=== PATIENT | male | born 1980 ===

== ENCOUNTER → 2020-05-09 13:01 | Outpatient (BNVA) | payer OTHER, SELFPAY | PROVIDERS: PCP Nurse Practitioner Family; Visit Provider Surgery Vascular Surgery | DX: I83.11 Varicose veins of right lower extremity with inflammation (principal); E11.9 Type 2 diabetes mellitus without complications; F17.210 Nicotine dependence, cigarettes, uncomplicated | CPT/HCPCS: 99213 ==

== ENCOUNTER → 2020-05-11 | Outpatient (BNVA) | payer OTHER, SELFPAY | PROVIDERS: PCP Nurse Practitioner Family; Referring Provider Nurse Practitioner Family; Visit Provider Internal Medicine Endocrinology, Diabetes & Metabolism | DX: K86.1 Other chronic pancreatitis (principal); E08.22 Diabetes mellitus due to underlying condition with diabetic chronic kidney disease; I12.9 Hypertensive chronic kidney disease with stage 1 through stage 4 chronic kidney disease, or unspecified chronic kidney disease; N18.30 Chronic kidney disease, stage 3 unspecified; E66.9 Obesity, unspecified; E29.1 Testicular hypofunction; E78.1 Pure hyperglyceridemia; Z79.4 Long term (current) use of insulin; Z79.899 Other long term (current) drug therapy | CPT/HCPCS: 82947; 95251; 96372; 99214 ==

== ENCOUNTER → 2020-05-26 12:28 | Outpatient (BNVA) | payer OTHER, SELFPAY | PROVIDERS: PCP Nurse Practitioner Family; Visit Provider Surgery Vascular Surgery | DX: I83.11 Varicose veins of right lower extremity with inflammation (principal) | CPT/HCPCS: 36482 ==

== ENCOUNTER 2020-05-29 12:54 | Outpatient (REF) | payer OTHER, SELFPAY ==
--- NOTE | 2020-05-29 | US_ITS ---
EXAMINATION: US VENOUS ULTRASOUND WITH DOPPLER LOWER EXTREMITY, RIGHT CLINICAL INFORMATION: Status post VenaSeal. COMPARISON: None. TECHNIQUE: Ultrasound of the deep veins is performed from the hip to the calf with compression sonography and color and pulse Doppler assessment. Spectral analysis with color-flow imaging is performed. FINDINGS: There is normal venous compression and respiratory variation and augmented flow. The visualized common femoral vein, superficial femoral vein, profunda femoral vein, popliteal vein, and the trifurcation region shows no evidence of deep venous thrombosis. There is no significant popliteal fossa cyst. There is a clot in greatest saphenous vein approximate 5 cm from the common femoral venous junction with no flow seen. Incidentally noted is a lymph node proximal thigh measuring 4.1 x 1.5 x 3.0 cm. US/US venous duplex LE RT IMPRESSION: No evidence of DVT. There is a clot in the greater saphenous vein 5 cm from the common femoral venous junction status post VenaSeal.
== END 2020-05-29 12:55 | disposition home or self-care (01) ==
LOC: HO.HMGCX 12:54
PROVIDERS: PCP Nurse Practitioner Family; Visit Provider Surgery Vascular Surgery
DX: M79.604 Pain in right leg (principal)
CPT/HCPCS: 93971

== ENCOUNTER → 2020-06-08 15:24 | Outpatient (BNVA) | payer OTHER, SELFPAY | PROVIDERS: PCP Nurse Practitioner Family; Visit Provider Surgery Vascular Surgery | DX: I83.11 Varicose veins of right lower extremity with inflammation (principal); Z98.890 Other specified postprocedural states | CPT/HCPCS: 99212 ==

== ENCOUNTER → 2020-07-06 11:16 | Outpatient (BNVA) | payer OTHER, SELFPAY | PROVIDERS: PCP Nurse Practitioner Family; Visit Provider Surgery Vascular Surgery | DX: I83.11 Varicose veins of right lower extremity with inflammation (principal) | CPT/HCPCS: 99212 ==

== ENCOUNTER → 2020-08-15 13:31 | Outpatient (BNVA) | payer OTHER, SELFPAY | PROVIDERS: PCP Nurse Practitioner Family; Referring Provider Nurse Practitioner Family; Visit Provider Internal Medicine Endocrinology, Diabetes & Metabolism | DX: E13.9 Other specified diabetes mellitus without complications (principal); Z79.4 Long term (current) use of insulin; I10 Essential (primary) hypertension; E66.9 Obesity, unspecified; E29.1 Testicular hypofunction; E78.1 Pure hyperglyceridemia; N18.30 Chronic kidney disease, stage 3 unspecified; S36.209S Unspecified injury of unspecified part of pancreas, sequela | CPT/HCPCS: 82947; 99212 ==

== ENCOUNTER → 2020-08-18 11:02 | Outpatient (BNVA) | payer OTHER, SELFPAY | PROVIDERS: PCP Nurse Practitioner Family; Referring Provider Nurse Practitioner Family; Visit Provider Internal Medicine Gastroenterology ==

== ENCOUNTER → 2020-08-22 14:16 | Outpatient (BNVA) | payer OTHER, SELFPAY | PROVIDERS: PCP Nurse Practitioner Family; Visit Provider Surgery Vascular Surgery | DX: I83.11 Varicose veins of right lower extremity with inflammation (principal) | CPT/HCPCS: 99212 ==

== ENCOUNTER 2020-08-29 | Outpatient (REF) | payer OTHER, SELFPAY ==
--- NOTE | 2020-08-29 10:23 | US_ITS ---
EXAMINATION: RIGHT LOWER EXTREMITY VENOUS ULTRASOUND (Reflux Exam) CLINICAL INDICATION: Post greater saphenous vena seal procedure April 2020 COMPARISON: Previous exams most recent May 2020 TECHNIQUE: Color flow triplex imaging and compression Doppler was performed to evaluate both the deep and the superficial systems bilaterally. To evaluate the superficial system, the examination was performed in the upright position. Color-flow Doppler ultrasound and compression ultrasound were utilized. In addition, maneuvers were utilized to demonstrate reflux. FINDINGS: 1. DEEP VENOUS ULTRASOUND OF THE RIGHT LOWER EXTREMITY: Respiratory variation, normal compression and augmented flow are noted in the right common femoral vein as well as the right mid femoral and popliteal vein and there is no evidence of deep venous thrombosis at these locations. There is no evidence of reflux in the deep system in either the common, femoral vein or the popliteal vein. There is no evidence of a Peters's cyst. 2. SUPERFICIAL ULTRASOUND WITH DOPPLER OF RIGHT LOWER EXTREMITY: The right great saphenous vein at the saphenofemoral junction measures 8 mm, at the mid thigh 2 mm, dgiml-[id number]-[id number] 3 mm, uthtp-[id number] 3 mm, at mid calf 3 mm and at the ankle measures 3 mm. There is echogenic material seen in the right greater saphenous vein 4.4 cm from the saphenofemoral junction compatible with the mesial procedure. There is no reflux demonstrated in the right great saphenous vein. The right small saphenous vein measures 2 mm and shows no reflux. There is a lateral accessory right greater saphenous vein that measures 5 mm and does not demonstrate reflux. There is a thrombosed varicosity in the mid thigh that measures 4 mm. There is shotty right inguinal lymphadenopathy. US/US venous duplex LE RT IMPRESSION: 1. No evidence of reflux or thrombus in the common, mid femoral veins or popliteal veins. 2. No saphenous vein reflux seen. Echogenic material in the right greater saphenous vein in the thigh 4.4 cm from the saphenofemoral junction post Vena Seal procedure.
== END 2020-08-29 00:01 | disposition home or self-care (01) ==
LOC: HO.US
PROVIDERS: Visit Provider Surgery Vascular Surgery
DX: I83.11 Varicose veins of right lower extremity with inflammation (principal); I83.893 Varicose veins of bilateral lower extremities with other complications
CPT/HCPCS: 93971

== ENCOUNTER → 2020-09-19 15:09 | Outpatient (BNVA) | payer OTHER, SELFPAY | PROVIDERS: PCP Nurse Practitioner Family; Visit Provider Surgery Vascular Surgery ==

== ENCOUNTER → 2020-11-16 13:15 | Outpatient (BNVA) | payer OTHER, SELFPAY | PROVIDERS: PCP Nurse Practitioner Family; Visit Provider Internal Medicine Endocrinology, Diabetes & Metabolism | DX: E11.22 Type 2 diabetes mellitus with diabetic chronic kidney disease (principal); I12.9 Hypertensive chronic kidney disease with stage 1 through stage 4 chronic kidney disease, or unspecified chronic kidney disease; N18.30 Chronic kidney disease, stage 3 unspecified; Z79.4 Long term (current) use of insulin; E66.9 Obesity, unspecified; E29.1 Testicular hypofunction; E78.1 Pure hyperglyceridemia; S36.209S Unspecified injury of unspecified part of pancreas, sequela | CPT/HCPCS: 82947; 99212 ==

== ENCOUNTER 2020-12-26 10:25 | Outpatient (REF) | payer OTHER, SELFPAY | END 2020-12-26 10:26 | disposition home or self-care (01) | LOC: HO.MRI 10:25 | PROVIDERS: Visit Provider Internal Medicine Gastroenterology | DX: Z13.89 Encounter for screening for other disorder (principal) ==

== ENCOUNTER 2021-01-02 09:25 | Outpatient (REF) | payer MEDICARE, MEDICAID, SELFPAY ==
[2021-01-02 10:17] LABS: MANUAL DIFF FLAG NO
[2021-01-02 10:24] LABS: Basophils Percent Auto 0.6 % (0-2); Eosinophils Absolute Auto 0.2 X10*3/uL (0.0-0.4); Eosinophils Percent Auto 3.6 % (0-4); Hematocrit 42.7 % (42-52); Imm Gran Abs Auto 0.03 X10*3/uL (0.00-0.03); Imm Gran Pct Auto 0.6 % (0.0-0.4); Lymphocytes Absolute Auto 1.5 X10*3/uL (1.2-4.9); Lymphocytes Percent Auto 28.7 % (20-40); Mean Corpuscular HGB Conc 35.1 g/dl (31.0-36.0); Mean Corpuscular Hemoglobin 27.4 pg (27.0-33.0); Mean Corpuscular Volume 77.9 fL (80-98); Monocytes Absolute Auto 0.4 X10*3/uL (0.1-1.2); Monocytes Percent Auto 8.1 % (2-11); Neutrophils Percent Auto 58.4 % (45-73); Platelet Count 168 X10*3/uL (160-400); Red Blood Count 5.48 X10*6/uL (4.60-5.80); Red Cell Distribution Width 12.9 % (11.0-16.0); White Blood Count 5.1 X10*3/uL (4.8-10.8)
[2021-01-02 11:27] LABS: Folate 17.7 ng/mL (> or = 4.0); Vitamin B12 572 pg/mL (200-900)
[2021-01-02 11:28] LABS: Erythrocyte Sedimentation Rate 10 MM/HR (0-15)
[2021-01-02 12:00] LABS: Free T4 (Free Thyroxine) 1.08 ng/dL (0.71-1.85); Thyroid Stimulating Hormone 2.03 uIU/mL (0.32-4.0)
[2021-01-02 12:01] LABS: Glucose Fasting 646 mg/dL (60-99)
[2021-01-02 12:09] LABS: Cholesterol 377 mg/dL
[2021-01-02 12:10] LABS: Vitamin D 25-OH Total 21.7 ng/mL (>30)
[2021-01-02 12:19] LABS: HDL Cholesterol 27 mg/dL; Triglycerides 2380 mg/dL
[2021-01-02 12:28] LABS: Creatinine Urine 22.32 mg/dL; Microalbumin Urine < 5.0 mg/L
[2021-01-02 12:29] LABS: Alanine Aminotransferase 61 U/L (0-40); Albumin Level 4.3 g/dL (3.5-5.0); Alkaline Phosphatase 200 U/L (39-117); Anion Gap 16 (12-20); Aspartate Amino Transferase 30 U/L (5-37); Bilirubin Direct 0.3 mg/dL (0.0-0.5); Blood Urea Nitrogen 17 mg/dL (9-16); C Reactive Protein 0.58 mg/dL (< or = 0.50); Calcium 9.7 mg/dL (8.4-10.2); Carbon Dioxide 23 mmol/L (22-29); Chloride 96 mmol/L (96-108); Estimated Glomerular Filt Rate 52; Gamma Glutamyl Transpeptidase 1162 U/L (11-51); Potassium 4.1 mmol/L (3.3-5.1); Sodium 131 mmol/L (135-145); Total Protein 6.5 g/dL (6.5-8.0)
[2021-01-02 12:43] LABS: Ferritin 161 ng/mL (20-250); Vitamin D 25-OH Total 35.2 ng/mL (>30)
[2021-01-03 09:27] LABS: HBS Num1 0.26 mIU/mL (0-7.99); Hepatitis A Antibody IgM 0.19 Index (0-0.79); ~Hepatitis A Antibody IgM Nonreactive (Nonreactive); ~Hepatitis B Surface Antibody NONREACTIVE (Nonreactive)
[2021-01-03 10:04] LABS: HBc Num1 0.04 S/CO (0.00-0.79); HBsAGNum1 0.22 S/CO (0.00-0.99); Hepatitis B Core Antibody Nonreactive (Nonreactive); Hepatitis B Surface Antigen Negative (Negative); ~HepC Num1 0.03 S/CO (0.00-0.79); ~Hepatitis C Antibody Nonreactive (Nonreactive)
[2021-01-03 20:32] LABS: LDL Cholesterol Direct 88 mg/dL (<100)
[2021-01-03 22:37] LABS: Immunoglobulin G Subclass 1 300 mg/dL (382-929); Immunoglobulin G Subclass 2 133 mg/dL (241-700); Immunoglobulin G Subclass 3 17 mg/dL (22-178); Immunoglobulin G Subclass 4 9.7 mg/dL (4-86); Immunoglobulin G Total 548 mg/dL (600-1640)
[2021-01-04 12:47] LABS: Anti Nuclear Antibody Screen NEGATIVE (NEGATIVE)
[2021-01-04 14:22] LABS: Mitochondrial Antibodies NEGATIVE (NEGATIVE)
[2021-01-04 16:52] LABS: Alpha 1 Anti-trypsin 152 mg/dL (83-199); Ceruloplasmin 24 mg/dL (18-36); IgA 148 mg/dL (47-310); IgG 540 mg/dL (600-1640); IgM 42 mg/dL (50-300)
[2021-01-05 00:06] LABS: Zinc 67 mcg/dL (60-130)
[2021-01-05 17:32] LABS: Histamine Plasma <1.5 ng/mL (< OR = 1.8)
[2021-01-05 19:37] LABS: Transglutaminase IgA 1 U/mL
[2021-01-06 12:56] LABS: Vitamin B6 22.5 ng/mL (2.1-21.7)
[2021-01-07 04:12] LABS: Vitamin A 38 mcg/dL (38-98)
[2021-01-08 22:22] LABS: Smooth Muscle Antibody <20 U (<20)
[2021-01-09 09:37] LABS: Alpha-Tocopherol 57.4 mg/L (5.7-19.9); Beta-Gamma Tocopherol 11.4 mg/L (<=4.3)
== END 2021-01-02 09:26 | disposition home or self-care (01) ==
LOC: HO.MRI 09:25
PROVIDERS: Internal Medicine Endocrinology, Diabetes & Metabolism; PCP Nurse Practitioner Family; Visit Provider Internal Medicine Gastroenterology
DX: K86.1 Other chronic pancreatitis (principal); K87 Disorders of gallbladder, biliary tract and pancreas in diseases classified elsewhere; K90.89 Other intestinal malabsorption; R10.13 Epigastric pain; R94.5 Abnormal results of liver function studies; E11.65 Type 2 diabetes mellitus with hyperglycemia; E78.1 Pure hyperglyceridemia; S36.209S Unspecified injury of unspecified part of pancreas, sequela; X58.XXXS Exposure to other specified factors, sequela
CPT/HCPCS: 36415; 80053; 80061; 80076; 82043; 82085; 82103; 82180; 82248; 82306; 82390; 82607; 82728; 82746; 82784; 82977; 83088; 83516; 83721; 84207; 84439; 84443; 84446; 84590; 84591; 84597; 84630; 85025; 85652; 86038; 86039; 86140; 86255; 86256; 86704; 86706; 86709; 86803; 87340

== ENCOUNTER 2021-01-03 16:20 | Outpatient (REF) | payer MEDICARE, MEDICAID, SELFPAY ==
--- NOTE | ~2021-01-03 | MR_ITS ---
EXAMINATION: MRI ABDOMEN WITH AND WITHOUT CONTRAST CLINICAL INFORMATION: K86.1 - Other chronic pancreatitis COMPARISON: Prior studies including the 09/22/2018 CT scan TECHNIQUE: Multiple routine MRI sequences through the abdomen were obtained on a high-field 1.5Tesla MRI. Pre-and postcontrast images with 10 mL of Gadavist intravenous contrast were obtained. This included a dynamic contrast-enhanced technique. FINDINGS: Visualized lung bases are unremarkable. Diffuse fatty infiltration the liver is seen with loss of signal on the out of phase imaging. Gallbladder surgically absent. Specific attention was given to the pancreas. There is diffuse loss of the normal T1 signal to the pancreas. Pancreas is relatively atrophic but I do not appreciate any peripancreatic inflammatory changes or fluid currently. The examination did not include an MRCP however there does appear to be dilatation to the somewhat tortuous pancreatic duct in the region of the pancreatic tail. More normal caliber pancreatic duct in the pancreatic head and neck.. Prominent spleen. No focal abnormalities seen within the visualized adrenals and kidneys. MR/MR abdomen wo/w con IMPRESSION: Diffuse loss of the normal T1 signal to the somewhat atrophic pancreas suggesting sequela of prior pancreatitis. Although not performed as an MRCP, the does appear to be pancreatic ductal dilatation in the pancreatic tail again likely representing sequela of prior pancreatitis.
== END 2021-01-03 16:21 | disposition home or self-care (01) ==
LOC: HO.MRI 16:20
PROVIDERS: Visit Provider Internal Medicine Gastroenterology
DX: K86.1 Other chronic pancreatitis (principal); K87 Disorders of gallbladder, biliary tract and pancreas in diseases classified elsewhere; K90.89 Other intestinal malabsorption; R10.13 Epigastric pain; R94.5 Abnormal results of liver function studies
CPT/HCPCS: 74183; A9585

== ENCOUNTER → 2021-02-15 11:19 | Outpatient (BNVA) | payer MEDICARE, MEDICAID, SELFPAY | PROVIDERS: PCP Nurse Practitioner Family; Visit Provider Internal Medicine Endocrinology, Diabetes & Metabolism | DX: E11.65 Type 2 diabetes mellitus with hyperglycemia (principal); E11.22 Type 2 diabetes mellitus with diabetic chronic kidney disease; I12.9 Hypertensive chronic kidney disease with stage 1 through stage 4 chronic kidney disease, or unspecified chronic kidney disease; S36.209S Unspecified injury of unspecified part of pancreas, sequela; X58.XXXD Exposure to other specified factors, subsequent encounter; K86.1 Other chronic pancreatitis; N18.30 Chronic kidney disease, stage 3 unspecified; F17.210 Nicotine dependence, cigarettes, uncomplicated; Z88.1 Allergy status to other antibiotic agents; Z88.0 Allergy status to penicillin; Z88.2 Allergy status to sulfonamides; Z88.8 Allergy status to other drugs, medicaments and biological substances; Z79.4 Long term (current) use of insulin; Z79.899 Other long term (current) drug therapy | CPT/HCPCS: 82947; 96372; 99212; J1815 ==

== ENCOUNTER 2021-03-23 09:55 | Outpatient (REF) | payer MEDICARE, MEDICAID, SELFPAY ==
[2021-03-23 11:43] LABS: MANUAL DIFF FLAG NO
[2021-03-23 11:53] LABS: Basophils Percent Auto 0.6 % (0-2); Eosinophils Absolute Auto 0.2 X10*3/uL (0.0-0.4); Eosinophils Percent Auto 4.3 % (0-4); Hematocrit 41.8 % (42-52); Hemoglobin 14.2 g/dl (14.0-18.0); Imm Gran Abs Auto 0.04 X10*3/uL (0.00-0.03); Imm Gran Pct Auto 0.8 % (0.0-0.4); Lymphocytes Absolute Auto 1.3 X10*3/uL (1.2-4.9); Mean Corpuscular Hemoglobin 27.7 pg (27.0-33.0); Mean Corpuscular Volume 81.5 fL (80-98); Mean Platelet Volume 10.1 fL (9.4-12.4); Monocytes Absolute Auto 0.4 X10*3/uL (0.1-1.2); Monocytes Percent Auto 8.3 % (2-11); Neutrophils Absolute Auto 3.1 X10*3/uL (2.0-8.3); Platelet Count 183 X10*3/uL (160-400); Red Blood Count 5.13 X10*6/uL (4.60-5.80); Red Cell Distribution Width 13.1 % (11.0-16.0); White Blood Count 5.2 X10*3/uL (4.8-10.8)
[2021-03-23 12:56] LABS: Alanine Aminotransferase 126 U/L (0-40); Albumin Level 3.9 g/dL (3.5-5.0); Alkaline Phosphatase 145 U/L (39-117); Anion Gap 12 (12-20); Aspartate Amino Transferase 68 U/L (5-37); Bilirubin Total 0.6 mg/dL (0.0-1.0); Blood Urea Nitrogen 14 mg/dL (9-16); Carbon Dioxide 23 mmol/L (22-29); Chloride 103 mmol/L (96-108); Estimated Glomerular Filt Rate > 60; Glucose Random 524 mg/dL (60-115); Potassium 4.4 mmol/L (3.3-5.1); Sodium 134 mmol/L (135-145); Total Protein 5.9 g/dL (6.5-8.0)
[2021-03-26 14:06] LABS: TS Negative Control Passed; TS Panel A 0; TS Panel B 1; TS Positive Control Passed; TSpotTB Negative (SeeBelow)
== END 2021-03-23 09:56 | disposition home or self-care (01) ==
LOC: HO.HMGCLDS 09:55
PROVIDERS: PCP Nurse Practitioner Family; Visit Provider Physician Assistant Medical
DX: L40.0 Psoriasis vulgaris (principal); R60.0 Localized edema; L81.8 Other specified disorders of pigmentation; D23.62 Other benign neoplasm of skin of left upper limb, including shoulder; Z79.899 Other long term (current) drug therapy
CPT/HCPCS: 36415; 80053; 85025; 86481

== ENCOUNTER → 2021-07-06 08:25 | Outpatient (BNVA) | payer MEDICARE, MEDICAID, SELFPAY | PROVIDERS: PCP Nurse Practitioner Family; Visit Provider Nurse Practitioner Gerontology | DX: E13.9 Other specified diabetes mellitus without complications (principal); E13.22 Other specified diabetes mellitus with diabetic chronic kidney disease; I12.9 Hypertensive chronic kidney disease with stage 1 through stage 4 chronic kidney disease, or unspecified chronic kidney disease; N18.30 Chronic kidney disease, stage 3 unspecified; E66.9 Obesity, unspecified; E29.1 Testicular hypofunction; E78.1 Pure hyperglyceridemia; S36.209S Unspecified injury of unspecified part of pancreas, sequela; Z79.4 Long term (current) use of insulin | CPT/HCPCS: 82947; 83036; 96372; 99212; J1815 ==

== ENCOUNTER → 2021-08-22 08:24 | Outpatient (BNVA) | payer MEDICARE, MEDICAID, SELFPAY | PROVIDERS: PCP Nurse Practitioner Family; Visit Provider Nurse Practitioner Gerontology | DX: S36.209S Unspecified injury of unspecified part of pancreas, sequela (principal); E13.22 Other specified diabetes mellitus with diabetic chronic kidney disease; I12.9 Hypertensive chronic kidney disease with stage 1 through stage 4 chronic kidney disease, or unspecified chronic kidney disease; N18.30 Chronic kidney disease, stage 3 unspecified; Z79.4 Long term (current) use of insulin; E78.1 Pure hyperglyceridemia; E66.9 Obesity, unspecified; Z68.33 Body mass index [BMI] 33.0-33.9, adult | CPT/HCPCS: 82947; 99212 ==

== ENCOUNTER → 2021-09-20 11:04 | Outpatient (BNVA) | payer MEDICARE, MEDICAID, SELFPAY | PROVIDERS: PCP Nurse Practitioner Family; Visit Provider Registered Nurse Diabetes Educator | DX: Z13.89 Encounter for screening for other disorder (principal) ==

== ENCOUNTER 2021-10-09 10:16 | Outpatient (REF) | payer MEDICARE, MEDICAID, SELFPAY ==
[2021-10-09 12:27] LABS: Creatinine Urine 42.25 mg/dL; Microalbumin Urine < 5.0 mg/L
[2021-10-09 12:35] LABS: Alanine Aminotransferase 48 U/L (0-40); Albumin Level 3.9 g/dL (3.5-5.0); Alkaline Phosphatase 155 U/L (39-117); Anion Gap 13 (12-20); Aspartate Amino Transferase 24 U/L (5-37); Bilirubin Total 0.5 mg/dL (0.0-1.0); Blood Urea Nitrogen 11 mg/dL (9-16); Calcium 9.3 mg/dL (8.4-10.2); Carbon Dioxide 28 mmol/L (22-29); Chloride 100 mmol/L (96-108); Cholesterol 160 mg/dL; Estimated Glomerular Filt Rate 54; HDL Cholesterol 35 mg/dL; Potassium 4.2 mmol/L (3.3-5.1); Sodium 137 mmol/L (135-145); Total Protein 6.1 g/dL (6.5-8.0); Triglycerides 488 mg/dL
[2021-10-09 13:14] LABS: Glucose Random 487 mg/dL (60-115)
[2021-10-10 07:41] LABS: LDL Cholesterol Direct 67 mg/dL (<100)
== END 2021-10-09 10:17 | disposition home or self-care (01) ==
LOC: HO.HMGCLDS 10:16
PROVIDERS: Visit Provider Nurse Practitioner Gerontology
DX: E13.9 Other specified diabetes mellitus without complications (principal); S36.209S Unspecified injury of unspecified part of pancreas, sequela
CPT/HCPCS: 36415; 80053; 80061; 82043; 83721

== ENCOUNTER → 2021-10-10 09:00 | Outpatient (BNVA) | payer MEDICARE, MEDICAID, SELFPAY | PROVIDERS: PCP Nurse Practitioner Family; Visit Provider Internal Medicine Endocrinology, Diabetes & Metabolism | DX: E13.9 Other specified diabetes mellitus without complications (principal); S36.209S Unspecified injury of unspecified part of pancreas, sequela; Z79.4 Long term (current) use of insulin | CPT/HCPCS: 82947; 83036; 99212 ==

== ENCOUNTER → 2021-10-18 10:59 | Outpatient (BNVA) | payer MEDICARE, MEDICAID, SELFPAY | PROVIDERS: PCP Nurse Practitioner Family; Visit Provider Registered Nurse Diabetes Educator | DX: E13.9 Other specified diabetes mellitus without complications (principal); S36.209S Unspecified injury of unspecified part of pancreas, sequela | CPT/HCPCS: 99211 ==

== ENCOUNTER 2021-12-10 12:03 | Outpatient (REF) | payer MEDICARE, MEDICAID, SELFPAY ==
[2021-12-14 14:25] LABS: IGF-1 (Somatomedin C) 103 ng/mL (52-328); IGF-1 Z Score (Male) -0.7 SD (-2.0 - +2.0)
== END 2021-12-10 12:04 | disposition home or self-care (01) ==
LOC: HO.HMGCLDS 12:03
PROVIDERS: PCP Nurse Practitioner Family; Visit Provider Internal Medicine Endocrinology, Diabetes & Metabolism
DX: S36.209S Unspecified injury of unspecified part of pancreas, sequela (principal); E13.9 Other specified diabetes mellitus without complications
CPT/HCPCS: 36415; 84305

== ENCOUNTER 2021-12-11 12:58 | Outpatient (REF) | payer MEDICARE, MEDICAID, SELFPAY ==
[2021-12-11 15:15] LABS: Creatinine, mg/dL 94.25
[2021-12-11 20:08] LABS: Total Volume 24 Hour Urine 2075 mL
[2021-12-18 16:57] LABS: Cortisol Free, 24 Hr Urine 16.2 mcg/24 h (4.0-50.0); Total Volume, 24 Hr Urine 2075 mL
== END 2021-12-11 12:59 | disposition home or self-care (01) ==
LOC: HO.HMGCLNP 12:58
PROVIDERS: PCP Nurse Practitioner Family; Visit Provider Internal Medicine Endocrinology, Diabetes & Metabolism
DX: E13.9 Other specified diabetes mellitus without complications (principal); S36.209S Unspecified injury of unspecified part of pancreas, sequela
CPT/HCPCS: 82530; 82570

== ENCOUNTER → 2021-12-12 09:57 | Outpatient (BNVA) | payer MEDICARE, MEDICAID, SELFPAY | PROVIDERS: PCP Nurse Practitioner Family; Visit Provider Internal Medicine Endocrinology, Diabetes & Metabolism | DX: E13.9 Other specified diabetes mellitus without complications (principal); S36.209S Unspecified injury of unspecified part of pancreas, sequela; Z79.4 Long term (current) use of insulin | CPT/HCPCS: 82947; 99212 ==

== ENCOUNTER → 2021-12-20 12:30 | Outpatient (BNVA) | payer MEDICARE, MEDICAID, SELFPAY | PROVIDERS: PCP Nurse Practitioner Family; Visit Provider Registered Nurse Diabetes Educator | DX: E11.65 Type 2 diabetes mellitus with hyperglycemia (principal); Z79.4 Long term (current) use of insulin | CPT/HCPCS: 99211 ==

== ENCOUNTER → 2022-01-22 09:32 | Outpatient (BNVA) | payer MEDICARE, MEDICAID, SELFPAY | PROVIDERS: PCP Nurse Practitioner Family; Visit Provider Registered Nurse Diabetes Educator | DX: E13.9 Other specified diabetes mellitus without complications (principal); S36.209S Unspecified injury of unspecified part of pancreas, sequela; Z79.4 Long term (current) use of insulin | CPT/HCPCS: 99211 ==

== ENCOUNTER → 2022-02-20 09:55 | Outpatient (BNVA) | payer MEDICARE, MEDICAID, SELFPAY | PROVIDERS: PCP Nurse Practitioner Family; Visit Provider Registered Nurse Diabetes Educator | DX: E11.65 Type 2 diabetes mellitus with hyperglycemia (principal) | CPT/HCPCS: 99211 ==

== ENCOUNTER → 2022-03-13 10:00 | Outpatient (BNVA) | payer MEDICARE, MEDICAID, SELFPAY | PROVIDERS: PCP Nurse Practitioner Family; Visit Provider Internal Medicine Endocrinology, Diabetes & Metabolism | DX: E13.9 Other specified diabetes mellitus without complications (principal); S36.209S Unspecified injury of unspecified part of pancreas, sequela; Z79.4 Long term (current) use of insulin | CPT/HCPCS: 82947; 99212 ==

== ENCOUNTER → 2022-03-20 09:57 | Outpatient (BNVA) | payer MEDICARE, MEDICAID, SELFPAY | PROVIDERS: PCP Nurse Practitioner Family; Visit Provider Registered Nurse Diabetes Educator | DX: E11.65 Type 2 diabetes mellitus with hyperglycemia (principal); E11.22 Type 2 diabetes mellitus with diabetic chronic kidney disease; N18.30 Chronic kidney disease, stage 3 unspecified; Z79.4 Long term (current) use of insulin | CPT/HCPCS: 99211 ==

== ENCOUNTER 2022-05-09 13:32 | Outpatient (REF) | payer MEDICARE, MEDICAID, SELFPAY ==
--- NOTE | ~2022-05-09 | CT_ITS ---
EXAMINATION: CT ABDOMEN AND PELVIS WITH CONTRAST CLINICAL INFORMATION: Paraumbilical abdominal tenderness. COMPARISON: MRI abdomen 01/03/2021. TECHNIQUE: Multidetector volumetric images were obtained from the superior aspect of the liver through the pubic symphysis following administration 85 mL of Omnipaque 350 intravenous contrast. Sagittal and coronal reformatted images were obtained on the technologist's workstation. Oral contrast: No This CT examination was performed using dose optimization techniques as appropriate, variously including the following: *Automated exposure control *Adjustment of mA and/or kV according to patient size (this includes techniques or standardized protocols for targeted exams where dose is matched to indication/reason for exam; i.e. extremities or head) *Use of iterative reconstruction technique DLP: 844 mGy-cm FINDINGS: LUNG BASES: The visualized lung bases are unremarkable. LIVER, GALLBLADDER, AND BILIARY TREE: The liver is normal in size, shape, and diffusely hypoattenuated. No focal hepatic lesion or biliary ductal dilatation is present. The gallbladder has been surgically removed. PANCREAS: The pancreas is atrophic with prominent pancreatic duct in the region of the tail. It measures approximately 9 mm. The duct is normal, barely visible in the head and the body the pancreas. The peripancreatic fat borders are preserved. No mass visualized. SPLEEN: Unremarkable ADRENAL GLANDS: Unremarkable KIDNEYS AND URETERS: The kidneys are normal in size, shape, and attenuation. No hydronephrosis, hydroureter, or calculi seen. No perinephric stranding. BLADDER: Unremarkable GASTROINTESTINAL TRACT: There is scattered stool and gas seen in the colon without significant distention. The small bowel loops are normal caliber. Appendix is normal caliber. ABDOMINAL WALL: There is a small umbilical hernia containing fat. LYMPH NODES: Normal VASCULAR: Unremarkable PELVIC VISCERA: There is no free air or free fluid. No abnormal pelvic lymph nodes. No hernia seen. OSSEOUS STRUCTURES: No lytic or sclerotic process seen. CT/CT abdomen pelvis w IV con IMPRESSION: 1. No acute intra-abdominal process seen. 2. Diffuse hepatic steatosis without focal lesion. The gallbladder has been surgically removed. 3. Atrophic pancreas with prominent pancreatic duct in the tail. 4. Small umbilical hernia containing fat. 5. Moderate constipation. Normal appendix. Fleischner guidelines were followed.
[2022-05-09] MEDS: Barium Sulfate Oral (Mocha) 450 ML ORAL.SUSP 900 ML PO (16:00)
[2022-05-09] MEDS: iohexoL 350 MG/ML 100 ML INFUS..BTL IV (16:01)
== END 2022-05-09 13:33 | disposition home or self-care (01) ==
LOC: HO.CT 13:32
PROVIDERS: PCP Nurse Practitioner Family; Visit Provider Nurse Practitioner Family
DX: K42.9 Umbilical hernia without obstruction or gangrene (principal); R10.815 Periumbilic abdominal tenderness
CPT/HCPCS: 74177; Q9967

== ENCOUNTER → 2022-05-20 12:59 | Outpatient (BNVA) | payer MEDICARE, MEDICAID, SELFPAY | PROVIDERS: PCP Nurse Practitioner Family; Visit Provider Surgery | DX: K42.9 Umbilical hernia without obstruction or gangrene (principal); Z90.49 Acquired absence of other specified parts of digestive tract | CPT/HCPCS: 99202 ==

== ENCOUNTER 2022-06-05 08:23 | Outpatient (REF) | payer MEDICARE, MEDICAID, SELFPAY ==
[2022-06-07 06:26] LABS: Follicle Stimulating Hormone 5.4 mIU/mL (1.6-8.0); Lutenizing Hormone 1.6 mIU/mL (1.5-9.3)
[2022-06-10 19:56] LABS: Testosterone, Free 34.8 pg/mL (35.0-155.0); Testosterone, Total 124 ng/dL (250-1100)
== END 2022-06-05 08:24 | disposition home or self-care (01) ==
LOC: HO.HMGCLDS 08:23
PROVIDERS: PCP Nurse Practitioner Family; Visit Provider Nurse Practitioner Family
DX: E29.1 Testicular hypofunction (principal)
CPT/HCPCS: 36415; 83001; 83002; 84402; 84403

== ENCOUNTER → 2022-06-10 10:24 | Outpatient (BNVA) | payer MEDICARE, MEDICAID, SELFPAY | PROVIDERS: PCP Nurse Practitioner Family; Referring Provider Nurse Practitioner Family; Visit Provider Internal Medicine Gastroenterology | DX: R10.815 Periumbilic abdominal tenderness (principal); K86.1 Other chronic pancreatitis | CPT/HCPCS: 99212 ==

== ENCOUNTER 2022-06-11 13:10 | Outpatient (REF) | payer MEDICARE, MEDICAID, SELFPAY ==
[2022-06-11 13:55] LABS: MANUAL DIFF FLAG NO
[2022-06-11 13:59] LABS: Basophils Absolute Auto 0.1 X10*3/uL (0.0-0.2); Basophils Percent Auto 0.8 % (0-2); Eosinophils Absolute Auto 0.2 X10*3/uL (0.0-0.4); Eosinophils Percent Auto 3.3 % (0-4); Hematocrit 41.4 % (42.0-52.0); Hemoglobin 14.6 g/dl (14.0-18.0); Imm Gran Abs Auto 0.03 X10*3/uL (0.00-0.03); Imm Gran Pct Auto 0.5 % (0.0-0.4); Lymphocytes Percent Auto 31.1 % (20-40); Mean Corpuscular HGB Conc 35.3 g/dl (31.0-36.0); Mean Corpuscular Hemoglobin 27.8 pg (27.0-33.0); Mean Corpuscular Volume 78.9 fL (80.0-98.0); Mean Platelet Volume 9.4 fL (9.4-12.4); Monocytes Absolute Auto 0.5 X10*3/uL (0.1-1.2); Monocytes Percent Auto 8.5 % (2-11); Neutrophils Absolute Auto 3.5 x10*3/uL (2.0-8.3); Neutrophils Percent Auto 55.8 % (45-73); Platelet Count 195 X10*3/uL (160-400); Red Blood Count 5.25 X10*6/uL (4.60-5.80); Red Cell Distribution Width 12.7 % (11.0-16.0); White Blood Count 6.3 X10*3/uL (4.8-10.8)
[2022-06-11 14:58] LABS: Erythrocyte Sedimentation Rate 7 MM/HR (0-15)
[2022-06-11 14:59] LABS: Alanine Aminotransferase 81 U/L (0-40); Albumin Level 4.2 g/dL (3.5-5.0); Alkaline Phosphatase 153 U/L (39-117); Anion Gap 14 (12-20); Aspartate Amino Transferase 54 U/L (5-37); Bilirubin Total 0.6 mg/dL (0.0-1.0); Blood Urea Nitrogen 11 mg/dL (9-16); C Reactive Protein 0.79 mg/dL (< or = 0.50); Calcium 9.4 mg/dL (8.4-10.2); Carbon Dioxide 28 mmol/L (22-29); Chloride 101 mmol/L (96-108); Estimated Glomerular Filt Rate > 60; Ferritin 150 ng/mL (20-250); Glucose Random 330 mg/dL (60-115); Iron 73 mcg/dL (45-160); Percent Iron Saturation 20 % (15-50); Potassium 3.9 mmol/L (3.3-5.1); Sodium 139 mmol/L (135-145); Total Iron Binding Capacity 373 mcg/dL (228-428); Total Protein 6.3 g/dL (6.5-8.0); Unsaturated Iron Binding 300 ug/dL; Vitamin D 25-OH Total 26.5 ng/mL (>30)
[2022-06-11 15:14] LABS: Folate 15.4 ng/mL (> or = 4.0); Vitamin B12 460 pg/mL (200-900)
[2022-06-11 15:46] LABS: Appearance Urine Clear; Color Urine Yellow; Glucose Urine UA >=1000 mg/dL (Negative); Leukocyte Esterase Urine Negative (Negative); Nitrite Urine Negative (Negative); UMIC TRIGGER UACC YES; Urine Blood Negative (Negative); Urine Ketones Negative (Negative); Urine Protein Negative (Neg-Trace)
[2022-06-11 16:20] LABS: Bacteria Urine None Seen (None Seen); Hyaline Casts Urine 0-2 /LPF (0-2); RBC Urine 0-2 /HPF (0-2); Squamous Epithelial Cell Urine 0-2 /HPF (0-2); WBC Urine 0-5 /HPF (0-5)
[2022-06-14 07:02] LABS: Zinc 70 mcg/dL (60-130)
[2022-06-14 18:11] LABS: Vitamin A 34 mcg/dL (38-98)
[2022-06-14 19:47] LABS: Beta-Gamma Tocopherol 3.6 mg/L (<=4.3)
[2022-06-15 08:02] LABS: Vitamin B1 14 nmol/L (8-30)
[2022-06-15 15:46] LABS: Vitamin C 0.3 mg/dL (0.2-2.1)
[2022-06-15 22:36] LABS: Vitamin B5 (Pantothenic Acid) 51 ng/mL (<275)
[2022-06-16 14:57] LABS: Vitamin B6 9.5 ng/mL (2.1-21.7)
[2022-06-18 12:07] LABS: Nicotinamide <20 ng/mL; Vit B3 - Nicotinic Acid <20 ng/mL
[2022-06-18 13:31] LABS: Vitamin K1 476 pg/mL (130-1500)
== END 2022-06-11 13:11 | disposition home or self-care (01) ==
LOC: HO.LAB 13:10
PROVIDERS: PCP Nurse Practitioner Family; Visit Provider Internal Medicine Gastroenterology
DX: R10.815 Periumbilic abdominal tenderness (principal); K75.81 Nonalcoholic steatohepatitis (NASH); K86.1 Other chronic pancreatitis
CPT/HCPCS: 36415; 80053; 81001; 82180; 82306; 82607; 82728; 82746; 83540; 84207; 84425; 84446; 84590; 84591; 84597; 84630; 85025; 85652; 86140

== ENCOUNTER 2022-06-12 13:18 | Outpatient (REF) | payer MEDICARE, MEDICAID, SELFPAY ==
--- NOTE | ~2022-06-12 | CT_ITS ---
EXAMINATION: CT ABDOMEN AND PELVIS WITH CONTRAST CLINICAL INFORMATION: Appendicitis. COMPARISON: 05/09/2022. TECHNIQUE: Multidetector volumetric images were obtained from the superior aspect of the liver through the pubic symphysis following administration 85 mL of Omnipaque 350 intravenous contrast. Sagittal and coronal reformatted images were obtained on the technologist's workstation. Oral contrast: Yes. This CT examination was performed using dose optimization techniques as appropriate, variously including the following: *Automated exposure control *Adjustment of mA and/or kV according to patient size (this includes techniques or standardized protocols for targeted exams where dose is matched to indication/reason for exam; i.e. extremities or head) *Use of iterative reconstruction technique DLP: 638 mGy-cm. FINDINGS: LUNG BASES: The visualized lung bases are unremarkable. Heart normal size. No pleural or pericardial effusion. LIVER, GALLBLADDER, AND BILIARY TREE: There is diffuse fatty infiltration of the liver. No focal hepatic masses identified. No intrahepatic bile duct dilatation is seen. There is hepatomegaly with vertical span of approximately 24 cm. Status post cholecystectomy. PANCREAS: There is again noted to be a cylindrical low-density region in the distal body and tail of the pancreas with the appearance of focally dilated pancreatic duct to approximately 8 mm in diameter. No peripancreatic inflammatory changes seen. A calcification is seen within the head of the pancreas. SPLEEN: Splenomegaly is present with vertical span of approximately 15 cm. No focal mass is identified. ADRENAL GLANDS: Unremarkable. KIDNEYS AND URETERS: The kidneys are normal in size, shape, and attenuation. No hydronephrosis, hydroureter, or calculi seen. No perinephric stranding. BLADDER: Unremarkable. GASTROINTESTINAL TRACT: No dilated loops of large or small bowel are evident. No free air or free fluid is seen. No pericolonic inflammatory changes noted. There is prominence of the wall of the rectum and sigmoid colon without significant diverticular disease identified. Some of this may be related to collapsed state of the bowel. The appendix is visualized and appears unremarkable. No periappendiceal inflammatory change identified. No abscess is seen. There is some increased density within the lumen likely related to contrast or calcification. ABDOMINAL WALL: There is a small fat-containing umbilical hernia. There is a small left inguinal fat-containing hernia. LYMPH NODES: There are prominent but not pathologically enlarged periaortic lymph nodes just below the origin of the superior mesenteric artery. VASCULAR: Unremarkable. PELVIC VISCERA: Unremarkable. OSSEOUS STRUCTURES: Unremarkable. CT/CT abdomen pelvis w IV con IMPRESSION: No evidence of ileus or obstruction. No evidence of acute appendicitis. No evidence of obstructive uropathy. Hepatosplenomegaly with diffuse fatty infiltration of the liver. Stable appearance of the pancreas with focally dilated pancreatic duct within the distal aspect of the body and within the tail of the pancreas. Fleischner guidelines were followed.
[2022-06-12] MEDS: Barium Sulfate Oral (Vanilla) 450 ML ORAL.SUSP 900 ML PO (16:00)
[2022-06-12] MEDS: iohexoL 350 MG/ML 100 ML INFUS..BTL IV (16:01)
== END 2022-06-12 13:19 | disposition home or self-care (01) ==
LOC: HO.CT 13:18
PROVIDERS: PCP Nurse Practitioner Family; Visit Provider Internal Medicine Gastroenterology
DX: K37 Unspecified appendicitis (principal)
CPT/HCPCS: 74177; Q9967

== ENCOUNTER → 2022-06-13 11:55 | Outpatient (BNVA) | payer MEDICARE, MEDICAID, SELFPAY | PROVIDERS: PCP Nurse Practitioner Family; Visit Provider Internal Medicine Endocrinology, Diabetes & Metabolism | DX: E29.1 Testicular hypofunction (principal) | CPT/HCPCS: 99212 ==

== ENCOUNTER 2022-06-17 07:22 | Day surgery (SDC) | payer MEDICARE, MEDICAID, SELFPAY ==
[2022-06-10 11:41] VITALS: BMI 33.1
--- NOTE | 2022-06-14 08:35 | HO.ANESPROP2 ---
HPI - Anesthesia Eval Consult details Narrative: 41yo M for Hernia Repair Umbilical PMFSH Active Problems Active Problems: All Active Problems (Updated 06/10/22 @ 11:29 by Lissa Krishnan RN) Varicose veins of right lower extremity with inflammation (Acute) Tick bite (Acute) Chronic inflammation of pancreas (Acute) Malabsorption due to disorder of pancreas (Acute) Epigastric abdominal pain (Acute) Abnormal LFTs (Acute) Periumbilic abdominal tenderness (Acute) Umbilical hernia (Acute) Uncontrolled diabetes mellitus (Acute) Hypertriglyceridemia (Chronic) Hypogonadism male (Acute) Obesity (BMI 30-39.9) (Acute) Hypertension (Acute) CKD (chronic kidney disease) stage 3, GFR 30-59 ml/min (Acute) nursing home (current) use of insulin (Acute) 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 Mother CVD (cardiovascular disease) Son No problems noted. Surgical History Surgical History H/O prior ablation treatment H/O rectal sphincterotomy History of carpal tunnel surgery History of esophagogastroduodenoscopy (EGD) History of surgery History of tooth extraction Hx of cholecystectomy Hx of colonoscopy Social History Social History Housing: House Patient Tobacco Use Status: Current everyday Tobacco user Tobacco use type: Cigarette Cigarette Packs Per Day: 0.5 Cigarettes Per Day: 10 Years Smoked: 13 e-Cigarette/Vaping Use: Never Used Substance Use Type: Former Substance User and Opiates Advance Directives Date on File: 11/03/17 Current occupational status: unemployed Cognitive needs: No Hearing needs: No Vision needs: No Meds Allergies Allergy/AdvReac Type Severity Reaction Status Date / Time amoxicillin [AMOXICILLIN] Allergy Severe anaphylaxis Verified 06/13/22 12:17 / angioedma Penicillins [PENICILLINS] Allergy Severe HIVES, Verified 06/13/22 12:17 SWELLING/SOB Sulfa (Sulfonamide Allergy Severe HIVES Verified 06/13/22 12:17 Antibiotics) [SULFA (SULFONAMIDE ANTIBIOTICS)] tramadol Allergy Intermediate GI Verified 06/13/22 12:17 upset/abd pain Home Medications Medication Instructions Recorded Confirmed Last Taken Type aripiprazole 15 mg tablet 15 mg PO BEDTIME 05/09/20 06/10/22 Unknown History lamotrigine 200 mg tablet 200 mg PO BEDTIME 05/09/20 06/10/22 Unknown History lancets 28 gauge #100 ea 05/09/20 05/20/22 Unknown History zolpidem 12.5 mg tablet,extended 12.5 mg PO BEDTIME PRN Insomnia 05/09/20 06/10/22 Unknown History release,multiphase amitriptyline 50 mg tablet 50 mg PO BEDTIME 07/06/21 06/10/22 Unknown History flash glucose scanning reader 03/13/22 05/20/22 Unknown History (FreeStyle Anyi 2 [place]) flash glucose sensor (FreeStyle 03/13/22 05/20/22 Unknown History Anyi 2 Sensor kit) guselkumab 100 mg/mL subcutaneous 100 mg subcut Q8W 05/20/22 06/10/22 Unknown History auto-injector (Tremfya) methadone 10 mg tablet 51 mg PO QAM 06/05/22 06/10/22 06/17/22 History gabapentin 100 mg capsule 300 mg PO BEDTIME 06/10/22 06/10/22 Unknown History Exam Exam Date and Time: June 14, 2022 0835 Height,Weight and Vital Signs: Height 5 ft 10 in Weight 104.837 kg Pertinent Lab Results Pertinent Lab Results: Laboratory Tests 06/11/22 06/11/22 13:54 13:54 WBC 6.3 Hgb 14.6 Hct 41.4 L Plt Count 195 Sodium 139 Potassium 3.9 Chloride 101 Carbon Dioxide 28 BUN 11 Creatinine 1.24 Assessment and Plan Assessment Anesthesia Assessment: Chart Reviewed
[2022-06-17] VITALS (14 sets, daily range): BP systolic 108–138; BP diastolic 71–92; PULSE 86–103; RESP 13–18; TEMP 36.4–36.8; O2SAT 93–98
[2022-06-17 08:36] LABS: Glucose, Whole Blood 112 mg/dL (60-115)
--- NOTE | 2022-06-17 08:38 | MHC.SHP ---
Pre-Procedural Eval Section A Date of Service: 06/17/22 The patient is an INPATIENT: No Changes since office visit: Yes Patient answered all questions; No Cold of Flu in the past 2 weeks, No New Medical Problems and No Changes in Medication The History & Physical has been completed within 30 days and I have reviewed it.: Yes Section B Chief Complaint: Umbilical hernia without obstruction or gangrene Allergies: Allergies Allergy/AdvReac Type Severity Reaction Status Date / Time amoxicillin [AMOXICILLIN] Allergy Severe anaphylaxis Verified 06/13/22 12:17 / angioedma Penicillins [PENICILLINS] Allergy Severe HIVES, Verified 06/13/22 12:17 SWELLING/SOB Sulfa (Sulfonamide Allergy Severe HIVES Verified 06/13/22 12:17 Antibiotics) [SULFA (SULFONAMIDE ANTIBIOTICS)] tramadol Allergy Intermediate GI Verified 06/13/22 12:17 upset/abd pain Plan Diagnosis/Plan: Unchanged I have reviewed the history and physical and performed a pertinent physical examination on my patient. No changes have occurred unless specified.
--- NOTE | 2022-06-17 08:41 | P.CONAN_ITS ---
[facility] Active Problems Active Problems: All Active Problems (Updated 06/10/22 @ 11:29 by Lissa Krishnan RN) Varicose veins of right lower extremity with inflammation (Acute) Tick bite (Acute) Chronic inflammation of pancreas (Acute) Malabsorption due to disorder of pancreas (Acute) Epigastric abdominal pain (Acute) Abnormal LFTs (Acute) Periumbilic abdominal tenderness (Acute) Umbilical hernia (Acute) Uncontrolled diabetes mellitus (Acute) Hypertriglyceridemia (Chronic) Hypogonadism male (Acute) Obesity (BMI 30-39.9) (Acute) Hypertension (Acute) CKD (chronic kidney disease) stage 3, GFR 30-59 ml/min (Acute) prison (current) use of insulin (Acute) 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 Mother CVD (cardiovascular disease) Son No problems noted. Family history of problems with anesthesia: No Surgical History Surgical History H/O prior ablation treatment H/O rectal sphincterotomy History of carpal tunnel surgery History of esophagogastroduodenoscopy (EGD) History of surgery History of tooth extraction Hx of cholecystectomy Hx of colonoscopy History of Problems with Anesthesia: No Social History Social History Housing: House Patient Tobacco Use Status: Current everyday Tobacco user Tobacco use type: Cigarette Cigarette Packs Per Day: 0.5 Cigarettes Per Day: 10 Years Smoked: 13 e-Cigarette/Vaping Use: Never Used Substance Use Type: Former Substance User and Opiates Substance Use Type Other:: currently taking methadone-receives take home doses from [facility] Are you DNR?: No Advance Directives: Yes Advance Directives Information Provided: Yes Advance Directives on File: Yes Advance Directives Date on File: 11/03/17 Recently lost weight without trying: No Eating poorly because of decreased appetite: No Nutrition Risks: No Nutritional Risk Current occupational status: unemployed Cognitive needs: No Hearing needs: No Vision needs: No Meds Allergies Allergy/AdvReac Type Severity Reaction Status Date / Time amoxicillin [AMOXICILLIN] Allergy Severe anaphylaxis Verified 06/13/22 12:17 / angioedma Penicillins [PENICILLINS] Allergy Severe HIVES, Verified 06/13/22 12:17 SWELLING/SOB Sulfa (Sulfonamide Allergy Severe HIVES Verified 06/13/22 12:17 Antibiotics) [SULFA (SULFONAMIDE ANTIBIOTICS)] tramadol Allergy Intermediate GI Verified 06/13/22 12:17 upset/abd pain Active Medications: Current Medications Fentanyl (Fentanyl Citrate/Pf 100 Mcg/2 Ml Vial) 50 mcg IVPUSH Q5M PRN; Protocol PRN Reason: Pain, Severe (Pain Scale 7-10) Lactated Ringer's (Lr) 1,000 mls @ 100 mls/hr IVCONT .Q10H HELDER Vancomycin HCl 1,500 mg/ (Sodium Chloride) 500 mls @ 333.333 mls/hr IV PREOP ONE Stop: 06/17/22 09:42 Ondansetron HCl (Ondansetron Hcl 4 Mg/2 Ml Vial) 4 mg IVPUSH ONCE PRN PRN Reason: Nausea and Vomiting Pharmacy Consult (Consult Rx Vancomycin Dosing) 1 each MISCELLANE DAILY PRN PRN Reason: Consult order Home Medications Medication Instructions Recorded Confirmed Last Taken Type aripiprazole 15 mg tablet 15 mg PO BEDTIME 05/09/20 06/10/22 Unknown History lamotrigine 200 mg tablet 200 mg PO BEDTIME 05/09/20 06/10/22 Unknown History lancets 28 gauge #100 ea 05/09/20 05/20/22 Unknown History zolpidem 12.5 mg tablet,extended 12.5 mg PO BEDTIME PRN Insomnia 05/09/20 06/10/22 Unknown History release,multiphase amitriptyline 50 mg tablet 50 mg PO BEDTIME 07/06/21 06/10/22 Unknown History flash glucose scanning reader 03/13/22 05/20/22 Unknown History (FreeStyle Anyi 2 [place]) flash glucose sensor (FreeStyle 03/13/22 05/20/22 Unknown History Anyi 2 Sensor kit) guselkumab 100 mg/mL subcutaneous 100 mg subcut Q8W 05/20/22 06/10/22 Unknown History auto-injector (Tremfya) methadone 10 mg tablet 51 mg PO QAM 06/05/22 06/10/22 06/17/22 History gabapentin 100 mg capsule 300 mg PO BEDTIME 06/10/22 06/10/22 Unknown History Exam Exam Date and Time: June 17, 2022 0841 Height,Weight and Vital Signs: Height 5 ft 10 in Weight 104.837 kg Last Vital Signs Temp 98.1 F 06/17/22 08:12 Pulse 103 H 06/17/22 08:12 Resp 18 06/17/22 08:12 BP 138/92 H 06/17/22 08:12 Pulse Ox 96 06/17/22 08:12 O2 Del Method 06/17/22 08:12 Pertinent Lab Results Pertinent Lab Results: Laboratory Tests 06/17/22 08:33 POC Glucose 112 Airway Mallampati Class: II TM Dist: >3cm Neck ROM: Full Assessment and Plan Assessment Anesthesia Assessment: Anesthesia Plan Discussed and Chart Reviewed Final Anesthetic Review Family History of Problems with Anesthesia: No History of Problems with Anesthesia: No NPO: Yes ASA Class: III Final Preanesthetic Review: No Changes in Pt Med Stat, Meds/Allgs Chart Reviewed, Consent Obtained/Reviewed and Anes Risks/Benef Reviewed Patient Risk: Intermediate Procedure Risk: Low Anesthetic Plan Anesthetic Plan: GA Disposition: Standard PACU
[2022-06-17] MEDS: vancomycin HCL 1,500 MG in 0.9 % Sodium Chloride 500 ML 333.33 MG IV (09:05)
--- NOTE | 2022-06-17 10:05 | W.PM.OPN ---
Operative Note Operative Note Date of Service: 06/17/22 Narrative: Preoperative diagnosis: umbilical hernia Postoperative diagnosis: same Procedure: repair of umbilical hernia with mesh Surgeon: Erich Ling MD Cut Off Sawyer Log: Anaid Ny PA-C, SUSAN Felipe Anesthesia: general LMA Indications for procedure: 41-year-old male patient presenting with a lump the umbilicus which increases in size with lifting and straining and reduces with light pressure. Patient is found on CT to have a small umbilical hernia. On examination he has some tenderness with palpation of the umbilicus. Hernia increases with Valsalva maneuvers. Operative findings: 2 cm umbilical hernia repaired with a 6.4 cm Ventralex mesh Specimen: none Estimated blood loss: 2 mL Complications: none Procedure details: patient was brought to the OR placed in a supine position. After administering general anesthesia the patient's abdomen was prepped with ChloraPrep and draped in a sterile fashion. A surgical time-out was called the consent confirmed. Patient received preoperative antibiotics and Venodyne boots were in place. Local anesthesia consisting of 0.5% Sensorcaine was then infiltrated in a transverse fashion below the umbilicus. Incision was then made with a scalpel carried out through subcutaneous tissue down to the hernia sac. Umbilical skin was then dissected off the hernia sac using electrocautery. The hernia sac was opened and omentum found within the hernia sac. This was reduced into the dominant cavity. Hernia sac was then closed using a running 0 Polysorb suture. The preperitoneal space was then created using electrocautery. Hemostasis was assured using free ties of 3-0 Polysorb and electrocautery. At this point a 6.4 cm round Ventralex mesh was obtained. This was placed into the preperitoneal space and secured to the fascia using 1. Tycron sutures in a [id number] fashion. The mesh was then closed over by the fascia. Wounds were irrigated with saline solution suctioned dry. Approximately 4 mL of Zenrelef was then infiltrated over the fascia. Umbilical skin was secured to the fascia using a 3-0 Polysorb suture. Dermis was then closed using interrupted 3-0 Polysorb sutures. Skin was closed using a running subcuticular 4-0 Polysorb suture. Sterile dressings consisting of Steri-Strips, 2 x 2 gauze and Tegaderm were then applied. The patient tolerated the procedure well. Sponge, instrument, and needle counts reported as correct. Patient was transferred to PACU in stable condition.
[2022-06-17] MEDS: fentaNYL citrate/PF 100 MCG/2 ML VIAL 50 MCG IVPUSH ×3 (10:58→11:22)
[2022-06-17] MEDS: oxyCODONE HCl Immed Release 5 MG TABLET 10 MG PO (11:01)
[2022-06-17] MEDS: ondansetron HCL 4 MG/2 ML VIAL IVPUSH (11:12)
== END 2022-06-17 12:59 | disposition home or self-care (01) ==
PROVIDERS: PCP Nurse Practitioner Family; Visit Provider Surgery
PROC: (CPT 49585; principal; 2022-06-17 09:10)
DX: K42.9 Umbilical hernia without obstruction or gangrene (principal); E11.22 Type 2 diabetes mellitus with diabetic chronic kidney disease; I12.9 Hypertensive chronic kidney disease with stage 1 through stage 4 chronic kidney disease, or unspecified chronic kidney disease; N18.30 Chronic kidney disease, stage 3 unspecified; E78.1 Pure hyperglyceridemia; E29.1 Testicular hypofunction; Z79.4 Long term (current) use of insulin; K85.90 Acute pancreatitis without necrosis or infection, unspecified; Z79.899 Other long term (current) drug therapy; Z88.0 Allergy status to penicillin; Z88.2 Allergy status to sulfonamides; Z88.8 Allergy status to other drugs, medicaments and biological substances; F17.210 Nicotine dependence, cigarettes, uncomplicated; Z90.49 Acquired absence of other specified parts of digestive tract; Z98.890 Other specified postprocedural states
CPT/HCPCS: 49585; 82947; C1781; C9088; J1100; J2250; J2405; J3010; J3370

== ENCOUNTER 2022-06-26 10:57 | Outpatient (REF) | payer MEDICARE, MEDICAID, SELFPAY ==
--- NOTE | ~2022-06-26 | MR_ITS ---
EXAMINATION: MR BRAIN WITHOUT AND WITH CONTRAST CLINICAL INFORMATION: Testicular hypofunction COMPARISON: None TECHNIQUE: Multiplanar multisequence MR imaging of the brain was obtained without and following the administration of 5 mL Gadavist intravenous contrast. FINDINGS: The pituitary gland is normal in overall size, contour, and signal intensity on precontrast imaging. It enhances homogeneously on postcontrast sequences, without any evidence of focal delayed enhancement to suggest a microadenoma. The infundibulum remains midline and the optic chiasm is in a normal location. The cavernous sinus enhances normally. There is no acute infarct on diffusion-weighted imaging. No extra-axial collection or mass effect/herniation. There are several scattered foci of nonspecific supratentorial white matter T2/FLAIR signal abnormality. No hydrocephalus. The ventricles are normal in morphology and size. No abnormal parenchymal or extra-axial enhancement. The major flow voids at the skull base are preserved. The midline structures are normal. The cerebellar tonsils are normally positioned. The craniocervical junction is normal. Marrow signal is within normal limits. The visualized soft tissues are without significant abnormality. No signal abnormality within the paranasal sinuses or within the mastoid air cells. MR/MR head/brain wo/w con IMPRESSION: No abnormality of the sellar or parasellar region.
== END 2022-06-26 10:58 | disposition home or self-care (01) ==
LOC: HO.MRI 10:57
PROVIDERS: Visit Provider Internal Medicine Endocrinology, Diabetes & Metabolism
DX: E29.1 Testicular hypofunction (principal)
CPT/HCPCS: 70553; A9585

== ENCOUNTER → 2022-06-27 09:09 | Outpatient (BNVA) | payer MEDICARE, MEDICAID, SELFPAY | PROVIDERS: PCP Nurse Practitioner Family; Referring Provider Nurse Practitioner Family; Visit Provider Physician Assistant Surgical | DX: Z09 Encounter for follow-up examination after completed treatment for conditions other than malignant neoplasm (principal); Z87.19 Personal history of other diseases of the digestive system | CPT/HCPCS: 99212 ==

== ENCOUNTER → 2022-07-11 10:01 | Outpatient (BNVA) | payer MEDICARE, MEDICAID, SELFPAY | PROVIDERS: PCP Nurse Practitioner Family; Visit Provider Physician Assistant Surgical | DX: Z09 Encounter for follow-up examination after completed treatment for conditions other than malignant neoplasm (principal); Z87.19 Personal history of other diseases of the digestive system | CPT/HCPCS: 99212 ==

== ENCOUNTER 2022-07-17 12:48 | Outpatient (REF) | payer MEDICARE, MEDICAID, SELFPAY ==
[2022-07-17 13:57] LABS: MANUAL DIFF FLAG NO
[2022-07-17 14:01] LABS: Basophils Percent Auto 0.7 % (0-2); Eosinophils Absolute Auto 0.3 X10*3/uL (0.0-0.4); Eosinophils Percent Auto 4.2 % (0-4); Hematocrit 42.9 % (42.0-52.0); Hemoglobin 14.6 g/dl (14.0-18.0); Imm Gran Abs Auto 0.02 X10*3/uL (0.00-0.03); Imm Gran Pct Auto 0.3 % (0.0-0.4); Lymphocytes Absolute Auto 1.6 X10*3/uL (1.2-4.9); Lymphocytes Percent Auto 26.5 % (20-40); Mean Corpuscular Hemoglobin 27.1 pg (27.0-33.0); Mean Corpuscular Volume 79.6 fL (80.0-98.0); Mean Platelet Volume 10.3 fL (9.4-12.4); Monocytes Absolute Auto 0.5 X10*3/uL (0.1-1.2); Monocytes Percent Auto 8.5 % (2-11); Neutrophils Absolute Auto 3.7 x10*3/uL (2.0-8.3); Neutrophils Percent Auto 59.8 % (45-73); Platelet Count 198 X10*3/uL (160-400); Red Blood Count 5.39 X10*6/uL (4.60-5.80); Red Cell Distribution Width 12.6 % (11.0-16.0); White Blood Count 6.2 X10*3/uL (4.8-10.8)
[2022-07-17 14:50] LABS: Ferritin 126 ng/mL (20-250)
[2022-07-17 16:07] LABS: Alanine Aminotransferase 56 U/L (0-40); Albumin Level 4.4 g/dL (3.5-5.0); Alkaline Phosphatase 152 U/L (39-117); Anion Gap 16 (12-20); Aspartate Amino Transferase 28 U/L (5-37); Bilirubin Total 0.8 mg/dL (0.0-1.0); Blood Urea Nitrogen 13 mg/dL (9-16); Calcium 9.7 mg/dL (8.4-10.2); Carbon Dioxide 26 mmol/L (22-29); Chloride 99 mmol/L (96-108); Estimated Glomerular Filt Rate > 60; Glucose Random 516 mg/dL (60-115); Potassium 4.5 mmol/L (3.3-5.1); Sodium 136 mmol/L (135-145); Total Protein 6.5 g/dL (6.5-8.0)
[2022-07-20 02:28] LABS: TS Negative Control Passed; TS Panel A 0; TS Panel B 1; TS Positive Control Passed; TSpotTB Negative (Negative)
== END 2022-07-17 12:49 | disposition home or self-care (01) ==
LOC: HO.HMGCLDS 12:48
PROVIDERS: Internal Medicine Endocrinology, Diabetes & Metabolism; PCP Nurse Practitioner Family; Visit Provider Dermatology
DX: Z11.1 Encounter for screening for respiratory tuberculosis (principal); E29.1 Testicular hypofunction; L40.0 Psoriasis vulgaris; Z79.899 Other long term (current) drug therapy
CPT/HCPCS: 36415; 80053; 82728; 84146; 85025; 86481

== ENCOUNTER → 2022-07-19 11:21 | Outpatient (BNVA) | payer MEDICARE, MEDICAID, SELFPAY | PROVIDERS: PCP Nurse Practitioner Family; Visit Provider Nurse Practitioner Family | DX: G47.19 Other hypersomnia (principal); R06.83 Snoring; E66.9 Obesity, unspecified; E11.65 Type 2 diabetes mellitus with hyperglycemia; S36.209S Unspecified injury of unspecified part of pancreas, sequela; Z68.33 Body mass index [BMI] 33.0-33.9, adult | CPT/HCPCS: 99202 ==

== ENCOUNTER → 2022-09-27 13:02 | Outpatient (BNVA) | payer OTHER, SELFPAY | PROVIDERS: PCP Nurse Practitioner Family; Visit Provider Internal Medicine Endocrinology, Diabetes & Metabolism | DX: E29.1 Testicular hypofunction (principal); E13.9 Other specified diabetes mellitus without complications; S36.209S Unspecified injury of unspecified part of pancreas, sequela; E11.40 Type 2 diabetes mellitus with diabetic neuropathy, unspecified | CPT/HCPCS: 82947; 83036; 99212 ==

== ENCOUNTER → 2022-09-30 14:54 | Outpatient (BNVA) | payer OTHER, SELFPAY | PROVIDERS: PCP Nurse Practitioner Family; Visit Provider Internal Medicine Gastroenterology | DX: K86.0 Alcohol-induced chronic pancreatitis (principal); K75.81 Nonalcoholic steatohepatitis (NASH); K21.9 Gastro-esophageal reflux disease without esophagitis | CPT/HCPCS: 99212 ==

== ENCOUNTER → 2022-10-24 13:20 | Outpatient (BNVA) | payer OTHER, SELFPAY | PROVIDERS: PCP Nurse Practitioner Family; Visit Provider Nurse Practitioner Family | DX: E13.9 Other specified diabetes mellitus without complications (principal); S36.209S Unspecified injury of unspecified part of pancreas, sequela; E11.40 Type 2 diabetes mellitus with diabetic neuropathy, unspecified; E11.65 Type 2 diabetes mellitus with hyperglycemia; E66.9 Obesity, unspecified; Z68.31 Body mass index [BMI] 31.0-31.9, adult | CPT/HCPCS: 99202 ==

== ENCOUNTER → 2022-10-29 21:12 | Outpatient (REF) | payer OTHER, SELFPAY | LOC: HO.SL 21:12 | PROVIDERS: PCP Nurse Practitioner Family; Visit Provider Nurse Practitioner Family | DX: G47.33 Obstructive sleep apnea (adult) (pediatric) (principal) | CPT/HCPCS: 95810 ==

== ENCOUNTER → 2022-11-22 10:16 | Outpatient (BNVA) | payer OTHER, SELFPAY | PROVIDERS: PCP Nurse Practitioner Family; Visit Provider Nurse Practitioner Family | DX: E11.40 Type 2 diabetes mellitus with diabetic neuropathy, unspecified (principal); E11.65 Type 2 diabetes mellitus with hyperglycemia; E13.9 Other specified diabetes mellitus without complications; S36.209D Unspecified injury of unspecified part of pancreas, subsequent encounter; E66.9 Obesity, unspecified; Z68.32 Body mass index [BMI] 32.0-32.9, adult | CPT/HCPCS: 17999; 99212; J7336 ==

== ENCOUNTER → 2022-12-03 11:21 | Outpatient (BNVA) | payer OTHER, SELFPAY | PROVIDERS: PCP Nurse Practitioner Family; Visit Provider Nurse Practitioner Family | DX: G47.19 Other hypersomnia (principal); G47.30 Sleep apnea, unspecified | CPT/HCPCS: 99212 ==

== ENCOUNTER → 2022-12-20 13:41 | Outpatient (BNVA) | payer OTHER, SELFPAY | PROVIDERS: PCP Nurse Practitioner Family; Visit Provider Internal Medicine Endocrinology, Diabetes & Metabolism | DX: E29.1 Testicular hypofunction (principal); E13.9 Other specified diabetes mellitus without complications; S36.209S Unspecified injury of unspecified part of pancreas, sequela | CPT/HCPCS: 99212 ==

== ENCOUNTER 2022-12-27 14:21 | Outpatient (REF) | payer OTHER, SELFPAY ==
[2022-12-27 17:41] LABS: Cholesterol 160 mg/dL; HDL Cholesterol 42 mg/dL; LDL Cholesterol Calculated 59 mg/dl; Triglycerides 298 mg/dL
[2022-12-27 17:46] LABS: Creatinine Urine 198.46 mg/dL; Microalbum/Creatinine Ratio Ur 4.5 ug/mg cr
== END 2022-12-27 14:22 | disposition home or self-care (01) ==
LOC: HO.HMGCLDS 14:21
PROVIDERS: PCP Nurse Practitioner Family; Visit Provider Internal Medicine Endocrinology, Diabetes & Metabolism
DX: E13.9 Other specified diabetes mellitus without complications (principal); S36.209S Unspecified injury of unspecified part of pancreas, sequela
CPT/HCPCS: 36415; 80061; 82043

== ENCOUNTER 2023-02-21 10:14 | Outpatient (AMB) | payer OTHER, SELFPAY ==
--- NOTE | 2023-02-21 10:21 | MHC.OFFVIS ---
Intake Vital Signs 02/21/23 10:24 02/21/23 10:55 02/21/23 11:31 Height 5 ft 10 in Weight 225 lb 4 oz BMI 32.3 BP 135/70 123/76 133/74 Blood Pressure Location Lt brachial Lt brachial Lt brachial Position Sitting Sitting Sitting Pulse 81 71 70 Pulse Source Pulse Oximeter Pulse Oximeter Pulse Oximeter Pulse Oximetry (%) 97 98 98 Oxygen Delivery Method Room Air Room Air Room Air Comment 15 mins after qutenza application 30 mins after qutenza application Intake Visit Reasons: Qutenza Application Intake Note: Patient here today for second qutenza application to bilateral feet. Lot # [id number] Exp: , [facility]# [id number]. Pain today 3/10. 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 Accompanied by: Other Relationship Allergies amoxicillin [AMOXICILLIN] Allergy (Severe, Verified 02/21/23 10:26) anaphylaxis / angioedma Penicillins [PENICILLINS] Allergy (Severe, Verified 02/21/23 10:26) HIVES, SWELLING/SOB Sulfa (Sulfonamide Antibiotics) [SULFA (SULFONAMIDE ANTIBIOTICS)] Allergy (Severe, Verified 02/21/23 10:26) HIVES tramadol Allergy (Intermediate, Verified 02/21/23 10:26) GI upset/abd pain Seasonal Allergies Allergy (Mild, Verified 02/21/23 10:26) Sneezing HPI HPI Comments History of Present Illness Details Patient presents for 2nd round application of capsaicin 8% topical patch for diabetic neuropathy in bilateral feet. Patient reports 3/10 pain and feels decrease in neuropathy symptoms after first patch application. Denies any recent cough, cold, infection, fever or other significant changes in medical history since last office visit. 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 Denies any recent injury, trauma, and falls. His current A1C is 9.1 on 09/27/22 which used to be over 14.0 2 years ago. He follows [facility]ocrinology services. His last alcohol consumption was in 2018. Patient continues to smoke. 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 Foot pain is described as constant pulsing, throbbing, pounding, stabbing, lancinating, hot burning, tingling, stingling, dull, sore, hurting, aching and heavy. Pain is worse at night and with walking. It interferes with his daily activities and functions and sleeping as well. Denies back pain. Denies previous physical therapy, chiropractic manipulation, massage, aqua therapy, acupuncture or TENS unit. Patient has been taking gabapentin 300 mg TID, amitriptyline 50 mg qhs, Tylenol and CBD cream with minimal pain relief. In the past, he also tried morphine 30 mg bid, dialaudid 4 mg qid, and oxycodone 20 mg tid and notes these pain medication helped the most. I have informed patient that our office does not offer opioid prescribing. Patient also reports chronic abdominal mid epigastric and left upper quadrant pain. He is taking Creon and tries to adhere to a healthier diet. Unsuccessful attempts were done at [facility] to place stents in his pancreatic ducts per patient. Patient denies any fever, chills, weight loss, weakness, bladder and bowel incontinence or saddle anesthesia. 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 Mother CVD (cardiovascular disease) Son No problems noted. Social History Household Members: Family Housing: House Alcohol intake: never Patient Tobacco Use Status: Current everyday Tobacco user Tobacco use type: Cigarette Cigarette Packs Per Day: 0.5 Cigarettes Per Day: 10 Years Smoked: 13 e-Cigarette/Vaping Use: Never Used Substance Use Type: Former Substance User and Opiates Advance Directives Date on File: 11/03/17 Current occupational status: unemployed Cognitive needs: No Hearing needs: No Vision needs: No Review of Systems Const All systems reviewed & are unremarkable except as noted in HPI and below Physical Exam Vital Signs: Last Vital Signs Pulse 71 02/21/23 10:55 BP 123/76 02/21/23 10:55 Pulse Ox 98 02/21/23 10:55 Oxygen Delivery Method Room Air 02/21/23 10:55 BMI result Body Mass Index 32.3 General: Appears afebrile. Alert and oriented. Mood and affect appropriate. Follows and participates in conversation appropriately. Respiratory effort is unlabored. Able to transition from sit to stand unassisted. Ambulates with bilaterally normal heel strike and toe off. Cardio Peripheral pulses: posterior tibial pulses present bilateral and dorsalis pedis present bilateral Extrem Other: There is decreased sensation over the midfoot, soles of the feet and the toes bilaterally. Dorsal protective sensation intact. No breaks in the skin. No soft tissue swelling, no redness or warmth. Poor foot care. General: Yes capillary refill normal, Yes no clubbing, cyanosis or edema and Yes no calf tenderness Office Procedures Topical Capsaicin Date 1:: 11/22/22 Date 2:: 02/21/23 Main area of pain on the body: Midfoot, dorsal and plantar regions of bilateral feet Laterality: Bilateral Location of left foot pain: Plantar and Dorsal Location of right foot pain: Plantar and Dorsal Quality of pain: Aching, Stabbing, Burning, Numb-like, Tiring and Sharp Details:: Two patches, 560 cm2 were utilized per each foot. EMLA Cream (lidocaine 2.5% and prilocaine 2.5%) was applied to both feet by patient prior to application of the patch. The patient tolerated the procedure well. His vitals signs remained stable throughout the procedure. Patient was able to complete the stipulated 30 minutes of the therapeutic application without any discomfort. 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 Patient tolerated the procedure without significant discomfort with application of EMLA cream prior to the procedure. He was discharged home in stable condition with discharge instructions. All questions and concerns were answered and the patient agreed with the plan. Greater than 40 minutes were spent in therapeutic application and in coordination of the care. 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
[2023-02-21 10:24] VITALS: BP 135/70; PULSE 81; O2SAT 97; BMI 32.3
[2023-02-21 10:55] VITALS: BP 123/76; PULSE 71; O2SAT 98
[2023-02-21 11:31] VITALS: BP 133/74; PULSE 70; O2SAT 98
== END 2023-02-21 11:22 | disposition home or self-care (01) ==
PROVIDERS: PCP Nurse Practitioner Family; Visit Provider Nurse Practitioner Family
DX: E11.40 Type 2 diabetes mellitus with diabetic neuropathy, unspecified (principal); S36.209S Unspecified injury of unspecified part of pancreas, sequela; E66.9 Obesity, unspecified
CPT/HCPCS: 17999; 99215

== ENCOUNTER → 2023-02-21 10:14 | Outpatient (BNVA) | payer OTHER, SELFPAY | PROVIDERS: Visit Provider Nurse Practitioner Family | DX: E11.40 Type 2 diabetes mellitus with diabetic neuropathy, unspecified (principal); E11.65 Type 2 diabetes mellitus with hyperglycemia; E13.9 Other specified diabetes mellitus without complications; S36.209S Unspecified injury of unspecified part of pancreas, sequela; E66.9 Obesity, unspecified; Z68.32 Body mass index [BMI] 32.0-32.9, adult | CPT/HCPCS: 17999; 99212; J7336 ==

== ENCOUNTER 2023-03-10 14:11 | Outpatient (AMB) | payer OTHER, SELFPAY ==
--- NOTE | 2023-03-10 14:19 | A.OFFVIS_ITS ---
Intake Vital Signs 03/10/23 14:21 Height 5 ft 10 in Weight 222 lb 10.67 oz BMI 31.9 BP 117/72 Blood Pressure Location Lt brachial Position Sitting Pulse 95 Intake Visit Reasons: 5 month follow up Intake Note: Brian presents in the office as a 5 month follow up. CC: He states that he is not having any changes - same concerns as before. 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 Allergies amoxicillin [AMOXICILLIN] Allergy (Severe, Verified 03/10/23 14:22) anaphylaxis / angioedma Penicillins [PENICILLINS] Allergy (Severe, Verified 03/10/23 14:22) HIVES, SWELLING/SOB Sulfa (Sulfonamide Antibiotics) [SULFA (SULFONAMIDE ANTIBIOTICS)] Allergy (Severe, Verified 03/10/23 14:22) HIVES tramadol Allergy (Intermediate, Verified 03/10/23 14:22) GI upset/abd pain Seasonal Allergies Allergy (Mild, Verified 03/10/23 14:22) Sneezing HPI 5 month follow up HPI Details 42 yr old m w hx of type 1 Dm, high lipids, psoriasis, cholecystectomy, chronic pancreatitis, abn LFT being seen for f/u? ? ? RECAP from index visit 01/2020 had c/o bloating and distention ? he has abdo pain occ, epigastrium once q-1-2 weeks, ? can be 5/10 severity, ? lasts for few days when gets it ? gets nausea occ emesis, ? other times he feesl ok ? +greasy stool, looks like oil and also bad breath smelly gas like rotten eggs ? smokes 1/2 pack per day ? stopped drinking alcohol 08/30/2017 ? not smoking THC ? takes pantoprazole which helps his reflux ? ? ? His PCP had tried duloxetine for his abdominal pain, as lyrica not approved gabapentin not helping stomach but helps neuropathy in feet not tolerated as made him really depressed he was taking creon and it was helping with diarrhea and oiliness, but he ran out and I refilled it LABS:07/18--nml CBC, mild raised ALT, alk phos, a1c 9% ? Imaging: ? MRI: 2012-- pancreatitis, ? US 10/2017--steatosis, dilated PD, stable ? CT 2018-- fatty liver, cbd dilated 1.1 cm, pancreas low attenuation, and enlargement, coarse calcification. MRI 12/2020--panc duct dilation, atrophic pancreas, fatty liver CT A/P; 05/2022- hepatosplenomegaly and fatty liver, dilated PD, chronic pancreatitis MRI- 06/18--nml brain INTERIM: blood sugars have improved with testosterone, more consistent appetite is variable, not so good during the day, snacks during the night no nausea or vomiting variable abdominal pain, upper depends on what he eats smoking < 1 pack per day stools can be regular, occ cramps in stomach uses creon every day EXAM: GENERAL: The patient is well developed and nontoxic. VITAL SIGNS:see workflow HEENT: Nonicteric sclerae, PERRLA, EOMI. Oropharynx clear. Moist mucous membranes. Conjunctivae appear well perfused. No thyroid mass. CHEST: Chest wall is nontender. HEART: Regular rate and rhythm without murmurs. LUNGS: Clear to auscultation bilaterally. ABDOMEN: Soft, positive bowel sounds, tender RLQ AND OVER mCBURNEY POINT, POS OBTURATOR SIGN, no organomegaly.no flank tenderness SKIN: No rash, no excessive bruising, petechiae, or purpura. NEUROLOGIC: Cranial nerves II-XII intact without motor/sensory deficit. Assessments ? ? 1/ Alcohol-induced chronic pancreatitis: still smoking, nutritional defcn 2/ abn LFT, related to RODRIGUEZ, 3/ GERD?controlled wt PPI PLAN 1/ smoking cessation advised again, he is interested in islet cell transplant, he will check out [facility] --if referral needed then we can send with notes 2/ multivitamins recommended, and healthy diet explained, cont with vit A 3/ cont creon? 4/ can check nutrition levels next visit 5/ MRI this year or next for panc screening? 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 Mother CVD (cardiovascular disease) Son No problems noted. Social History Household Members: Family Housing: House Alcohol intake: never Patient Tobacco Use Status: Current everyday Tobacco user Tobacco use type: Cigarette Cigarette Packs Per Day: 0.5 Cigarettes Per Day: 10 Years Smoked: 13 e-Cigarette/Vaping Use: Never Used Substance Use Type: Former Substance User and Opiates Advance Directives Date on File: 11/03/17 Current occupational status: unemployed Cognitive needs: No Hearing needs: No Vision needs: No Physical Exam Vital Signs: Last Vital Signs Pulse 95 03/10/23 14:21 BP 117/72 03/10/23 14:21 BMI result Body Mass Index 31.9 Assessment & Plan Assessment & Plan (1) Chronic inflammation of pancreas: Code(s): K86.1 - Other chronic pancreatitis Coding Level of Care Code Est Pt Level 3 (18827) Diagnoses Chronic inflammation of pancreas K86.1
[2023-03-10 14:21] VITALS: BP 117/72; PULSE 95; BMI 31.9
== END 2023-03-10 16:33 | disposition home or self-care (01) ==
PROVIDERS: Visit Provider Internal Medicine Gastroenterology
DX: K86.1 Other chronic pancreatitis (principal)
CPT/HCPCS: 99213

== ENCOUNTER → 2023-03-10 14:11 | Outpatient (BNVA) | payer OTHER, SELFPAY | PROVIDERS: Visit Provider Internal Medicine Gastroenterology | DX: K86.0 Alcohol-induced chronic pancreatitis (principal); R94.5 Abnormal results of liver function studies; K75.81 Nonalcoholic steatohepatitis (NASH); K21.9 Gastro-esophageal reflux disease without esophagitis; E46 Unspecified protein-calorie malnutrition; Z68.31 Body mass index [BMI] 31.0-31.9, adult; I12.9 Hypertensive chronic kidney disease with stage 1 through stage 4 chronic kidney disease, or unspecified chronic kidney disease; E08.22 Diabetes mellitus due to underlying condition with diabetic chronic kidney disease; N18.30 Chronic kidney disease, stage 3 unspecified; E08.65 Diabetes mellitus due to underlying condition with hyperglycemia; Z72.0 Tobacco use; Z79.4 Long term (current) use of insulin | CPT/HCPCS: 99212 ==

== ENCOUNTER 2023-03-13 09:13 | Outpatient (REF) | payer OTHER, SELFPAY ==
[2023-03-13 11:55] LABS: Hematocrit 47.9 % (42.0-52.0); Hemoglobin 15.8 g/dl (14.0-18.0)
[2023-03-18 15:28] LABS: Testosterone, Free 119.1 pg/mL (35.0-155.0); Testosterone, Total 458 ng/dL (250-1100)
== END 2023-03-13 09:14 | disposition home or self-care (01) ==
LOC: HO.HMGCLDS 09:13
PROVIDERS: PCP Nurse Practitioner Family; Visit Provider Internal Medicine Endocrinology, Diabetes & Metabolism
DX: E29.1 Testicular hypofunction (principal)
CPT/HCPCS: 36415; 84402; 84403; 85014; 85018

== ENCOUNTER 2023-03-20 09:38 | Outpatient (AMB) | payer OTHER, SELFPAY ==
--- NOTE | 2023-03-20 09:38 | A.OFFVIS_ITS ---
Intake Vital Signs 03/20/23 09:39 Height 5 ft 10 in Weight 229 lb 8.019 oz BMI 32.9 BP 124/78 Blood Pressure Location Lt brachial Position Sitting Pulse 87 Pulse Source Pulse Oximeter Intake Visit Reasons: f/u hypogonadism Intake Note: Patient present today for Hypogonadism office visit. 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 Accompanied by: Self / Same As Patient Allergies amoxicillin [AMOXICILLIN] Allergy (Severe, Verified 03/20/23 09:41) anaphylaxis / angioedma Penicillins [PENICILLINS] Allergy (Severe, Verified 03/20/23 09:41) HIVES, SWELLING/SOB Sulfa (Sulfonamide Antibiotics) [SULFA (SULFONAMIDE ANTIBIOTICS)] Allergy (Severe, Verified 03/20/23 09:41) HIVES tramadol Allergy (Intermediate, Verified 03/20/23 09:41) GI upset/abd pain Seasonal Allergies Allergy (Mild, Verified 03/20/23 09:41) Sneezing Medication List - Last Reconciled 03/20/23 by Chinmay Santos MD acetaminophen (Tylenol Extra Strength) 1,000 mg (2 x 500 mg) PO Q6H PRN albuterol sulfate 90 mcg/actuation 1 puff inhalation Q4H PRN 30 days amitriptyline 50 mg PO BEDTIME aripiprazole 15 mg PO BEDTIME BD Insulin Syringe U-500 (insulin U-500 syringe-needle) As directed 3 x/day NS blood pressure kit med and lrg daily use blood sugar diagnostic (FreeStyle Lite Strips) 4 times a day blood sugar diagnostic (FreeStyle Lite Strips) As directed four times a day blood-glucose meter (FreeStyle Lite Meter kit) As directed diclofenac sodium 1% (Arthritis Pain (diclofenac)) 4 grams topical QID fenofibrate 54 mg PO DAILY flash glucose scanning reader (FreeStyle Anyi 2 [place]) As directed flash glucose sensor Every 14 days flash glucose sensor (FreeStyle Anyi 2 Sensor kit) As directed gabapentin 300 mg PO BID glucagon (Gvoke HypoPen 2-Pack) 1 mg (0.2 mL) subcut ONCE guselkumab (Tremfya) 100 mg subcut Q8W ibuprofen 600 mg PO TID PRN insulin regular hum U-500 conc (Humulin R U-500 (Concentrated) Insulin) 150 units breakfast, lunch, 160 units dinner subcut 3 times a day; Use only with appropriate syringe lamotrigine 200 mg PO BEDTIME lancets As directed lancets (FreeStyle Lancets) 4 times a day lidocaine 5% 2 patches topical DAILY 30 days lidocaine-prilocaine 2.5-2.5 % 1 appl topical ONCE 1 day pzltoy-hgaecpsr-wvvanhe 24,000-76,000 -120,000 unit (Creon) 3 caps PO TID methadone 51 mg PO QAM multivitamin 1 tab PO DAILY pantoprazole 40 mg PO DAILY syringe with needle (BD Luer-Fabien Syringe) As directed inject once a week syringe with needle, safety (BD Eclipse Luer-Fabien) As directed inject once a week testosterone cypionate 100 mg (0.5 mL) IM QWEEK vitamin A 1 cap PO DAILY zolpidem ER 12.5 mg PO BEDTIME PRN HPI HPI Comments History of Present Illness Details Patient is a 42-year-old male? 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 Diabetes being managed at the [facility] in [place]. Today's appointment focus on hypogonadism First diagnosed with Hypogonadism [id number] with labs revealing low testosterone .Saw endo . Was placed on IM testosterone Was started on Testosterone supplementation with IM testo until 2017 and found relief. Came off because care disrupted Not Currently using testosterone. Last dose was 2017. Currently not achieving spontaneous am erections, and unable to achieve erection when desired. Reports low libido. . Denies any decrease in size or shape of testicles. Denies penile discharge or scrotal tenderness. Denies any history of mumps orchitis Had trauma in past with LOC twice in past . Denies history of VALERY b ut does snore at night . Has 1 children who were conceived spontaneously. Not looking to have children Sense of smell intact. Denies headache or visual changes, gynecomastia or galactorrhea. Denies orthostatic symptoms, weight loss. Denies change in size of hands or feet. Denies hair loss, weight gain, cold intolerance. History of DVT or PE: No No anabolic On methadone Workup point with secondary hypogonadism with normal prolactin, normal ferritin and normal MRI of the pituitary Labs: PSA CBC Sleep study showed moderate to severe sleep apnea Currently on intramuscular testosterone 100 mg Q weekly. 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 Mother CVD (cardiovascular disease) Son No problems noted. Social History Household Members: Family Housing: House Alcohol intake: never Patient Tobacco Use Status: Current everyday Tobacco user Tobacco use type: Cigarette Cigarette Packs Per Day: 0.5 Cigarettes Per Day: 10 Years Smoked: 13 e-Cigarette/Vaping Use: Never Used Substance Use Type: Former Substance User and Opiates Advance Directives Date on File: 11/03/17 Current occupational status: unemployed Cognitive needs: No Hearing needs: No Vision needs: No Physical Exam Vital Signs: Last Vital Signs Pulse 87 03/20/23 09:39 BP 124/78 03/20/23 09:39 BMI result Body Mass Index 32.9 Assessment & Plan Assessment & Plan (1) Hypogonadism male: Code(s): E29.1 - Testicular hypofunction Plan: This is a 42-year-old white male with a history of secondary hypogonadism. On CPAP for sleep apnea. Currently being treated with intramuscular testosterone 100 mg q.week. Testosterone recently check was within normal limits Plan is to continue the current treatment. Will check a trough testosterone today. Will prescribe Viagra 50 mg p.r.n.. Went over side effects of Viagra including but not limited to headache, priapism, loss of vision Medications: New sildenafil (Viagra) administer 30 minutes to 4 hours before activity 50 mg PO DAILY PRN 10 tabs 5RF sexual activity Coding Level of Care Code Est Pt Level 3 (73219) Diagnoses Hypogonadism male E29.1
[2023-03-20 09:39] VITALS: BP 124/78; PULSE 87; BMI 32.9
== END 2023-03-20 10:04 | disposition home or self-care (01) ==
PROVIDERS: PCP Nurse Practitioner Family; Visit Provider Internal Medicine Endocrinology, Diabetes & Metabolism
DX: E29.1 Testicular hypofunction (principal)
CPT/HCPCS: 99213

== ENCOUNTER → 2023-03-20 09:38 | Outpatient (BNVA) | payer OTHER, SELFPAY | PROVIDERS: Visit Provider Internal Medicine Endocrinology, Diabetes & Metabolism | DX: E29.1 Testicular hypofunction (principal) | CPT/HCPCS: 99212 ==

== ENCOUNTER 2023-05-22 15:22 | Outpatient (AMB) | payer OTHER, SELFPAY ==
[2023-05-22 15:29] VITALS: BP 145/89; PULSE 104; O2SAT 98; BMI 31.3
--- NOTE | 2023-05-22 15:29 | A.OFFVIS_ITS ---
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: No Accompanied by: Self / Same As Patient Allergies amoxicillin [AMOXICILLIN] Allergy (Severe, Verified 05/22/23 15:30) anaphylaxis / angioedma Penicillins [PENICILLINS] Allergy (Severe, Verified 05/22/23 15:30) HIVES, SWELLING/SOB Sulfa (Sulfonamide Antibiotics) [SULFA (SULFONAMIDE ANTIBIOTICS)] Allergy (Severe, Verified 05/22/23 15:30) HIVES tramadol Allergy (Intermediate, Verified 05/22/23 15:30) GI upset/abd pain Seasonal Allergies Allergy (Mild, Verified 05/22/23 15:30) Sneezing HPI HPI Comments History of Present Illness Details Patient presents for 3rd round application of capsaicin 8% topical patch for diabetic neuropathy in bilateral feet. Patient reports 4/10 pain and feels decrease in neuropathy symptoms after previous 2 rounds of patch application. Patient reports his notes better range of motion of both feet and partial decrease in his symptoms. Denies any recent cough, cold, infection, fever or other significant changes in medical history since last office visit. 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 Denies any recent injury, trauma, and falls. His current A1C is 9.1 on 09/27/22 which used to be over 14.0 2 years ago. He follows [facility] Endocrinology services. His last alcohol consumption was in 2018. Patient continues to smoke. 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 Foot pain is described as constant pulsing, throbbing, pounding, stabbing, lancinating, hot burning, tingling, stingling, dull, sore, hurting, aching and heavy. Pain is worse at night and with walking. It interferes with his daily activities and functions and sleeping as well. Denies back pain. Denies previous physical therapy, chiropractic manipulation, massage, aqua therapy, acupuncture or TENS unit. Patient has been taking gabapentin 300 mg TID, amitriptyline 50 mg qhs, Tylenol and CBD cream with minimal pain relief. In the past, he also tried morphine 30 mg bid, dialaudid 4 mg qid, and oxycodone 20 mg tid and notes these pain medication helped the most. I have informed patient that our office does not offer opioid prescribing. Patient also reports chronic abdominal mid epigastric and left upper quadrant pain. He is taking Creon and tries to adhere to a healthier diet. Unsuccessful attempts were done at [facility] to place stents in his pancreatic ducts per patient. Patient denies any fever, chills, weight loss, weakness, bladder and bowel incontinence or saddle anesthesia. 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 Mother CVD (cardiovascular disease) Son No problems noted. Social History Household Members: Family Housing: House Alcohol intake: never Patient Tobacco Use Status: Current everyday Tobacco user Tobacco use type: Cigarette Cigarette Packs Per Day: 0.5 Cigarettes Per Day: 10 Years Smoked: 13 e-Cigarette/Vaping Use: Never Used Substance Use Type: Former Substance User and Opiates Advance Directives Date on File: 11/03/17 Current occupational status: unemployed Cognitive needs: No Hearing needs: No Vision needs: No Review of Systems Const All systems reviewed & are unremarkable except as noted in HPI and below Physical Exam Vital Signs: Last Vital Signs Pulse 95 05/22/23 16:17 BP 138/97 H 05/22/23 16:17 Pulse Ox 97 05/22/23 16:17 Oxygen Delivery Method Room Air 05/22/23 16:17 BMI result Body Mass Index 31.3 General: Appears afebrile. Alert and oriented. Mood and affect appropriate. Follows and participates in conversation appropriately. Respiratory effort is unlabored. No cough. Able to transition from sit to stand unassisted. Ambulates with bilaterally normal heel strike and toe off. Cardio Peripheral pulses: posterior tibial pulses present bilateral and dorsalis pedis present bilateral Extrem Other: There is a decreased sensation over the midfoot, soles of the feet and the toes bilaterally. Dorsal protective sensation intact. No breaks in the skin. No soft tissue swelling, no redness or warmth. No edema, clubbing, cyanosis or calf tenderness bilaterally. Office Procedures Topical Capsaicin Date 1:: 11/22/22 Date 2:: 02/21/23 Date 3:: 05/22/23 Main area of pain on the body: Dorsal and plantar regions of bilateral feet Laterality: Bilateral Location of left foot pain: Plantar and Dorsal Location of right foot pain: Plantar and Dorsal Quality of pain: Aching, Stabbing, Burning, Throbbing, Numb-like and Shooting Details:: Two patches, 560 cm2 were utilized per each foot. EMLA Cream (lidocaine 2.5% and prilocaine 2.5%) was applied to both feet by patient prior to application of the patch. The patient tolerated the procedure well. His vitals signs remained stable throughout the procedure. Patient was able to complete the stipulated 30 minutes of the therapeutic application without any discomfort. 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 Patient tolerated the procedure without significant discomfort with application of EMLA cream prior to the procedure. He was discharged home in stable condition with discharge instructions. All questions and concerns were answered and the patient agreed with the plan. Greater than 37 minutes were spent in therapeutic application, documentation and in coordination of the care. 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
[2023-05-22 16:04] VITALS: BP 126/67; PULSE 89; O2SAT 98
[2023-05-22 16:17] VITALS: BP 138/97; PULSE 95; O2SAT 97
== END 2023-05-22 16:18 | disposition home or self-care (01) ==
PROVIDERS: PCP Nurse Practitioner Family; Visit Provider Nurse Practitioner Family
DX: E11.40 Type 2 diabetes mellitus with diabetic neuropathy, unspecified (principal); E11.65 Type 2 diabetes mellitus with hyperglycemia; S36.209S Unspecified injury of unspecified part of pancreas, sequela; E66.9 Obesity, unspecified
CPT/HCPCS: 17999; 99214

== ENCOUNTER → 2023-05-22 15:22 | Outpatient (BNVA) | payer OTHER, SELFPAY | PROVIDERS: PCP Nurse Practitioner Family; Visit Provider Nurse Practitioner Family | DX: E11.40 Type 2 diabetes mellitus with diabetic neuropathy, unspecified (principal); E11.65 Type 2 diabetes mellitus with hyperglycemia; E13.9 Other specified diabetes mellitus without complications; S36.209S Unspecified injury of unspecified part of pancreas, sequela; E66.9 Obesity, unspecified | CPT/HCPCS: 17999; 99212; J7336 ==

== ENCOUNTER 2023-07-07 13:23 | Outpatient (AMB) | payer OTHER, SELFPAY ==
--- NOTE | 2023-07-07 13:26 | A.OFFVIS_ITS ---
Intake Vital Signs 07/07/23 13:28 Height 5 ft 9 in Weight 220 lb 7.396 oz BMI 32.6 BP 129/82 Blood Pressure Location Lt brachial Position Sitting Pulse 104 H Intake Visit Reasons: 4 month follow up Intake Note: Brian presents in the office as a 4 month follow up. CC: He states that he is still having his stomach pains but he has slowed down his smoking a lot and he states that there has been a couple times where it happens and it is more painful. It happens all over his abdomen. Sometimes he has diarrhea associaited with the pains. Allergies amoxicillin [AMOXICILLIN] Allergy (Severe, Verified 07/07/23 13:28) anaphylaxis / angioedma Penicillins [PENICILLINS] Allergy (Severe, Verified 07/07/23 13:28) HIVES, SWELLING/SOB Sulfa (Sulfonamide Antibiotics) [SULFA (SULFONAMIDE ANTIBIOTICS)] Allergy (Severe, Verified 07/07/23 13:28) HIVES tramadol Allergy (Intermediate, Verified 07/07/23 13:28) GI upset/abd pain Seasonal Allergies Allergy (Mild, Verified 07/07/23 13:28) Sneezing HPI 4 month follow up HPI Details 42 yr old m w hx of type 1 Dm, high lipi ds, psoriasis, cholecystectomy, chronic pancreatitis, abn LFT being seen for f/u? ? ? RECAP from index visit 01/2020 had c/o bloating and distention ? he has abdo pain occ, epigastrium once q-1-2 weeks, ? can be 5/10 severity, ? lasts for few days when gets it ? gets nausea occ emesis, ? other times he feesl ok ? +greasy stool, looks like oil and also bad breath smelly gas like rotten eggs ? smokes 1/2 pack per day ? stopped drinking alcohol 08/30/2017 ? not smoking THC ? takes pantoprazole which helps his reflux ? ? ? His PCP had tried duloxetine for his abdominal pain, as lyrica not approved gabapentin not helping stomach but helps neuropathy in feet not tolerated as made him really depressed he was taking creon and it was helping with diarrhea and oiliness, but he ran out and I refilled it LABS:07/18--nml CBC, mild raised ALT, alk phos, a1c 9% ? Imaging: ? MRI: 2012-- pancreatitis, ? US 10/2017--steatosis, dilated PD, stable ? CT 2018-- fatty liver, cbd dilated 1.1 cm, pancreas low attenuation, and enlargement, coarse calcification. MRI 12/2020--panc duct dilation, atrophic pancreas, fatty liver CT A/P; 05/2022- hepatosplenomegaly and fatty liver, dilated PD, chronic pancreatitis MRI- 06/18--nml brain INTERIM: trying to stop smoking, cut down to few cigs daily he has been having more gerd and watches diet and position he has been taking pantoprazole in the morning he has his normal abdominal pain, depends on fatty food intake he is taking creon with food uses creon every day but sometimes hard to handle due to sulfuric burps EXAM: GENERAL: The patient is well developed and nontoxic. VITAL SIGNS:see workflow HEENT: Nonicteric sclerae, PERRLA, EOMI. Oropharynx clear. Moist mucous membranes. Conjunctivae appear well perfused. No thyroid mass. CHEST: Chest wall is nontender. HEART: Regular rate and rhythm without murmurs. LUNGS: Clear to auscultation bilaterally. ABDOMEN: Soft, positive bowel sounds,, no organomegaly.no flank tenderness SKIN: No rash, no excessive bruising, petechiae, or purpura. NEUROLOGIC: Cranial nerves II-XII intact without motor/sensory deficit. Assessments ? ? 1/ Alcohol-induced chronic pancreatitis: still smoking, nutritional defcn 2/ abn LFT, related to RODRIGUEZ, 3/ GERD?partially controlled wt PPI PLAN 1/ smoking cessation advised again, 2/ multivitamins recommended, and health y diet explained, cont with vit A--will check levels next visit 3/ cont creon? --can open capsules and m ix with apple sauce 4/ add pepcid at night, avoid eating for 2-3 hrs before sleep 5/ MRI next year for panc screening 6/ discussed option for referral for pue stow if worsening abdo pains? 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 Mother CVD (cardiovascular disease) Son No problems noted. Social History Household Members: Family Housing: House Alcohol intake: never Patient Tobacco Use Status: Current everyday Tobacco user Tobacco use type: Cigarette Cigarette Packs Per Day: 0.5 Cigarettes Per Day: 10 Years Smoked: 13 e-Cigarette/Vaping Use: Never Used Substance Use Type: Former Substance User and Opiates Advance Directives Date on File: 11/03/17 Current occupational status: unemployed Cognitive needs: No Hearing needs: No Vision needs: No Physical Exam Vital Signs: Last Vital Signs Pulse 104 H 07/07/23 13:28 BP 129/82 07/07/23 13:28 BMI result Body Mass Index 32.6 Assessment & Plan Assessment & Plan (1) Chronic inflammation of pancreas: Code(s): K86.1 - Other chronic pancreatitis Plan: see above Medications: New famotidine 40 mg PO BEDTIME 90 tabs 3RF Coding Level of Care Code Est Pt Level 4 (42965) Diagnoses Chronic inflammation of pancreas K86.1
[2023-07-07 13:28] VITALS: BP 129/82; PULSE 104; BMI 32.6
== END 2023-07-07 14:01 | disposition home or self-care (01) ==
PROVIDERS: PCP Nurse Practitioner Family; Visit Provider Internal Medicine Gastroenterology
DX: K86.1 Other chronic pancreatitis (principal)
CPT/HCPCS: 99214

== ENCOUNTER → 2023-07-07 13:23 | Outpatient (BNVA) | payer OTHER, SELFPAY | PROVIDERS: PCP Nurse Practitioner Family; Visit Provider Internal Medicine Gastroenterology | DX: K86.1 Other chronic pancreatitis (principal) | CPT/HCPCS: 99212 ==

== ENCOUNTER 2023-08-18 11:55 | Outpatient (REF) | payer OTHER, SELFPAY ==
[2023-08-18 13:14] LABS: MANUAL DIFF FLAG NO
[2023-08-18 13:18] LABS: Basophils Percent Auto 0.5 % (0-2); Eosinophils Absolute Auto 0.2 X10*3/uL (0.0-0.4); Hematocrit 49.3 % (42.0-52.0); Hemoglobin 16.8 g/dl (14.0-18.0); Imm Gran Abs Auto 0.03 X10*3/uL (0.00-0.03); Imm Gran Pct Auto 0.4 % (0.0-0.4); Lymphocytes Absolute Auto 1.8 X10*3/uL (1.2-4.9); Lymphocytes Percent Auto 23.3 % (20-40); Mean Corpuscular HGB Conc 34.1 g/dl (31.0-36.0); Mean Corpuscular Hemoglobin 26.2 pg (27.0-33.0); Mean Corpuscular Volume 76.9 fL (80.0-98.0); Mean Platelet Volume 10.4 fL (9.4-12.4); Monocytes Absolute Auto 0.6 X10*3/uL (0.1-1.2); Monocytes Percent Auto 8.3 % (2-11); Neutrophils Percent Auto 65.5 % (45-73); Platelet Count 200 X10*3/uL (160-400); Red Blood Count 6.41 X10*6/uL (4.60-5.80); Red Cell Distribution Width 13.7 % (11.0-16.0); White Blood Count 7.7 X10*3/uL (4.8-10.8)
[2023-08-18 13:28] LABS: Estimated Average Glucose 237 mg/dL; Hemoglobin A1c % 9.9 % (<6.0)
[2023-08-18 14:10] LABS: Appearance Urine Clear; Color Urine Yellow; Glucose Urine UA 500 mg/dL (Negative); Leukocyte Esterase Urine Negative (Negative); Nitrite Urine Negative (Negative); Specific Gravity - Urine 1.025 (1.005-1.025); Urine Blood Negative (Negative); Urine Ketones Negative (Negative); Urine Protein Negative (Neg-Trace)
[2023-08-18 14:35] LABS: Alanine Aminotransferase 47 U/L (0-40); Albumin Level 4.1 g/dL (3.5-5.0); Alkaline Phosphatase 86 U/L (39-117); Anion Gap 14 (12-20); Aspartate Amino Transferase 37 U/L (5-37); Bilirubin Total 0.5 mg/dL (0.0-1.0); Blood Urea Nitrogen 12 mg/dL (9-16); Calcium 9.1 mg/dL (8.4-10.2); Carbon Dioxide 29 mmol/L (22-29); Chloride 101 mmol/L (96-108); Cholesterol 152 mg/dL (<200); Estimated Glomerular Filt Rate > 60; Glucose Fasting 234 mg/dL (60-99); HDL Cholesterol 43 mg/dL (>40); LDL Cholesterol Calculated 83 mg/dL (<100); Potassium 3.9 mmol/L (3.3-5.1); Sodium 140 mmol/L (135-145); Total Protein 6.5 g/dL (6.5-8.0); Triglycerides 134 mg/dL (<150)
[2023-08-18 14:52] LABS: TSH reflex Free T4 1.66 uIU/mL (0.32-4.0)
[2023-08-22 14:53] LABS: Testosterone, Free 137.4 pg/mL (35.0-155.0); Testosterone, Total 587 ng/dL (250-1100)
== END 2023-08-18 11:56 | disposition home or self-care (01) ==
LOC: HO.HMGCLDS 11:55
PROVIDERS: Nurse Practitioner Family; PCP Nurse Practitioner Family; Referring Provider Internal Medicine Endocrinology, Diabetes & Metabolism; Visit Provider Nurse Practitioner Family
DX: E11.40 Type 2 diabetes mellitus with diabetic neuropathy, unspecified (principal); I10 Essential (primary) hypertension; E29.1 Testicular hypofunction
CPT/HCPCS: 36415; 80053; 80061; 81003; 83036; 84402; 84403; 84443; 85025

== ENCOUNTER 2023-08-21 10:07 | Outpatient (AMB) | payer OTHER, SELFPAY ==
[2023-08-21 10:14] VITALS: BP 120/80; PULSE 91; O2SAT 97; BMI 32.7
--- NOTE | 2023-08-21 10:14 | MHC.PC.OV ---
Vital Signs 08/21/23 10:14 Height 5 ft 9 in Weight 221 lb 8 oz BMI 32.7 BP 120/80 Blood Pressure Location Lt brachial Position Sitting Pulse 91 Pulse Source Pulse Oximeter Pulse Oximetry (%) 97 Oxygen Delivery Method Room Air Intake Visit Reasons: ED F/U low potassium Intake Note: Pt was seen at [facility] Mid Dec for Low Potassium Allergies amoxicillin [AMOXICILLIN] Allergy (Severe, Verified 08/21/23 10:17) anaphylaxis / angioedma Penicillins [PENICILLINS] Allergy (Severe, Verified 08/21/23 10:17) HIVES, SWELLING/SOB Sulfa (Sulfonamide Antibiotics) [SULFA (SULFONAMIDE ANTIBIOTICS)] Allergy (Severe, Verified 08/21/23 10:17) HIVES tramadol Allergy (Intermediate, Verified 08/21/23 10:17) GI upset/abd pain Seasonal Allergies Allergy (Mild, Verified 08/21/23 10:17) Sneezing Tobacco use date assessed: 08/21/23 Dental Screening Dental Screen Date: 08/21/23 Did you have a dental visit in the last 12 months?: Yes Did you have a dental problem in the last 6 months where you did not have access to dental care?: No Was dental information given to patient?: Patient has dentist HPI ED F/U low potassium HPI Details Pt was seen in the ER on 07/10 c/o muscle spasms. He had not been taking his potassium supplement regularly. Pt ate 2 bananas and felt better. Potassium in the ER was 4.0. He reports doing well and no longer has muscle spasms. Will repeat labs. Pt is an uncontrolled diabetic, sees endo. Denies fever, chills, and dizziness. 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 Mother CVD (cardiovascular disease) Son No problems noted. Social History Household Members: Family Housing: House Alcohol intake: never Patient Tobacco Use Status: Current everyday Tobacco user Tobacco use type: Cigarette Cigarette Packs Per Day: 0.5 Cigarettes Per Day: 5 Years Smoked: 13 e-Cigarette/Vaping Use: Never Used Substance Use Type: Former Substance User and Opiates Advance Directives Date on File: 11/03/17 Current occupational status: unemployed Cognitive needs: No Hearing needs: No Vision needs: No Questionnaire PHQ-9 Over the last 2 weeks, how often have you been bothered by any of the following problems? 1. Little interest or pleasure in doing things: several days 2. Feeling down, depressed, or hopeless: several days 3. Trouble falling or staying asleep, or sleeping too much: more than half the days 4. Feeling tired or having little energy: more than half the days 5. Poor appetite or overeating: nearly every day 6. Feeling bad about yourself - or that you are a failure or have let yourself or your family down: several days 7. Trouble concentrating on things, such as reading the newspaper or watching television: several days 8. Moving or speaking so slowly that other people could have noticed. Or the opposite - being so fidgety or restless that you have been moving around a lot more than usual: not at all 9. Thoughts that you would be better off or of hurting yourself in some way: not at all Total score: 11 Source: Developed by Drs. Chinmay Melo, Robina Duke, Serge Her and colleagues, with an educational maurisio from [employer] Thrive Questionnaire Date Thrive assessed: 08/21/23 I am a: Patient What is your living situation today?: I have a steady place to live Within the past 12 months, did the food you bought not last and you didn't have the money to get more?: Often true Within the past 12 months, did you worry whether your food would run out before you got money to buy more?: Often true Do you have trouble paying for medicines?: No Do you have trouble getting transportation to medical appointments?: No Do you have trouble paying your heating and electricity bill?: Yes Do you have trouble taking care of your child, family member or friend?: Yes Do you have trouble with day-to-day activities such as bathing, preparing meals, shopping, managing finances, etc.?: Yes Are you currently unemployed and looking for a job?: No Are you interested in more education?: Yes THRIVE Score: 3 AUDIT C Alcohol Use Questionnaire (AUDIT-C) 1. How often do you have a drink containing alcohol?: Never 3. How often do you have six or more drinks on one occasion?: Never Total Score: 0 VERO-7 AMB Questionnaire VERO-7 Date VERO - 7 assessed: 08/21/23 Feeling nervous, anxious, or on edge: 1 = Several days Not being able to stop or control worryin = Several days Worrying too much about different things: 1 = Several days Trouble relaxin = More than half the days Being so restless that it is hard to sit still: 1 = Several days Becoming easily annoyed or irritable: 1 = Several days Feeling afraid as if something awful might happen: 0 = Not at all Total VERO-7 score (0-4 normal; 5-9 mild; 10-14 moderate; 15-21 severe): 7 Source: Developed by Drs. Chinmay Melo, Robina Duke, Serge Her and colleagues, with an educational maurisio from [employer] Review of Systems Const Reports as per HPI Physical exam (Primary Care) Vital Signs: Last Vital Signs Pulse 91 08/21/23 10:14 BP 120/80 08/21/23 10:14 Pulse Ox 97 08/21/23 10:14 Oxygen Delivery Method Room Air 08/21/23 10:14 BMI result Body Mass Index 32.7 Tobacco/Smoking Status: Tobacco use Status Tobacco use date assessed 08/21/23 08/21/23 10:21 Patient Tobacco Use Status Current everyday Tobacco 08/21/23 10:16 Tobacco use type Cigarette 08/21/23 10:16 e-Cigarette/Vaping Use Never Used 08/21/23 10:16 PHQ-9: PHQ-9 Score PHQ-9: Total score 11 08/21/23 10:39 Thrive Assessment: Date of Thrive Assessment Date Thrive assessed 08/21/23 08/21/23 10:26 Const General: cooperative Nutritional Appearance: obese Orientation/consciousness: patient oriented x3 Resp Effort & Inspection: normal respiratory effort Auscultation: clear to auscultation bilaterally Cardio Rate: regular rate Rhythm: regular rhythm Heart sounds: S1 normal heart sound present and S2 normal heart sound present Neuro General: patient oriented x3 Extrem Right lower extremity: no edema Left lower extremity: no edema Psych Appearance: grossly normal Mental Status: mental status grossly normal Speech and movement: Normal speech and movement present Affect: normal affect Attitude: cooperative Thought process: Normal thought process present Thought content: Normal thought content present Insight: Good insight present (Psych) Judgement: Good judgement present (Psych) Assessment and Plan Assessment & Plan (1) Muscle spasms of both lower extremities: Code(s): M62.838 - Other muscle spasm Plan: Labs ordered Plan The patient agreed to the use of a medical office administrator for this encounter. Scribed for RAINE Mejía-BLAINE by Mehreen Anderson medical office administrator, on 08/21/2023 at 10:35 EST. Orders: Orders Vitamin B12 and Folate Today M62.838 - Other muscle spasm Comprehensive Met. Panel Today M62.838 - Other muscle spasm Magnesium Today M62.838 - Other muscle spasm Medications: Refilled albuterol sulfate 90 mcg/actuation 1 puff inhalation Q4H PRN 8.5 grams 2RF bronchospasm 30 days Coding Level of Care Code Est Pt Level 3 (30401) Diagnoses Muscle spasms of both lower extremities M62.838
== END 2023-08-21 10:50 | disposition home or self-care (01) ==
PROVIDERS: PCP Nurse Practitioner Family; Visit Provider Nurse Practitioner Family
DX: M62.838 Other muscle spasm (principal)
CPT/HCPCS: 99213

== ENCOUNTER 2023-09-16 11:10 | Outpatient (AMB) | payer OTHER, SELFPAY ==
--- NOTE | 2023-09-16 11:31 | MHC.OFFVIS ---
Intake Intake Visit Reasons: Check umbilical area, ? recurrent hernia Intake Note: This patient presents for questions of recurrent umbilical hernia. Patient c/o; report bulge, reports pain, reports feel something when pushes it back it. 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: No Accompanied by: Other Relationship Allergies amoxicillin [AMOXICILLIN] Allergy (Severe, Verified 09/16/23 11:35) anaphylaxis / angioedma Penicillins [PENICILLINS] Allergy (Severe, Verified 09/16/23 11:35) HIVES, SWELLING/SOB Sulfa (Sulfonamide Antibiotics) [SULFA (SULFONAMIDE ANTIBIOTICS)] Allergy (Severe, Verified 09/16/23 11:35) HIVES tramadol Allergy (Intermediate, Verified 09/16/23 11:35) GI upset/abd pain Seasonal Allergies Allergy (Mild, Verified 09/16/23 11:35) Sneezing Medication List - Last Reconciled 09/16/23 by Erich Ling MD acetaminophen (Tylenol Extra Strength) 1,000 mg (2 x 500 mg) PO Q6H PRN albuterol sulfate 90 mcg/actuation 1 puff inhalation Q4H PRN 30 days amitriptyline 50 mg PO BEDTIME aripiprazole 15 mg PO BEDTIME BD Insulin Syringe U-500 (insulin U-500 syringe-needle) As directed 3 x/day NS blood pressure kit med and lrg daily use blood sugar diagnostic (FreeStyle Lite Strips) 4 times a day blood sugar diagnostic (FreeStyle Lite Strips) As directed four times a day blood-glucose meter (FreeStyle Lite Meter kit) As directed diclofenac sodium 1% (Arthritis Pain (diclofenac)) 4 grams topical QID fenofibrate 54 mg PO DAILY flash glucose scanning reader (FreeStyle Anyi 2 [place]) As directed flash glucose sensor Every 14 days flash glucose sensor (FreeStyle Anyi 2 Sensor kit) USE TO TEST BLOOD GLUCOSE AND REPLACE EVERY 14 DAYS DIRECTED gabapentin 300 mg PO BID glucagon (Gvoke HypoPen 2-Pack) 1 mg (0.2 mL) subcut ONCE guselkumab (Tremfya) 100 mg subcut Q8W ibuprofen 600 mg PO TID PRN insulin regular hum U-500 conc (Humulin R U-500 (Concentrated) Insulin) 150 units breakfast, lunch, 160 units dinner subcut 3 times a day; Use only with appropriate syringe lamotrigine 200 mg PO BEDTIME lancets As directed lancets (FreeStyle Lancets) 4 times a day lidocaine 5% 2 patches topical DAILY 30 days lidocaine-prilocaine 2.5-2.5 % 1 appl topical ONCE 1 day ohsdqc-hyaclbcr-pdhjman 24,000-76,000 -120,000 unit (Creon) 3 caps PO TID methadone 50 mg PO QAM multivitamin 1 tab PO DAILY needle (disp) 21 G (BD Regular Bevel Crawford) As directed injects once a week pantoprazole 40 mg PO DAILY sildenafil (Viagra) 50 mg PO DAILY PRN syringe with needle (BD Luer-Fabien Syringe) INJECT ONCE A WEEK DIRECTED syringe with needle, safety As directed inject once a week testosterone cypionate 100 mg (0.5 mL) IM QWEEK zolpidem ER 12.5 mg PO BEDTIME PRN HPI HPI Comments History of Present Illness Details 42-year-old male patient returning for evaluation planes of abdominal pain near his umbilical incision. He previously underwent a repair of an umbilical hernia with mesh on 06/17/2022 using a 6.4 cm Ventralex mesh. He reports feeling well until recently when he developed a recurrent episode of pancreatitis. This was associated with severe nausea and vomiting. While vomiting he noted increased pain at the umbilical incision. He now feels a possibility of a lump in the umbilical incision is concerned about a recurrent hernia. He does note some pain when the hernias palpated. 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 Mother CVD (cardiovascular disease) Son No problems noted. Social History Household Members: Family Housing: House Alcohol intake: never Patient Tobacco Use Status: Current everyday Tobacco user Tobacco use type: Cigarette Cigarette Packs Per Day: 0.5 Cigarettes Per Day: 5 Years Smoked: 13 e-Cigarette/Vaping Use: Never Used Substance Use Type: Former Substance User and Opiates Advance Directives Date on File: 11/03/17 Current occupational status: unemployed Cognitive needs: No Hearing needs: No Vision needs: No Physical Exam Const General: no acute distress Nutritional Appearance: well nourished Orientation/consciousness: patient oriented x3 Eyes Sclerae: sclerae normal Resp Effort & Inspection: normal respiratory effort, no audible wheezes, no cough and no respiratory distress GI Other: Well-healed periumbilical incision. Patient was examined in the standing position with Valsalva maneuvers. No definite hernias palpable although there is tenderness with palpation. Abdomen image: 1. Incision located above umbilicus in a transverse fashion. no definite hernias palpable. Neuro General: patient oriented x3 Assessment & Plan Assessment & Plan (1) Chronic inflammation of pancreas: Code(s): K86.1 - Other chronic pancreatitis Qualifiers: Pancreatitis type: alcohol induced Qualified Code(s): K86.0 - Alcohol-induced chronic pancreatitis (2) Umbilical hernia: Code(s): K42.9 - Umbilical hernia without obstruction or gangrene Qualifiers: Obstruction and gangrene presence: without obstruction or gangrene Qualified Code(s): K42.9 - Umbilical hernia without obstruction or gangrene Plan 42-year-old male patient presenting with complaints of abdominal pain a periumbilical location with reports of a palpable lump. Unfortunately I am unable to confirm this on my examination and no definite hernia recurrence is identified. I therefore recommended further evaluation with a CT abdomen and pelvis. He will return following the study to review the results and discuss treatment options. He expressed understanding and agrees with the plan. Orders: Orders CT abdomen pelvis wo IV con Today K42.9 - Umbilical hernia without obstruction or gangrene, K86.1 - Other chronic pancreatitis Coding Level of Care Code Est Pt Level 3 (66704) Diagnoses Alcohol-induced chronic pancreatitis K86.0 Pancreatitis type: alcohol induced Umbilical hernia without obstruction and without gangrene K42.9 Obstruction and gangrene presence: without obstruction or gangrene
== END 2023-09-16 11:41 | disposition home or self-care (01) ==
PROVIDERS: PCP Nurse Practitioner Family; Visit Provider Surgery
DX: K86.0 Alcohol-induced chronic pancreatitis (principal); K42.9 Umbilical hernia without obstruction or gangrene
CPT/HCPCS: 99213

== ENCOUNTER → 2023-09-16 11:10 | Outpatient (BNVA) | payer OTHER, SELFPAY | PROVIDERS: PCP Nurse Practitioner Family; Visit Provider Surgery | DX: K86.0 Alcohol-induced chronic pancreatitis (principal); K42.9 Umbilical hernia without obstruction or gangrene | CPT/HCPCS: 99212 ==

== ENCOUNTER 2023-09-22 10:12 | Outpatient (AMB) | payer OTHER, SELFPAY ==
--- NOTE | 2023-09-22 10:16 | A.OFFVIS_ITS ---
Intake Vital Signs 09/22/23 10:17 Height 5 ft 9 in Weight 228 lb 9.91 oz BMI 33.8 BP 132/82 Blood Pressure Location Lt brachial Position Sitting Pulse 112 H Pulse Source Pulse Oximeter Intake Visit Reasons: f/u hypogonadism-confirmed Intake Note: Patient presents today for Hypogonadism follow up visit. 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 Diabetes being managed at the [facility] in [place]. Today's appointment focus on hypogonadism First diagnosed with Hypogonadism [id number] with labs revealing low testosterone .Saw endo . Was placed on IM testosterone Was started on Testosterone supplementation with IM testo until 2017 and found relief. Came off because care disrupted Not Currently using testosterone. Last dose was 2017. Currently not achieving spontaneous am erections, and unable to achieve erection when desired. Reports low libido. . Denies any decrease in size or shape of testicles. Denies penile discharge or scrotal tenderness. Denies any history of mumps orchitis Had trauma in past with LOC twice in past . Denies history of VALERY b ut does snore at night . Has 1 children who were conceived spontaneously. Not looking to have children Sense of smell intact. Denies headache or visual changes, gynecomastia or galactorrhea. Denies orthostatic symptoms, weight loss. Denies change in size of hands or feet. Denies hair loss, weight gain, cold intolerance. History of DVT or PE: No No anabolic On methadone Workup point with secondary hypogonadism with normal prolactin, normal ferritin and normal MRI of the pituitary Labs: PSA CBC Sleep study showed moderate to severe sleep apnea Currently on intramuscular testosterone 100 mg Q weekly. Libido and energy le tj are much better but having erectile dysfunction [facility] Medical History (Updated 09/18/23 @ 19:20 by Erich Rodriguez, 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 Mother CVD (cardiovascular disease) Son No problems noted. Social History Household Members: Family Housing: House Alcohol intake: never Patient Tobacco Use Status: Current everyday Tobacco user Tobacco use type: Cigarette Cigarette Packs Per Day: 0.5 Cigarettes Per Day: 5 Years Smoked: 13 e-Cigarette/Vaping Use: Never Used Substance Use Type: Former Substance User and Opiates Advance Directives Date on File: 11/03/17 Current occupational status: unemployed Cognitive needs: No Hearing needs: No Vision needs: No Physical Exam Vital Signs: Last Vital Signs Pulse 112 H 09/22/23 10:17 BP 132/82 09/22/23 10:17 BMI result Body Mass Index 33.8 Assessment & Plan Assessment & Plan (1) Hypogonadism male: Code(s): E29.1 - Testicular hypofunction Plan: This is a 42-year-old white male with a history of secondary hypogonadism. On CPAP for sleep apnea. Currently being treated with intramuscular testosterone 100 mg q.week. Testosterone recently check was within normal limits. Also on Viagra for erectile dysfunction Plan is to continue the current treatment. Coding Level of Care Code Est Pt Level 3 (67459) Diagnoses Hypogonadism male E29.1
[2023-09-22 10:17] VITALS: BP 132/82; PULSE 112; BMI 33.8
== END 2023-09-22 10:34 | disposition home or self-care (01) ==
PROVIDERS: PCP Nurse Practitioner Family; Visit Provider Internal Medicine Endocrinology, Diabetes & Metabolism
DX: E29.1 Testicular hypofunction (principal)
CPT/HCPCS: 99213

== ENCOUNTER → 2023-09-22 10:12 | Outpatient (BNVA) | payer OTHER, SELFPAY | PROVIDERS: PCP Nurse Practitioner Family; Visit Provider Internal Medicine Endocrinology, Diabetes & Metabolism | DX: E11.40 Type 2 diabetes mellitus with diabetic neuropathy, unspecified (principal); E11.65 Type 2 diabetes mellitus with hyperglycemia; E29.1 Testicular hypofunction | CPT/HCPCS: 99212 ==

== ENCOUNTER 2023-09-25 13:22 | Outpatient (AMB) | payer OTHER, SELFPAY ==
[2023-09-25 13:29] VITALS: BP 129/85; PULSE 106; O2SAT 99; BMI 33.4
--- NOTE | 2023-09-25 13:29 | A.OFFVIS_ITS ---
Intake Vital Signs 09/25/23 13:29 09/25/23 14:09 09/25/23 14:26 Height 5 ft 9 in 5 ft 9 in 5 ft 9 in Weight 226 lb 3 oz 226 lb 3 oz 226 lb 3 oz BMI 33.4 33.4 33.4 BP 129/85 130/79 131/81 Blood Pressure Location Lt brachial Lt brachial Lt brachial Position Sitting Sitting Sitting Pulse 106 H 91 95 Pulse Source Pulse Oximeter Pulse Oximeter Pulse Oximeter Pulse Oximetry (%) 99 100 98 Oxygen Delivery Method Room Air Room Air Room Air Comment 15 mins after qutenza application 30 mins after qutenza application Intake Visit Reasons: QUTENZA Intake Note: Pain today 09/06 Respiratory Care Faculty Required: No Accompanied by: Self / Same As Patient Allergies amoxicillin [AMOXICILLIN] Allergy (Severe, Verified 09/25/23 13:29) anaphylaxis / angioedma Penicillins [PENICILLINS] Allergy (Severe, Verified 09/25/23 13:29) HIVES, SWELLING/SOB Sulfa (Sulfonamide Antibiotics) [SULFA (SULFONAMIDE ANTIBIOTICS)] Allergy (Severe, Verified 09/25/23 13:29) HIVES tramadol Allergy (Intermediate, Verified 09/25/23 13:29) GI upset/abd pain Seasonal Allergies Allergy (Mild, Verified 09/25/23 13:29) Sneezing HPI HPI Comments History of Present Illness Details Patient presents for 4th round application of capsaicin 8% topical patch for diabetic neuropathy in bilateral feet. Denies any recent cough, cold, infection, fever or other significant changes in medical history since last office visit. 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 Denies any recent injury, trauma, and falls. His current A1C is 9.1 on 09/27/22 which used to be over 14.0 2 years ago. He follows [facility] services. His last alcohol consumption was in 2018. Patient continues to smoke. 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 Foot pain is described as constant pulsing, throbbing, pounding, stabbing, lancinating, hot burning, tingling, stingling, dull, sore, hurting, aching and heavy. Pain is worse at night and with walking. It interferes with his daily activities and functions and sleeping as well. Denies back pain. Denies previous physical therapy, chiropract ic manipulation, massage, aqua therapy, acupuncture or TENS unit. Patient has been taking gabapentin 300 mg TID, amitriptyline 50 mg qhs, Tylenol and CBD cream with minimal pain relief. In the past, he also tried morphine 30 mg bid, dialaudid 4 mg qid, and oxycodone 20 mg tid and notes these pain medication helped the most. I have informed patient that our office does not offer opioid prescribing. Patient also reports chronic abdominal mid epigastric and left upper quadrant pain. He is taking Creon and tries to adhere to a healthier diet. Unsuccessful attempts were done at [facility] to place stents in his pancreatic ducts per patient. Patient denies any fever, chills, weight loss, weakness, bladder and bowel incontinence or saddle anesthesia. 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 Mother CVD (cardiovascular disease) Son No problems noted. Social History Household Members: Family Housing: House Alcohol intake: never Patient Tobacco Use Status: Current everyday Tobacco user Tobacco use type: Cigarette Cigarette Packs Per Day: 0.5 Cigarettes Per Day: 5 Years Smoked: 13 e-Cigarette/Vaping Use: Never Used Substance Use Type: Former Substance User and Opiates Advance Directives Date on File: 11/03/17 Current occupational status: unemployed Cognitive needs: No Hearing needs: No Vision needs: No Review of Systems Const All systems reviewed & are unremarkable except as noted in HPI and below Physical Exam Vital Signs: Last Vital Signs Pulse 95 09/25/23 14:26 BP 131/81 09/25/23 14:26 Pulse Ox 98 09/25/23 14:26 Oxygen Delivery Method Room Air 09/25/23 14:26 BMI result Body Mass Index 33.4 General: Appears afebrile. Alert and oriented. Mood and affect appropriate. Pleasant. Follows and participates in conversation appropriately. Respiratory effort is unlabored. No cough. Able to transition from sit to stand unassisted. Ambulates with bilaterally normal heel strike and toe off. Extrem Other: There is a decreased sensation over the midfoot, soles of the feet and the toes bilaterally. Dorsal protective sensation intact. No breaks in the skin. No soft tissue swelling, no redness or warmth. No edema, clubbing, cyanosis or calf tenderness bilaterally. +2 posterior tibial pulses and dorsalis pedis present bilaterally Office Procedures Topical Capsaicin Date 1:: 11/22/22 Date 2:: 02/21/23 Date 3:: 05/22/23 Date 4:: 09/25/23 Laterality: Bilateral Location of left foot pain: Plantar, Dorsal, Medial and Distal Location of right foot pain: Plantar, Dorsal, Medial and Distal Quality of pain: Aching, Nagging, Burning, Gnawing, Numb-like, Tiring and Unbearable Details:: Two patches, 560 cm2 were utilized per each foot. EMLA Cream (lidocaine 2.5% and prilocaine 2.5%) was applied at home by patient prior to application of the patches. The patient tolerated the procedure well. Patient?s vitals signs remained stable throughout the procedure. Patient was able to complete the stipulated 30 minutes of the therapeutic application without any discomfort. Office Meds capsaicin-skin cleanser 8 % topical kit Performing Provider: RAINE Hutson Performing Location: [facility] Administered by: RAINE Hutson on 09/25/23 13:50 Dose Route Admin Location Dispensed Lot Number Expiration Date NDC Systems Technician 4 ea topical [facility] 4 ea [id number] 12/26/25 27372-875-81 Return Path Results Reviewed Results Reviewed: No imaging reports is available for review. 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 Patient tolerated the procedure without significant discomfort with application of EMLA cream prior to the procedure. He was discharged home in stable condition with discharge instructions. All questions and concerns were answered and the patient agreed with the plan. Greater than 35 minutes were spent in therapeutic application, documentation and in coordination of the care. 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
[2023-09-25 14:09] VITALS: BP 130/79; PULSE 91; O2SAT 100; BMI 33.4
[2023-09-25 14:26] VITALS: BP 131/81; PULSE 95; O2SAT 98; BMI 33.4
== END 2023-09-25 14:43 | disposition home or self-care (01) ==
PROVIDERS: PCP Nurse Practitioner Family; Visit Provider Nurse Practitioner Family
DX: E11.40 Type 2 diabetes mellitus with diabetic neuropathy, unspecified (principal)
CPT/HCPCS: 17999; 99214

== ENCOUNTER → 2023-09-25 13:22 | Outpatient (BNVA) | payer OTHER, SELFPAY | PROVIDERS: PCP Nurse Practitioner Family; Visit Provider Nurse Practitioner Family | DX: E11.40 Type 2 diabetes mellitus with diabetic neuropathy, unspecified (principal); E13.9 Other specified diabetes mellitus without complications; S36.209S Unspecified injury of unspecified part of pancreas, sequela | CPT/HCPCS: 17999; 99212; J7336 ==

== ENCOUNTER 2023-11-27 10:37 | Outpatient (REF) | payer OTHER, SELFPAY ==
[2023-11-27 13:09] LABS: MANUAL DIFF FLAG NO
[2023-11-27 13:17] LABS: Basophils Absolute Auto 0.1 X10*3/uL (0.0-0.2); Basophils Percent Auto 0.9 % (0-2); Eosinophils Absolute Auto 0.2 X10*3/uL (0.0-0.4); Hematocrit 48.2 % (42.0-52.0); Hemoglobin 16.4 g/dl (14.0-18.0); Imm Gran Abs Auto 0.04 X10*3/uL (0.00-0.03); Imm Gran Pct Auto 0.7 % (0.0-0.4); Lymphocytes Absolute Auto 1.6 X10*3/uL (1.2-4.9); Lymphocytes Percent Auto 28.3 % (20-40); Mean Corpuscular Hemoglobin 26.8 pg (27.0-33.0); Mean Corpuscular Volume 78.9 fL (80.0-98.0); Mean Platelet Volume 10.8 fL (9.4-12.4); Monocytes Absolute Auto 0.5 X10*3/uL (0.1-1.2); Monocytes Percent Auto 8.6 % (2-11); Neutrophils Absolute Auto 3.3 x10*3/uL (2.0-8.3); Neutrophils Percent Auto 57.5 % (45-73); Platelet Count 194 X10*3/uL (160-400); Red Blood Count 6.11 X10*6/uL (4.60-5.80); Red Cell Distribution Width 13.9 % (11.0-16.0); White Blood Count 5.8 X10*3/uL (4.8-10.8)
[2023-11-27 13:53] LABS: Alanine Aminotransferase 28 U/L (0-40); Albumin Level 4.3 g/dL (3.5-5.0); Alkaline Phosphatase 87 U/L (39-117); Anion Gap 15 (12-20); Aspartate Amino Transferase 19 U/L (5-37); Bilirubin Total 0.6 mg/dL (0.0-1.0); Blood Urea Nitrogen 16 mg/dL (9-16); Calcium 9.8 mg/dL (8.4-10.2); Carbon Dioxide 26 mmol/L (22-29); Chloride 100 mmol/L (96-108); Estimated Glomerular Filt Rate > 60; Glucose Random 298 mg/dL (60-115); Magnesium 1.7 mg/dL (1.6-2.6); Sodium 137 mmol/L (135-145); Total Protein 6.7 g/dL (6.5-8.0)
[2023-11-27 13:54] LABS: Alanine Aminotransferase 27 U/L (0-40); Albumin Level 4.3 g/dL (3.5-5.0); Alkaline Phosphatase 92 U/L (39-117); Anion Gap 16 (12-20); Aspartate Amino Transferase 17 U/L (5-37); Bilirubin Total 0.6 mg/dL (0.0-1.0); Blood Urea Nitrogen 17 mg/dL (9-16); Calcium 9.5 mg/dL (8.4-10.2); Carbon Dioxide 25 mmol/L (22-29); Chloride 99 mmol/L (96-108); Estimated Glomerular Filt Rate 59; Glucose Random 293 mg/dL (60-115); Sodium 136 mmol/L (135-145); Total Protein 6.7 g/dL (6.5-8.0)
[2023-11-27 14:20] LABS: Folate 13.3 ng/mL (> or = 4.0); Vitamin B12 516 pg/mL (200-900)
[2023-11-30 00:23] LABS: TS Negative Control Passed; TS Panel A 0; TS Panel B 1; TS Positive Control Passed; TSpotTB Negative (Negative)
== END 2023-11-27 10:38 | disposition home or self-care (01) ==
LOC: HO.HMGCLDS 10:37
PROVIDERS: PCP Nurse Practitioner Family; Visit Provider Dermatology
DX: M62.838 Other muscle spasm (principal); L40.0 Psoriasis vulgaris; Z79.899 Other long term (current) drug therapy
CPT/HCPCS: 36415; 80053; 82607; 82746; 83735; 85025; 86481

== ENCOUNTER 2023-12-12 12:55 | Outpatient (REF) | payer OTHER, SELFPAY ==
--- NOTE | ~2023-12-12 | CT_ITS ---
EXAMINATION: CT ABDOMEN AND PELVIS WITHOUT CONTRAST CLINICAL INFORMATION: Chronic pancreatitis COMPARISON: 06/12/2020 TECHNIQUE: Multidetector volumetric imaging was performed from the superior aspect of the liver through the pubic symphysis. Sagittal and coronal reformatted images were obtained on the technologist's workstation. Oral contrast used This CT examination was performed using dose optimization techniques as appropriate, variously including the following: *Automated exposure control *Adjustment of mA and/or kV according to patient size (this includes techniques or standardized protocols for targeted exams where dose is matched to indication/reason for exam; i.e. extremities or head) *Use of iterative reconstruction technique DLP: 602 mGy-cm FINDINGS: LUNG BASES: The visualized lung bases are unremarkable. LIVER, GALLBLADDER, AND BILIARY TREE: Liver is of low attenuation due to hepatic steatosis without intrahepatic masses or ductal dilatation seen. Liver is enlarged. Gallbladder is surgically absent PANCREAS: Uterine noncontrast technique evaluation of pancreas is limited but there are no evidence of tubular structures seen on postcontrast CT scan of the pancreas and no abnormal calcifications to suggest chronic pancreatitis. There is no peripancreatic fluid collection or cyst SPLEEN: Spleen is enlarged. ADRENAL GLANDS: Unremarkable. KIDNEYS AND URETERS: The kidneys are normal in size, shape, and attenuation. No hydronephrosis, hydroureter, or calculi seen. No perinephric stranding. BLADDER: Unremarkable. GASTROINTESTINAL TRACT: The small and large bowel are unremarkable. The appendix is unremarkable. ABDOMINAL WALL: No significant hernia is appreciated. LYMPH NODES: Normal. VASCULAR: Unremarkable. PELVIC VISCERA: Unremarkable. OSSEOUS STRUCTURES: Unremarkable. CT/CT abdomen pelvis wo IV con IMPRESSION: 1. No evidence of pancreatitis. 2. Hepatosplenomegaly. Hepatic steatosis. Fleischner guidelines were followed.
[2023-12-12] MEDS: Barium Sulfate Oral (Berry) 450 ML ORAL.SUSP 900 ML PO (15:08)
== END 2023-12-12 12:56 | disposition home or self-care (01) ==
LOC: HO.CT 12:55
PROVIDERS: PCP Nurse Practitioner Family; Visit Provider Surgery
DX: K86.1 Other chronic pancreatitis (principal); K42.9 Umbilical hernia without obstruction or gangrene
CPT/HCPCS: 74176

== ENCOUNTER 2023-12-19 11:03 | Outpatient (AMB) | payer OTHER, SELFPAY ==
--- NOTE | 2023-12-19 11:07 | A.OFFVIS_ITS ---
Intake Visit Reasons: umbilical hernia, CT results Intake Note: Patient is seen in office for CT scan results, following umbilical hernia. Pt c/o: admits to more distec CT:12/12/23 Cardiopulmonary Specialist Required: No Accompanied by: Family/Other Allergies amoxicillin [AMOXICILLIN] Allergy (Severe, Verified 09/25/23 13:29) anaphylaxis / angioedma Penicillins [PENICILLINS] Allergy (Severe, Verified 09/25/23 13:29) HIVES, SWELLING/SOB Sulfa (Sulfonamide Antibiotics) [SULFA (SULFONAMIDE ANTIBIOTICS)] Allergy (Severe, Verified 09/25/23 13:29) HIVES tramadol Allergy (Intermediate, Verified 09/25/23 13:29) GI upset/abd pain Seasonal Allergies Allergy (Mild, Verified 09/25/23 13:29) Sneezing Medication List - Last Reconciled 12/19/23 by Erich Ling MD acetaminophen (Tylenol Extra Strength) 1,000 mg (2 x 500 mg) PO Q6H PRN albuterol sulfate 90 mcg/actuation 1 puff inhalation Q4H PRN 30 days amitriptyline 50 mg PO BEDTIME aripiprazole 15 mg PO BEDTIME barium sulfate 2%(w/v) (Readi-Cat 2) 450 mL PO .twice MDD 900ml BD Insulin Syringe U-500 (insulin U-500 syringe-needle) As directed 3 x/day NS blood pressure kit med and lrg daily use blood sugar diagnostic (FreeStyle Lite Strips) 4 times a day blood sugar diagnostic (FreeStyle Lite Strips) As directed four times a day blood-glucose meter (FreeStyle Lite Meter kit) As directed fenofibrate 54 mg PO DAILY flash glucose scanning reader (FreeStyle Anyi 2 [place]) As directed flash glucose sensor Every 14 days flash glucose sensor (FreeStyle Anyi 2 Sensor kit) USE TO TEST BLOOD GLUCOSE AND REPLACE EVERY 14 DAYS DIRECTED gabapentin 300 mg PO BID glucagon (Gvoke HypoPen 2-Pack) 1 mg (0.2 mL) subcut ONCE guselkumab (Tremfya) 100 mg subcut Q8W ibuprofen 600 mg PO TID PRN insulin regular hum U-500 conc (Humulin R U-500 (Concentrated) Insulin) 150 units breakfast, lunch, 160 units dinner subcut 3 times a day; Use only with appropriate syringe lamotrigine 200 mg PO BEDTIME lancets As directed lancets (FreeStyle Lancets) 4 times a day lidocaine 5% 2 patches topical DAILY 30 days lidocaine-prilocaine 2.5-2.5 % 1 appl topical ONCE 1 day tjrlmz-mgfhxmvo-zpjgane 24,000-76,000 -120,000 unit (Creon) 3 caps PO TID metformin ER 500 mg PO DAILY methadone 50 mg PO QAM multivitamin 1 tab PO DAILY needle (disp) 21 G (BD Regular [place]) As directed injects once a week pantoprazole 40 mg PO DAILY sildenafil (Viagra) 50 mg PO DAILY PRN syringe with needle (BD Luer-Fabien Syringe) INJECT ONCE A WEEK DIRECTED syringe with needle, safety As directed inject once a week testosterone cypionate 100 mg (0.5 mL) IM QWEEK zolpidem ER 12.5 mg PO BEDTIME PRN HPI Comments Details: 42-year-old male patient returning for evaluation planes of abdominal pain near his umbilical incision. He previously underwent a repair of an umbilical hernia with mesh on 06/17/2022 using a 6.4 cm Ventralex mesh. He reports feeling well until recently when he developed a recurrent episode of pancreatitis. This was associated with severe nausea and vomiting. While vomiting he noted increased pain at the umbilical incision. He was concerned about a recurrence of his umbilical hernia. He was subsequently sent for CT abdomen and pelvis and returns today to review the results. Review of the CT re veals no evidence of hernia recurrence with an intact repair. No other explanation for his symptoms are identified. He does appear to be full of stool especially on the right side. 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 Mother CVD (cardiovascular disease) Son No problems noted. Social History Household Members: Family Housing: House Alcohol intake: never Patient Tobacco Use Status: Current everyday Tobacco user Tobacco use type: Cigarette Cigarette Packs Per Day: 0.5 Cigarettes Per Day: 5 Years Smoked: 13 e-Cigarette/Vaping Use: Never Used Substance Use Type: Former Substance User and Opiates Advance Directives Date on File: 11/03/17 Current occupational status: unemployed Cognitive needs: No Hearing needs: No Vision needs: No Review of Systems Const All systems reviewed & are unremarkable except as noted in HPI and below Physical Exam Const General: no acute distress Nutritional Appearance: well nourished Orientation/consciousness: patient oriented x3 Eyes Sclerae: sclerae normal Resp Effort & Inspection: normal respiratory effort, no audible wheezes, no cough and no respiratory distress GI Other: Well-healed periumbilical incision. Patient was examined in the standing position with Valsalva maneuvers. No definite hernias palpable although there is tenderness with palpation. Neuro General: patient oriented x3 Assessment & Plan Assessment & Plan (1) Chronic inflammation of pancreas: Code(s): K86.1 - Other chronic pancreatitis Category: Medical Qualifiers: Pancreatitis type: alcohol induced Qualified Code(s): K86.0 - Alcohol- induced chronic pancreatitis (2) Umbilical hernia: Code(s): K42.9 - Umbilical hernia without obstruction or gangrene Category: Medical Qualifiers: Obstruction and gangrene presence: without obstruction or gangrene Qualified Code(s): K42.9 - Umbilical hernia without obstruction or gangrene Plan 43-year-old male patient presenting with complaints of abdominal pain a periumbilical location with reports of a palpable lump. A CT abdomen and pelvis was performed. Review of this study reveals no evidence of a hernia recurrence. I reviewed the studies in detail with the patient and he expressed understanding. No surgical intervention is required at this time. He may wish to add Colace for the increased stool burden. He should return as needed. 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
== END 2023-12-19 11:34 | disposition home or self-care (01) ==
PROVIDERS: PCP Nurse Practitioner Family; Visit Provider Surgery
DX: K86.0 Alcohol-induced chronic pancreatitis (principal); K42.9 Umbilical hernia without obstruction or gangrene
CPT/HCPCS: 99213

== ENCOUNTER → 2023-12-19 11:03 | Outpatient (BNVA) | payer OTHER, SELFPAY | PROVIDERS: PCP Nurse Practitioner Family; Visit Provider Surgery | DX: K86.0 Alcohol-induced chronic pancreatitis (principal); K42.9 Umbilical hernia without obstruction or gangrene | CPT/HCPCS: 99212 ==

== ENCOUNTER 2024-01-27 09:30 | Outpatient (AMB) | payer OTHER, SELFPAY ==
--- NOTE | 2024-01-27 10:16 | A.OFFVIS_ITS ---
Intake Intake Visit Reasons: DM/CONFIRMED Allergies amoxicillin [AMOXICILLIN] Allergy (Severe, Verified 09/25/23 13:29) anaphylaxis / angioedma Penicillins [PENICILLINS] Allergy (Severe, Verified 09/25/23 13:29) HIVES, SWELLING/SOB Sulfa (Sulfonamide Antibiotics) [SULFA (SULFONAMIDE ANTIBIOTICS)] Allergy (Severe, Verified 09/25/23 13:29) HIVES tramadol Allergy (Intermediate, Verified 09/25/23 13:29) GI upset/abd pain Seasonal Allergies Allergy (Mild, Verified 09/25/23 13:29) Sneezing HPI Comprehensive Diabetes Asmnt Most Recent Diabetes Results: Microalb/Creat Ratio 4.5 ug/mg cr 12/27/22 Cholesterol 152 mg/dL (<200) 08/18/23 HDL Cholesterol 43 mg/dL (>40) 08/18/23 Triglycerides 134 mg/dL (<150) 08/18/23 Creatinine 1.32 mg/dL (0.5-1.4) 11/27/23 Blood Urea Nitrogen 17 mg/dL (9-16) H 11/27/23 Sodium 136 mmol/L (135-145) 11/27/23 Potassium 4.0 mmol/L (3.3-5.1) 11/27/23 Chloride 99 mmol/L (96-108) 11/27/23 Carbon Dioxide 25 mmol/L (22-29) 11/27/23 Calcium 9.5 mg/dL (8.4-10.2) 11/27/23 AST 17 U/L (5-37) 11/27/23 ALT 27 U/L (0-40) 11/27/23 Total Protein 6.7 g/dL (6.5-8.0) 11/27/23 Albumin 4.3 g/dL (3.5-5.0) 11/27/23 [facility] Medical History Onychomycosis Diabetic neuropathy Uncontrolled diabetes mellitus Hypogonadism male Obesity (BMI 30-39.9) Hypertension CKD (chronic kidney disease) stage 3, 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 Mother CVD (cardiovascular disease) Son No problems noted. 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 checks BG Dexcom G7 Downloaded meter today? Patient did not bring meter today Patient? reports glycemic control as: Fair Most recent Hgb A1C: 9.9% Frequency of low BG: Several times a week overnight Low BG treatment: Popsicles, fruit juice Frequency of high BG: daily Does patient check Ketones? no Has pt been on a pump in the past? No Reviewed insulin pump basics today with Patient. Explained pros and cons of insulin pumps. Showed pt various pumps, infusion sets, and cgms currently available. Reviewed need to wear pump 24/7 and need to change infusion set every 2-3 days. Also stressed importance of frequent BG checks, 4x daily minimum or use pump that is integrated with CGM.? TDD:120 U500 Patient is also at visit today because he experienced excessive bleeding when he inserted Anyi 2 sensors in the back of visit. We did insert Dexcom G7 sensor in the back of his right arm, patient did not experience any bleeding. Patient is left visit with sensor still in warmup Patient is interested in the Omnipod 5 Patient reports he has been taking 50 units of U 500, in the morning when he wakes up then still high around noon will take an additional 50 units around noon. This may be causing patient to experience hypoglycemia from stacking the 2 doses, reviewed with patient insulin action of U 500, explained that he should be taking U 500 doses further apart, and approximately 30 minutes before meals. Patient reports he will move 2nd dose of U 500 prior to supper Patient demonstrated motivation for continued insulin pump education and understands the need to complete education prior to starting insulin pump for best outcome. Will follow up for continued education. Next visit will include review of Advanced Carb Counting. Portions of this note were created using voice recognition software, please excuse any words or phrases that may have been misinterpreted. 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
== END 2024-01-27 10:22 | disposition home or self-care (01) ==
PROVIDERS: PCP Nurse Practitioner Family; Visit Provider Registered Nurse Diabetes Educator
DX: E13.9 Other specified diabetes mellitus without complications (principal); S36.209S Unspecified injury of unspecified part of pancreas, sequela

== ENCOUNTER → 2024-01-27 09:30 | Outpatient (BNVA) | payer OTHER, SELFPAY | PROVIDERS: PCP Nurse Practitioner Family; Visit Provider Registered Nurse Diabetes Educator | DX: E13.9 Other specified diabetes mellitus without complications (principal); S36.209S Unspecified injury of unspecified part of pancreas, sequela; X58.XXXS Exposure to other specified factors, sequela | CPT/HCPCS: 99211 ==

== ENCOUNTER 2024-02-10 08:43 | Outpatient (AMB) | payer OTHER, SELFPAY ==
--- NOTE | 2024-02-10 09:42 | MHC.AMDMED ---
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 Accompanied by: Self / Same As Patient Allergies amoxicillin [AMOXICILLIN] Allergy (Severe, Verified 09/25/23 13:29) anaphylaxis / angioedma Penicillins [PENICILLINS] Allergy (Severe, Verified 09/25/23 13:29) HIVES, SWELLING/SOB Sulfa (Sulfonamide Antibiotics) [SULFA (SULFONAMIDE ANTIBIOTICS)] Allergy (Severe, Verified 09/25/23 13:29) HIVES tramadol Allergy (Intermediate, Verified 09/25/23 13:29) GI upset/abd pain Seasonal Allergies Allergy (Mild, Verified 09/25/23 13:29) Sneezing HPI Comprehensive Diabetes Asmnt Most Recent Diabetes Results: Creatinine 1.32 mg/dL (0.5-1.4) 11/27/23 Blood Urea Nitrogen 17 mg/dL (9-16) H 11/27/23 Sodium 136 mmol/L (135-145) 11/27/23 Potassium 4.0 mmol/L (3.3-5.1) 11/27/23 Chloride 99 mmol/L (96-108) 11/27/23 Carbon Dioxide 25 mmol/L (22-29) 11/27/23 Calcium 9.5 mg/dL (8.4-10.2) 11/27/23 AST 17 U/L (5-37) 11/27/23 ALT 27 U/L (0-40) 11/27/23 Total Protein 6.7 g/dL (6.5-8.0) 11/27/23 Albumin 4.3 g/dL (3.5-5.0) 11/27/23 PFSH Medical History Onychomycosis Diabetic neuropathy Uncontrolled diabetes mellitus Hypogonadism male Obesity (BMI 30-39.9) Hypertension CKD (chronic kidney disease) stage 3, GFR 30-59 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 Mother CVD (cardiovascular disease) Son No problems noted. 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 Reviewed the basic principles of carbohydrate counting.? Insulin to carb ratio, and insulin sensitivity factor calculated based on rule of 450 for insulin to carb ratio, and rule of 1500 for insulin sensitivity factor. Instructed patient on the importance of accurate calculation of the amount of carbs per meal for optimal glucose control Reviewed how to calculate mealtime bolus with insulin to carb ratio Reviewed how to calculate correction dose with insulin sensitivity factor Patient's TDD estimate 120 mg/dL Insulin to Carbohydrate ratio: 1:3 Correction factor: 1:10 Diet Recall:Chicken, rice, salad - 45 gm Patient given healthy plate handout, for resource for carbohydrate counting Encourage patient to fill out food logs, estimating carbohydrates at meals, noting glucose number prior to meal, and how many units of insulin taken prior to meals Pt able to calculated needed insulin based on estimated carbohydrate content Instructed patient that there may need to be adjustment to insulin to carb ratio and sensitivity factor based on blood glucose trends. Portions of this note were created using voice recognition software, please excuse any words or phrases that may have been misinterpreted. 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
== END 2024-02-10 09:43 | disposition home or self-care (01) ==
PROVIDERS: PCP Nurse Practitioner Family; Visit Provider Registered Nurse Diabetes Educator
DX: E13.9 Other specified diabetes mellitus without complications (principal); S36.209S Unspecified injury of unspecified part of pancreas, sequela

== ENCOUNTER → 2024-02-10 08:43 | Outpatient (BNVA) | payer OTHER, SELFPAY | PROVIDERS: PCP Nurse Practitioner Family; Visit Provider Registered Nurse Diabetes Educator | DX: E13.9 Other specified diabetes mellitus without complications (principal); S36.209S Unspecified injury of unspecified part of pancreas, sequela | CPT/HCPCS: 99211 ==

== ENCOUNTER 2024-02-25 11:06 | Outpatient (AMB) | payer OTHER, SELFPAY ==
--- NOTE | 2024-02-25 11:15 | A.OFFVIS_ITS ---
Vital Signs 02/25/24 11:17 Height 5 ft 9 in Weight 220 lb 7.396 oz BMI 32.6 BP 146/90 H Blood Pressure Location Rt brachial Position Sitting Pulse 93 Pulse Source Pulse Oximeter Intake Visit Reasons: DM/CONFIRMED Intake Note: Patient presents today to re-establish treatment for Diabetes Mellitus due to Pancreatic Injury: Last Diabetic eye exam was on: Couple of months ago Last Podiatry exam was on: Does not see a Meeting Coordinator Most recent HbA1c: 10.9%, 02/25/2024 Random Glucose- 356mg/dL, Today Curb Attendant Required: No Accompanied by: Self / Same As Patient Allergies amoxicillin [AMOXICILLIN] Allergy (Severe, Verified 02/25/24 11:17) anaphylaxis / angioedma Penicillins [PENICILLINS] Allergy (Severe, Verified 02/25/24 11:17) HIVES, SWELLING/SOB Sulfa (Sulfonamide Antibiotics) [SULFA (SULFONAMIDE ANTIBIOTICS)] Allergy (Severe, Verified 02/25/24 11:17) HIVES tramadol Allergy (Intermediate, Verified 02/25/24 11:17) GI upset/abd pain Seasonal Allergies Allergy (Mild, Verified 02/25/24 11:17) Sneezing HPI Comments Details: [43] YO [M/F] who is seen in consultation for Diabetes at the request of Dr. Santos who follows the patient for hypgonadism. Went to [facility] earlier this year, trialed metformin. He has h/o pancreatic disease Was initially started on treatment with [metformin] Current regimen []. U500 takes 2-3 times per day 50-75 units according to his sugar, at times increases dose Per the CGM Dexcom the patient's predicted A1C is [9.1]% which is compared to the patients previous A1C [10.9] dated [01/26]. Has eyes checked yearly, last eye exam []due, [denies] retinopathy. [+ pain ] neuropathy, does not see pod [Denies] nephropathy, on [LYNETTE/ARB]. UAC [] as measured on []. [Has] HLD, on [statin]. Last LDL [] as measured on []. [Denies] CAD. Diet: [skips breakfast ] followed by Dr. 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 Mother CVD (cardiovascular disease) Son No problems noted. Social History Household Members: Family Housing: House Alcohol intake: never Patient Tobacco Use Status: Current everyday Tobacco user Tobacco use type: Cigarette Cigarette Packs Per Day: 0.5 Cigarettes Per Day: 5 Years Smoked: 13 e-Cigarette/Vaping Use: Never Used Substance Use Type: Former Substance User and Opiates Advance Directives Date on File: 11/03/17 Current occupational status: unemployed Cognitive needs: No Hearing needs: No Vision needs: No Physical Exam Vital Signs: Last Vital Signs Pulse 93 02/25/24 11:17 BP 146/90 H 02/25/24 11:17 BMI result Body Mass Index 32.6 Absence of Cushingoid features. Absence of acromegalic features. Neck exam reveals nl size thyroid about 15 gms. No thyroid nodules palpable. No carotid bruits present. Lungs CTA. Heart S1 S2, Reg R/R. No M/R/ G. Skin exam reveals absence of vitiligo or acanthosis nigricans. Abdominal exam reveals Soft NT/ND with NA BS. No organomegaly present. Const General: healthy appearing Nutritional Appearance: overweight Orientation/consciousness: oriented to person Neck Other: . Neck: Yes normal visual inspection Thyroid: Thyroid normal Resp Effort & Inspection: normal respiratory effort Cardio Jugular venous distension: no JVD Rate: regular rate Rhythm: regular rhythm Neuro General: oriented to person Extrem Other: Visual exam of foot performed. No ulcerations or open lesions. No onchomycosis, no callouses.Pulses 2 + distally Sensation intact to monofilament exam. Vibratory sensation sensed is intact with 128 Hz tuning fork Results AMB Hemoglobin A1c AMB Hemoglobin A1c 10.9 % Last Edit by JAMISON Galaviz on 02/25/24 11:3 0 Results Reviewed Results Reviewed: Laboratory Last Values Glucose (Clinic) 356 mg/dL (60-115) H* 02/25/24 11:22 Hgb A1c (Clinic) 10.9 % (4.0-6.0) H 02/25/24 11:24 Laboratory Tests 02/16/20 01/02/21 10/09/21 11:56 10:10 10:22 Plt Count Potassium BUN Creatinine Estimated GFR Hgb A1c (Clinic) Hemoglobin A1c % Magnesium AST ALT Albumin Triglycerides 488 Cholesterol 160 D LDL Cholesterol Direct 67 LDL Cholesterol, Calc HDL Cholesterol 35 D Vitamin B12 TSH Total Testosterone Fr Testosterone Dialys Somatomedin-C Somato-C Z-Score Male Urine Creatinine Urine Microalbumin Microalb/Creat Ratio Tiss Transglutamin IgA 1 Anti-IA2 Antibody <5.4 VERO Antibody <5 10/10/21 12/10/21 03/13/22 09:23 12:15 10:23 Plt Count Potassium BUN Creatinine Estimated GFR Hgb A1c (Clinic) 10.6 H 9.3 H Hemoglobin A1c % Magnesium AST ALT Albumin Triglycerides Cholesterol LDL Cholesterol Direct LDL Cholesterol, Calc HDL Cholesterol Vitamin B12 TSH Total Testosterone Fr Testosterone Dialys Somatomedin-C 103 Somato-C Z-Score Male -0.7 Urine Creatinine Urine Microalbumin Microalb/Creat Ratio Tiss Transglutamin IgA Anti-IA2 Antibody VERO Antibody 12/27/22 08/18/23 11/27/23 14:24 12:04 10:41 Plt Count 194 Potassium 4.0 BUN 17 H Creatinine 1.32 Estimated GFR 59 Hgb A1c (Clinic) Hemoglobin A1c % 9.9 H Magnesium 1.7 AST 17 ALT 27 Albumin 4.3 Triglycerides 134 Cholesterol 152 LDL Cholesterol Direct LDL Cholesterol, Calc 83 HDL Cholesterol 43 Vitamin B12 516 TSH 1.66 Total Testosterone 587 Fr Testosterone Dialys 137.4 Somatomedin-C Somato-C Z-Score Male Urine Creatinine 198.46 Urine Microalbumin 9.0 Microalb/Creat Ratio 4.5 Tiss Transglutamin IgA Anti-IA2 Antibody VERO Antibody Assessment & Plan Assessment & Plan (1) 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 He was followed by Dr. Santos for hypogonadism. The patient is interested in going on an insulin pump and is interested in Omnipod. He has not been following a consistent routine with his insulin and is taking much less insulin than as noted on his chart. He was asked for the next week to record his sensor reading at each meal and record the amount of U 500 he is taking. He will come back several times over the next month to meet with the plant senior manager and myself to get him prepared to go on an Omnipod. We will switch him over to a G7 in preparation for this Rule of 15 Did not review DKA prevention today. We may be able to use either U 100 or U 200 insulin in a pump as he is not taking nearly as much insulin as on his record. We will update order once we determine his actual requirements. We will plan to discuss his plan of care with Dr. Santos for early next week Orders: Orders AMB Hemoglobin A1c 02/25/24 E11.9 - Type 2 diabetes mellitus without complications Medications: New acetone (urine) test (Ketone Urine Test strips) As directed prn glucose over 250, nausea or vomiting, tid 25 ea 1RF E13.9 - Other specified diabetes mellitus without complications, S36.209S - Unspecified injury of unspecified part of pancreas, sequela blood-glucose sensor (Dexcom G7 Sensor device) As directed 3 ea 11RF E13.9 - Other specified diabetes mellitus without complications, S36.209S - Unspecified injury of unspecified part of pancreas, sequela glucagon 3 mg/actuation (Baqsimi) P.R.N. for unresponsive hypoglycemia. Check to see if patient breathing and pulse, initiate CPR if needed. Call 911. Use when patient can not self treat low sugar. [place] once, position lying on the side, repeat again in 15 minutes. 3 mg intranasal BID 30 days PRN 2 ea 1RF P.R.N. for unresponsive hypoglycemia. 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
[2024-02-25 11:17] VITALS: BP 146/90; PULSE 93; BMI 32.6
[2024-02-25 11:26] LABS: Glucose, Whole Blood 356 mg/dL (60-115)
== END 2024-02-25 11:51 | disposition home or self-care (01) ==
PROVIDERS: PCP Nurse Practitioner Family; Visit Provider Nurse Practitioner Adult Health
DX: E13.9 Other specified diabetes mellitus without complications (principal); S36.209S Unspecified injury of unspecified part of pancreas, sequela
CPT/HCPCS: 99205; G2211

== ENCOUNTER → 2024-02-25 11:06 | Outpatient (BNVA) | payer OTHER, SELFPAY | PROVIDERS: PCP Nurse Practitioner Family; Visit Provider Nurse Practitioner Adult Health | DX: E13.9 Other specified diabetes mellitus without complications (principal); S36.209S Unspecified injury of unspecified part of pancreas, sequela | CPT/HCPCS: 82947; 83036; 99202 ==

== ENCOUNTER 2024-03-02 09:01 | Outpatient (AMB) | payer OTHER, SELFPAY ==
--- NOTE | 2024-03-02 09:22 | A.OFFVIS_ITS ---
Intake Intake Visit Reasons: 60 min Cytotechnologist/Histotechnologist Required: No Accompanied by: Self / Same As Patient Allergies amoxicillin [AMOXICILLIN] Allergy (Severe, Verified 02/25/24 11:17) anaphylaxis / angioedma Penicillins [PENICILLINS] Allergy (Severe, Verified 02/25/24 11:17) HIVES, SWELLING/SOB Sulfa (Sulfonamide Antibiotics) [SULFA (SULFONAMIDE ANTIBIOTICS)] Allergy (Severe, Verified 02/25/24 11:17) HIVES tramadol Allergy (Intermediate, Verified 02/25/24 11:17) GI upset/abd pain Seasonal Allergies Allergy (Mild, Verified 02/25/24 11:17) Sneezing HPI Comprehensive Diabetes Asmnt Most Recent Diabetes Results: Creatinine 1.32 mg/dL (0.5-1.4) 11/27/23 Blood Urea Nitrogen 17 mg/dL (9-16) H 11/27/23 Sodium 136 mmol/L (135-145) 11/27/23 Potassium 4.0 mmol/L (3.3-5.1) 11/27/23 Chloride 99 mmol/L (96-108) 11/27/23 Carbon Dioxide 25 mmol/L (22-29) 11/27/23 Calcium 9.5 mg/dL (8.4-10.2) 11/27/23 AST 17 U/L (5-37) 11/27/23 ALT 27 U/L (0-40) 11/27/23 Total Protein 6.7 g/dL (6.5-8.0) 11/27/23 Albumin 4.3 g/dL (3.5-5.0) 11/27/23 PFSH Medical History Onychomycosis Diabetic neuropathy Uncontrolled diabetes mellitus Hypogonadism male Obesity (BMI 30-39.9) Hypertension CKD (chronic kidney disease) stage 3, GFR 30-59 ml/min snf (current) use of insulin 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 Mother CVD (cardiovascular disease) Son No problems noted. 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 Reviewed the basic principles of carbohydrate counting.? Insulin to carb ratio, and insulin sensitivity factor calculated based on rule of 450 for insulin to carb ratio, and rule of 1500 for insulin sensitivity factor. Instructed patient on the importance of accurate calculation of the amount of carbs per meal for optimal glucose control Reviewed how to calculate mealtime bolus with insulin to carb ratio Reviewed how to calculate correction dose with insulin sensitivity factor Adjusted patient's TDD estimate 100 units New Insulin to Carbohydrate ratio: 1:5 new Correction factor:1:15 Review healthy plate handout, for resource for carbohydrate counting Encourage patient to fill out food logs, estimating carbohydrates at meals, noting glucose number prior to meal, and how many units of insulin taken prior to meals Reviewed rules about when to test for Ketones, instructions given Reviewed with Pt how to use baqsimi nasal spray Instructed patient that there may need to be adjustment to insulin to carb ratio and sensitivity factor based on blood glucose trends. Message sent to [employer] to order Omnipod 5 insulin pump, with Dexcom G6 sensor Portions of this note were created using voice recognition software, please excuse any words or phrases that may have been misinterpreted. Patient Instructions: DIABETES PROBLEMS HOMECARE INSTRUCTIONS? for High Blood Sugar and When to Test for Ketones Hyperglycemia is the technical term for high blood glucose (blood sugar). High blood sugar happens when the body has too little insulin or when the body can't use insulin properly. What causes hyperglycemia? A number of things can cause hyperglycemia: * If you have type 1, you may not have given yourself enough insulin. ? If you have type 2, your body may have enough insulin, but it is not as effective as it should be. * You ate more than planned or exercised less than planned. * You have stress from an illness, such as a cold or flu. * You have other stress, such as family conflicts or school or dating problems. How to lower your blood sugar level. ? Take medications as directed by physician. ? Drink extra water or noncaffeinated, nonsugared drinks to prevented hydration. ? Exercise if you are not sick However, if your blood sugar is above 250 mg/dl, check your urine for ketones. If you have ketones, do not exercise Exercising when ketones are present may make your blood sugar level go even higher. You'll need to work with your doctor to find the safest way for you to lower your blood sugar level. Regularly check blood sugar or urine for sugar and acetone during illness. Diabetic ketoacidosis (DKA) Is serious condition that can lead to diabetic coma (passing out for a long time) or even . When your cells don't get the glucose they need for energy, your body begins to burn fat for energy, which produces ketones. Ketones are chemicals that the body creates when it breaks down fat to use for energy. The body does this when it doesn?t have enough insulin to use glucose, the body?s normal source of energy. When ketones build up in the blood, they make it more acidic. They are a warning sign that your diabetes is out of control or that you are getting sick. Symptoms of Diabetic Ketoacidosis (DKA) ? DKA usually develops slowly. But when vomiting occurs, this life- threatening condition can develop in a few hours. Early symptoms include the following: ? Thirst or a very dry mouth ? Frequent urination ? High blood glucose (blood sugar) levels ? High levels of ketones in the urine ? Then, other symptoms appear: ? Constantly feeling tired ? Dry or flushed skin ? Nausea, vomiting, or abdominal pain ? (Vomiting can be caused by many illnesses, not just ketoacidosis. If vomiting continues for more than 2 hours, contact your health care provider.) ? Difficulty breathing ? Fruity odor on breath ? A hard time paying attention, or confusion When should you test for ketones? It is advisable to check for ketones under the following conditions when: Your blood glucose is higher than 250mg/dl. Feeling nauseated, throwing up, or have pains in your abdominal region. Have a cold or flu. Have general body fatigue. Feel thirsty or have a very dry mouth. Have flushed skin. Have a fruity breath or a hard time breathing. You feel perplexed or in fog. How to Test Urine for Ketones You can detect ketones with a simple urine test using a test strip, similar to a blood testing strip. Ask your health care provider when and how you should test for ketones. Many experts advise to check your urine for ketones when your blood glucose is more than 250 mg/dl. When you are ill (when you have a cold or the flu, for example), check for ketones every 4 to 6 hours. And check every 4 to 6 hours when your blood sugar is more than 250 mg/dl. Also, check for ketones when you have any symptoms of DKA. How to lower your blood sugar level. ? Take medications as directed by physician. ? Drink extra water or noncaffeinated, nonsugared drinks to prevented hydration. ? Exercise if you are not sick However, if your blood sugar is above 250 mg/dl, check your urine for ketones. If you have ketones, do not exercise Exercising when ketones are present may make your blood sugar level go even higher. You'll need to work with your doctor to find the safest way for you to lower your blood sugar level. 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
== END 2024-03-02 09:38 | disposition home or self-care (01) ==
PROVIDERS: PCP Nurse Practitioner Family; Visit Provider Registered Nurse Diabetes Educator
DX: E13.9 Other specified diabetes mellitus without complications (principal); S36.209S Unspecified injury of unspecified part of pancreas, sequela

== ENCOUNTER → 2024-03-02 09:01 | Outpatient (BNVA) | payer OTHER, SELFPAY | PROVIDERS: PCP Nurse Practitioner Family; Visit Provider Registered Nurse Diabetes Educator | DX: E13.9 Other specified diabetes mellitus without complications (principal); S36.209S Unspecified injury of unspecified part of pancreas, sequela | CPT/HCPCS: 99211 ==

== ENCOUNTER 2024-03-24 09:44 | Outpatient (AMB) | payer OTHER, SELFPAY ==
--- NOTE | 2024-03-24 09:45 | A.OFFVIS_ITS ---
Vital Signs 03/24/24 09:51 Height 5 ft 9 in Weight 220 lb 7.396 oz BMI 32.6 BP 122/80 Blood Pressure Location Rt brachial Position Sitting Pulse 85 Pulse Source Pulse Oximeter Intake Visit Reasons: DM/CONFIRMED Intake Note: Patient presents today to re-establish treatment for Diabetes Mellitus due to Pancreatic Injury: Last Diabetic eye exam was on: Couple of months ago Last Podiatry exam was on: Does not see a Lead Sustainability Specialist Most recent HbA1c: 10.9%, 02/25/2024 Random Glucose- 275mg/dL, Today Chocolate Molder Required: No Accompanied by: Self / Same As Patient Allergies amoxicillin [AMOXICILLIN] Allergy (Severe, Verified 03/24/24 09:46) anaphylaxis / angioedma Penicillins [PENICILLINS] Allergy (Severe, Verified 03/24/24 09:46) HIVES, SWELLING/SOB Sulfa (Sulfonamide Antibiotics) [SULFA (SULFONAMIDE ANTIBIOTICS)] Allergy (Severe, Verified 03/24/24 09:46) HIVES tramadol Allergy (Intermediate, Verified 03/24/24 09:46) GI upset/abd pain Seasonal Allergies Allergy (Mild, Verified 03/24/24 09:46) Sneezing HPI Comments Details: [43] YO [M/F] who is seen in follow up for Diabetes at the request of Dr. Santos who follows the patient for hypgonadism. Went to [place] earlier this year, trialed metformin. He has h/o pancreatic disease. He was last seen by myself 02/25/24 for an intitial visit at which time we discussed going on an insulin pump. He has met with the educator several times for pre pump training. He is using the bolus calculator in his phone with a 1:5 ratio and correction factor of 1:15. Most recent A1C is 10.9% 02/25/24. Baseline is 9-10%. Was initially started on treatment with [metformin] Current regimen []. U500 takes 2 times per day taking roughly 60 units in the morning and at dinner. (this dose was confirmed with patient) Uses bolus calculator however with breakfast has been consistently taking 60 units regardless of carbs consumed. He is waiting for dexcom/omnipod sensor and pump but having difficulty obtaining supplies. Anyi 2 average glucose: [259 ] 14 day continous glucose monitor report reviewed TIme in range: [ 64] % very high (above 250) [22 ] % high ?(181-250) [6 ] % in range ?(70-180] [4 ] % low (69-55) [ 4] % ?very low (below 54) numbers persistently high He has been using fingerstick last week as he is still unable to get dexcom and no longer has prescription for freestyle anyi 2 Has eyes checked yearly [+ pain ] neuropathy, does not see podiatry [Negative ] nephropathy, not on [LYNETTE/ARB]. MIcroalbumin 9 as measured on [01/17]. On [fenofibrate]. Last LDL [83] as measured on [08/20]. [Denies] CAD. Diet: [skips breakfast, snacks throughout day and has bigger meal for dinner ] Fibrosis-4 (Fib-4) Index for liver fibrosis (calculated on most recent lab work) [0.71 ] points Advanced fibrosis [ excluded] Approximate Fibrosis stage Obdulia [ 0-1] *Use with caution in patients <35 or >65 years old, as the score has been shown to be less reliable in these patients. followed by Dr. 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 Mother CVD (cardiovascular disease) Son No problems noted. Social History Household Members: Family Housing: House Alcohol intake: never Patient Tobacco Use Status: Current everyday Tobacco user Tobacco use type: Cigarette Cigarette Packs Per Day: 0.5 Cigarettes Per Day: 5 Years Smoked: 13 e-Cigarette/Vaping Use: Never Used Substance Use Type: Former Substance User and Opiates Advance Directives Date on File: 11/03/17 Current occupational status: unemployed Cognitive needs: No Hearing needs: No Vision needs: No Physical Exam Vital Signs: Last Vital Signs Pulse 85 03/24/24 09:51 BP 122/80 03/24/24 09:51 BMI result Body Mass Index 32.6 Const Other: Absence of Cushingoid features. Absence of acromegalic features. Neck exam reveals nl size thyroid about 15 gms. No thyroid nodules palpable. . Skin exam reveals absence of vitiligo or acanthosis nigricans. No edema. Results Reviewed Results Reviewed: Laboratory Last Values Glucose (Clinic) 275 mg/dL (60-115) H 03/24/24 09:54 Laboratory Tests 12/27/22 08/18/23 11/27/23 14:24 12:04 10:41 Plt Count 194 Potassium 4.0 Creatinine 1.32 Estimated GFR 59 Hgb A1c (Clinic) Calcium 9.5 AST 17 ALT 27 Triglycerides 134 Cholesterol 152 LDL Cholesterol, Calc 83 Vitamin B12 516 TSH 1.66 Urine Microalbumin 9.0 02/25/24 11:24 Plt Count Potassium Creatinine Estimated GFR Hgb A1c (Clinic) 10.9 H Calcium AST ALT Triglycerides Cholesterol LDL Cholesterol, Calc Vitamin B12 TSH Urine Microalbumin Assessment & Plan Assessment & Plan (1) 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 Diabetes is in poor control. Goal to get patient on insulin pump as soon as possible he has done some education through the clinical nurse educator. He has been using bolus calculator but eats very little for breakfast. He does not have a calculated with him today but he was asked to change insulin to carb ratiotp 1:4.5 and correction factor 1-14. He is not eating a full breakfast he takes 60 units was asked to attempt to eat something in the morning and increase insulin to 65. He will follow up clinical nurse educator for pump training and I have sent the work load request regarding his supplies. 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
[2024-03-24 09:51] VITALS: BP 122/80; PULSE 85; BMI 32.6
[2024-03-24 09:58] LABS: Glucose, Whole Blood 275 mg/dL (60-115)
== END 2024-03-24 10:13 | disposition home or self-care (01) ==
PROVIDERS: PCP Nurse Practitioner Family; Visit Provider Nurse Practitioner Adult Health
DX: E13.9 Other specified diabetes mellitus without complications (principal); S36.209S Unspecified injury of unspecified part of pancreas, sequela
CPT/HCPCS: 99214; G2211

== ENCOUNTER → 2024-03-24 09:44 | Outpatient (BNVA) | payer OTHER, SELFPAY | PROVIDERS: PCP Nurse Practitioner Family; Visit Provider Nurse Practitioner Adult Health | DX: E13.9 Other specified diabetes mellitus without complications (principal); E29.1 Testicular hypofunction; S36.209S Unspecified injury of unspecified part of pancreas, sequela; X58.XXXS Exposure to other specified factors, sequela; Z71.3 Dietary counseling and surveillance | CPT/HCPCS: 82947; 99212 ==

== ENCOUNTER 2024-04-05 08:33 | Outpatient (REF) | payer OTHER, SELFPAY ==
[2024-04-09 15:43] LABS: Testosterone, Free 62.3 pg/mL (35.0-155.0); Testosterone, Total 264 ng/dL (250-1100)
== END 2024-04-05 08:34 | disposition home or self-care (01) ==
LOC: HO.HMGCLDS 08:33
PROVIDERS: PCP Nurse Practitioner Family; Visit Provider Internal Medicine Endocrinology, Diabetes & Metabolism
DX: E29.1 Testicular hypofunction (principal)
CPT/HCPCS: 36415; 84402; 84403

== ENCOUNTER 2024-04-07 09:32 | Outpatient (AMB) | payer OTHER, SELFPAY ==
--- NOTE | 2024-04-07 09:35 | A.OFFVIS_ITS ---
Vital Signs 04/07/24 09:36 Height 5 ft 9 in Weight 223 lb 1.725 oz BMI 32.9 BP 112/74 Blood Pressure Location Rt brachial Position Sitting Pulse 92 Pulse Source Pulse Oximeter Intake Visit Reasons: Hypogonadism Intake Note: Patient present today for Hypogonadism follow up. Drafting Detailer Required: No Accompanied by: Self / Same As Patient Allergies amoxicillin [AMOXICILLIN] Allergy (Severe, Verified 04/07/24 09:38) anaphylaxis / angioedma Penicillins [PENICILLINS] Allergy (Severe, Verified 04/07/24 09:38) HIVES, SWELLING/SOB Sulfa (Sulfonamide Antibiotics) [SULFA (SULFONAMIDE ANTIBIOTICS)] Allergy (Severe, Verified 04/07/24 09:38) HIVES tramadol Allergy (Intermediate, Verified 04/07/24 09:38) GI upset/abd pain Seasonal Allergies Allergy (Mild, Verified 04/07/24 09:38) Sneezing Medication List - Last Reconciled 04/07/24 by Chinmay Santos MD acetaminophen (Tylenol Extra Strength) 1,000 mg (2 x 500 mg) PO Q6H PRN acetone (urine) test (Ketone Urine Test strips) As directed prn glucose over 250, nausea or vomiting, tid albuterol sulfate 90 mcg/actuation 1 puff inhalation Q4H PRN 30 days amitriptyline 50 mg PO BEDTIME aripiprazole 15 mg PO BEDTIME barium sulfate 2%(w/v) (Readi-Cat 2) 450 mL PO .twice MDD 900ml BD Insulin Syringe U-500 (insulin U-500 syringe-needle) As directed 3 x/day NS blood pressure kit med and lrg daily use blood sugar diagnostic (FreeStyle Lite Strips) As directed four times a day blood sugar diagnostic (FreeStyle Lite Strips) 4 times a day blood-glucose sensor (Dexcom G6 Sensor device) As directed fenofibrate 54 mg PO DAILY 30 days flash glucose sensor Every 14 days gabapentin 300 mg PO BID glucagon (Gvoke HypoPen 2-Pack) 1 mg (0.2 mL) subcut ONCE glucagon 3 mg/actuation (Baqsimi) 3 mg intranasal BID PRN 30 days MDD 6 mg guselkumab (Tremfya) 100 mg subcut Q8W ibuprofen 600 mg PO TID PRN insulin lispro (Humalog KwikPen U-200 Insulin) up to 150 units daily via pump subcutaneously use as directed; 30 days insulin pump cart,auto,BT-cntr (Omnipod 5 G6 Intro Kit (Gen 5) subcutaneous cartridge with controller) As directed insulin pump cart,automated,BT (Omnipod 5 G6 Pods (Gen 5) subcutaneous cartridge) As directed change every 2 days dispense 3 boxes of five each insulin regular hum U-500 conc (Humulin R U-500 (Concentrated) Insulin) 150 units breakfast, lunch, 160 units dinner subcut 3 times a day; Use only with appropriate syringe lamotrigine 200 mg PO BEDTIME lancets As directed lancets (FreeStyle Lancets) 4 times a day lidocaine 5% 2 patches topical DAILY 30 days lidocaine-prilocaine 2.5-2.5 % 1 appl topical ONCE 1 day fabiaz-ltsmmsex-lwvsdau 24,000-76,000 -120,000 unit (Creon) 3 caps PO TID metformin ER 500 mg PO DAILY methadone 50 mg PO QAM multivitamin 1 tab PO DAILY needle (disp) 21 G (BD Regular Bevel [place]) As directed injects once a week pantoprazole 40 mg PO DAILY sildenafil 50 mg PO .prn syringe with needle (BD Luer-Fabien Syringe) INJECT ONCE A WEEK DIRECTED syringe with needle, safety As directed inject once a week testosterone cypionate 100 mg (0.5 mL) IM QWEEK zolpidem ER 12.5 mg PO BEDTIME PRN HPI Comments Details: Patient is a 42-year-old male? 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 Diabetes being managed by Elsa Hanson NP . Today's appointment focus on hypogonadism First diagnosed with Hypogonadism [id number] with labs revealing low testosterone .Saw endo . Was placed on IM testosterone Was started on Testosterone supplementation with IM testo until 2017 and found relief. Came off because care disrupted Not Currently using testosterone. Last dose was 2017. Currently not achieving spontaneous am erections, and unable to achieve erection when desired. Reports low libido. . Denies any decrease in size or shape of testicles. Denies penile discharge or scrotal tenderness. Denies any history of mumps orchitis Had trauma in past with LOC twice in past . Denies history of VALERY b ut does snore at night . Has 1 children who were conceived spontaneously. Not looking to have children Sense of smell intact. Denies headache or visual changes, gynecomastia or galactorrhea. Denies orthostatic symptoms, weight loss. Denies change in size of hands or feet. Denies hair loss, weight gain, cold intolerance. History of DVT or PE: No No anabolic On methadone Workup point with secondary hypogonadism with normal prolactin, normal ferritin and normal MRI of the pituitary Labs: PSA CBC Sleep study showed moderate to severe sleep apnea Currently on intramuscular testosterone 100 mg Q weekly. Libido and energy level are much better but having erectile dysfunctiontreated with Viagra. 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 Mother CVD (cardiovascular disease) Son No problems noted. Social History Household Members: Family Housing: House Alcohol intake: never Patient Tobacco Use Status: Current everyday Tobacco user Tobacco use type: Cigarette Cigarette Packs Per Day: 0.5 Cigarettes Per Day: 5 Years Smoked: 13 e-Cigarette/Vaping Use: Never Used Substance Use Type: Former Substance User and Opiates Advance Directives Date on File: 11/03/17 Current occupational status: unemployed Cognitive needs: No Hearing needs: No Vision needs: No Physical Exam Vital Signs: BMI result Body Mass Index 32.9 Assessment & Plan Assessment & Plan (1) Hypogonadism male: Code(s): E29.1 - Testicular hypofunction Category: Medical Plan: This is a 42-year-old white male with a history of secondary hypogonadism. On CPAP for sleep apnea. Currently being treated with intramuscular testosterone 100 mg q.week. Also on Viagra for erectile dysfunction After a discussion with the patient, the patient stated that he was having difficulty injecting intramuscular testosterone each week. We decided to transition to AndroGel generic 1.62 for depressions per day. I went over how to apply the AndroGel and how to avoid transference. I will recheck a testosterone level in about 8 weeks' time along with a CBC. I also increased his Viagra to 100 mg p.r.n. Orders: Orders Testosterone, Free/Total 2 Months E29.1 - Testicular hypofunction Hemoglobin 2 Months E29.1 - Testicular hypofunction Hematocrit 2 Months E29.1 - Testicular hypofunction Medications: New testosterone (AndroGel) apply 1 pump amount over max area of EACH upper arm and shoulder 4 pumps topical DAILY 150 grams 3RF sildenafil (Viagra) administer 30 minutes to 4 hours before activity 100 mg PO DAILY PRN 14 tabs 5RF sexual activity Discontinued sildenafil Discontinued Reason: Doctor's Order 50 mg PO .prn 10 tabs 5RF testosterone cypionate Discontinued Reason: Doctor's Order 100 mg (0.5 mL) IM QWEEK 100 mL 3RF Coding Level of Care Code Est Pt Level 3 (54506) Diagnoses Hypogonadism male E29.1
[2024-04-07 09:36] VITALS: BP 112/74; PULSE 92; BMI 32.9
== END 2024-04-07 10:08 | disposition home or self-care (01) ==
PROVIDERS: PCP Nurse Practitioner Family; Visit Provider Internal Medicine Endocrinology, Diabetes & Metabolism
DX: E29.1 Testicular hypofunction (principal)
CPT/HCPCS: 99213

== ENCOUNTER → 2024-04-07 09:32 | Outpatient (BNVA) | payer OTHER, SELFPAY | PROVIDERS: PCP Nurse Practitioner Family; Visit Provider Internal Medicine Endocrinology, Diabetes & Metabolism | DX: E29.1 Testicular hypofunction (principal) | CPT/HCPCS: 99212 ==

== ENCOUNTER 2024-04-16 09:58 | Outpatient (AMB) | payer OTHER, SELFPAY ==
--- NOTE | 2024-04-16 10:01 | MHC.OFFVIS ---
Vital Signs 04/16/24 10:03 Height 5 ft 9 in Weight 220 lb 7.396 oz BMI 32.6 Blood Pressure Location Lt brachial Position Sitting Intake Visit Reasons: 6 month f/u Intake Note: Brian presents in the office as a 5 month follow up. CC: He states that he is feeling okay GI jerome - stomach pains, constipation, some days he has vomiting and others he may not. He gave up drinking and he tries watching what he eats. 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 ? ? RECAP from index visit 01/2020 had c/o bloating and distention ? he has abdo pain occ, epigastrium once q-1-2 weeks, ? can be 5/10 severity, ? lasts for few days when gets it ? gets nausea occ emesis, ? other times he feesl ok ? +greasy stool, looks like oil and also bad breath smelly gas like rotten eggs ? smokes 1/2 pack per day ? stopped drinking alcohol 08/30/2017 ? not smoking THC ? takes pantoprazole which helps his reflux ? ? ? His PCP had tried duloxetine for his abdominal pain, as lyrica not approved gabapentin not helping stomach but helps neuropathy in feet not tolerated as made him really depressed he was taking creon and it was helping with diarrhea and oiliness, but he ran out and I refilled it LABS:07/18--nml CBC, mild raised ALT, alk phos, a1c 9% ? Imaging: ? MRI: 2012-- pancreatitis, ? US 10/2017--steatosis, dilated PD, stable ? CT 2018-- fatty liver, cbd dilated 1.1 cm, pancreas low attenuation, and enlargement, coarse calcification. MRI 12/2020--panc duct dilation, atrophic pancreas, fatty liver CT A/P; 05/2022- hepatosplenomegaly and fatty liver, dilated PD, chronic pancreatitis MRI- 06/18--nml brain INTERIM: Remains alcohol free still smoking cigs 6-7/day reflux is still a problem amy at night no caffeine in evening he did not find pepcid at night helping takes creon as needed, but feesl it gives him the horrible burping takes ppi in the mornign but doesn mat breakfast, eats EXAM: GENERAL: The patient is well developed and nontoxic. VITAL SIGNS:see workflow HEENT: Nonicteric sclerae, PERRLA, EOMI. Oropharynx clear. Moist mucous membranes. Conjunctivae appear well perfused. No thyroid mass. CHEST: Chest wall is nontender. HEART: Regular rate and rhythm without murmurs. LUNGS: Clear to auscultation bilaterally. ABDOMEN: Soft, positive bowel sounds,, no organomegaly.no flank tenderness SKIN: No rash, no excessive bruising, petechiae, or purpura. NEUROLOGIC: Cranial nerves II-XII intact without motor/sensory deficit. Assessments ? ? 1/ Alcohol-induced chronic pancreatitis: still smoking, nutritional defcn 2/ abn LFT, related to RODRIGUEZ, 3/ GERD?partially controlled wt PPI but not eating after PLAN 1/ smoking cessation advised again, 2/ multivitamins reordered, and healthy diet explained, recheck vits 3/ stop creon try zenpep 4/ change PPI timing to 6 pm 20 min before dinner 5/ MRI for panc screening ? 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 Mother CVD (cardiovascular disease) Son No problems noted. Social History Household Members: Family Housing: House Alcohol intake: never Patient Tobacco Use Status: Current everyday Tobacco user Tobacco use type: Cigarette Cigarette Packs Per Day: 0.5 Cigarettes Per Day: 5 Years Smoked: 13 e-Cigarette/Vaping Use: Never Used Substance Use Type: Former Substance User and Opiates Advance Directives Date on File: 11/03/17 Current occupational status: unemployed Cognitive needs: No Hearing needs: No Vision needs: No Physical Exam Vital Signs: BMI result Body Mass Index 32.6 Assessment & Plan Assessment & Plan (1) Chronic inflammation of pancreas: Code(s): K86.1 - Other chronic pancreatitis Category: Medical Qualifiers: Pancreatitis type: alcohol induced Qualified Code(s): K86.0 - Alcohol-induced chronic pancreatitis Plan: see above (2) Malabsorption due to disorder of pancreas: Code(s): K87 - Disorders of gallbladder, biliary tract and pancreas in diseases classified elsewhere; K90.89 - Other intestinal malabsorption Category: Medical Plan: see above Orders: Orders Complete Blood Count Auto Diff Today K86.0 - Alcohol-induced chronic pancreatitis, K87 - Disorders of gallbladder, biliary tract and pancreas in diseases classified elsewhere, K90.89 - Other intestinal malabsorption Vitamin B1 Today K86.0 - Alcohol-induced chronic pancreatitis, K87 - Disorders of gallbladder, biliary tract and pancreas in diseases classified elsewhere, K90.89 - Other intestinal malabsorption Vitamin B12 and Folate Today K86.0 - Alcohol-induced chronic pancreatitis, K87 - Disorders of gallbladder, biliary tract and pancreas in diseases classified elsewhere, K90.89 - Other intestinal malabsorption Vitamin B3 (Niacin) Today K86.0 - Alcohol-induced chronic pancreatitis, K87 - Disorders of gallbladder, biliary tract and pancreas in diseases classified elsewhere, K90.89 - Other intestinal malabsorption Vitamin B5 (Pantothenic Acid) Today K86.0 - Alcohol-induced chronic pancreatitis, K87 - Disorders of gallbladder, biliary tract and pancreas in diseases classified elsewhere, K90.89 - Other intestinal malabsorption Zinc Today K86.0 - Alcohol-induced chronic pancreatitis, K87 - Disorders of gallbladder, biliary tract and pancreas in diseases classified elsewhere, K90.89 - Other intestinal malabsorption Vitamin D 25-OH Total Today K86.0 - Alcohol-induced chronic pancreatitis, K87 - Disorders of gallbladder, biliary tract and pancreas in diseases classified elsewhere, K90.89 - Other intestinal malabsorption Ferritin Today K86.0 - Alcohol-induced chronic pancreatitis, K87 - Disorders of gallbladder, biliary tract and pancreas in diseases classified elsewhere, K90.89 - Other intestinal malabsorption MR abdomen wo/w con Today K86.0 - Alcohol-induced chronic pancreatitis Comprehensive Met. Panel Today K75.81 - Nonalcoholic steatohepatitis (RODRIGUEZ), K86.0 - Alcohol-induced chronic pancreatitis, K87 - Disorders of gallbladder, biliary tract and pancreas in diseases classified elsewhere, K90.89 - Other intestinal malabsorption Vitamin A Today K86.0 - Alcohol-induced chronic pancreatitis, K87 - Disorders of gallbladder, biliary tract and pancreas in diseases classified elsewhere, K90.89 - Other intestinal malabsorption Vitamin B6 Today K86.0 - Alcohol-induced chronic pancreatitis, K87 - Disorders of gallbladder, biliary tract and pancreas in diseases classified elsewhere, K90.89 - Other intestinal malabsorption Vitamin C Today K86.0 - Alcohol-induced chronic pancreatitis, K87 - Disorders of gallbladder, biliary tract and pancreas in diseases classified elsewhere, K90.89 - Other intestinal malabsorption Magnesium Today K86.0 - Alcohol-induced chronic pancreatitis, K87 - Disorders of gallbladder, biliary tract and pancreas in diseases classified elsewhere, K90.89 - Other intestinal malabsorption Medications: New jgfadg-kdezibgo-tfrwnxo 25,000-79,000- 105,000 unit (Zenpep) administer with meals and/or snacks 3 caps PO TID 120 caps 3RF Refilled multivitamin 1 tab PO DAILY 90 tabs 1RF Discontinued lszwgi-nfspwqoi-dsbpnyx 24,000-76,000 -120,000 unit (Creon) Discontinued Reason: Patient Refused 3 caps PO TID 270 caps 3RF Coding Level of Care Code Est Pt Level 4 (57750) Diagnoses Alcohol-induced chronic pancreatitis K86.0 Pancreatitis type: alcohol induced Malabsorption due to disorder of pancreas K87; K90.89
[2024-04-16 10:03] VITALS: BMI 32.6
== END 2024-04-16 10:30 | disposition home or self-care (01) ==
PROVIDERS: PCP Nurse Practitioner Family; Visit Provider Internal Medicine Gastroenterology
DX: K86.0 Alcohol-induced chronic pancreatitis (principal); K87 Disorders of gallbladder, biliary tract and pancreas in diseases classified elsewhere; K90.89 Other intestinal malabsorption
CPT/HCPCS: 99214

== ENCOUNTER → 2024-04-16 09:58 | Outpatient (BNVA) | payer OTHER, SELFPAY | PROVIDERS: PCP Nurse Practitioner Family; Visit Provider Internal Medicine Gastroenterology | DX: K86.0 Alcohol-induced chronic pancreatitis (principal); K87 Disorders of gallbladder, biliary tract and pancreas in diseases classified elsewhere; K90.89 Other intestinal malabsorption | CPT/HCPCS: 99212 ==

== ENCOUNTER → 2024-05-18 13:29 | Outpatient (BNV) | payer OTHER, SELFPAY | PROVIDERS: PCP Nurse Practitioner Family; Visit Provider Radiology Diagnostic Radiology | DX: K86.0 Alcohol-induced chronic pancreatitis (principal) | CPT/HCPCS: 74183 ==

== ENCOUNTER 2024-05-18 13:30 | Outpatient (REF) | payer OTHER, SELFPAY ==
[2024-05-18] MEDS: gadobutroL 10 ML VIAL IVPUSH (14:38)
== END 2024-05-18 13:31 | disposition home or self-care (01) ==
LOC: HO.MRI 13:30
PROVIDERS: PCP Nurse Practitioner Family; Visit Provider Internal Medicine Gastroenterology
DX: K86.0 Alcohol-induced chronic pancreatitis (principal)
CPT/HCPCS: 74183; A9585

== ENCOUNTER 2024-07-13 13:28 | Outpatient (AMB) | payer OTHER, SELFPAY ==
--- NOTE | 2024-07-13 13:36 | MHC.OFFVIS ---
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 Worse over the last year, does have some discoloration bilateral LE. 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 He had actually seen us back in 08/16/2020. Complaints include pain over varicosities, swelling of lower extremities, cramping, fatigue, and heaviness of the lower extremities. It has been affecting there daily activities including walking. It is noted more so in right leg. Of note he does have a history of alcoholic pancreatitis. He smokes about a half a pack per day and is a diabetic for nearly 10 years secondary to his pancreatitis. Patient denies any previous venous surgery or injections. Patient denies any history of DVT/ PE. Patient denies any history of phlebitis. Trial of compression includes - [id number] They now present for vascular evaluation regarding their varicose veins. 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 Mother CVD (cardiovascular disease) Son No problems noted. Social History Household Members: Family Housing: House Alcohol intake: never Patient Tobacco Use Status: Current everyday Tobacco user Tobacco use type: Cigarette Cigarette Packs Per Day: 0.5 Cigarettes Per Day: 5 Years Smoked: 13 e-Cigarette/Vaping Use: Never Used Substance Use Type: Former Substance User and Opiates Advance Directives Date on File: 11/03/17 Current occupational status: unemployed Cognitive needs: No Hearing needs: No Vision needs: No Review of Systems Const All systems reviewed & are unremarkable except as noted in HPI and below Reports no additional complaints ENT Reports Normal hearing present Card Denies chest pain, Denies chest pain at rest, Denies chest pain with activity and Denies pedal edema Resp Denies cough GI Denies abdominal pain Musc Denies abnormal gait, Denies muscle cramps and Denies radiating pain into limb Skin/Breast Denies skin ulcer and Denies wounds Neuro Reports Normal hearing present and Denies abnormal gait Psych Reports no additional complaints Physical Exam Vital Signs: BMI result Body Mass Index 32.5 Const General: cooperative, healthy appearing and comfortable Orientation/consciousness: oriented to person, oriented to place and oriented to time HEENT Head: Yes normal to inspection Neck Neck: Yes normal visual inspection Carotids: no bruits Chest Chest palpation & inspection: normal inspection of the chest Resp Effort & Inspection: normal respiratory effort and able to speak in complete sentences Auscultation: clear to auscultation bilaterally, no crackles, no rales, no rhonchi and no wheezes Cardio Rate: regular rate Rhythm: regular rhythm Heart sounds: S1 normal heart sound present and S2 normal heart sound present Bruits: no carotid bruits Peripheral pulses: Peripheral pulses 2+ throughout GI Inspection: Yes normal to inspection Skin Wounds: no wounds Hair: normal Neuro General: oriented to person, oriented to place and oriented to time Cranial nerves: Yes CN's II-XII intact bilaterally and Yes Normal hearing present Cognition (Neuro): normal cognition Motor exam (neuro): 5 motor strength present throughout Extrem Other: venous exam: No significant superficial varicosities or spider telangiectasias, minimal edema General: No clubbing, No cyanosis and No edema Psych Appearance: grossly normal Mental Status: mental status grossly normal Speech and movement: Normal speech and movement present Assessment & Plan Assessment & Plan (1) Varicose veins of right lower extremity with inflammation: Code(s): I83.11 - Varicose veins of right lower extremity with inflammation Category: Medical Plan: In short patient has lower extremity swelling. We had actually seen him back in July of 2020. At that time his workup was essentially negative. I have taken the liberty of ordering repeat venous insufficiency testing since it has been nearly 4 years. In addition there may be more of a central portal issue as he does have a significant history of pancreatitis. He will follow up with us after venous insufficiency testing. We did discuss routine conservative measures including compression, elevation and exercise. Thank you for allowing us to participate in his care. Orders: Orders US venous duplex [facility] 1 Year I83.11 - Varicose veins of right lower extremity with inflammation Coding Level of Care Code New Pt Level 4 (85154) Diagnoses Varicose veins of right lower extremity with inflammation I83.11
[2024-07-13 13:37] VITALS: BMI 32.5
== END 2024-07-13 14:00 | disposition home or self-care (01) ==
PROVIDERS: PCP Nurse Practitioner Family; Visit Provider Surgery Vascular Surgery
DX: I83.11 Varicose veins of right lower extremity with inflammation (principal)
CPT/HCPCS: 99204

== ENCOUNTER → 2024-07-13 13:28 | Outpatient (BNVA) | payer OTHER, SELFPAY | PROVIDERS: PCP Nurse Practitioner Family; Visit Provider Surgery Vascular Surgery | DX: I83.11 Varicose veins of right lower extremity with inflammation (principal) | CPT/HCPCS: 99202 ==

== ENCOUNTER 2024-08-11 08:34 | Outpatient (REF) | payer OTHER, SELFPAY ==
[2024-08-11 10:02] LABS: Hematocrit 49.8 % (42.0-52.0); Hemoglobin 16.9 g/dl (14.0-18.0)
[2024-08-18 16:33] LABS: Testosterone, Free 116.7 pg/mL (35.0-155.0); Testosterone, Total 456 ng/dL (250-1100)
== END 2024-08-11 08:35 | disposition home or self-care (01) ==
LOC: HO.HMGCLDS 08:34
PROVIDERS: PCP Nurse Practitioner Family; Visit Provider Internal Medicine Endocrinology, Diabetes & Metabolism
DX: E29.1 Testicular hypofunction (principal)
CPT/HCPCS: 36415; 84402; 84403; 85014; 85018

== ENCOUNTER 2024-08-24 10:23 | Outpatient (AMB) | payer OTHER, SELFPAY ==
--- NOTE | 2024-08-24 10:41 | MHC.OFFVIS ---
Vital Signs 08/24/24 10:43 Height 5 ft 9 in Weight 223 lb 5.252 oz BMI 33.0 BP 118/82 Blood Pressure Location Rt brachial Position Sitting Pulse 98 Pulse Source Pulse Oximeter Intake Visit Reasons: f/u Testosterone Lab Results Intake Note: Patient present today for Hypogonadism follow up. 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 Accompanied by: Self / Same As Patient Allergies amoxicillin [AMOXICILLIN] Allergy (Severe, Verified 08/24/24 10:43) anaphylaxis / angioedma Penicillins [PENICILLINS] Allergy (Severe, Verified 08/24/24 10:43) HIVES, SWELLING/SOB Sulfa (Sulfonamide Antibiotics) [SULFA (SULFONAMIDE ANTIBIOTICS)] Allergy (Severe, Verified 08/24/24 10:43) HIVES tramadol Allergy (Intermediate, Verified 08/24/24 10:43) GI upset/abd pain Seasonal Allergies Allergy (Mild, Verified 08/24/24 10:43) Sneezing Medication List - Last Reconciled 08/24/24 by Chinmay Santos MD acetaminophen (Tylenol Extra Strength) 1,000 mg (2 x 500 mg) PO Q6H PRN acetone (urine) test (Ketone Urine Test strips) As directed prn glucose over 250, nausea or vomiting, tid albuterol sulfate 90 mcg/actuation 1 puff inhalation Q4H PRN 30 days amitriptyline 50 mg PO BEDTIME ammonium lactate 12% appl topical BID aripiprazole 15 mg PO BEDTIME BD Insulin Syringe U-500 (insulin U-500 syringe-needle) As directed 3 x/day NS blood pressure kit med and lrg daily use blood sugar diagnostic (FreeStyle Lite Strips) As directed four times a day blood sugar diagnostic (FreeStyle Lite Strips) 4 times a day blood-glucose sensor (Dexcom G6 Sensor device) As directed Dexcom G6 Water Resource Engineer (blood-glucose meter,continuous) As directed NS Dexcom G6 Sensor (blood-glucose sensor) every 10 days NS Dexcom G6 Transmitter (blood-glucose transmitter) As directed NS fenofibrate 54 mg PO DAILY 30 days flash glucose sensor (FreeStyle Anyi 2 Sensor kit) USE TO TEST BLOOD GLUCOSE AND REPLACE EVERY 14 DAYS DIRECTED gabapentin 300 mg PO BID glucagon (Gvoke HypoPen 2-Pack) 1 mg (0.2 mL) subcut ONCE glucagon 3 mg/actuation (Baqsimi) 3 mg intranasal BID PRN 30 days MDD 6 mg guselkumab (Tremfya) 100 mg subcut Q8W ibuprofen 600 mg PO TID PRN insulin pump cart,auto,BT-cntr (Omnipod 5 G6 Intro Kit (Gen 5) subcutaneous cartridge with controller) As directed insulin pump cart,automated,BT (Omnipod 5 G6 Pods (Gen 5) subcutaneous cartridge) As directed change every 2 days dispense 3 boxes of five each insulin regular hum U-500 conc (Humulin R U-500 (Concentrated) Insulin) 150 units breakfast, lunch, 160 units dinner subcut 3 times a day; Use only with appropriate syringe lamotrigine 300 mg PO DAILY lancets As directed lancets (FreeStyle Lancets) 4 times a day lidocaine-prilocaine 2.5-2.5 % 1 appl topical ONCE 1 day wsvsyu-xzgivhqw-assotpy 25,000-79,000- 105,000 unit (Zenpep) 3 caps PO TID methadone 50 mg PO QAM multivitamin 1 tab PO DAILY needle (disp) 21 G (BD Regular Bevel Medina) As directed injects once a week pantoprazole 40 mg PO DAILY sildenafil (Viagra) 100 mg PO DAILY PRN syringe with needle (BD Luer-Fabien Syringe) INJECT ONCE A WEEK DIRECTED syringe with needle, safety As directed inject once a week testosterone (AndroGel) 4 pumps topical DAILY zolpidem ER 12.5 mg PO BEDTIME PRN HPI Comments Details: Patient is a 43-year-old male? 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 Diabetes being managed by Elsa Hanson NP . Today's appointment focus on hypogonadism First diagnosed with Hypogonadism [id number] with labs revealing low testosterone .Saw endo . Was placed on IM testosterone Was started on Testosterone supplementation with IM testo until 2017 and found relief. Came off because care disrupted Not Currently using testosterone. Last dose was 2017. Currently not achieving spontaneous am erections, and unable to achieve erection when desired. Reports low libido. . Denies any decrease in size or shape of testicles. Denies penile discharge or scrotal tenderness. Denies any history of mumps orchitis Had trauma in past with LOC twice in past . Denies history of VALERY b ut does snore at night . Has 1 children who were conceived spontaneously. Not looking to have children Sense of smell intact. Denies headache or visual changes, gynecomastia or galactorrhea. Denies orthostatic symptoms, weight loss. Denies change in size of hands or feet. Denies hair loss, weight gain, cold intolerance. History of DVT or PE: No No anabolic On methadone Workup point with secondary hypogonadism with normal prolactin, normal ferritin and normal MRI of the pituitary Labs: PSA CBC Sleep study showed moderate to severe sleep apnea Currently on testosterone gel 4 pumps daily. Libido and energy level are much better but having erectile dysfunctiontreated with Viagra. 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 Mother CVD (cardiovascular disease) Son No problems noted. Social History Household Members: Family Housing: House Alcohol intake: never Patient Tobacco Use Status: Current everyday Tobacco user Tobacco use type: Cigarette Cigarette Packs Per Day: 0.5 Cigarettes Per Day: 5 Years Smoked: 13 e-Cigarette/Vaping Use: Never Used Substance Use Type: Former Substance User and Opiates Advance Directives Date on File: 11/03/17 Current occupational status: unemployed Cognitive needs: No Hearing needs: No Vision needs: No Physical Exam Vital Signs: Last Vital Signs Pulse 98 08/24/24 10:43 BP 118/82 08/24/24 10:43 BMI result Body Mass Index 33.0 Assessment & Plan Assessment & Plan (1) Hypogonadism male: Code(s): E29.1 - Testicular hypofunction Category: Medical Plan: This is a 42-year-old white male with a history of secondary hypogonadism. On CPAP for sleep apnea. Currently being treated with testosterone gel for depressions. Per day. Also on Viagra for erectile dysfunction. He appears to be eugonadal Plan is to continue the current management . Orders: Orders Hemoglobin 6 Months E29.1 - Testicular hypofunction Testosterone, Free/Total 6 Months E29.1 - Testicular hypofunction Hematocrit 6 Months E29.1 - Testicular hypofunction Medications: Refilled BD Insulin Syringe U-500 (insulin U-500 syringe-needle) As directed 3 x/day 100 ea 5RF NS Coding Level of Care Code Est Pt Level 3 (14852) Diagnoses Hypogonadism male E29.1
[2024-08-24 10:43] VITALS: BP 118/82; PULSE 98; BMI 33.0
--- OUTSIDE RECORDS SUMMARY | 2024-08-24 11:16 | XMS_ITS | Patient Health Record ---
[facility] Organization [facility] Daphne mukul [place] Address [address] [facility] [place] [address] Care Team Providers Care Epic Application Coordinator Name Role Phone Erich Yang Primary Care Provider Jarocho Golden Unavailable [phone] Allergies Allergen (clinical drug ingredient) Drug/Non Drug Allergy documented on EMR Reaction Allergy Type Onset Date Status sulfamethoxazole / trimethoprim Bactrim Unknown Drug Allergy Active Penicillin Unknown Drug Allergy Active Results Component Value Reference Range Notes HEMOGLOBIN A1C (GLYCOHEMOGLO BIN) Reviewed date:08/17/2024 10:20:50 AM Interpretation: Performing Lab: Notes/Report: HEMOGLOBIN A1C % (HH) 9.0 Reason For Referral No Information Medications Medication SIG (Take, Route, Fr equency, Duration) Notes Start Date End Date Status Ammonium Lactate 12 % 1 application Exte rnally to affected areas of dry skin to feet except for between the toes Twice a day for 30 days Act rogelio Methadone HCl Active Gabapentin Active Ambien Active Testosterone Active HumuLIN N Active Social History Tobacco Use: Social History Observation Description Date Details (start date - stop date) Current Smoker NA - NA Tobacco use other than smoking: Question Answer Notes Are you an other tobacco user? Yes Tobacco Control (Standard) Question Answer Notes Tobacco use: Current smoker How often do you smoke cigarettes? Every day How many cigarettes a day do you smoke? 21-30 How soon after you wake up do you smoke your fir st cigarette? Within 5 minutes Are you interested in quitting? Not ready to jarrett t AUDIT-C (Standard) Question Answer Notes Did you have a drink containing alcohol in the p ast year? No Points 0 Interpretation Negative Problems Problem Type SNOMED Code ICD Code Onset Dates Problem Status W/U Status Risk Notes Problem Polyneuropathy due to type 2 diabetes mellitus (801400173) Type 2 diabetes mellitus with diabetic polyneuropathy (E11.42) Active confirmed Vital Signs Blood pressure diastolic 71 mm Hg 08/17/2024 Height 5ft 9in in 08/17/2024 Blood pressure systolic 127 mm Hg 08/17/2024 Weight 220 lbs 08/17/2024 BMI 32.48 kg/m2 08/17/2024 Procedures Procedure Date Ordered Date Performed Result Body Sit e 26596-QNRA SKIN LESIONS, 2 TO 4 08/17/2024 N/A M2065-[id number] DYSTROPHIC NAILS ANY # 08/17/2024 N/A Encounters Encounter Location Date [facility] [address] [place] [address] 08/17/2024 Jarocho Newsome Type 2 diabetes mellitus with diabetic polyneuropathy E11.42 and Xerosis of skin L85.3 [facility] [address] [place] [address] 08/10/2024 Jarocho Newsome Assessments Encounter Date Diagnosis (ICD Code) Assessment Notes Treatment Notes Treatment Clinical Notes Section Notes 08/17/2024 Type 2 diabetes mellitus with diabetic polyneuropathy (ICD-10 - E11.42) 08/17/2024 Xerosis of skin (ICD-10 - L85.3) Plan Of Treatment Pending Test Test Name Order Date 03391-HTCU SKIN LESIONS, 2 TO 4 08/17/19 W7168-IABVBHTW DYSTROPHIC NAILS ANY # Next Appt Details Provider Name:Jarocho Harsha Newsome, 10/19/2024 10:15:00 AM, [address] [facility], [place], [address], Insurance Providers Payer Name Payer Address Payer Phone Subscriber Number Group Number Insured Name Patient Relationship to Insured Coverage Start Date Coverage End Date [facility] [employer] Claims [address] [place] [id number] Brian Antonio Self - patient is the insured Medical (General) History Medical History History ICD Code Depression Diabetic Stomach ulcer Transfusions
--- OUTSIDE RECORDS SUMMARY | 2024-08-24 11:16 | XMS_ITS ---
Author [facility] [place] Address [address] [facility] [place] [address] Care Team Providers Care Cotton Tipper Name Role Phone Erich Yang Primary Care Provider Francisco montoya Jarocho Newsome Unavailable [phone] Allergies Allergen (clinical drug ingredient) Drug/Non Drug Allergy documented on EMR Reaction Allergy Type Onset Date Status sulfamethoxazole / trimethoprim Bactrim Unknown Drug Allergy Active Penicillin Unknown Drug Allergy Active REASON FOR VISIT At Risk Footcare, Skin problem(s) Medications Medication SIG (Take, Route, Fr equency, Duration) Notes Start Date End Date Status Ammonium Lactate 12 % 1 application Exte rnally to affected areas of dry skin to feet except for between the toes Twice a day for 30 days Act rogelio Methadone HCl Active Gabapentin Active Ambien Active HumuLIN N Active Testosterone Active Social History Tobacco Use: Social History [...] Polyneuropathy due to type 2 diabetes mellitus ([id number]) Type 2 diabetes mellitus with diabetic polyneuropathy (E11.42) Active confirmed Vital Signs Height 5ft 9in in 08/17/2024 Weight 220 lbs 08/17/2024 BMI 32.48 kg/m2 08/17/2024 Blood pressure systolic 127 mm Hg 08/17/19 Blood pressure diastolic 71 mm Hg 025 Procedures Procedure Date Ordered Date Performed Result Body Sit e 55046-DHXA SKIN LESIONS, 2 TO 4 08/17/2024 N/A L6901-ATSLAUEV DYSTROPHIC NAILS ANY # 08/17/2024 N/A Encounters Encounter Location Date Provider Diagnosis [facility] [address] [place] [address] 08/17/2024 Jarocho Newsome Type 2 diabetes lamine itus with diabetic polyneuropathy E11.42 and Xerosis of skin L85.3 Assessments Encounter Date Diagnosis (ICD Code) Assessment Notes Treatment Notes Treatment Clinical Notes Section Notes 08/17/2024 Type 2 diabetes mellitus with diabetic polyneuropathy (ICD-10 - E11.42) 08/17/2024 Xerosis of skin (ICD-10 - L85.3) Plan Of Treatment Medication Medication Name Sig Start Date Stop Date Notes Ammonium Lactate 12 % 1 application Exte rnally to affected areas of dry skin to feet except for between the toes Twice a day for 30 days Pending Test Test Name Order Date 07491-OWOP SKIN LESIONS, 2 TO 4 08/17/19 Q3757-QEDBPAJR DYSTROPHIC NAILS ANY # Next Appt Details Follow Up: 2 Months, Reason: Provider Name:Jarocho Newsome, 10/19/2024 10:15:00 AM, [address] [place], [address], Procedure Notes * Category Sub-Category Detail Notes Keratoma Treatment Parring or Cutting o f Benign Hyperkeratotic Lesion(s) (-57) More than 4 Lesions - Due to the at risk nature of the patients medical condition as documented in the exam findings, performance of this keratoderma treatment is medically necessary as its management by an unskilled/untrained nonprofessional would put this patients foot and overall health at risk. Therefore, the benign hyperkeratotic lesions, 6 in total, locations as stated and described in the exam sub 2nd and 4th MTH B/L and out edge heel B/L were pared, and/or cut utilizing a sterile 15 blade, tissue nippers, and/or power dremel instrumentation by the physician of record - 49048 Nail Reduction Nail Reduction (-27) Trimming o f all dystrophic nails - Due to the at risk nature of the patients medical condition as documented in the exam findings, performance of this nail treatment is medically necessary as its management by an unskilled/untrained nonprofessional would put this patients foot and overall health at risk. Therefore, the dystrophic nails, in locations as stated and described in the exam TA, T1, T2, T3, T4, T5, T6, T7, T8, T9, were debrided by the phisician of record to reduce/remove overall nail length and girth, by manual and electrical means with use of a nail nipper and/or dremel, to more viable healthy nail plate or bed tissue - G0127 Progress Notes * Brian PACHECODOB:1980 ( 43 yo M)Acc No.[id number]:08/17/2024 Progress Notes Patient:?Brian PACHECO Provider:?Jarocho Newsome D.P.M. :1980???Age:43 Y???Sex:Male Ki e:08/17/2024 Address:[address] [place] [address], [facility] Pcp:NATASHA Mejía Subjective: * Chief Complaints: * ???At Risk FootcareSkin prob ember(s) * HPI: ???At Risk footcare:?Pt States Last PCP Visit:?Date?07/15/2024 ???Skin problems:?Nature:?dryness , scaling fissures.?Location:?plantar aspect of foot B/L.?Duration:?a few months.?Onset/Cause:?unknown.?Course:?worse.?Aggravated by:?walking.?Treatments:?none.?Severity/Quality:?moderate.? * ROS:?General/Constitutional:?Nausea?denies.?Vomiting?denies.?Hunger Thirst?denies.?Loss appetite?denies.?Chills?denies.?Fatigue?denies.?Fever?denies.?Night Sweats?denies.?Unexplained weight loss?denies.?Unexplained weight gain?denies.?HEENTM:?Dentures?denies.?Dizziness?denies.?Glasses/contacts?denies.?Retinopathy?den ies.?Blurred/double vision?denies.?TMJ?denies.?Discharge/drainage?denies.?Implants?denies.?Sore throat?denies.?Dental implants?denies.?Hard of hearing ?denies.?Difficulty chewing/swallowing/speaking?denies.?Nose bleeds?denies.?Sore mouth?denies.?Respiratory:?On O xygen?denies.?Pneumonia/pleurisy?denies.?Bronchitis?denies.?Emphysema?denies.?Co ughing?denies.?Cough blood?denies.?Shortness of breath?denies.?Wheezing?denies.?Cardiovascular:?Pacemaker?denies.?MVP?denies.?WPW?denies.?CHF?denies.?Heart attack?denies.?Septal defect?denies.?Rapid beat?denies.?Chest pain ?denies.?Atrial Fib.?denies.?Murmur/Palpitations?denies.?Gastrointestinal:?Hemorrhoids?denies.?Stomach/Abdominal pain?admits.?Dark blood stool?denies.?Irritable bowel ?denies.?Constipation?denies.?Diarrhea?denies.?Hematology:?Swelling?denies.?Clots?denies.?Varicose Veins?denies.?Bruising?denies.?Bleeding problem?denies.?Genitourinary:?Blood urine?denies.?Frequent/Painfu/urination/bladder control?denies.?Kidney stones?denies.?Infection (UTI)?denies.?Nephropathy?denies.?sex trans dis (STD)?denies.?Prostate?denies.?Musculoskeletal:?Hammertoes?denies.?Bunions?denies.?Back Pain?admits.?Muscle Cramps/ Resting?denies.?Muscle cramps / walking?denies.?Generalized aches and pains?admits.?Weakness?admits.?Integ.:?Negron?denies.?Scars?denies.?Corns/calluses?admits.?Ingrown nails?denies.?Painful nails?admits.?Open Sores?denies.?Rashes?denies.?Neurologic:?Difficulty sleeping?admits.?Brain disorder?denies.?Numbness?admits.?Balance t rouble?denies.?Confusion?denies.?Fainting/blackouts?denies.?Tingling?admits.?Erasmo mors?denies.? * Medical History:? * Surgical History:?No Surgica l History documented. * Hospitalization/Major Diagno stic Procedure:?No Hospitalization History. * Family History:?Mother: dece ased.? Family Hx Unknown. * Social History:?Tobacco Use:?Tobacco use other than smoking?Are you an other tobacco user??Yes ?Tobacco Control (Standard)?Tobacco use:?Current smoker ?How often do you smoke cigarettes??Every day ?How many cigarettes a day do you smoke??21-30 ?How soon after you wake up do you smoke your first cigarette??Within 5 minutes ?Are you interested in quitting??Not ready to quit ???Drugs/Alcohol:?Drugs?Have you used drugs other than those for medical reasons in the past 12 months??Yes ???Miscellaneous:?Caffeine: yes. ?Exercise: no. ?Marital status: Single. ???Drug/Alcohol:?AUDIT-C (Standard)?Did you have a drink containing alcohol in the past year??No ?Points?0 ?Interpretation?Negative * Medications:?TakingTestoster one HumuLIN N Gabapentin Ambien Methadone HCl Medication List reviewed and reconciled with the patientTaking Testosterone Taking HumuLIN N Taking Gabapentin Taking Ambien Taking Methadone HCl Medication List reviewed and reconciled with the patient * Allergies:?PenicillinBactrim yes[Allergies Verified] Objective: * Vitals:?Ht: 5ft 9in, Wt:220, BMI:32.48, Shoe size: 11-11.5, BP:127/71mm Hg, BS: 204, Ht-cm: 175.26 cm, Wt-k.79 kg. * ???Past Orders: ???Lab:HEMOGLOBIN A1C (GLYCO HEMOGLOBIN) (Order Date - 08/17/2024) (Collection Date & Time - 08/17/2024 10:20 AM) ? Value Reference Range ?HEMOGLOBIN A1C % (HH) 9.0 * Examination: ???Ophthalmology Referral: ?DIABETES EYE EXAM?Neurological: ?SENSORY:?Neurological exam demonstrates, reduced light touch sensation, reduced sharp/dull discrimination , reduced vibration sensation, in a stocking fashion, B/L, 5.07 monofilament test performed at plantar aspects of 5 varied sites per foot shows sensation, reduced, B/L.?Nails: ?NAILS are:?Elongated, overgrown, dystrophic, with dull to no pain on palpation due to neuropathy , TA, T1, T2, T3, T4, T5, T6, T7, T8, T9.?Dermatologic: ?SKIN FINDINGS:?Skin exam reveals Keratotic lesion(s) located at sub 2n and 5th?MTH B/Land outer heels B/L , Skin shows sign(s) of, dryness, scaling, in a stocking fashion, fissure(s) present, heel B/L.?Orthopedic: ?MUSCLE STRENGTH:?5/5 all groups in a symmetrical fashion, B/L.?FOOTWEAR:?shoe gear properties good condition, exhibit proper fit and accommodation for pedal deformities..?Vascular: ?DP PULSES (B):?2/4, B/L.?PT PULSES (B):?2/4, B/L.?CAPILLARY FILL TIME:?delayed, all digits, B/L.?TROPHIC CONDITION-TEXTURE/ELASTICITY/TURGOR/HAIR GROWTH (B):?normal, B/L.?TEMPERTURE GRADIENT (C):?decreased, cool to cool, proximal to distal, B/L.?PIGMENTATION:?normal, B/L.?EDEMA (C):?absent, B/L.?CLAUDICATION (C):?denies, B/L.?REST PAIN:?denies, B/L.?General Examination: ?GENERAL APPEARANCE:?Reveals a pleasant, alert, well nourished, well- developed, well hydrated individual, who demonstrates proper attention to hygiene/body habitus, and is in no acute distress, Pt serves as own historian for office visit today.?ORIENTED:?person, place, and time.?FOOT EXAM:?Footwear Evaluation? Assessment: * Assessment: 1.?Type 2 diabetes mellitus with diabetic polyneuropathy - E11.42 (Primary)???2.?Xerosis of skin - L85.3???Specify :Acute problem, Uncomplicated (3),Rx Management (4)??? Plan: * Treatment: 2.?Xerosis of skin? Start Ammonium Lactate Cream, 12 %, 1 application, Externally to affected areas of dry skin to feet except for between the toes, Twice a day, 30 days, 280, Refills 3.?? * Procedures:?Keratoma Treatment:?Parring or Cutting of Benign Hyperkeratotic Lesion(s)?(-57) More than 4 Lesions - Due to the at risk nature of the patients medical condition as documented in the exam findings, performance of this keratoderma treatment is medically necessary as its management by an unskilled/untrained nonprofessional would put this patients foot and overall health at risk. Therefore, the benign hyperkeratotic lesions, 6 in total, locations as stated and described in the exam sub 2nd and 4th MTH B/L and out edge heel B/L were pared, and/or cut utilizing a sterile 15 blade, tissue nippers, and/or power dremel instrumentation by the physician of record - [id number].?Nail Reduction:?Nail Reduction?(-27) Trimming of all dystrophic nails - Due to the at risk nature of the patients medical condition as documented in the exam findings, performance of this nail treatment is medically necessary as its management by an unskilled/untrained nonprofessional would put this patients foot and overall health at risk. Therefore, the dystrophic nails, in locations as stated and described in the exam TA, T1, T2, T3, T4, T5, T6, T7, T8, T9, were debrided by the phisician of record to reduce/remove overall nail length and girth, by manual and electrical means with use of a nail nipper and/or dremel, to more viable healthy nail plate or bed tissue - G0127.? * Procedure Codes:?G0127 VALENTINA ING DYSTROPHIC NAILS ANY #, Modifiers: XS 01323 TRIM SKIN LESIONS, OVER 4, Modifiers: XS * Preventive Medicine:? ??Counseling:?Tobacco use:?Type of Tobacco Use Cessation Counseling provided?Referral to stop- smoking clinic ?Patient counseled on the dangers of smoking and urged to quit:?08/17/2024 ?Discussion:?-03: Office or other outpatient visit for the evaluation and management of a new patient, which required a medically appropriate history and/or examination and LOW level of DECISION MAKING for: 1 STABLE ACUTE UNCOMPLICATED PROBLEM, 2 OR MORE MINOR PROBLEMS, OR 1 STABLE CHRONIC PROBLEM, THAT POSE(S) A LOW RISK FOR MORBIDITY/MORTALITY. The visit on the day of the encounter encompassed interpreting the data and educating the patient as to the nature of their condition, treatment options available according to their individual PMH, meds, allergies, and overall health/living conditions, as well as any potential risks or complications that may occur from a failure to adhere to, and participate in, the recommended course of therapy. The discussion included a complete verbal, and/or written explanation of the examination results, any x-rays taken, the proposed diagnosis, and outline of the treatment plan. A schedule for future care needs was also explained. The patient verbalized an understanding of the instructions at this time and agreed to be an active participant in their treatment. If the patient should think of any questions or concerns after the visit, I have encouraged the patient to call the office.?Xerosis:?The patient was counseled on the diagnosis, potential etiologies, and treatment options for their skin condition. We discussed the risks and benefits of each option from performing no treatment, to utilizing OTC topical skin creams/ointments, to utilizing prescription topical creams/ointments, to utilizing customized compounded topical medications and use of nocturnal occlusion with any/all previously detailed therapies. We discussed the advantages and disadvantages of each possible treatment and importance for adherence to all the recommended therapies for optimum success and avoid potential complications such as open sore/infection/possible hospitalization. We discussed the potential effectiveness of each topical preparation as well as each ones possible side effects and/or patient medication interactions. Patient questions re: use, dosage, successful outcomes, and application consistency were reviewed and the patient verbalized that all answers were clearly understood. The patient has decided to apply Lac-Hydrin Rx skin creams to their feet save the interspaces while paying special attention to the heels. Such was sent to their pharmacy at the time of visit.? * Follow Up:?2 Months * Images: * Sign off status: Completed true * Provider:?Jarocho Newsome D.P.M. Date:?07/29 Generated for Kimberly wallace/Tejas/Jurgen on:?08/24/2024 11:16 AM EST History and Physical Notes * HPI (History of Present Illness) Category Sub-Category Detail Notes Category Not es Skin problems Nature: dryness , scaling fissures Location: plantar aspect of fo ot B/L Duration: a few months Onset/Cause: unknown Course: worse Aggravated by: walking Treatments: none Severity/Quality: moderate Misc: At Risk footcare Pt States Last PCP Visit: Date: 4 Examination Category Sub-Category Detail Notes Category Not es Neurological SENSORY: Neurological exa m demonstrates, reduced light touch sensation, reduced sharp/dull discrimination , reduced vibration sensation, in a stocking fashion, B/L, 5.07 monofilament test performed at plantar aspects of 5 varied sites per foot shows sensation, reduced, B/L Dermatologic SKIN FINDINGS: Skin exam reveal s Keratotic lesion(s) located at sub 2n and 5th MTH B/Land outer heels B/L , Skin shows sign(s) of, dryness, scaling, in a stocking fashion, fissure(s) present, heel B/L Orthopedic FOOTWEAR: shoe gear proper ties good condition, exhibit proper fit and accommodation for pedal deformities. MUSCLE STRENGTH: 5/5 all groups in a symmetrical fashion, B/L General Examination GENERAL APPEARANCE: Reveals a pleasant, alert, well nourished, well-developed, well hydrated individual, who demonstrates proper attention to hygiene/body habitus, and is in no acute distress, Pt serves as own historian for office visit today FOOT EXAM: Lower Extremity Neurological Exa m performed:: Yes Visual exam of foot performed:: Yes Date: 08/17/2024 Sensory testing performed:: sensations d iminished Sensory and motor testing performed:: [facility] normal Pedal pulse taking performed:: 2+ ORIENTED: person, place, and t susan Footwear Evaluation Footwear Evaluation performe d:: Yes Ophthalmology Referral DIABETES EYE EXAM Procedure Perform ed:: Yes ?Date of Exam Performed: 01/27/2024 Vascular DP PULSES (B): 2/4, B/L PT PULSES (B): 2/4, B/L CAPILLARY FILL TIME: delayed, all digits , B/L TEMPERTURE GRADIENT (C): decreased, cool to cool, proximal to distal, B/L TROPHIC CONDITION-TEXTURE/ELASTICITY/TURGOR/HAIR GROWTH (B): normal, B/L EDEMA (C): absent, B/L CLAUDICATION (C): denies, B/L REST PAIN: denies, B/L PIGMENTATION: normal, B/L Nails NAILS are: Elongated, overg rown, dystrophic, with dull to no pain on palpation due to neuropathy , TA, T1, T2, T3, T4, T5, T6, T7, T8, T9
--- OUTSIDE RECORDS SUMMARY | 2024-08-24 11:16 | XMS_ITS | Clinical Summary ---
Author Organization [facility] ity Address [address] [place] [address] Care Team Providers Care Pay Clerk Name Role Phone Unavailable Primary Care Provider Unavailabl e Social History Tobacco Use Types Packs/Day Years Used Date Smoking Tobacco: Never Assessed Sex and Gender Information Value Date Recorded Sex Assigned at Not on file Gender Identity Not on file Sexual Orientation Not on file Plan of Treatment Health Maintenance Due Date Last Done Comments DTaP,Tdap,and Td Vaccines (1 - Tdap) 2000 Hepatitis B Vaccines (1 of 3 - 19+ 3-dose series) 2000 Cholesterol Screening (Lipid Panel) 06/30/2022 Depression Screening 06/30/2022 HIV Screening 06/30/2022 Hepatitis C Screening 06/30/2022 Social Influencers of Health Screening 06/30/2022 COVID-19 Vaccine (2023-2 5 season) 2024 Influenza Vaccine (#1) 2024 HIB Vaccines Aged Out No longer eligi ble based on patient's age to complete this topic HPV Vaccines Aged Out No longer eligi ble based on patient's age to complete this topic Hepatitis A Vaccines Aged Out No long er eligible based on patient's age to complete this topic IPV Vaccines Aged Out No longer eligi ble based on patient's age to complete this topic MMR Vaccines Aged Out No longer eligi ble based on patient's age to complete this topic Meningococcal ACWY Vaccine Aged Out N o longer eligible based on patient's age to complete this topic Pneumococcal Vaccine: Pediat rics (0 to 5 Years) and At-Risk Patients (6 to 64 Years) Aged Out No longer eligible b ased on patient's age to complete this topic RSV Immunization Patients Un gopal 20 months Aged Out No longer eligible b ased on patient's age to complete this topic Varicella Vaccines Aged Out No longer eligible based on patient's age to complete this topic Advance Directives Documents on File Type Date Recorded Patient Powder Line Repairer Expl anation Health Care Decision (hx) 11/16/2014 AD PLATT DIRECTIVE Health Care Decision (hx) 11/14/2014 AD PLATT DIRECTIVE
--- OUTSIDE RECORDS SUMMARY | 2024-08-24 11:16 | XMS_ITS ---
Author Organization [facility] Address [address] [facility] 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 Generated for Printi ng/Faxing/eTransmitting on:?08/24/2024 11:16 AM EST
--- OUTSIDE RECORDS SUMMARY | 2024-08-24 11:17 | XMS_ITS | Clinical Summary ---
Author Organization [facility] Facility Address [address] [address] Care Team Providers Care Phonograph Needle Tip Maker Name Role Phone Erich Rodriguez NP Primary Care Provider [phone] Allergies Active Allergy Reactions Criticality Noted Date Comments Penicillins Other (see comments) 07/09/2021 Sulfa Antibiotics Other (see comments) 07/09/20 21 Medications amitriptyline (ELAVIL) 50 MG tablet Take 1 tablet by mouth 1 (one) time each day Active ARIPiprazole (Abilify) 15 MG tablet Take 1 tablet by mouth 1 (one) time each day Active famotidine (Pepcid) 40 MG tablet Take 1 tablet by mouth 2 (two) times a day 0 Active insulin regular (HumuLIN R) 100 UNIT/ML injection Active SUMAtriptan (Imitrex) 50 MG tablet Take 1 tablet by mouth Active triamcinolone (KENALOG) 0.1 % cream by Other route 2 (two) times a day Active zolpidem CR (AMBIEN CR) 12.5 MG CR tablet Active albuterol HFA (PROVENTIL HFA;VENTOLIN HFA) 108 (90 Base) MCG/ACT inhaler INHALE ONE PUFF BY MOUTH EVERY 4 HOURS NEEDED FOR BRONCHOSPASM 1 Active fenofibrate (TRICOR) 54 MG tablet Take 54 mg by mouth 1 (one) time each day 1 Active gabapentin (NEURONTIN) 100 MG capsule TAKE THREE CAPSULES (300 MG) BY MOUTH TWICE A DAY 1 Active Insulin Lispro, 1 Unit Dial, 100 UNIT/ML solution pen-injector INJECT 30 UNITS SUBCUTANEOUSLY THREE TIMES A DAY WITH MEALS 1 Active [employer]One Unifine Pentips Plus 32G X 4 MM misc USE FIVE TIMES A DAY DIRECTED 1 Active lamoTRIgine (LaMICtal) 200 MG tablet Take 200 mg by mouth at bed time 1 Active Creon 18611-29147 units capsule TAKE TWO CAPSULES BY MOUTH THREE TIMES A DAY WITH MEALS AND/OR SNACKS 1 Active pantoprazole (PROTONIX) 40 MG EC tablet Take 40 mg by mouth 1 (one) time each day 1 Active Active Problems Problem Noted Date Diagnosed Date Kakwt-ki-nhnwkjv renal failure 07/09/2021 Chronic pancreatitis 07/09/2021 Testosterone level below reference range 021 Essential hypertension 07/09/2021 History of drug abuse 07/09/2021 Psoriasis 07/09/2021 Type 1 diabetes mellitus 07/09/2021 Ventricular tachycardia 07/09/2021 Family History Medical History Relation Comments Heart disease Father paternal family Hx Hypertension Father Hypertension Mother Relation Status Comments Father Alive Mother Social History Tobacco Use Types Packs/Day Years Used Date Smoking Tobacco: Every Day Cigarettes Smokeless Tobacco: Never Sex and Gender Information Value Date Recorded Sex Assigned at Not on file Legal Sex Male 4:50 PM EST Gender Identity Not on file Sexual Orientation Not on file Last Filed Vital Signs Vital Sign Reading Time Taken Comments Blood Pressure 118/80 07/10/2021 3:22 PM EST Pulse 113 07/10/2021 3:22 PM EST Temperature - - Respiratory Rate - - Oxygen Saturation 96% 07/10/2021 3:22 PM EST Inhaled Oxygen Concentration - - Weight 104 kg (229 lb) 07/10/2021 3:22 PM EST Height 172.7 cm (5' 8 ) 07/10/2021 3:22 PM EST Body Mass Index 34.82 07/10/2021 3:22 PM EST Plan of Treatment Health Maintenance Due Date Last Done Comments Pneumococcal Vaccine: Pediat rics (0 to 5 Years) and At-Risk Patients (6 to 64 Years) (1 of 2 - PCV) 10/12/1987 Hepatitis B Vaccine (1 of 3 - 19+ 3-dose series) 10/11 Diabetes: Ophthalmology Exam 08/27/2020 Diabetes: Pedal Pulse Checked 08/27/2020 Diabetes: Sensory Foot Exam 08/27/2020 Diabetes: Visual Foot Exam 08/27/2020 Diabetes: Hemoglobin A1C 10/08/2021 07/10/2021 Influenza Vaccine (#1) 2024 Procedures Procedure Name Priority Date/Time Associated Diagnosis Comments HEMOGLOBIN A1C Routine 07/10/2021 3:44 PM EST Hypertension Chronic pancreatitis (HCC) Type 2 diabetes mellitus with diabetic chronic kidney disease (HCC) from Last 3 Months or Most Recently Relevant to Health Maintenance Results * (ABNORMAL) Hemoglobin A1c (07/10/2021 3:44 PM EST) Hemoglobin A1C 11.5(H) (4.0-5.6) % [facility] Comment: MONITORING: In known diabetic patients, hemoglobin A1c targets should be discussed with health care provider. DIAGNOSTIC USE: ??The [place] Diabetes Association (ADA) and the World Health Organization (WHO) recommend the use of HbA1c to diagnose diabetes using a threshold of 6.5%. Patients who have an HbA1c between 5.7% and 6.4% are considered at increased risk for developing diabetes in the future. CAUTION: Falsely low HbA1c results may be observed in patients with hemolytic anemia, homozygous forms of abnormal hemoglobin (e.g. SS, CC, SC), , recent blood loss or hemoglobin F greater than 7%. Fructosamine may be used as an alternate test in these cases. REFERENCE: ADA: Standards of Medical Care in Diabetes 2020, The Journal of Clinical and Applied Research and Education Volume 43, Supplement 1 Testing performed or reported by [facility], a Service of [facility], [address] [place] [id number] Ashlyn Damian MD, Bird Tender [facility]# [id number] Blood (Blood, Venous) 07/10/2021 3:44 PM EST 07/10/2021 3:46 PM EST us Quinten Escalante MD LAB BLOOD ORDERABLES Final Re sult [facility] from Last 3 Months or Most Recently [place] [id number] [place] Care Teams Phonograph Needle Tip Maker Relationship Specialty Start Date End Date Erich Rodriguez NP [address] [place] [address] PCP - General 08/07/20
== END 2024-08-24 11:02 | disposition home or self-care (01) ==
PROVIDERS: PCP Nurse Practitioner Family; Visit Provider Internal Medicine Endocrinology, Diabetes & Metabolism
DX: E29.1 Testicular hypofunction (principal)
CPT/HCPCS: 99213

== ENCOUNTER → 2024-08-24 10:23 | Outpatient (BNVA) | payer OTHER, SELFPAY | PROVIDERS: PCP Nurse Practitioner Family; Visit Provider Internal Medicine Endocrinology, Diabetes & Metabolism | DX: E29.1 Testicular hypofunction (principal) | CPT/HCPCS: 99212 ==

== ENCOUNTER 2024-09-01 10:47 | Outpatient (AMB) | payer OTHER, SELFPAY ==
[2024-09-01 10:49] VITALS: BP 132/78; PULSE 104; O2SAT 95; BMI 34.2
--- NOTE | 2024-09-01 10:49 | MHC.OFFVIS ---
Vital Signs 09/01/24 10:49 Height 5 ft 9 in Weight 231 lb 11.293 oz BMI 34.2 BP 132/78 Blood Pressure Location Rt brachial Position Sitting Pulse 104 H Pulse Source Pulse Oximeter Pulse Oximetry (%) 95 Oxygen Delivery Method Room Air Intake Visit Reasons: DM Intake Note: Patient present today for Diabetes Mellitus. Last Diabetic eye exam: 02/2024 Last Podiatry Visit: 07/2024 Random Glucose: 316 mg/dl HgA1C: 11.6% Leave Coordinator Required: No Accompanied by: Self / Same As Patient Allergies amoxicillin [AMOXICILLIN] Allergy (Severe, Verified 09/01/24 10:55) anaphylaxis / angioedma Penicillins [PENICILLINS] Allergy (Severe, Verified 09/01/24 10:55) HIVES, SWELLING/SOB Sulfa (Sulfonamide Antibiotics) [SULFA (SULFONAMIDE ANTIBIOTICS)] Allergy (Severe, Verified 09/01/24 10:55) HIVES tramadol Allergy (Intermediate, Verified 09/01/24 10:55) GI upset/abd pain Seasonal Allergies Allergy (Mild, Verified 09/01/24 10:55) Sneezing Medication List - Last Reconciled 09/01/24 by Elsa Hanson NP acetaminophen (Tylenol Extra Strength) 1,000 mg (2 x 500 mg) PO Q6H PRN acetone (urine) test (Ketone Urine Test strips) As directed prn glucose over 250, nausea or vomiting, tid albuterol sulfate 90 mcg/actuation 1 puff inhalation Q4H PRN 30 days amitriptyline 50 mg PO BEDTIME ammonium lactate 12% appl topical BID aripiprazole 15 mg PO BEDTIME BD Insulin Syringe U-500 (insulin U-500 syringe-needle) As directed 3 x/day NS blood pressure kit med and lrg daily use blood sugar diagnostic (FreeStyle Lite Strips) As directed four times a day blood sugar diagnostic (FreeStyle Lite Strips) 4 times a day blood-glucose sensor (Dexcom G6 Sensor device) every 10 days Dexcom G6 Gold Prospector (blood-glucose meter,continuous) As directed NS Dexcom G6 Sensor (blood-glucose sensor) every 10 days NS Dexcom G6 Transmitter (blood-glucose transmitter) As directed every 90 days NS fenofibrate 54 mg PO DAILY 30 days flash glucose sensor (FreeStyle Anyi 2 Sensor kit) USE TO TEST BLOOD GLUCOSE AND REPLACE EVERY 14 DAYS DIRECTED gabapentin 300 mg PO BID glucagon (Gvoke HypoPen 2-Pack) 1 mg (0.2 mL) subcut ONCE guselkumab (Tremfya) 100 mg subcut Q8W ibuprofen 600 mg PO TID PRN insulin pump cart,auto,BT-cntr (Omnipod 5 G6 Intro Kit (Gen 5) subcutaneous cartridge with controller) As directed insulin pump cart,automated,BT (Omnipod 5 G6 Pods (Gen 5) subcutaneous cartridge) As directed change every 2 days dispense 3 boxes of five each insulin regular hum U-500 conc (Humulin R U-500 (Concentrated) Insulin) 150 units breakfast, lunch, 160 units dinner subcut 3 times a day; Use only with appropriate syringe lamotrigine 300 mg PO DAILY lancets As directed lancets (FreeStyle Lancets) 4 times a day lidocaine-prilocaine 2.5-2.5 % 1 appl topical ONCE 1 day udtsit-agbdkzbz-mqtssta 25,000-79,000- 105,000 unit (Zenpep) 3 caps PO TID methadone 50 mg PO QAM multivitamin 1 tab PO DAILY needle (disp) 21 G (BD Regular Bevel [place]) As directed injects once a week pantoprazole 40 mg PO DAILY sildenafil (Viagra) 100 mg PO DAILY PRN syringe with needle (BD Luer-Fabien Syringe) INJECT ONCE A WEEK DIRECTED syringe with needle, safety As directed inject once a week testosterone (AndroGel) 4 pumps topical DAILY zolpidem ER 12.5 mg PO BEDTIME PRN HPI Comments Details: 43 YO male who is seen in follow up for Diabetes at the request of Dr. Santos who follows the patient for hypgonadism. He was last seen for dibetes 03/24/24. A1C 09/01/24 11.6% 02/25/24 10.9%. (Baseline A1C 9-10%) He was previously seen at the [facility] 2023 and trialed metformin which he reports did not lower his sugars He has h/o pancreatic disease In the past he had used a bolus calculator on his phone with a 1:5 ratio and correction factor of 1:15. Most recent A1C is 10.9% 02/25/24. Was initially started on treatment with [metformin] Current regimen []. 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 MIcroalbumin 9 as measured on [01/17]. On [fenofibrate]. Last LDL [83] as measured on [08/20]. [Denies] CAD. Diet: [skips breakfast, snacks throughout day and has bigger meal for dinner ] Fibrosis-4 (Fib-4) Index for liver fibrosis (calculated on most recent lab work) [0.71 ] points Advanced fibrosis [ excluded] Approximate Fibrosis stage Obdulia [ 0-1] *Use with caution in patients <35 or >65 years old, as the score has been shown to be less reliable in these patients. followed by Dr. 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 Mother CVD (cardiovascular disease) Son No problems noted. Social History Household Members: Family Housing: House Alcohol intake: never Patient Tobacco Use Status: Current everyday Tobacco user Tobacco use type: Cigarette Cigarette Packs Per Day: 0.5 Cigarettes Per Day: 5 Years Smoked: 13 e-Cigarette/Vaping Use: Never Used Substance Use Type: Former Substance User and Opiates Advance Directives Date on File: 11/03/17 Current occupational status: unemployed Cognitive needs: No Hearing needs: No Vision needs: No Physical Exam Vital Signs: Last Vital Signs Pulse 104 H 09/01/24 10:49 BP 132/78 09/01/24 10:49 Pulse Ox 95 09/01/24 10:49 Oxygen Delivery Method Room Air 09/01/24 10:49 BMI result Body Mass Index 34.2 Const Other: Absence of Cushingoid features. Absence of acromegalic features. Neck exam reveals nl size thyroid about 15 gms. No thyroid nodules palpable. Heart S1 S2, Reg R/R. No M/R G. Skin exam reveals absence of vitiligo or acanthosis nigricans. Visual exam of foot performed. No ulcerations or open lesions. No inter digit maceration or fissuring. nails yellowed and thickened, + callouses/dry skin Sensation absent to monofilament exam left foot diminished right Vibratory sensation is diminished with 128 Hz tuning fork. 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 Case d/w Dr Santos New dosing u500 breakfast and supper 100-150 25 units 151 -200 30 units 201-250 40 units 251-275 60 units 276-300 80 units over 300 90 units take with breakfast and supper start pioglitizone: low dose 15mg side effects allergic raction, weight gain, edema and higher doses, contraindicted in heart disease, rare bladder cancer could consider u200 with insulin pump which Dr. Santos recommended. Patient is on methadone. Has not used street drugs since 2018, does not consume alcohol, smokes marajuana The patient had an opportunity to ask questions regarding treatment plan. The patient expressed understanding and agreement with the above treatment plan. The patient is aware they should contact our office by phone for worsening glucose readings or for any low blood sugars which may warrant a change in diabetes medication. Compliance is encouraged with medications and any followup testing/consults which may have been ordered. Orders: Orders AMB Hemoglobin A1c Today E13.9 - Other specified diabetes mellitus without complications, S36.209S - Unspecified injury of unspecified part of pancreas, sequela, Z13.9 - Encounter for screening, unspecified Medications: New pioglitazone (Actos) 15 mg PO DAILY 30 days 30 tabs 6RF Changed From Dexcom G6 Transmitter (blood-glucose transmitter) As directed 1 ea 0RF NS E13.9 - Other specified diabetes mellitus without complications, S36.209S - Unspecified injury of unspecified part of pancreas, sequela, Z79.4 - custodial (current) use of insulin To Dexcom G6 Transmitter (blood-glucose transmitter) As directed every 90 days 1 ea 3RF NS E13.9 - Other specified diabetes mellitus without complications, S36.209S - Unspecified injury of unspecified part of pancreas, sequela, Z79.4 - custodial (current) use of insulin From insulin regular hum U-500 conc (Humulin R U-500 (Concentrated) Insulin) 150 units breakfast, lunch, 160 units dinner subcut 3 times a day; Use only with appropriate syringe 90 mL 5RF To insulin regular hum U-500 conc (Humulin R U-500 (Concentrated) Insulin) subcutaneously BREAKFAST AND SUPPER; Use only with appropriate syringe 100-150 take 25 units 151-200 take 30 units 201-250 take 40 units 251-275 take 60 units 276-300 take 80 units over 300 take 90 units fore breakfast and supper 30 days 20 mL 5RF From blood-glucose sensor (Dexcom G6 Sensor device) As directed 3 ea 11RF E13.9 - Other specified diabetes mellitus without complications, S36.209S - Unspecified injury of unspecified part of pancreas, sequela To blood-glucose sensor (Dexcom G6 Sensor device) every 10 days 3 ea 11RF E13.9 - Other specified diabetes mellitus without complications, S36.209S - Unspecified injury of unspecified part of pancreas, sequela Refilled Dexcom G6 Sensor (blood-glucose sensor) every 10 days 9 ea 3RF NS E13.9 - Other specified diabetes mellitus without complications, S36.209S - Unspecified injury of unspecified part of pancreas, sequela, Z79.4 - continuous churn buttermaker (current) use of insulin Dexcom G6 Transmitter (blood-glucose transmitter) As directed every 90 days 1 ea 3RF NS E13.9 - Other specified diabetes mellitus without complications, S36.209S - Unspecified injury of unspecified part of pancreas, sequela, Z79.4 - custodial (current) use of insulin Dexcom G6 Sensor (blood-glucose sensor) every 10 days 3 ea 11RF NS E13.9 - Other specified diabetes mellitus without complications, S36.209S - Unspecified injury of unspecified part of pancreas, sequela, Z79.4 - continuous churn buttermaker (current) use of insulin Dexcom G6 Sensor (blood-glucose sensor) every 10 days 3 ea 11RF NS E13.9 - Other specified diabetes mellitus without complications, S36.209S - Unspecified injury of unspecified part of pancreas, sequela, Z79.4 - custodial (current) use of insulin Dexcom G6 Transmitter (blood-glucose transmitter) As directed every 90 days 1 ea 3RF NS E13.9 - Other specified diabetes mellitus without complications, S36.209S - Unspecified injury of unspecified part of pancreas, sequela, Z79.4 - continuous churn buttermaker (current) use of insulin blood-glucose sensor (Dexcom G6 Sensor device) every 10 days 3 ea 11RF E13.9 - Other specified diabetes mellitus without complications, S36.209S - Unspecified injury of unspecified part of pancreas, sequela Discontinued insulin pump cart,automated,BT (Omnipod 5 G6 Pods (Gen 5) subcutaneous cartridge) Discontinued Reason: Doctor's Order As directed change every 2 days dispense 3 boxes of five each 15 ea 3RF E13.9 - Other specified diabetes mellitus without complications, S36.209S - Unspecified injury of unspecified part of pancreas, sequela insulin pump cart,auto,BT-cntr (Omnipod 5 G6 Intro Kit (Gen 5) subcutaneous cartridge with controller) Discontinued Reason: Doctor's Order As directed 1 ea 1RF E13.9 - Other specified diabetes mellitus without complications, S36.209S - Unspecified injury of unspecified part of pancreas, sequela Patient Instructions: Take 15 carb carbohydrate grams to treat a low sugar (3-4 glucose tablets, half a glass of juice or 15 carbohydrate grams of soft candy such as gummie snacks). Recheck your sugar in 15 minutes and re-treat again with 15 carbohydrate grams if low or still with symptoms. Do not drive a car or operate machinery if you do not know what your blood sugar is, if it is low or in excess of 300. Check your feet daily looking for any signs of infection, drainage, redness, ulceration and seek medical attention if this occurs. Break in shoes gradually and do not wear open-toed shoes or walk stocking footed or barefooted. The patient was counseled to achieve a target A1C of 7% (154 avg). Fasting blood sugars should be 90-130 in the morning and less than 180 two hours after meals. Reviewed the relationship between poor diabetic control and the development of complications. 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
[2024-09-01 10:59] LABS: Glucose, Whole Blood 316 mg/dL (60-115)
--- OUTSIDE RECORDS SUMMARY | 2024-09-01 11:57 | XMS_ITS | Clinical Summary ---
Author Organization [facility] ity Address [address] [place] [address] Care Team Providers Care Fishing Tackle Repairer Name Role Phone Unavailable Primary Care Provider [...] Documents on File Type Date Recorded Patient Lawn Mower Repairer Expl anation Health Care Decision (hx) 11/16/2014 AD PLATT DIRECTIVE Health Care Decision (hx) 11/14/2014 AD PLATT DIRECTIVE
--- OUTSIDE RECORDS SUMMARY | 2024-09-01 11:57 | XMS_ITS | Clinical Summary ---
Author Organization [facility] Facility Address [address] [address] Care Team Providers Care Lacquer Maker Name Role Phone Erich Rodriguez NP Primary Care Provider [phone] Allergies Active Allergy Reactions Criticality Noted Date [...] mouth at bed time 1 Active Creon 72145-58181 units capsule TAKE TWO CAPSULES BY MOUTH THREE TIMES A DAY WITH MEALS AND/OR SNACKS 1 Active pantoprazole (PROTONIX) 40 MG EC tablet Take 40 mg by mouth 1 (one) time each day 1 Active Active Problems Problem Noted Date Diagnosed Date Niyqi-kn-udfsrsh renal failure 07/09/2021 Chronic pancreatitis 07/09/2021 Testosterone [...] PM EST) Hemoglobin A1C 11.5(H) (4.0-5.6) % [facility] Comment: MONITORING: In known diabetic patients, hemoglobin A1c targets should be discussed with health care provider. DIAGNOSTIC USE: ??The [place] Diabetes Association (ADA) and the World Health [...] Supplement 1 Testing performed or reported by [facility], a Service of [facility], [address] [place] [id number] Ashlyn Damian MD, Entry Level Project Coordinator [facility]# [id number] Blood (Blood, Venous) 07/10/2021 3:44 PM EST 07/10/2021 3:46 PM EST us Quinten Escalante MD LAB BLOOD ORDERABLES Final Re sult [facility] from Last 3 Months or Most Recently [place] [id number] MEDICARE MED[place] Care Teams Lacquer Maker Relationship Specialty Start Date End Date Erich Rodriguez NP [address] [place] [address] PCP - General 08/07/20
== END 2024-09-01 11:43 | disposition home or self-care (01) ==
PROVIDERS: PCP Nurse Practitioner Family; Visit Provider Nurse Practitioner Adult Health
DX: E13.9 Other specified diabetes mellitus without complications (principal); Z13.9 Encounter for screening, unspecified; S36.209S Unspecified injury of unspecified part of pancreas, sequela
CPT/HCPCS: 99215; G2211

== ENCOUNTER → 2024-09-01 10:47 | Outpatient (BNVA) | payer OTHER, SELFPAY | PROVIDERS: PCP Nurse Practitioner Family; Visit Provider Nurse Practitioner Adult Health | DX: E13.9 Other specified diabetes mellitus without complications (principal); S36.209S Unspecified injury of unspecified part of pancreas, sequela; X58.XXXS Exposure to other specified factors, sequela | CPT/HCPCS: 82947; 83036; 99212 ==

== ENCOUNTER 2024-09-22 10:25 | Outpatient (AMB) | payer OTHER, SELFPAY ==
--- NOTE | 2024-09-22 07:45 | A.OFFVIS_ITS ---
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: Last Diabetic eye exam was on: 02/2024 Last Podiatry Visit was on: 07/2024 Most recent HbA1c: 11.6%, 09/01/2024 Random Glucose- 339 mg/dL, Today Tabulating Clerk Required: No Accompanied by: Self / Same As Patient Allergies amoxicillin [AMOXICILLIN] Allergy (Severe, Verified 09/22/24 10:31) anaphylaxis / angioedma Penicillins [PENICILLINS] Allergy (Severe, Verified 09/22/24 10:31) HIVES, SWELLING/SOB Sulfa (Sulfonamide Antibiotics) [SULFA (SULFONAMIDE ANTIBIOTICS)] Allergy (Severe, Verified 09/22/24 10:31) HIVES tramadol Allergy (Intermediate, Verified 09/22/24 10:31) GI upset/abd pain Seasonal Allergies Allergy (Mild, Verified 09/22/24 10:31) Sneezing HPI Comments Details: 43 YO male who is seen in follow up for Diabetes. He is also followed by Dr. Santos for hypgonadism. He was last seen for diabetes 08/24/24. A1C 09/01/24 11.6% 02/25/24 10.9%. (Baseline A1C 9-10%) He was previously seen at the [facility] 2023 and trialed metformin which he reports did not lower his sugars He has h/o pancreatic disease In the past he had used a bolus calculator on his phone with a 1:5 ratio and correction factor of 1:15. 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 MIcroalbumin 9 as measured on [01/17]. 08/18/2023 eGFR>60 has been taking 75-100 twice daily On Fenofibrate Last LDL [83] as measured on [08/20]. Denies CAD. Diet: skips breakfast, snacks throughout day and has bigger meal for dinner Fibrosis-4 (Fib-4) Index for liver fibrosis (calculated on most recent lab work 11/2023 [0.71 ] points Advanced fibrosis [ excluded] Approximate Fibrosis stage Obdulia [ 0-1] *Use with caution in patients <35 or >65 years old, as the score has been shown to be less reliable in these patients. Prior imaging: MRI 2023 LIVER, GALLBLADDER, AND BILIARY TREE: Liver measures 22 cm. No nodular surface. No focal enhancing mass. Portal veins, hepatic veins and intrahepatic portion of the IVC are patent. Gallbladder is absent/cholecystectomy. The common bile duct measures 8 mm. Focal stenosis at the distal common bile duct junction second portion of the duodenum Action plan: rescreen 11/[address] Santos for hypogonadism Testosterone in good range. 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 Mother CVD (cardiovascular disease) Son No problems noted. Social History Household Members: Family Housing: House Alcohol intake: never Patient Tobacco Use Status: Current everyday Tobacco user Tobacco use type: Cigarette Cigarette Packs Per Day: 0.5 Cigarettes Per Day: 5 Years Smoked: 13 e-Cigarette/Vaping Use: Never Used Substance Use Type: Former Substance User and Opiates Advance Directives Date on File: 11/03/17 Current occupational status: unemployed Cognitive needs: No Hearing needs: No Vision needs: No Physical Exam Vital Signs: Last Vital Signs Pulse 90 09/22/24 10:41 BP 142/88 H 09/22/24 10:41 Pulse Ox 95 09/22/24 10:41 Oxygen Delivery Method Room Air 09/22/24 10:41 BMI result Body Mass Index 34.8 There are no Cushingoid features. Absence of blue sclera. Absence of kyphosis. Thyroid gland is of nl size and weighs 15 gms. There are no thyroid nodules palpated. Lungs CTA. Heart S1 S2 Reg R/R Abdominal exam benign. Muscle strength 5/5 . Examination of spine reveals absence of tenderness on palpation Const Other: Absence of Cushingoid features. Absence of acromegalic features. Neck exam reveals nl size thyroid about 15 gms. No thyroid nodules palpable. No carotid bruits present. Lungs CTA. Heart S1 S2, Reg R/R. No M/R G. Skin exam reveals absence of vitiligo or acanthosis nigricans. No edema Visual exam of foot performed. No ulcerations or open lesions. No inter digit maceration or fissuring. No onychomycosis, + callouses. Sensation intact to monofilament exam. Vibratory sensation is normal with 128 Hz tuning fork. 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 He will schedule follow up for education with the Alma Tavarez CDE to go on an Omnipod pump with Dexcom using U500 insulin. He declined podiatry referral for callus care but was given instructions on foot care and advised that callouses can place him at greater risk for ulcers The patient had an opportunity to ask questions regarding treatment plan. The patient expressed understanding and agreement with the above treatment plan. The patient is aware they should contact our office by phone for worsening glucose readings or for any low blood sugars which may warrant a change in diabetes medication. Compliance is encouraged with medications and any followup testing/consults which may have been ordered. Patient Instructions: The patient was counseled to achieve a target A1C of 7% (154 avg). Fasting blood sugars should be 90-130 in the morning and less than 180 two hours after meals. Reviewed the relationship between poor diabetic control and the development of complications. Check your feet daily looking for any signs of infection, drainage, redness, ulceration and seek medical attention if this occurs. Break in shoes gradually and do not wear open-toed shoes or walk stocking footed or barefooted. 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
[2024-09-22 10:41] VITALS: BP 142/88; PULSE 90; O2SAT 95; BMI 34.8
[2024-09-22 10:48] LABS: Glucose, Whole Blood 339 mg/dL (60-115)
--- OUTSIDE RECORDS SUMMARY | 2024-09-22 12:46 | XMS_ITS ---
[facility] [place] Address [address] [facility] [place] [address] Care Team Providers Care Business Services Specialist Sales Name Role Phone Erich Yang Primary Care Provider Francisco montoya Jarocho Newsome Unavailable [phone] Allergies Allergen (clinical drug ingredient) Drug/Non Drug [...] Polyneuropathy due to type 2 diabetes mellitus (634491985) Type 2 diabetes mellitus with diabetic polyneuropathy (E11.42) Active confirmed Vital Signs Height 5ft 9in in 08/17/2024 Weight 220 lbs 08/17/2024 BMI 32.48 kg/m2 08/17/2024 Blood pressure systolic 127 mm Hg 08/17/19 Blood pressure diastolic 71 mm Hg 025 Procedures Procedure Date Ordered Date Performed Result Body Sit e 34023-LKKE SKIN LESIONS, 2 TO 4 08/17/2024 N/A S5487-HVNVRKXW DYSTROPHIC NAILS ANY # 08/17/2024 N/A Encounters Encounter Location Date Provider Diagnosis [facility] [address] [place] [address] 08/17/2024 Jarocho Newsome Type 2 diabetes lamine [...] days Pending Test Test Name Order Date 90779-BMDG SKIN LESIONS, 2 TO 4 08/17/19 A1830-LZZLAWWJ DYSTROPHIC NAILS ANY # Next Appt Details Follow Up: 2 Months, Reason: Provider Name:Jarocho Newsome, 10/19/2024 10:15:00 AM, [address] [place], [address], Procedure Notes * Category Sub-Category Detail Notes [...] instrumentation by the physician of record - 09259 Nail Reduction Nail Reduction (-27) Trimming o [...] * Brian PACHECODOB:1980 ( 43 yo M)Acc No.[id number]:08/17/2024 Progress Notes Patient:?Brian PACHECO Provider:?Jarocho Newsome D.P.M. :1980???Age:43 Y???Sex:Male Ki e:08/17/2024 Address:[address] [place] [address], [id number] Pcp:NATASHA Mejía Subjective: * Chief Complaints: * [...] 9.0 * Examination: ???Ophthalmology Referral: ?DIABETES EYE EXAM?Procedure Performed:?Yes ?Date of Exam Performed?01/27/2024?Neurological: ?SENSORY:?Neurological exam demonstrates, reduced light touch sensation, [...] and accommodation for pedal deformities..?Vascular: ?DP PULSES (B):?2/, B/L.?PT PULSES (B):?08/31, B/L.?CAPILLARY FILL TIME:?delayed, all digits, B/L.?TROPHIC CONDITION-TEXTURE/ELASTICITY/TURGOR/HAIR [...] for office visit today.?ORIENTED:?person, place, and time.?FOOT EXAM:?Lower Extremity Neurological Exam performed:?Yes ?Visual exam of foot performed:?Yes ?Date?08/17/2024 ?Sensory testing performed:?sensations diminished ?Sensory and motor testing performed:?strength normal ?Pedal pulse taking performed:?2+ ?Footwear Evaluation?Footwear Evaluation performed:?Yes??? Assessment: * Assessment: 1.?Type 2 diabetes mellitus [...] instrumentation by the physician of record - 34201.?Nail Reduction:?Nail Reduction?(-27) Trimming of all dystrophic nails [...] ING DYSTROPHIC NAILS ANY #, Modifiers: XS 63367 TRIM SKIN LESIONS, OVER 4, Modifiers: XS [...] Newsome D.P.M. Date:?07/29 Generated for Kimberly wallace/Tejas/Jurgen on:?09/22/2024 12:46 PM EST History and Physical Notes * HPI [...] d iminished Sensory and motor testing performed:: [facility] normal Pedal pulse taking performed:: 2+ ORIENTED: [...]
--- OUTSIDE RECORDS SUMMARY | 2024-09-22 12:46 | XMS_ITS ---
Author Organization [facility] Address [address] [facility] [place] [address] Care Team Providers Care Utility Worker Forge Name Role Phone Erich Yang Primary Care Provider Unav ailable Jarocho Newsome Unavailable [phone] REASON FOR VISIT SILK BRUSHER [facility]WK Entered Encounters Encounter Location Date Provider Diagnosis [facility] [address] [place] [address] 08/10/2024 Jarocho Newsome Plan Of Treatment Next Appt Details Provider Name:Jarocho Newsome, 10/19/2024 10:15:00 AM, [address] [facility], [place], [address], Progress Notes * Brian PACHECODOB:1980 ( 43 yo M)Acc No.[id number]:08/10/2024 Patient:?Brian PACHECO :1980???Age:43 Y???Sex:Male Address:[place] [address] [address], [address] * true * Date:? Generated for Printi ng/Faxing/eTransmitting on:?09/22/2024 12:45 PM EST
--- OUTSIDE RECORDS SUMMARY | 2024-09-22 12:46 | XMS_ITS | Clinical Summary ---
Author Organization [facility] Address [address] [address] Care Team Providers Care Telecommunications Facility Examiner Name Role Phone Erich Rodriguez NP Primary Care Provider [phone] Allergies Active Allergy Reactions Criticality Noted Date [...] mouth at bed time 1 Active Creon 11109-70000 units capsule TAKE TWO CAPSULES BY MOUTH THREE TIMES A DAY WITH MEALS AND/OR SNACKS 1 Active pantoprazole (PROTONIX) 40 MG EC tablet Take 40 mg by mouth 1 (one) time each day 1 Active Active Problems Problem Noted Date Diagnosed Date Ygkcz-ef-lmqvujp renal failure 07/09/2021 Chronic pancreatitis 07/09/2021 Testosterone [...] PM EST) Hemoglobin A1C 11.5(H) (4.0-5.6) % [facility] Comment: MONITORING: In known diabetic patients, hemoglobin A1c targets should be discussed with health care provider. DIAGNOSTIC USE: ??The [place] Diabetes Association (ADA) and the World Health [...] Supplement 1 Testing performed or reported by [facility], a Service of [facility], [address] [place] [address] Ashlyn Damian MD, Sole Sewer Hand [facility]# [id number] Blood (Blood, Venous) 07/10/2021 3:44 PM EST 07/10/2021 3:46 PM EST us Quinten Escalante MD LAB BLOOD ORDERABLES Final Re sult [facility] from Last 3 Months or Most Recently [place]vant [place] [id number] [place] Care Teams Telecommunications Facility Examiner Relationship Specialty Start Date End Date Erich Rodriguez NP [address] [place] [address] PCP - General 08/07/20
--- OUTSIDE RECORDS SUMMARY | 2024-09-22 12:46 | XMS_ITS | Patient Health Record ---
Author Organization [facility] Daphne mukul [place] Address [address] [facility] [place] [address] Care Team Providers Care Sole Seamer Name Role Phone Erich Yang Primary Care Provider Jarocho Golden Unavailable [phone] Allergies Allergen (clinical drug ingredient) Drug/Non Drug [...] Polyneuropathy due to type 2 diabetes mellitus ([id number]) Type 2 diabetes mellitus with diabetic polyneuropathy (E11.42) Active confirmed Vital Signs Blood pressure diastolic 71 mm Hg 08/17/2024 Height 5ft 9in in 08/17/2024 Blood pressure systolic 127 mm Hg 08/17/2024 Weight 220 lbs 08/17/2024 BMI 32.48 kg/m2 08/17/2024 Procedures Procedure Date Ordered Date Performed Result Body Sit e 24882-IKYC SKIN LESIONS, 2 TO 4 08/17/2024 N/A L1417-AEBBICKC DYSTROPHIC NAILS ANY # 08/17/2024 N/A Encounters Encounter Location Date [facility] [address] [place] [address] 08/17/2024 Jarocho Newsome Type 2 diabetes mellitus with diabetic polyneuropathy E11.42 and Xerosis of skin L85.3 [facility] [address] [place] [address] 08/10/2024 Jarocho Newsome Assessments Encounter Date Diagnosis (ICD Code) Assessment Notes Treatment Notes Treatment Clinical Notes Section Notes 08/17/2024 Type 2 diabetes mellitus with diabetic polyneuropathy (ICD-10 - E11.42) 08/17/2024 Xerosis of skin (ICD-10 - L85.3) Plan Of Treatment Pending Test Test Name Order Date 45915-USQX SKIN LESIONS, 2 TO 4 08/17/19 D4422-AAGBAWAJ DYSTROPHIC NAILS ANY # Next Appt Details Provider Name:Jarocho Harsha Newsome, 10/19/2024 10:15:00 AM, [address] [facility], [place], [address], Insurance Providers Payer Name Payer Address Payer Phone Subscriber Number Group Number Insured Name Patient Relationship to Insured Coverage Start Date Coverage End Date [facility] [employer] Claims [address] [place] [id number] Brian Antonio Self - patient is the insured Medical (General) History Medical History History ICD Code Depression Diabetic Stomach ulcer Transfusions
--- OUTSIDE RECORDS SUMMARY | 2024-09-22 12:46 | XMS_ITS | Clinical Summary ---
Author Organization [facility] ity Address [address] [place] [address] Care Team Providers Care Binder Folder Operator Name Role Phone Unavailable Primary Care Provider Unavailabl e Social History Tobacco Use Types Packs/Day Years Used Date Smoking Tobacco: Never Assessed Sex and Gender Information Value Date Recorded Sex Assigned at Not on file Legal Sex Male 7:10 AM EST Gender Identity Not on file Sexual [...] patient's age to complete this topic Meningococcal B Vacine Aged Out No lo nger eligible based on patient's age to complete [...] Documents on File Type Date Recorded Patient Telegrapher Agent Expl anation Health Care Decision (hx) 11/16/2014 AD PLATT DIRECTIVE Health Care Decision (hx) 11/14/2014 AD PLATT DIRECTIVE
--- OUTSIDE RECORDS SUMMARY | 2024-09-22 12:46 | XMS_ITS | Continuity of Care Document ---
Author Organization [facility] Address [address] [place] [address]- Care Team Providers Care High School Vice Principal Name Role Phone Michael DUNBAR, Erich Vargas Primary Care Physician Encounter [facility] [id number] Date(s): 08/13/24 - 09/12/[address] [address]- Attending Physician: Kemar Keller Admitting Physician: Kemar Keller Referring Physician: Kemar Keller Encounter Type: Triage Allergies, Adverse Reactions, Alerts Substance Criticality Severity Reaction Reaction Severity Status penicillin ANAPHYLAXIS Active Dust SNEEZING ANAPHYLAXIS Active Pollen SNEEZING Active sulfa drugs HIVES Active Immunizations Given and Recorded Vaccine Date Status Refusal Reason pneumococcal 23-valent vaccine 04/21/13 Given influenza virus vaccine, inactivated 04/21/13 Give n Medications clonidine 0.1 mg oral tablet 1 tablet = 0.1 mg, By Mouth, Daily at bedtime, 0 Refills, Maintenance, 06/21/13 5:43:28 PM EST Start Date: 06/21/13 Status: Ordered Repeat number: 1 Librium Capsule See Instructions, 50 mg By Mouth bid on (12/09 to 12/10) 25 mg by mouth bid on(12/11-12/14) 25 mg bymouth daily on ( 12/15-12/16), 0 Refills, Maintenance, 12/10/16 11:26:35 PM EDT Start Date: 12/10/16 Status: Ordered Repeat number: 1 lisinopril 40 mg oral tablet 1 tablet = 40 mg, By Mouth, Daily, # 30 tablet, 0 Refills, Maintenance, 12/10/16 11:30:13 PM EDT, Tablet Start Date: 12/10/16 Status: Ordered Quantity: 30.0 Unit: tablet Repeat number: 1 loperamide 2 mg oral tablet 1 tablet = 2 mg, By Mouth, 2 times a day, 0 Refills, Maintenance, 12/10/16 11:30:30 PM EDT Start Date: 12/10/16 Status: Ordered Repeat number: 1 Norvasc 5 mg oral tablet 5 mg, 1, tablet, By Mouth, Daily, # 30 tablet, Refills 0, Maintenance, 12/10/16 11:29:15 PM EDT Start Date: 12/10/16 Status: Ordered Quantity: 30.0 Unit: tablet Repeat number: 1 promethazine 25 mg/mL injectable solution = 25 mg, Intramuscular, Every 8 hours, PRN prn, # 1 mL, 0 Refills, Maintenance, 12/10/16 11:31:13 PMEDT, Solution Start Date: 12/10/16 Status: Ordered Quantity: 1.0 Unit: mL Repeat number: 1 Protonix 40 mg oral delayed release tablet 40 mg, 1, tablet, By Mouth, Daily, # 30 tablet, Refills 0, Maintenance, 12/10/16 11:29:42 PM EDT Start Date: 12/10/16 Status: Ordered Quantity: 30.0 Unit: tablet Repeat number: 1 Vitamin B Complex with Folic Acid and Minerals oral tablet 1 tablet, By Mouth, Daily, # 30 tablet, 0 Refills, Maintenance, 12/10/16 11:25:57 PM EDT, Tablet Start Date: 12/10/16 Status: Ordered Quantity: 30.0 Unit: tablet Repeat number: 1 Problem List Condition Confirmation Course Effective Dates Status Health St atus Informant Abdominal pain Confirmed Active Alcohol-induced acute pancreatitis Confirmed Active History of alcohol abuse Confirmed Active Obese class I Confirmed Active Recurrent pancreatitis Confirmed Active Patient Care team information Care Team Personnel Name: Jarocho Garza RN Position: [facility] RN Member Role: Primary Care Nurse Name: Radhika Natarajan RN Position: [facility] W/ Bobby Member Role: Primary Care Nurse Name: Erich Rodriguez NP Position: Reference Physician Member Role: PCP Address: [address] [place] [address]- Telecom: Name: Carmen Man RN Position: [facility] ED RN W/OE and Tasks Member Role: Primary Care Nurse Name: Nhi Garza Position: S RN Member Role: Primary Care Nurse Name: Arabella Gorman RN Position: [facility] ED RN W/OE and Tasks Member Role: Primary Care Nurse Care Team Related Persons Name: TOI WILLTET Name: MANUEL PACHECO Insurance Providers Guarantor name: DANIEL Health Plan Information #: 1 Payer: [facility] [employer] Member Number: NA Policy Number: NA Group Number: NA Health Plan Information #: 2 [facility] Member Number: NA Policy Number: NA Group Number: NA
== END 2024-09-22 12:27 | disposition home or self-care (01) ==
PROVIDERS: PCP Nurse Practitioner Family; Visit Provider Nurse Practitioner Adult Health
DX: E13.9 Other specified diabetes mellitus without complications (principal); S36.209S Unspecified injury of unspecified part of pancreas, sequela
CPT/HCPCS: 99214; G2211

== ENCOUNTER → 2024-09-22 10:25 | Outpatient (BNVA) | payer OTHER, SELFPAY | PROVIDERS: PCP Nurse Practitioner Family; Visit Provider Nurse Practitioner Adult Health | DX: E13.9 Other specified diabetes mellitus without complications (principal); S36.209S Unspecified injury of unspecified part of pancreas, sequela | CPT/HCPCS: 82947; 99212 ==

== ENCOUNTER 2024-10-20 10:54 | Outpatient (AMB) | payer OTHER, SELFPAY ==
--- NOTE | 2024-10-20 11:04 | A.OFFVIS_ITS ---
VS Expanded 10/20/24 13:40 Height 5 ft 9 in Weight 237 lb 2.31 oz BMI 35.0 Intake Visit Reasons: DM Allergies amoxicillin [AMOXICILLIN] Allergy (Severe, Verified 09/22/24 10:31) anaphylaxis / angioedma Penicillins [PENICILLINS] Allergy (Severe, Verified 09/22/24 10:31) HIVES, SWELLING/SOB Sulfa (Sulfonamide Antibiotics) [SULFA (SULFONAMIDE ANTIBIOTICS)] Allergy (Severe, Verified 09/22/24 10:31) HIVES tramadol Allergy (Intermediate, Verified 09/22/24 10:31) GI upset/abd pain Seasonal Allergies Allergy (Mild, Verified 09/22/24 10:31) Sneezing Nutrition Presentation Details: Pt presents for MNT for T2DM due to pancreatic injury Typical food intake: B:coffee flavored creamer 1 cup 3- pm hasbrown, cheese , water 6pm rice/pasta/protein 10 pm : cereal/or high sugar food 2018 stopped alcohol intake BS Monitoring Most Recent Diabetes Results: No Data to Display GEY-Ibpsdpn-Ao.Jeor Equation Height: 5 ft 7 in Weight: 237 lb Resting Metabolic Rate: 1931.00 Calculated Activity Level: Sedentary Calories Needed to Maintain Weight: 2317.20 Diagnosis Nutrition problem #1: excessive energy intake As related to (etiology) #1: diagnosis As evidenced by (sign/symptom) #1: food recall [facility] Medical History Onychomycosis Diabetic neuropathy Uncontrolled diabetes mellitus Hypogonadism male Obesity (BMI 30-39.9) Hypertension CKD (chronic kidney disease) stage 3, 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 Mother CVD (cardiovascular disease) Son No problems noted. 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: Code(s): E13.9 - Other specified diabetes mellitus without complications; S36.209S - Unspecified injury of unspecified part of pancreas, sequela Category: Medical Plan: Wt: 107 Kg ( 10/19 ) Est kcal needs as per MSJ: 2300 (40% carb, 30% protein/fat) Est fluid needs as per 25-30 ml/d: 3200 Est prot per day as per 1 g/kg bw: 100 Recommend fiber intake : 8-10 g per day and gradually increase to 25-28 g per day for women and 35-38 g for men or as tolerated Recommend sodium intake per day : less than 2000 mg Educated patient on: ( R = reviewed V = verbalizes understanding N/R = needs review N/A = not applicable * Food sources of carbohydrate, adequate serving sizes and its role in various health conditions: R V N/R * Differences between complex carbohydrates a simple carbohydrates, role of fiber in diet: R * Lean protein sources of foods: R V NR * Differences between types of fats and role in diet (mono on saturated fat fatty acids, saturated fatty acids, trans fats): R V N/R * Food sources of sodium in salt and healthy modifications for heart health in kidney health: R V R/V * Vitamins and minerals: R V N/R * Healthy plate method concept: R * Physical activity: Benefits a precaution: R V N/R * Hypoglycemia protocol (rule of 15): R V N/R * Dietary prevention of Hyperglycemia: R V R/V Patient Instructions: Choose fruit/yogurts/nuts/low salt snacks Follow healthy plate method at dinner time , reducing portion of starches to less than 1 1/2 cup portion size Choose water, fruit/herb infused water with meals or snack or a cup of milk Coding Level of Care Code Nutr Indiv Intake (81697) Diagnoses 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
[2024-10-20 13:40] VITALS: BMI 35.0
[2024-10-26 13:45] VITALS: BMI 37.1
== END 2024-10-20 12:04 | disposition home or self-care (01) ==
LOC: HO.ENCR 10:55
PROVIDERS: PCP Nurse Practitioner Family; Visit Provider Dietitian, Registered
DX: E13.9 Other specified diabetes mellitus without complications (principal); S36.209S Unspecified injury of unspecified part of pancreas, sequela

== ENCOUNTER → 2024-10-20 10:54 | Outpatient (BNVA) | payer OTHER, SELFPAY | PROVIDERS: PCP Nurse Practitioner Family; Visit Provider Dietitian, Registered | DX: E13.9 Other specified diabetes mellitus without complications (principal); S36.209D Unspecified injury of unspecified part of pancreas, subsequent encounter | CPT/HCPCS: 97802 ==

== ENCOUNTER 2024-12-01 10:24 | Outpatient (AMB) | payer OTHER, SELFPAY ==
[2024-12-01 10:37] VITALS: BMI 36.0
--- NOTE | 2024-12-01 10:37 | A.OFFVIS_ITS ---
VS Expanded 12/01/24 10:37 Height 5 ft 7 in Weight 230 lb 2.601 oz BMI 36.0 Intake Visit Reasons: T2DM Allergies amoxicillin [AMOXICILLIN] Allergy (Severe, Verified 09/22/24 10:31) anaphylaxis / angioedma Penicillins [PENICILLINS] Allergy (Severe, Verified 09/22/24 10:31) HIVES, SWELLING/SOB Sulfa (Sulfonamide Antibiotics) [SULFA (SULFONAMIDE ANTIBIOTICS)] Allergy (Severe, Verified 09/22/24 10:31) HIVES tramadol Allergy (Intermediate, Verified 09/22/24 10:31) GI upset/abd pain Seasonal Allergies Allergy (Mild, Verified 09/22/24 10:31) Sneezing Nutrition Presentation Details: Pt presents for MNT f/u for T2DM Pt reports working on dinner meal reducing on portion sizes. Challenges at night time due to increased appetite choosing high sugar foods, sometimes high fat foods. Reports having had a low bg in the past 2 weeks, alarmed by glucose sensor and treated it by having bowl of fruit leading to elevated BG. Pt agreed to follow rule of 15 if developing low bg in the future to prevent over treating hypoglycemia. 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 Mother CVD (cardiovascular disease) Son No problems noted. 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: Code(s): E13.9 - Other specified diabetes mellitus without complications; S36.209S - Unspecified injury of unspecified part of pancreas, sequela Category: Medical Plan: Wt: 107 Kg ( 10/19 ), 104 kg (12/19) Est kcal needs as per MSJ: 2300 (40% carb, 30% protein/fat) Est fluid needs as per 25-30 ml/d: 3200 Est prot per day as per 1 g/kg bw: 100 Recommend fiber intake : 8-10 g per day and gradually increase to 25-28 g per day for women and 35-38 g for men or as tolerated Recommend sodium intake per day : less than 2000 mg Educated patient on: ( R = reviewed V = verbalizes understanding N/R = needs review N/A = not applicable * Food sources of carbohydrate, adequate serving sizes and its role in various health conditions: R V N/R * Differences between complex carbohydrates a simple carbohydrates, role of fiber in diet: R * Lean protein sources of foods: R * Differences between types of fats and role in diet (mono on saturated fat fatty acids, saturated fatty acids, trans fats): R * Food sources of sodium in salt and healthy modifications for heart health in kidney health: R V R/V * Vitamins and minerals: R V N/R * Healthy plate method concept: R * Physical activity: Benefits a precaution: R V N/R * Hypoglycemia protocol (rule of 15): R V * Dietary prevention of Hyperglycemia: R V R/V Patient Instructions: Choose lower sugar options at bedtime example yogurt with fruit added in place of ice cream Continue working on following healthy plate method at dinner and choosing low fat food options Treat low blood sugar with 3-4 glucose tablets, wait 15 minutes before eating anything else , repeat treatment if blood sugar continues below 70 after 15 minutes . 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
--- OUTSIDE RECORDS SUMMARY | 2024-12-01 11:47 | XMS_ITS ---
Author Organization [facility] Address [address] [place] [address] Care Team Providers Care Hand Mold Maker Name Role Phone Erich Yang Primary Care Provider Unav ailable Jarocho Newsome [phone] REASON FOR VISIT ZONE SUPERVISOR FIREARMS PPWK Entered Encounters Encounter Location Date Provider Diagnosis [facility] [address] [place] [address] 08/10/2024 Jarocho Newsome Plan Of Treatment Next Appt Details Provider Name:Ame Mitchell , 01/18/2025 11:15:00 AM, [address] [facility], [place], [address], Progress Notes * Brian PACHECODOB:1980 ( 43 yo M)Acc No.[id number]:08/10/2024 Patient:?Brian PACHECO :1980???Age:43 Y???Sex:Male Address:[place], [address] * true * Date:? Generated for Printi ng/Faxing/eTransmitting on:?12/01/2024 11:47 AM EDT
--- OUTSIDE RECORDS SUMMARY | 2024-12-01 11:48 | XMS_ITS ---
[facility] Address [address] [facility] [place] [address] Care Team Providers Care Supervisor Pleating Name Role Phone Erich Yang Primary Care Provider Francisco montoya Jarocho Newsome Unavailable [phone] Allergies Allergen (clinical drug ingredient) Drug/Non Drug Allergy documented on EMR Reaction Allergy Type Onset Date Status sulfamethoxazole / trimethoprim Bactrim Unknown Drug Allergy Active Penicillin Unknown Drug Allergy Active REASON FOR VISIT At Risk Footcare Medications Medication SIG (Take, Route, Fr equency, Duration) Notes Start Date End Date Status HumuLIN N Active Testosterone Active Ammonium Lactate 12 % 1 application Exte rnally to affected areas of dry skin to feet except for between the toes Twice a day for 30 days Act rogelio Methadone HCl Active Ambien Active Gabapentin Active Social History Tobacco Use: Social History Observation Description Date Details (start date - stop date) Never Smoker NA - NA Tobacco use other than smoking: Question Answer Notes Are you an other tobacco user? Yes Tobacco Control (Standard) Question Answer Notes Tobacco use: Nonsmoker Additional Findings: Tobacco non-user Current no nsmoker AUDIT-C (Standard) Question Answer Notes Did you have a drink containing alcohol in the p ast year? No Points 0 Interpretation Negative Vital Signs Height 5ft 9in in 10/19/2024 Weight 220 lbs 10/19/2024 BMI 32.48 kg/m2 10/19/2024 Blood pressure systolic 127 mm Hg 10/20/19 Blood pressure diastolic 71 mm Hg 025 Procedures Procedure Date Ordered Date Performed Result Body Sit e 22910-SOBI SKIN LESIONS, OVER 4 10/19/2024 N/A [id number] DYSTROPHIC NAILS ANY # 10/19/2024 N/A Encounters Encounter Location Date Provider Diagnosis [facility] [address] [facility] [place] [address] 10/19/2024 Jarocho Newsome Type 2 diabetes lamine itus with diabetic polyneuropathy E11.42 Assessments Encounter Date Diagnosis (ICD Code) Assessment Notes Treatment Notes Treatment Clinical Notes Section Notes 10/19/2024 Type 2 diabetes mellitus with diabetic polyneuropathy (ICD-10 - E11.42) Plan Of Treatment Pending Test Test Name Order Date 11258-SBPV SKIN LESIONS, OVER 4 10/20/19 [id number] DYSTROPHIC NAILS ANY # Next Appt Details Follow Up: 2 Months, Reason: Provider Name:Ame Mitchell , 01/18/2025 11:15:00 AM, [address] [facility], [place], [address], Procedure Notes * Category Sub-Category Detail Notes [...] instrumentation by the physician of record - 99449 Nail Reduction Nail Reduction (-27) Trimming o [...] G0127 Progress Notes * Brian PACHECODOB:1980 ( 44 yo M)Acc No.[id number]:10/19/2024 Progress Note Patient:?Brian PACHECO Provider:?Jarocho Newsome D.P.M. :1980???Age:44 Y???Sex:Male Ki e:10/19/2024 Address:[address] [place] [address], [facility], [facility] Pcp:NATASHA Mejía Subjective: * Chief Complaints: * ???At Risk Footcare * HPI: ???At Risk footcare:?Pt States Last PCP Visit:?Date?06/02/2024 * ROS:?General/Constitutional:?Nausea?denies.?Vomiting?denies.?Hunger Thirst?denies.?Loss appetite?denies.?Chills?denies.?Fatigue?denies.?Fever?denies.?Night Sweats?denies.?Unexplained weight loss?denies.?Unexplained weight gain?denies.?HEENTM:?Dentures?denies.?Dizziness?denies.?Glasses/contacts?denies.?Retinopathy?den ies.?Blurred/double vision?denies.?TMJ?denies.?Discharge/drainage?denies.?Implants?denies.?Sore throat?denies.?Dental implants?denies.?Hard of hearing ?denies.?Difficulty chewing/swallowing/speaking?denies.?Nose bleeds?denies.?Sore mouth?denies.?Respiratory:?On O xygen?denies.?Pneumonia/pleurisy?denies.?Bronchitis?denies.?Emphysema?denies.?Co ughing?denies.?Cough blood?denies.?Shortness of breath?denies.?Wheezing?denies.?Cardiovascular:?Pacemaker?denies.?MVP?denies.?WPW?denies.?CHF?denies.?Heart attack?denies.?Septal defect?denies.?Rapid beat?denies.?Chest pain ?denies.?Atrial Fib.?denies.?Murmur/Palpitations?denies.?Gastrointestinal:?Hemorrhoids?denies.?Stomach/Abdominal pain?admits.?Dark blood stool?denies.?Irritable bowel ?denies.?Constipation?denies.?Diarrhea?denies.?Hematology:?Swelling?denies.?Clots?denies.?Varicose Veins?denies.?Bruising?denies.?Bleeding problem?denies.?Genitourinary:?Blood urine?denies.?Frequent/Painfu/urination/bladder control?denies.?Kidney stones?denies.?Infection (UTI)?denies.?Nephropathy?denies.?sex trans dis (STD)?denies.?Prostate?denies.?Musculoskeletal:?Hammertoes?denies.?Bunions?denies.?Back Pain?admits.?Muscle Cramps/ Resting?denies.?Muscle cramps / walking?denies.?Generalized aches and pains?admits.?Weakness?admits.?Integ.:?Negron?denies.?Scars?denies.?Corns/calluses?admits.?Ingrown nails?denies.?Painful nails?denies.?Open Sores?denies.?Rashes?denies.?Neurologic:?Difficulty sleeping?admits.?Brain disorder?denies.?Numbness?admits.?Balance t rouble?denies.?Confusion?denies.?Fainting/blackouts?denies.?Tingling?admits.?Erasmo mors?denies.? * Medical History:? * Surgical History:?Denies Pas t Surgical History * Hospitalization/Major Diagno stic Procedure:?wisdom teeth 2024 * Family History:?Mother: dece ased.? Family Hx Unknown. * Social History:?Tobacco Use:?Tobacco use other than smoking?Are you an other tobacco user??Yes ?Tobacco Control (Standard)?Tobacco use:?Nonsmoker ?Additional Findings: Tobacco non-user?Current nonsmoker ???Drugs/Alcohol:?Drugs?Have you used drugs other than those for medical reasons in the past 12 months??Yes ???Miscellaneous:?Caffeine: yes. ?Exercise: no. ?Marital status: Single. ???Drug/Alcohol:?AUDIT-C (Standard)?Did you have a drink containing alcohol in the past year??No ?Points?0 ?Interpretation?Negative * Medications:?TakingTestoster one HumuLIN N Gabapentin Ambien Methadone HCl Ammonium Lactate 12 % Cream 1 application Externally to affected areas of dry skin to feet except for between the toes Twice a day Medication List reviewed and reconciled with the patientTaking Testosterone Taking HumuLIN N Taking Gabapentin Taking Ambien Taking Methadone HCl Taking Ammonium Lactate 12 % Cream 1 application Externally to affected areas of dry skin to feet except for between the toes Twice a day Medication List reviewed and reconciled with the patient * Allergies:?PenicillinBactrim yes[Allergies Verified] Objective: * Vitals:?Ht: 5ft 9in, Wt:220, BMI:32.48, Shoe size: 11-11.5, BP:127/71mm Hg, BS: 194, Ht-cm: 175.26 cm, Wt-k.79 kg. * Examination: ???Ophthalmology Referral: ?DIABETES EYE EXAM?Procedure Performed:?Yes ?Date of Exam Performed?01/27/2024 ?Diabetic Retinopathy Screening:?Yes ?Retinal Screening Performed:?Yes ?Findings of Diabetic Eye Exam:?no retinopathy?Neurological: ?SENSORY:?Neurological exam demonstrates, reduced light touch sensation, [...] exam reveals Keratotic lesion(s) located at sub 2nd and 5th?MTH B/Land outer heels B/L ,?.?Orthopedic: ?MUSCLE STRENGTH:?5/5 all groups in a symmetrical [...] Exam performed:?Yes ?Visual exam of foot performed:?Yes ?Date?10/19/2024 ?Sensory testing performed:?sensations diminished ?Sensory and motor testing performed:?strength normal ?Pedal pulse taking performed:?2+ ?Footwear Evaluation?Footwear Evaluation performed:?Yes??? Assessment: * Assessment: 1.?Type 2 diabetes mellitus with diabetic polyneuropathy - E11.42 (Primary)??? Plan: * Treatment: * Procedures:?Keratoma Treatment:?Parring or Cutting of Benign [...] instrumentation by the physician of record - 10349.?Nail Reduction:?Nail Reduction?(-27) Trimming of all dystrophic nails [...] ING DYSTROPHIC NAILS ANY #, Modifiers: XS 97265 TRIM SKIN LESIONS, OVER 4, Modifiers: XS * Preventive Medicine:? ??Counseling:?Tobacco use:?Type of Tobacco Use Cessation Counseling provided?Referral to stop- smoking clinic ?Patient counseled on the dangers of smoking and urged to quit:?10/19/2024 ?Diabetic Footcare:?The patient was advised against future self nail/callus care due to inherent risks for infection, loss of limb/life given diabetic, neuropathy.? * Follow Up:?2 Months * Images: * Sign off status: Completed true * Provider:?Jarocho Newsome D.P.M. Date:?09/26 Generated for Kimberly wallace/Tejas/Jurgen on:?12/01/2024 11:47 AM EDT History and Physical Notes * HPI (History of Present Illness) Category Sub-Category Detail Notes Category Not es At Risk footcare Pt States Last PCP [...] reveal s Keratotic lesion(s) located at sub 2nd and 5th MTH B/Land outer heels B/L , Orthopedic FOOTWEAR EVALUATION: shoe gear p roperties good condition, exhibit proper fit and accommodation [...] Visual exam of foot performed:: Yes Date: 10/19/2024 Sensory testing performed:: sensations d iminished Sensory and motor testing performed:: [facility] normal Pedal pulse taking performed:: 2+ ORIENTED: person, place, and t susan Footwear Evaluation Footwear Evaluation performe d:: Yes Ophthalmology Referral DIABETES EYE EXAM Procedure Perform ed:: Yes ?Date of Exam Performed: 01/27/2024 Diabetic Retinopathy Screening:: Yes Retinal Screening Performed:: Yes Findings of Diabetic Eye Exam:: no retin opathy Vascular DP PULSES (B): 2/4, B/L PT [...]
--- OUTSIDE RECORDS SUMMARY | 2024-12-01 11:48 | XMS_ITS | Clinical Summary ---
Author Organization [facility] Address [address] [address] Phone Care Team Providers Care Cable Armorer Operator Name Role Phone Erich Rodriguez NP Primary Care Provider [phone] Allergies Active Allergy Reactions Criticality Noted Date [...] mouth at bed time 1 Active Creon 12335-49888 units capsule TAKE TWO CAPSULES BY MOUTH THREE TIMES A DAY WITH MEALS AND/OR SNACKS 1 Active pantoprazole (PROTONIX) 40 MG EC tablet Take 40 mg by mouth 1 (one) time each day 1 Active Active Problems Problem Noted Date Diagnosed Date Qacdi-ew-ioomhgx renal failure 07/09/2021 Chronic pancreatitis 07/09/2021 Testosterone [...] 07/10/2021 3:22 PM EST Plan of Treatment Upcoming Encounters Date Type Department Care Team (Late st Contact Info) Description 12/21/2024 3:30 PM EDT [facility] [address] [address] Jamar Verde MD [address] [address] Health Maintenance Due Date Last Done Comments Hepatitis B Vaccine (1 of 3 - 19+ 3-dose series) 10/11 Pneumococcal Vaccine: Peds ( 0 to 5 Years) and At-Risk Patients (6 to 49 Years) (2 of 2 - PCV) 04/21/2014 04/21/2013 Diabetes: Ophthalmology Exam 08/27/2020 Diabetes: Pedal Pulse Checked 08/27/2020 Diabetes: Sensory Foot Exam 08/27/2020 Diabetes: Visual Foot Exam 08/27/2020 Diabetes: Hemoglobin A1C 10/08/2021 07/10/2021 Influenza Vaccine (Season Ended) 2025 Pneumococcal Vaccine: 50+ Years Discontinued 3 Procedures Procedure Name Priority Date/Time Associated Diagnosis Comments HEMOGLOBIN A1C Routine 07/10/2021 3:44 PM EST Hypertension Chronic pancreatitis (HCC) Type 2 diabetes mellitus with diabetic chronic kidney disease (HCC) from Last 3 Months or Most Recently Relevant to Health Maintenance Results * (ABNORMAL) Hemoglobin A1c (07/10/2021 3:44 PM EST) Hemoglobin A1C 11.5(H) (4.0-5.6) % [facility] Comment: MONITORING: In known diabetic patients, hemoglobin A1c targets should be discussed with health care provider. DIAGNOSTIC USE: ??The [place] Diabetes Association (ADA) and the World Health [...] Supplement 1 Testing performed or reported by [facility], a Service of [facility], [address] [place] [address] Ashlyn Damian MD, Riprap Placing Supervisor [facility]# [id number] Blood (Blood, Venous) 07/10/2021 3:44 PM EST 07/10/2021 3:46 PM EST us Quinten Escalante MD LAB BLOOD ORDERABLES Final Re sult [facility] from Last 3 Months or Most Recently Relevant to Health Maintenance Insurance [facility] ([id number]) [place] [phone] Care Teams Cable Armorer Operator Relationship Specialty Start Date End Date Erich Rodriguez NP [address] [place] [address] PCP - General Nurse Practitioner 10/25/24
--- OUTSIDE RECORDS SUMMARY | 2024-12-01 11:48 | XMS_ITS | Patient Health Record ---
Author Organization [facility] Daphne mukul [place] Address [address] [facility] [place] [address] Care Team Providers Care Meteorology Instructor Name Role Phone Erich Yang Primary Care Provider Francisco Newsome Jarocho Unavailable [phone] Allergies Allergen (clinical drug ingredient) Drug/Non Drug [...] Polyneuropathy due to type 2 diabetes mellitus (823275247) Type 2 diabetes mellitus with diabetic polyneuropathy (E11.42) Active confirmed Vital Signs Blood pressure diastolic 71 mm Hg 10/19/2024 Height 5ft 9in in 10/19/2024 Blood pressure systolic 127 mm Hg 10/19/2024 Weight 220 lbs 10/19/2024 BMI 32.48 kg/m2 10/19/2024 Procedures Procedure Date Ordered Date Performed Result Body Sit e 13255-JJMV SKIN LESIONS, 2 TO 4 08/17/2024 N/A C3771-AAXLMJAO DYSTROPHIC NAILS ANY # 08/17/2024 N/A 35920-UUHT SKIN LESIONS, OVER 4 10/19/2024 N/A D3310-CCMUJMHQ DYSTROPHIC NAILS ANY # 10/19/2024 N/A Encounters Encounter Location Date Provider Diagnosis [address] [address] 08/17/2024 Jarocho Newsome Type 2 diabetes mellitus with diabetic polyneuropathy E11.42 and Xerosis of skin L85.[address] [address] 10/19/2024 Jarocho Newsome Type 2 diabetes mellitus with diabetic polyneuropathy E11.[address] [facility] [address] 08/10/2024 Jarocho Newsome Assessments Encounter Date Diagnosis (ICD Code) Assessment Notes Treatment Notes Treatment Clinical Notes Section Notes 08/17/2024 Type 2 diabetes mellitus with diabetic polyneuropathy (ICD-10 - E11.42) 08/17/2024 Xerosis of skin (ICD-10 - L85.3) 10/19/2024 Type 2 diabetes mellitus with diabetic polyneuropathy (ICD-10 - E11.42) Plan Of Treatment Pending Test Test Name Order Date 88684-WTIM SKIN LESIONS, OVER 4 10/20/19 25 57123-XAPH SKIN LESIONS, 2 TO 4 08/17/19 25 L6076-HKOPYYVE DYSTROPHIC NAILS ANY # A9116-JFENMPOT DYSTROPHIC NAILS ANY # Next Appt Details Provider Name:Ame Mcleod Stephen , 01/18/2025 11:15:00 AM, [address] [facility], [place], [address], Insurance Providers Payer Name Payer Address Payer Phone Subscriber Number Group Number Insured Name Patient Relationship to Insured Coverage Start Date Coverage End Date [facility] SCO Claims [address] [place] [phone] [id number] Brian Antonio Self - patient is the insured Medical (General) History Medical History History ICD Code Depression Diabetic Stomach ulcer Transfusions Hospitalization History Reason Date(Month/Year) wisdom teeth 2024
--- OUTSIDE RECORDS SUMMARY | 2024-12-01 11:48 | XMS_ITS | Clinical Summary ---
Author Organization [facility] ity Address [address] [place] [address] Care Team Providers Care Soft Sugar Cutter Name Role Phone Unavailable Primary Care Provider [...] of 3 - 19+ 3-dose series) 2000 COVID-19 Vaccine (2023-2 5 season) 2024 Influenza Vaccine (Season Ended) 2025 HIB Vaccines Aged Out No longer eligi [...] age to complete this topic Meningococcal B Vaccine Aged Out No l onger eligible based on patient's age to complete [...] Documents on File Type Date Recorded Patient Tiger Machine Operator Expl anation Health Care Decision (hx) 11/16/2014 AD PLATT DIRECTIVE Health Care Decision (hx) 11/14/2014 AD PLATT DIRECTIVE
--- OUTSIDE RECORDS SUMMARY | 2024-12-01 11:48 | XMS_ITS ---
[facility] Address [address] [facility] [place] [address] Care Team Providers Care Is Analyst Name Role Phone Erich Yang Primary Care Provider Francisco montoya Jarocho Newsome Unavailable [phone] Allergies Allergen (clinical drug ingredient) Drug/Non Drug [...] Polyneuropathy due to type 2 diabetes mellitus (775115929) Type 2 diabetes mellitus with diabetic polyneuropathy (E11.42) Active confirmed Vital Signs Height 5ft 9in in 08/17/2024 Weight 220 lbs 08/17/2024 BMI 32.48 kg/m2 08/17/2024 Blood pressure systolic 127 mm Hg 08/17/19 25 Blood pressure diastolic 71 mm Hg 025 Procedures Procedure Date Ordered Date Performed Result Body Sit e 78844-HSJA SKIN LESIONS, 2 TO 4 08/17/2024 N/A O7675-CQKNNAQD DYSTROPHIC NAILS ANY # 08/17/2024 N/A Encounters Encounter Location Date Provider Diagnosis [facility] [address] [place] [address] 08/17/2024 Jarocho Jerod Type 2 diabetes lamine itus with diabetic [...] days Pending Test Test Name Order Date 21674-XFLQ SKIN LESIONS, 2 TO 4 08/17/19 25 U7023-VILZCFFX DYSTROPHIC NAILS ANY # Next Appt Details Follow Up: 2 Months, Reason: Provider Name:Ame Mcleod Stephen , 01/18/2025 11:15:00 AM, [address] [facility], [place], [address], Procedure Notes * Category Sub-Category Detail Notes [...] sterile 15 blade, tissue nippers, and/or power Shuropody instrumentation by the physician of record - 96181 Nail Reduction Nail Reduction (-27) Trimming o [...] * Brian PACHECODOB:1980 ( 43 yo M)Acc No.[id number]:08/17/2024 Progress Notes Patient:?Brian PACHECO Provider:?Jarocho Newsome D.P.M. :1980???Age:43 Y???Sex:Male Ki e:08/17/2024 Address:[address] [place] [address], [facility], [facility] Pcp:NATASHA Mejía Subjective: * Chief Complaints: * [...] instrumentation by the physician of record - 93406.?Nail Reduction:?Nail Reduction?(-27) Trimming of all dystrophic nails [...] ING DYSTROPHIC NAILS ANY #, Modifiers: XS 25531 TRIM SKIN LESIONS, OVER 4, Modifiers: XS [...] Newsome D.P.M. Date:?07/29 Generated for Kimberly wallace/Tejas/Jurgen on:?12/01/2024 11:47 AM [...] stocking fashion, fissure(s) present, heel B/L Orthopedic FOOTWEAR EVALUATION: shoe gear p roperties [...] iminished Sensory and motor testing performed:: [facility] normal Pedal pulse taking performed:: 2+ [...]
== END 2024-12-01 10:56 | disposition home or self-care (01) ==
LOC: HO.ENCR 10:25
PROVIDERS: PCP Nurse Practitioner Family; Visit Provider Dietitian, Registered
DX: E13.9 Other specified diabetes mellitus without complications (principal); S36.209S Unspecified injury of unspecified part of pancreas, sequela

== ENCOUNTER → 2024-12-01 10:24 | Outpatient (BNVA) | payer OTHER, SELFPAY | PROVIDERS: PCP Nurse Practitioner Family; Visit Provider Dietitian, Registered | DX: E13.9 Other specified diabetes mellitus without complications (principal); S36.209S Unspecified injury of unspecified part of pancreas, sequela; X58.XXXS Exposure to other specified factors, sequela | CPT/HCPCS: 97803 ==

== ENCOUNTER 2024-12-22 10:28 | Outpatient (AMB) | payer OTHER, SELFPAY ==
--- NOTE | 2024-12-21 16:48 | A.OFFVIS_ITS ---
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: Last Diabetic eye exam was on: 02/2024 Last Podiatry Visit was on: 07/2024 Most recent HbA1c: 8.9%, 12/22/2024 Random Glucose- 119 mg/dL, Today Collection Specialist Required: No Accompanied by: Self / Same As Patient Allergies amoxicillin [AMOXICILLIN] Allergy (Severe, Verified 12/22/24 10:33) anaphylaxis / angioedma Penicillins [PENICILLINS] Allergy (Severe, Verified 12/22/24 10:33) HIVES, SWELLING/SOB Sulfa (Sulfonamide Antibiotics) [SULFA (SULFONAMIDE ANTIBIOTICS)] Allergy (Sever e, Verified 12/22/24 10:33) HIVES tramadol Allergy (Intermediate, Verified 12/22/24 10:33) GI upset/abd pain Seasonal Allergies Allergy (Mild, Verified 12/22/24 10:33) Sneezing HPI Comments Details: Details: 43 YO male who is seen in follow up for Diabetes. He is also followed by Dr. Santos for hypgonadism. He was last seen for diabetes 08/24/24. A1C 12/21/24 %, 09/01/24 11.6% 02/25/24 10.9%. (Baseline A1C 9-10%) He was previously seen at the [facility] 2023 and tried metformin which he reports did not lower his sugars He has h/o pancreatic disease In the past he had used a bolus calculator on his phone with a 1:5 ratio and correction factor of 1:15. Eating on a more regular basis he had met with the prosthodontist/educator to discuss going on an insulin pump last February Was initially started on treatment with [metformin] dosing u500 breakfast and supper 100-150 25 units 151 -200 30 units 201-250 40 units 251-275 60 units 276-300 80 units over 300 90 units pioglitizone: low dose 15mg Dexcom average glucose: [ ] 14 day continuous glucose monitor report reviewed Glucose Managment indicator [ ] % Days with CGM data [ ] % TIme in ranges: [ ] % very high (above 250) [ ] % high ?(181-250) [ ] % in range ?(70-180] [ ] % low (69-55) [ ] % ?very low (below 54) [ ] Standard Deviation Interpretation [ ] Has eyes checked yearly, [+ pain ] neuropathy, 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 MIcroalbumin 9 as measured on [01/17]. 08/18/2023 eGFR>60 has been taking 75-100 twice daily On Fenofibrate Last LDL [83] as measured on [08/20]. Denies CAD. Diet: skips breakfast, snacks throughout day and has bigger meal for dinner Fibrosis-4 (Fib-4) Index for liver fibrosis (calculated on most recent lab work 11/2023 [0.71 ] points Advanced fibrosis [ excluded] Approximate Fibrosis stage Obdulia [ 0-1] *Use with caution in patients <35 or >65 years old, as the score has been shown to be less reliable in these patients. Prior imaging: MRI 2023 LIVER, GALLBLADDER, AND BILIARY TREE: Liver measures 22 cm. No nodular surface. No focal enhancing mass. Portal veins, hepatic veins and intrahepatic portion of the IVC are patent. Gallbladder is absent/cholecystectomy. The common bile duct measures 8 mm. Focal stenosis at the distal common bile duct junction second portion of the duodenum Action plan: rescreen 11/[address] Santos for hypogonadism Testosterone in good range. 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 Mother CVD (cardiovascular disease) Son No problems noted. Social History Household Members: Family Housing: House Alcohol intake: never Patient Tobacco Use Status: Current everyday Tobacco user Tobacco use type: Cigarette Cigarette Packs Per Day: 0.5 Cigarettes Per Day: 5 Years Smoked: 13 e-Cigarette/Vaping Use: Never Used Substance Use Type: Former Substance User and Opiates Advance Directives Date on File: 11/03/17 Current occupational status: unemployed Cognitive needs: No Hearing needs: No Vision needs: No Physical Exam Vital Signs: Last Vital Signs Pulse 92 12/22/24 10:34 BP 148/94 H 12/22/24 10:34 Pulse Ox 95 12/22/24 10:34 Oxygen Delivery Method Room Air 12/22/24 10:34 BMI result Body Mass Index 36.3 Results AMB Hemoglobin A1c AMB Hemoglobin A1c 8.9 % Last Edit by JAMISON Galaviz on 12/22/24 10:47 Assessment & Plan Assessment & Plan Orders: Orders AMB Hemoglobin A1c Today E11.65 - Type 2 diabetes mellitus with hyperglycemia, E13.9 - Other specified diabetes mellitus without complications, S36.209S - Unspecified injury of unspecified part of pancreas, sequela Medications: Refilled pioglitazone (Actos) 15 mg PO DAILY 30 days 30 tabs 6RF Coding
[2024-12-22 10:34] VITALS: BP 148/94; PULSE 92; O2SAT 95; BMI 36.3
[2024-12-22 10:43] LABS: Glucose, Whole Blood 119 mg/dL (60-115)
--- OUTSIDE RECORDS SUMMARY | 2024-12-22 11:29 | XMS_ITS ---
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 Generated for Printi ng/Faxing/eTransmitting on:?12/22/2024 11:29 AM EDT
== END 2024-12-22 11:36 | disposition home or self-care (01) ==
LOC: HO.ENCR 10:29
PROVIDERS: PCP Nurse Practitioner Family; Visit Provider Nurse Practitioner Adult Health
DX: E11.65 Type 2 diabetes mellitus with hyperglycemia (principal); E13.9 Other specified diabetes mellitus without complications; S36.209S Unspecified injury of unspecified part of pancreas, sequela

== ENCOUNTER → 2024-12-22 10:28 | Outpatient (BNVA) | payer OTHER, SELFPAY | PROVIDERS: PCP Nurse Practitioner Family; Visit Provider Nurse Practitioner Adult Health | DX: E13.65 Other specified diabetes mellitus with hyperglycemia (principal); E29.1 Testicular hypofunction; S36.209S Unspecified injury of unspecified part of pancreas, sequela; X58.XXXS Exposure to other specified factors, sequela; Z96.41 Presence of insulin pump (external) (internal); Z79.4 Long term (current) use of insulin | CPT/HCPCS: 82947; 83036; 99212 ==

== ENCOUNTER 2025-01-07 10:51 | Outpatient (REF) | payer OTHER, SELFPAY ==
--- OUTSIDE RECORDS SUMMARY | 2025-01-07 11:55 | XMS_ITS | Clinical Summary ---
Author Organization [facility] ity Address [address] [place] [address] Care Team Providers Care Bridge Contractor Name Role Phone Unavailable Primary Care Provider [...] Documents on File Type Date Recorded Patient Lead Former Expl anation Health Care Decision (hx) 11/16/2014 AD PLATT DIRECTIVE Health Care Decision (hx) 11/14/2014 AD PLATT DIRECTIVE
[2025-01-07 12:53] LABS: MANUAL DIFF FLAG NO
[2025-01-07 13:21] LABS: Basophils Percent Auto 0.5 % (0-2); Eosinophils Absolute Auto 0.2 X10*3/uL (0.0-0.4); Eosinophils Percent Auto 4.4 % (0-4); Hematocrit 46.7 % (42.0-52.0); Hemoglobin 15.8 g/dl (14.0-18.0); Imm Gran Abs Auto 0.05 X10*3/uL (0.00-0.03); Imm Gran Pct Auto 0.9 % (0.0-0.4); Lymphocytes Absolute Auto 1.3 X10*3/uL (1.2-4.9); Lymphocytes Percent Auto 23.2 % (20-40); Mean Corpuscular HGB Conc 33.8 g/dl (31.0-36.0); Mean Corpuscular Hemoglobin 27.5 pg (27.0-33.0); Mean Corpuscular Volume 81.2 fL (80.0-98.0); Mean Platelet Volume 10.5 fL (9.4-12.4); Monocytes Absolute Auto 0.5 X10*3/uL (0.1-1.2); Monocytes Percent Auto 9.1 % (2-11); Neutrophils Absolute Auto 3.4 x10*3/uL (2.0-8.3); Neutrophils Percent Auto 61.9 % (45-73); Platelet Count 187 X10*3/uL (160-400); Red Blood Count 5.75 X10*6/uL (4.60-5.80); Red Cell Distribution Width 12.4 % (11.0-16.0); White Blood Count 5.5 X10*3/uL (4.8-10.8)
[2025-01-07 13:44] LABS: Alanine Aminotransferase 49 U/L (0-40); Albumin Level 4.4 g/dL (3.5-5.0); Alkaline Phosphatase 100 U/L (39-117); Anion Gap 13 (12-20); Aspartate Amino Transferase 29 U/L (5-37); Bilirubin Total 0.5 mg/dL (0.0-1.0); Blood Urea Nitrogen 11 mg/dL (9-16); Calcium 9.3 mg/dL (8.4-10.2); Carbon Dioxide 26 mmol/L (22-29); Chloride 103 mmol/L (96-108); Estimated Glomerular Filt Rate > 60; Glucose Random 227 mg/dL (60-115); Magnesium 1.8 mg/dL (1.6-2.6); Sodium 138 mmol/L (135-145); Total Protein 6.4 g/dL (6.5-8.0)
[2025-01-07 13:53] LABS: Ferritin 77 ng/mL (20-250); Vitamin D 25-OH Total 44.1 ng/mL (>30)
[2025-01-07 14:11] LABS: Vitamin B12 485 pg/mL (200-900)
[2025-01-10 21:58] LABS: Zinc 62 mcg/dL (60-130)
[2025-01-12 15:44] LABS: Vitamin B1 9 nmol/L (8-30)
[2025-01-12 16:29] LABS: Vitamin A 46 mcg/dL (38-98)
[2025-01-17 11:49] LABS: Vit B3 - Nicotinic Acid <20
[2025-01-17 11:53] LABS: Nicotinamide <20
[2025-01-17 11:54] LABS: Vitamin B5 (Pantothenic Acid) 45
== END 2025-01-07 10:52 | disposition home or self-care (01) ==
LOC: HO.HMGCLDS 10:51
PROVIDERS: PCP Nurse Practitioner Family; Referring Provider Internal Medicine Gastroenterology; Visit Provider Internal Medicine Endocrinology, Diabetes & Metabolism
DX: K90.89 Other intestinal malabsorption (principal); K87 Disorders of gallbladder, biliary tract and pancreas in diseases classified elsewhere; K86.0 Alcohol-induced chronic pancreatitis; K75.81 Nonalcoholic steatohepatitis (NASH)
CPT/HCPCS: 36415; 80053; 82306; 82607; 82728; 82746; 83735; 84207; 84425; 84590; 84591; 84630; 85025

== ENCOUNTER 2025-01-10 13:51 | Outpatient (AMB) | payer OTHER, SELFPAY ==
--- NOTE | 2025-01-10 13:52 | A.OFFVIS_ITS ---
Vital Signs 01/10/25 13:53 Height 5 ft 7 in Weight 229 lb 4.492 oz BMI 35.9 BP 127/75 Blood Pressure Location Lt brachial Position Sitting Pulse 109 H Intake Visit Reasons: 6 month f/up Intake Note: Brian presents in the office as a 6 month follow up. CC: Patient does not have any concerns today! 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: No Allergies amoxicillin [AMOXICILLIN] Allergy (Severe, Verified 01/10/25 13:58) anaphylaxis / angioedma Penicillins [PENICILLINS] Allergy (Severe, Verified 01/10/25 13:58) HIVES, SWELLING/SOB Sulfa (Sulfonamide Antibiotics) [SULFA (SULFONAMIDE ANTIBIOTICS)] Allergy (Severe, Verified 01/10/25 13:58) HIVES tramadol Allergy (Intermediate, Verified 01/10/25 13:58) GI upset/abd pain Seasonal Allergies Allergy (Mild, Verified 01/10/25 13:58) Sneezing HPI HPI 6 month f/up: Details: 44 yr old m w hx of type 1 Dm, high lipids, psoriasis, cholecystectomy, chronic pancreatitis, abn LFT being seen for f/u RECAP from index visit 01/2020 had c/o bloating and distention he has abdo pain occ, epigastrium once q-1-2 weeks, can be 5/10 severity, lasts for few days when gets it gets nausea occ emesis, other times he feesl ok +greasy stool, looks like oil and also bad breath smelly gas like rotten eggs smokes 1/2 pack per day stopped drinking alcohol 08/30/2017 not smoking THC takes pantoprazole which helps his reflux His PCP had tried duloxetine for his abdominal pain, as lyrica not approved gabapentin not helping stomach but helps neuropathy in feet not tolerated as made him really depressed he was taking creon and it was helping with diarrhea and oiliness, but he ran out and I refilled it LABS:07/18--nml CBC, mild raised ALT, alk phos, a1c 9% Imaging: MRI: 2012-- pancreatitis, US 10/2017--steatosis, dilated PD, stable CT 2018-- fatty liver, cbd dilated 1.1 cm, pancreas low attenuation, and enlargement, coarse calcification. MRI 12/2020--panc duct dilation, atrophic pancreas, fatty liver CT A/P; 05/2022- hepatosplenomegaly and fatty liver, dilated PD, chronic pancreatitis MRI- 06/18--nml brain MRI 05/20- atrophic pancreas, no focal mass, hepatosplenomegaly, ?SOD stricture INTERIM: Remains alcohol free he stopped smoking 10/19 he had one attack of pancreatitic type pain few months ago but resolved he finds pantoprazole not that great for GERD some oil in stools on and off the creon reflux is still a problem amy at night no caffeine in evening he did not find pepcid at night helping takes creon as needed, but feesl it gives him the horrible burping takes ppi in the mornign but doesn mat breakfast, eats EXAM: GENERAL: The patient is well developed and nontoxic. VITAL SIGNS:see workflow HEENT: Nonicteric sclerae, PERRLA, EOMI. Oropharynx clear. Moist mucous membranes. Conjunctivae appear well perfused. No thyroid mass. CHEST: Chest wall is nontender. HEART: Regular rate and rhythm without murmurs. LUNGS: Clear to auscultation bilaterally. ABDOMEN: Soft, positive bowel sounds,, no organomegaly.no flank tenderness SKIN: No rash, no excessive bruising, petechiae, or purpura. NEUROLOGIC: Cranial nerves II-XII intact without motor/sensory deficit. Assessments 1/ Alcohol-induced chronic pancreatitis: stopped smoking now, nutritional defcn, DM 2/ abn LFT, related to RODRIGUEZ, mild 3/ GERD partially controlled wt PPI but not eating after PLAN 1/ change PPI to esomperazole 2/ advised on importance of continuing with creon even with snacks 3/ MRI for panc screening [facility] Medical History Onychomycosis Diabetic neuropathy Uncontrolled diabetes mellitus Hypogonadism male Obesity (BMI 30-39.9) Hypertension CKD (chronic kidney disease) stage 3, 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 Mother CVD (cardiovascular disease) Son No problems noted. Social History Household Members: Family Housing: House Alcohol intake: never Patient Tobacco Use Status: Current everyday Tobacco user Tobacco use type: Cigarette Cigarette Packs Per Day: 0.5 Cigarettes Per Day: 5 Years Smoked: 13 e-Cigarette/Vaping Use: Never Used Substance Use Type: Former Substance User and Opiates Advance Directives Date on File: 11/03/17 Current occupational status: unemployed Cognitive needs: No Hearing needs: No Vision needs: No Physical Exam Vital Signs: Last Vital Signs Pulse 109 H 01/10/25 13:53 BP 127/75 01/10/25 13:53 BMI result Body Mass Index 35.9 Assessment & Plan Assessment & Plan (1) Pancreatitis: Code(s): K85.90 - Acute pancreatitis without necrosis or infection, unspecified Category: Medical Plan: as above Orders: Orders MR abdomen wo/w con Today K85.90 - Acute pancreatitis without necrosis or infection, unspecified Medications: New esomeprazole magnesium 40 mg PO DAILY 90 caps 2RF Refilled multivitamin 1 tab PO DAILY 90 tabs 1RF albuterol sulfate 90 mcg/actuation 1 puff inhalation Q4H 30 days PRN 8.5 grams 2RF bronchospasm Discontinued pantoprazole Discontinued Reason: Doctor's Order 40 mg PO DAILY 30 tabs 4RF Coding Level of Care Code Est Pt Level 3 (51310) Diagnoses Pancreatitis K85.90
[2025-01-10 13:53] VITALS: BP 127/75; PULSE 109; BMI 35.9
--- OUTSIDE RECORDS SUMMARY | 2025-01-10 15:31 | XMS_ITS | Clinical Summary ---
Author Organization [facility] ity Address [address] [place] [address] Care Team Providers Care Vasc Tech Name Role Phone Unavailable Primary Care Provider [...] Documents on File Type Date Recorded Patient Blasting Entryman Expl anation Health Care Decision (hx) 11/16/2014 AD PLATT DIRECTIVE Health Care Decision (hx) 11/14/2014 AD PLATT DIRECTIVE
== END 2025-01-10 14:27 | disposition home or self-care (01) ==
LOC: HO.HGI 13:52
PROVIDERS: PCP Nurse Practitioner Family; Visit Provider Internal Medicine Gastroenterology
DX: K85.90 Acute pancreatitis without necrosis or infection, unspecified (principal)
CPT/HCPCS: 99213

== ENCOUNTER → 2025-01-10 13:51 | Outpatient (BNVA) | payer OTHER, SELFPAY | PROVIDERS: PCP Nurse Practitioner Family; Visit Provider Internal Medicine Gastroenterology | DX: K85.90 Acute pancreatitis without necrosis or infection, unspecified (principal) | CPT/HCPCS: 99212 ==

== ENCOUNTER 2025-01-23 09:45 | Outpatient (REF) | payer OTHER, SELFPAY ==
--- NOTE | ~2025-01-23 | MR_ITS ---
EXAMINATION: MR ABDOMEN WITHOUT THEN WITH IV CONTRAST HISTORY: K85.90 - Acute pancreatitis without necrosis or infection, unspecified COMPARISON: There are no prior studies available for comparison. TECHNIQUE: Axial in and out of phase T1-weighted gradient echo, axial diffusion weighted, and axial and coronal HASTE T2 with fat saturation images were obtained through the abdomen. 3D MRCP Reconstructed and thin and thick slab images of the biliary tree were obtained. Subsequently, fat suppressed axial and coronal T1-weighted images were obtained after the intravenous administration of 10 mL Gadavist. FINDINGS: Liver: The liver is enlarged. There is moderate loss of signal intensity within the liver on opposed phase imaging, consistent with steatosis. There is a 5 mm enhancing focus in segment 5 which is too small to accurately characterize. Scattered additional punctate enhancing foci are also noted. The hepatic and portal veins are patent. There is no intrahepatic biliary dilatation. Gallbladder: The patient is status post cholecystectomy. The common bile duct measures up to 8 mm in size. No intraluminal filling defects are identified, to suggest choledocholithiasis. Spleen: The spleen is enlarged. Pancreas: The pancreas is atrophic. There is diffuse dilatation of the pancreatic duct. No enhancing pancreatic mass is identified. Adrenals: The adrenal glands are unremarkable. Kidneys: The kidneys are unremarkable. There is no hydronephrosis. Lymph nodes: There is no retroperitoneal lymphadenopathy in the upper abdomen. Fluid: There is no ascites in the upper abdomen. Visualized bowel: The visualized bowels loops are unremarkable in appearance. Visualized bones: The visualized bones demonstrate normal marrow signal intensity. MR/MR abdomen wo/w con IMPRESSION: 1. Hepatosplenomegaly and hepatic steatosis. 2. Scattered tiny nonspecific enhancing foci in the liver. Follow-up is recommended. 3. Atrophic pancreas with diffuse dilatation of the pancreatic duct. An IPMN is not excluded. 4. Mild prominence of the common bile duct which may be on the basis of prior cholecystectomy. No evidence of choledocholithiasis. Electronically signed by: Chinmay Chirinos MD 01/24/2025 07:44 AM EDT
--- OUTSIDE RECORDS SUMMARY | 2025-01-23 09:49 | XMS_ITS | Patient Health Record ---
[facility] Daphne mukul [place] Address [address] [facility] [place] [address] Care Team Providers Care Non Profit Financial Controller Name Role Phone Erich Yang Primary Care Provider Unav Jarocho Mesa Unavailable [phone] Black, Ame Unavailable [phone] Allergies Allergen (clinical drug ingredient) Drug/Non Drug Allergy documented on EMR Reaction Allergy Type Onset Date Status sulfamethoxazole / trimethoprim Bactrim Unknown Drug Allergy Active Penicillin Unknown Drug Allergy Active Results Component Value Reference Range Notes HEMOGLOBIN A1C (GLYCOHEMOGLO BIN) Reviewed date:08/17/2024 10:20:50 AM Interpretation: Performing Lab: Notes/Report: HEMOGLOBIN A1C % (HH) 9.0 Reason For Referral No Information Medications Medication SIG (Take, Route, Frequency, Duration) Notes Start Date End Date Status Gabapentin Active HumuLIN N Active Testosterone Active Ammonium Lactate 12 % 1 application Exte rnally to affected areas of dry skin to feet except for between the toes Twice a day; Duration: 30 days Active Methadone HCl Active Extra Depth Orthopedic Shoes (1 Pair) with Customized Heat Molded Multidensity Innersoles (3 Pair) Dx: NIDDM/Polyneuropathy (E11.42), Hammertoe Foot Deformity (M20.41,M20.42), Preulcerative Skin Lesion(s) (L85.1); Duration: 365 days 01/18/2025 Active Ambien Active Immunizations Vaccine Route Administration Date Status Comme nts Influenza Unknown 01/18/2025 Refused Social History Tobacco Use: Social History Observation [...] Problem Status W/U Status Risk Notes Problem Acquired hammer toe of right foot (3423180399022773 ) Other hammer toe(s) (acquired), right foot (M20.41) Active confirmed Problem Acquired hammer toe of left foot (2940903352077574 ) Other hammer toe(s) (acquired), left foot (M20.42) Active confirmed Problem Polyneuropathy due to type 2 diabetes mellitus (880921975) Type 2 diabetes mellitus with diabetic polyneuropathy (E11.42) Active confirmed Vital Signs Blood pressure diastolic 71 mm Hg 01/18/2025 Height 5ft 9in in 01/18/2025 Blood pressure systolic 127 mm Hg 01/18/2025 Weight 220 lbs 01/18/2025 BMI 32.48 kg/m2 01/18/2025 Procedures Procedure Date Ordered Date Performed Result Body Sit e 30753-BSIK SKIN LESIONS, 2 TO 4 08/17/2024 N/A K3284-SBNUAKUI DYSTROPHIC NAILS ANY # 08/17/2024 N/A 75265-IUBJ SKIN LESIONS, OVER 4 10/19/2024 N/A R8833-KFUXAQVV DYSTROPHIC NAILS ANY # 10/19/2024 N/A Z4913-OTXQDILS DYSTROPHIC NAILS ANY # 01/18/2025 N/A 89148-PMMI SKIN LESIONS, OVER 4 01/18/2025 N/A Encounters Encounter [facility] Date [facility] [address] [address] [facility]/17/[facility] Jarocho Newsome Type 2 diabetes mellitus with diabetic polyneuropathy E11.42 and Xerosis of skin L85.[address] [address] 10/19/2024 Jarocho Newsome Type 2 diabetes mellitus with diabetic polyneuropathy E11.[address] [address] 01/18/2025 Amerobyn Mitchell Type 2 diabetes mellitus with diabetic polyneuropathy E11.42 ; Other hammer toe(s) (acquired), right foot M20.41 and Other hammer toe(s) (acquired), left foot M20.42 [facility] [address] [place] [address] [place] [address] 08/10/2024 Jarocho Newsome Assessments Encounter Date Diagnosis (ICD Code) Assessment Notes Treatment Notes Treatment Clinical Notes Section Notes 08/17/2024 Type 2 diabetes mellitus with diabetic polyneuropathy (ICD-10 - E11.42) 08/17/2024 Xerosis of skin (ICD-10 - L85.3) 10/19/2024 Type 2 diabetes mellitus with diabetic polyneuropathy (ICD-10 - E11.42) 01/18/2025 Other hammer toe(s) (acquired), right foot (ICD-10 - M20.41) Patient Educated with: DIABETIC FOOT CARE INSTRUCTIONS. pdf (DIABETIC FOOT CARE INSTRUCTIONS. pdf) 01/18/2025 Type 2 diabetes mellitus with diabetic polyneuropathy (ICD-10 - E11.42) 01/18/2025 Other hammer toe(s) (acquired), left foot (ICD-10 - M20.42) Plan Of Treatment Pending Test Test Name Order Date 43663-RXZV SKIN LESIONS, OVER 4 10/20/19 25 82011-EIET SKIN LESIONS, OVER 4 01/19/20 25 29405-WXUP SKIN LESIONS, 2 TO 4 08/17/19 25 G3536-RQYPHVNP DYSTROPHIC NAILS ANY # T3405-QTHRDTAF DYSTROPHIC NAILS ANY # V7784-HADHHOXJ DYSTROPHIC NAILS ANY # Next Appt Details Provider Name:Ame Harsha Mitchell , 04/19/2025 11:00:00 AM, [address] [facility], [place], [address], Insurance Providers Payer Name Payer Address Payer Phone Subscriber Number Group Number Insured Name Patient Relationship to Insured Coverage Start Date Coverage End Date [facility] [employer] S[employer] Claims [address] [place] [id number] Brian Antonio Self - patient is the insured Medical (General) History Medical History History ICD Code Depression Diabetic Stomach ulcer Transfusions Hospitalization History Reason Date(Month/Year) wisdom teeth 2024
[2025-01-23] MEDS: gadobutroL 10 ML VIAL IVPUSH (10:53)
== END 2025-01-23 09:46 | disposition home or self-care (01) ==
LOC: HO.MRI 09:45
PROVIDERS: PCP Nurse Practitioner Family; Visit Provider Internal Medicine Gastroenterology
DX: K85.90 Acute pancreatitis without necrosis or infection, unspecified (principal)
CPT/HCPCS: 74183; A9585

== ENCOUNTER → 2025-01-23 09:50 | Outpatient (BNV) | payer OTHER, SELFPAY | PROVIDERS: PCP Nurse Practitioner Family; Visit Provider Radiology Diagnostic Radiology | DX: R16.2 Hepatomegaly with splenomegaly, not elsewhere classified (principal); K76.0 Fatty (change of) liver, not elsewhere classified; K86.89 Other specified diseases of pancreas | CPT/HCPCS: 74183 ==

== ENCOUNTER 2025-02-02 10:30 | Outpatient (AMB) | payer OTHER, SELFPAY ==
[2025-02-02 10:39] VITALS: BMI 36.5
--- NOTE | 2025-02-02 10:39 | A.OFFVIS_ITS ---
VS Expanded 02/02/25 10:39 Height 5 ft 7 in Weight 233 lb 3.985 oz BMI 36.5 Intake Visit Reasons: Type 2 dm Allergies amoxicillin (AMOXICILLIN) Allergy (Severe, Verified 01/10/25 13:58) anaphylaxis / angioedma Penicillins (PENICILLINS) Allergy (Severe, Verified 01/10/25 13:58) HIVES, SWELLING/SOB Sulfa (Sulfonamide Antibiotics) (SULFA (SULFONAMIDE ANTIBIOTICS)) Allergy (Severe, Verified 01/10/25 13:58) HIVES tramadol Allergy (Intermediate, Verified 01/10/25 13:58) GI upset/abd pain Seasonal Allergies Allergy (Mild, Verified 01/10/25 13:58) Sneezing Nutrition Presentation Details: Pt presents for MNT f/u for t2DM d/t pancreatic injury Pt reports increased appetite at night and is working on choosing lower carb food options Meal pattern 10-1 pm DD meal 4-7 pm supper: noodles/veg/chicken meal 8pm -1 am increased appetite at night , reports typical routine is eating at night keeping physical activity: walking in am for 20 minutes, working on walking routine DM med: U500 on sliding scale twice/day BS Monitoring Most Recent Diabetes Results: Creatinine, (0.5-1.4) 1.12 mg/dL 01/07/25 BUN, (9-16) 11 mg/dL 01/07/25 Sodium, (135-145) 138 mmol/L 01/07/25 Potassium, (3.3-5.1) 4.0 mmol/L 01/07/25 Chloride, (96-108) 103 mmol/L 01/07/25 Carbon Dioxide, (22-29) 26 mmol/L 01/07/25 Calcium, (8.4-10.2) 9.3 mg/dL 01/07/25 AST, (5-37) 29 U/L 01/07/25 ALT, (0-40) 49 U/L H 01/07/25 Total Protein, (6.5-8.0) 6.4 g/dL L 01/07/25 Albumin, (3.5-5.0) 4.4 g/dL 01/07/25 REPLACED BY [facility] Medical History (Updated 01/10/25 @ 14:27 by Nasim Gomez MD) Onychomycosis Diabetic neuropathy Uncontrolled diabetes mellitus Hypogonadism male Obesity (BMI 30-39.9) Hypertension CKD (chronic kidney disease) stage 3, GFR 30-59 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 Mother CVD (cardiovascular disease) Son No problems noted. 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: Code(s): E13.9 - Other specified diabetes mellitus without complications; S36.209S - Unspecified injury of unspecified part of pancreas, sequela Category: Medical Plan: Wt: 107 Kg ( 10/19 ), 104 kg (12/19), 106kg(02/18) Est kcal needs as per MSJ: 2300 (40% carb, 30% protein/fat) Est fluid needs as per 25-30 ml/d: 3200 Est prot per day as per 1 g/kg bw: 100 Recommend fiber intake : 8-10 g per day and gradually increase to 25-28 g per day for women and 35-38 g for men or as tolerated Recommend sodium intake per day : less than 2000 mg Educated patient on: ( R = reviewed V = verbalizes understanding N/R = needs review N/A = not applicable * Food sources of carbohydrate, adequate serving sizes and its role in various health conditions: R * Differences between complex carbohydrates a simple carbohydrates, role of fiber in diet: R * Lean protein sources of foods: R * Differences between types of fats and role in diet (mono on saturated fat fatty acids, saturated fatty acids, trans fats): R * Food sources of sodium in salt and healthy modifications for heart health in kidney health: R V R/V * Vitamins and minerals: R V N/R * Healthy plate method concept: R * Physical activity: Benefits a precaution: R V N/R * Hypoglycemia protocol (rule of 15): R V * Dietary prevention of Hyperglycemia: R Patient Instructions: Choose low sugar cereals (cheerios, kashki, fiber one as options) try sugar free popsicles, sugar free jello, drink water hint of flavor(hint as example) 75-80 g carb dinner (example chicken salad sandwich on whole wheat bread, 1 yogurt, 1 apple, water, 3 sugar free Popsicle Take insulin as prescribed by your doctor Coding Level of Care Code Nutr Indiv Subseq (23806) Diagnoses 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
--- OUTSIDE RECORDS SUMMARY | 2025-02-02 11:25 | XMS_ITS | Patient Health Record ---
[facility] Daphne mukul [place] Address [address] [facility] [place] [address] Care Team Providers Care Anode Worker Name Role Phone Erich Yang Primary Care Provider Unav Jarocho Mesa Unavailable [phone] Black, Ame Unavailable [phone] Allergies Allergen (clinical drug ingredient) Drug/Non Drug [...] Problem Acquired hammer toe of right foot (5586165069698555 ) Other hammer toe(s) (acquired), right foot (M20.41) Active confirmed Problem Acquired hammer toe of left foot (7180913864202322 ) Other hammer toe(s) (acquired), left foot (M20.42) Active confirmed Problem Polyneuropathy due to type 2 diabetes mellitus (298279933) Type 2 diabetes mellitus with diabetic polyneuropathy (E11.42) Active confirmed Vital Signs Blood pressure diastolic 71 mm Hg 01/18/2025 Height 5ft 9in in 01/18/2025 Blood pressure systolic 127 mm Hg 01/18/2025 Weight 220 lbs 01/18/2025 BMI 32.48 kg/m2 01/18/2025 Procedures Procedure Date Ordered Date Performed Result Body Sit e 25644-DHTQ SKIN LESIONS, 2 TO 4 08/17/2024 N/A B3343-YEFPXEDG DYSTROPHIC NAILS ANY # 08/17/2024 N/A 11228-BIPT SKIN LESIONS, OVER 4 10/19/2024 N/A Q7660-LXDDSHGV DYSTROPHIC NAILS ANY # 10/19/2024 N/A 89092-QGZJ SKIN LESIONS, OVER 4 01/18/2025 N/A O3243-KBOZYJMY DYSTROPHIC NAILS ANY # 01/18/2025 N/A Encounters Encounter Location Date [facility] [address] [address] 08/17/2024 Jarocho Newsome Type 2 diabetes mellitus with diabetic polyneuropathy E11.42 and Xerosis of skin L85.[address] [address] 10/19/2024 Jarocho Newsome Type 2 diabetes mellitus with diabetic polyneuropathy E11.[address] [address] 01/18/2025 Amerobyn Mitchell Type 2 diabetes mellitus with diabetic polyneuropathy E11.42 ; Other hammer toe(s) (acquired), right foot M20.41 and Other hammer toe(s) (acquired), left foot M20.42 [facility] [address] [place] [address] 08/10/2024 Jarocho Newsome Assessments Encounter Date Diagnosis [...] Treatment Pending Test Test Name Order Date 05605-ZBEE SKIN LESIONS, OVER 4 10/20/19 25 59878-YLLH SKIN LESIONS, OVER 4 01/19/20 25 51263-ADMH SKIN LESIONS, 2 TO 4 08/17/19 25 L0859-WJCQGURF DYSTROPHIC NAILS ANY # F0998-IXUYVGDM DYSTROPHIC NAILS ANY # G0080-KMARXLOK DYSTROPHIC NAILS ANY # Next Appt Details Provider Name:Ame Harsha Mitchell , 04/19/2025 11:00:00 AM, [address] [employer], [place], [address], Insurance Providers Payer Name Payer Address Payer Phone Subscriber Number Group Number Insured Name Patient Relationship to Insured Coverage Start Date Coverage End Date [facility] [employer] Claims [address] [place] [id number] Brian Antonio Self - patient is the insured Medical (General) History Medical History History ICD Code Depression Diabetic Stomach ulcer Transfusions Hospitalization History Reason Date(Month/Year) wisdom teeth 2024
--- OUTSIDE RECORDS SUMMARY | 2025-02-02 11:25 | XMS_ITS | Clinical Summary ---
Author Organization [facility] [address] ity Address [address] [place] [address] Care Team Providers Care Hot Wound Spring Production Supervisor Name Role Phone Unavailable Primary Care Provider [...] (2023-2 5 season) 2024 Influenza Vaccine (#1) 2025 HIB Vaccines Aged Out No longer [...] and At-Risk Patients (6 to 49 Years) Aged Out No longer eligible b ased on patient's age to complete this topic RSV Immunization Patients Un gopal 20 months Aged Out No longer eligible b ased on patient's age to complete this topic Varicella Vaccines Aged Out No longer eligible based on patient's age to complete this topic Advance Directives Documents on File Type Date Recorded Patient 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
--- OUTSIDE RECORDS SUMMARY | 2025-02-02 11:25 | XMS_ITS | Patient Health Record ---
Author Organization [facility] Address [address] [place] [address] Care Team Providers Care Locks Inspector Name Role Phone SARAH JACKSON Primary Care Provider Chinmay Christine Unavailable [phone] KRISTINE BLUM Unavailable Unavailable Allergies Allergen (clinical drug ingredient) Drug/Non Drug Allergy documented on EMR Reaction Allergy Type Onset Date Status Sulfa Unknown Drug Allergy Active Penicillin Unknown Drug Allergy Active Reason For Referral No Information Medications Medication SIG (Take, Route, Frequency, Duration) Notes Start Date End Date Status amLODIPine Besylate 10 MG 1 tablet Orall y Once a day for 30 day(s) Active cloNIDine HCl 0.1 MG 1 tablet at bedtime Orally Twice a day Active Melatonin Not-Taking Lisinopril 40 MG 1 tablet Orally Once a day Active HumaLOG 100 UNIT/ML 10 unitsas directed Subcutaneous QID Active Creon 03643-42986 UNIT as directed Orally Active Ambien 10 MG 1 tablet at bedtime as needed Orally Once a day Active Lantus 100 UNIT/ML as directed Subcutaneous daily Active Pantoprazole Sodium 40 MG 1 tablet Orall y Once a day for 30 day(s) Active Amitriptyline HCl 150 MG 1 tablet at bed time Orally Once a day for 30 day(s) Active Bystolic 20 MG 1 tablet Orally Once a day for 30 day(s) Active LaMICtal 200 MG 1 tablet Orally Once a day for 30 day(s) Active Immunizations Vaccine Route Administration Date Status Comme nts Influenza Unknown 01/21/2019 Refused Social History Tobacco Use: Social History Observation Description Date Details (start date - stop date) Current Smoker NA - NA Tobacco Use/Smoking Question Answer Notes Patient is a current smoker How often do you smoke cigarettes? every day How many cigarettes a day do you smoke? 11-20 How soon after you wake up d o you smoke your first cigarette? 31-60 minutes Are you interested in quitting? Thinking about q uitting Section Notes: Smoker 1 ppd; no drugs; Drin ks very rarely now, but heavier in the past Smoker 1/2 ppd; no drugs; Et OH abuse, but reports sobriety as of 08/2018 Problems Problem Type SNOMED Code ICD Code Onset Dates Problem Status W/U Status Risk Notes Problem 524398573 Gastro-esophagea l reflux disease without esophagitis (K21.9) Active confirmed Problem 089089045 Gastroesophageal reflux disease, esophagitis presence not specified (K21.9) Active confirmed Problem 67321955 Rectal pain (K62.89) Active confirmed Problem 703384871 Pancreatitis, alcoholic, acute (K85.2) Active confirmed Problem 867477342 Abdominal pain, generalized (R10.84) Active confirmed Problem 91887841 Diarrhea, unspecified type (R19.7) Active confirmed Problem 183235762 Alcohol-induced acute pancreatitis without infection or necrosis (K85.20) Active confirmed Plan Of Treatment Pending Test Test Name Order Date BUN 01/21/2019 CREATININE 01/21/2019 LIVER PROFILE 01/21/2019 AMYLASE 01/21/2019 LIPASE 01/21/2019 CBC w DIFF 01/21/2019 CT ABD & PELVIS WITH CONTRAST 01/21/2019 Future Test Test Name Order Date UPPER GI ENDOSCOPY 05/25/2015 UPPER GI ENDOSCOPY 01/21/2019 Insurance Providers Payer Name Payer Address Payer Phone Subscriber Number Group Number Insured Name Patient Relationship to Insured Coverage Start Date Coverage End Date [facility] [employer] [facility] [address] [address] [place], [place] [id number] CARLI PACHECO Self - patient is the insured Medical (General) History Medical History History ICD Code Depression/Anxiety/Psychosis Psoriatic arthritis Arthritis Pancreatitis due to EtOH--arroyo mmer of 2012-in [facility] ICU--he developed a pseudocyst at that time--he describes hospitalizations at [facility] and at [facility] for pancreatitis as well--he describes an ERCP at [facility] for an attempted placement of a stent with Dr. Rodriguez, but this apparently was not successful-he ultimately had a pseudocyst drainage procedure by the interventional radiologist at [facility] in 07/2013. He had a normal CT scan of his abdomen and pancreas in December of 2014. Most recent hospitaliazation was in 08/2018 at which time he had CT scan evidence of pancreatitis, but without any definitive pseudocyst, necrosis, nor abscess. GERD--EGD with Dr. Eden HTN EtOH abuse--reports sobriety since Colonoscopy with Dr. Eden IDDM EGD in 06/2015-small HH, no ulcers, no e sophagitis Surgical History Surgery Date(Month/Year) Lap CCY at [facility]--03/2014 Bilateral carpal tunnel
--- OUTSIDE RECORDS SUMMARY | 2025-02-02 11:25 | XMS_ITS | Clinical Summary ---
Author Organization [facility] Address [address] [address] Phone Care Team Providers Care Assistant Professor Of Forestry Name Role Phone Erich Rodriguez NP Primary Care Provider [phone] Allergies Active Allergy Reactions Criticality Noted Date [...] mouth at bed time 1 Active Creon 73234-93880 units capsule TAKE TWO CAPSULES BY MOUTH THREE TIMES A DAY WITH MEALS AND/OR SNACKS 1 Active pantoprazole (PROTONIX) 40 MG EC tablet Take 40 mg by mouth 1 (one) time each day 1 Active Active Problems Problem Noted Date Diagnosed Date Alcohol-induced acute pancreatitis 12/21/2024 Dxawd-oy-efurbya renal failure 07/09/2021 Chronic pancreatitis 07/09/2021 Testosterone level below reference range 021 Essential hypertension 07/09/2021 History of drug abuse 07/09/2021 Psoriasis 07/09/2021 Type 1 diabetes mellitus 07/09/2021 Ventricular tachycardia 07/09/2021 Immunizations Immunization Administration Dates Next Due Pneumococcal Polysaccharide 04/21/2013 Family History Medical History Relation Comments Heart [...] Hemoglobin A1C 10/08/2021 07/10/2021 Influenza Vaccine (#1) 2025 Pneumococcal Vaccine: 50+ Years Discontinued 3 Procedures Procedure Name Priority Date/Time Associated Diagnosis Comments HEMOGLOBIN A1C Routine 07/10/2021 3:44 PM EST Hypertension Chronic pancreatitis (HCC) Type 2 diabetes mellitus with diabetic chronic kidney disease (HCC) from Last 3 Months or Most Recently Relevant to Health Maintenance Results * (ABNORMAL) Hemoglobin A1c (07/10/2021 3:44 PM EST) Hemoglobin A1C 11.5(H) (4.0-5.6) % [facility] Comment: MONITORING: In known diabetic patients, hemoglobin A1c targets should be discussed with health care provider. DIAGNOSTIC USE: The [place] Diabetes Association (ADA) and the World Health [...] Supplement 1 Testing performed or reported by [facility], a Service of [facility], [address] [place] [address] Ashlyn Damian MD, Alumina Plant Supervisor [facility]# [id number] Blood specimen (specimen) Venous blood / Unknown 07/10/2021 3:44 PM EST 07/10/2021 3:46 PM EST Quinten Escalante MD LAB BLOOD ORDERABLES Final Re sult [facility] from Last 3 Months or Most Recently Relevant to Health Maintenance Insurance [facility] ([id number]) [place] [id number] Care Teams Assistant Professor Of Forestry Relationship Specialty Start Date End Date Erich Rodriguez NP [address] [facility] [place] [address] PCP - General Nurse Practitioner 10/25/24
== END 2025-02-02 11:10 | disposition home or self-care (01) ==
LOC: HO.ENCR 10:30
PROVIDERS: PCP Nurse Practitioner Family; Visit Provider Dietitian, Registered
DX: E13.9 Other specified diabetes mellitus without complications (principal); S36.209S Unspecified injury of unspecified part of pancreas, sequela

== ENCOUNTER → 2025-02-02 10:30 | Outpatient (BNVA) | payer OTHER, SELFPAY | PROVIDERS: PCP Nurse Practitioner Family; Visit Provider Dietitian, Registered | DX: Z71.3 Dietary counseling and surveillance (principal); E13.9 Other specified diabetes mellitus without complications; S36.209S Unspecified injury of unspecified part of pancreas, sequela | CPT/HCPCS: 97803 ==

== ENCOUNTER 2025-03-07 15:31 | Outpatient (AMB) | payer OTHER, SELFPAY ==
--- OUTSIDE RECORDS SUMMARY | 2025-03-07 15:39 | XMS_ITS | Clinical Summary ---
Author Organization [facility] Address [address] [address] Phone Care Team Providers Care Hot Strip Mill Inspector Name Role Phone Erich Rodriguez NP Primary Care Provider [phone] Allergies Active Allergy Reactions Criticality Noted Date [...] mouth at bed time 1 Active Creon 21935-35171 units capsule TAKE TWO CAPSULES BY MOUTH THREE TIMES A DAY WITH MEALS AND/OR SNACKS 1 Active pantoprazole (PROTONIX) 40 MG EC tablet Take 40 mg by mouth 1 (one) time each day 1 Active Active Problems Problem Noted Date Diagnosed Date Alcohol-induced acute pancreatitis 12/21/2024 Bfmzo-vc-amqatao renal failure 07/09/2021 Chronic pancreatitis 07/09/2021 Testosterone [...] Care Team (Late st Contact Info) Description 03/23/2025 11:15 AM EDT Office Visit [facility] [address] [address] Jamar Verde MD [address] [place] [id number] Health Maintenance Due Date Last Done Comments [...] PM EST) Hemoglobin A1C 11.5(H) (4.0-5.6) % [facility] Comment: MONITORING: In known diabetic patients, hemoglobin A1c targets should be discussed with health care provider. DIAGNOSTIC USE: The [place] Diabetes Association (ADA) and the World Health [...] 1 Testing performed or reported by [facility], a Service of [facility], [address] [place] [address] Ashlyn Damian MD, Environmental Health Officer [facility]# [id number] Blood specimen (specimen) Venous blood / Unknown 07/10/2021 3:44 PM EST 07/10/2021 3:46 PM EST Quinten Escalante MD LAB BLOOD ORDERABLES Final Re sult [facility] from Last 3 Months or Most Recently Relevant to Health Maintenance Insurance [facility] ([id number]) [place] [id number] Care Teams Hot Strip Mill Inspector Relationship Specialty Start Date End Date Erich Rodriguez NP [address] [place] [address] PCP - General Nurse Practitioner 10/25/24
--- OUTSIDE RECORDS SUMMARY | 2025-03-07 15:39 | XMS_ITS | Clinical Summary ---
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
--- OUTSIDE RECORDS SUMMARY | 2025-03-07 15:39 | XMS_ITS | Patient Health Record ---
[facility] Daphne mukul [place] Address [address] [facility] [place] [address] Care Team Providers Care Arboriculture Teacher Name Role Phone Erich Yang Primary Care Provider Unav Jarocho Mesa Unavailable [phone] Black, Ame Unavailable [phone] Allergies Allergen (clinical drug ingredient) Drug/Non Drug [...] Problem Acquired hammer toe of right foot (8238025783136656 ) Other hammer toe(s) (acquired), right foot (M20.41) Active confirmed Problem Acquired hammer toe of left foot ([id number] ) Other hammer toe(s) (acquired), left foot (M20.42) Active confirmed Problem Polyneuropathy due to type 2 diabetes mellitus (238984479) Type 2 diabetes mellitus with diabetic polyneuropathy (E11.42) Active confirmed Vital Signs Blood pressure diastolic 71 mm Hg 01/18/2025 Height 5ft 9in in 01/18/2025 Blood pressure systolic 127 mm Hg 01/18/2025 Weight 220 lbs 01/18/2025 BMI 32.48 kg/m2 01/18/2025 Procedures Procedure Date Ordered Date Performed Result Body Sit e 03682-GXRB SKIN LESIONS, 2 TO 4 08/17/2024 N/A H1913-NXTCUHYY DYSTROPHIC NAILS ANY # 08/17/2024 N/A 09120-OHBI SKIN LESIONS, OVER 4 10/19/2024 N/A X0157-XASGXWTI DYSTROPHIC NAILS ANY # 10/19/2024 N/A 20954-ZXOM SKIN LESIONS, OVER 4 01/18/2025 N/A F5977-YOBNPWTF DYSTROPHIC NAILS ANY # 01/18/2025 N/A Encounters Encounter Location Date [facility] [address] [address] 08/17/2024 Jarocho Newsome Type 2 diabetes mellitus with diabetic polyneuropathy E11.42 and Xerosis of skin L85.[address] [address] 10/19/2024 Jarocho Newsome Type 2 diabetes mellitus with diabetic polyneuropathy E11.[address] [address] 01/18/2025 Amerobyn Mitchell Type 2 diabetes mellitus with diabetic polyneuropathy E11.42 ; Other hammer toe(s) (acquired), right foot M20.41 and Other hammer toe(s) (acquired), left foot M20.42 [facility] [address] [place] [address] 08/10/2024 Jarocho Newsome Assessments Encounter Date Diagnosis [...] Treatment Pending Test Test Name Order Date 17640-XBWM SKIN LESIONS, OVER 4 10/20/19 25 11251-DQPN SKIN LESIONS, OVER 4 01/19/20 25 22579-UCYV SKIN LESIONS, 2 TO 4 08/17/19 25 W0840-JYGHOAIM DYSTROPHIC NAILS ANY # A0936-FQZIPSGP DYSTROPHIC NAILS ANY # Z9695-OVJWHUSS DYSTROPHIC NAILS ANY # Next Appt Details Provider Name:Ame Harsha Mitchell , 04/19/2025 11:00:00 AM, [address] [facility], [place], [address], Insurance Providers Payer Name Payer Address Payer Phone Subscriber Number Group Number Insured Name Patient Relationship to Insured Coverage Start Date Coverage End Date [facility] [employer] Claims [address] [place] [id number] Brian Antonio Self - patient is the insured Medical (General) History Medical History History ICD Code Depression Diabetic Stomach ulcer Transfusions Hospitalization History Reason Date(Month/Year) wisdom teeth 2024
--- OUTSIDE RECORDS SUMMARY | 2025-03-07 15:39 | XMS_ITS | Clinical Summary ---
Author Organization [facility] Address [address] [place] [address] Phone Care Team Providers Care Screw Machine Operator Single Spindle Name Role Phone System, Provider Not In PhD Primary Care Provide r Unavailable Social History Tobacco Use Types Packs/Day Years Used Date Smoking Tobacco: Never Assessed Education Answer Date Recorded Are you interested in more education? Not on julio e 11/23/2022 Are you concerned about learning? Not on file 11/23/2022 No 11/23/2022 No 11/23/2022 Digital Access Answer Date Recorded No 12/22/2022 No 12/22/2022 No 12/22/2022 Reliable internet access at home? Not on file 12/22/2022 Device with a working camera? Not on file Sex and Gender Information Value Date Recorded Sex Assigned at Male 09/11/2021 3:20 PM EST Legal Sex Male 3:09 PM EST Gender Identity Male 09/11/2021 3:20 PM EST Sexual Orientation Straight 09/11/2021 3: 20 PM EST Plan of Treatment Health Maintenance Due Date Last Done Comments Adult Td,Tdap Booster 1981 LIPID PANEL 1981 DEPRESSION SCREENING 1993 SMOKING Hx and SMOKELESS TOB ACCO SCREENING 1994 HEPATITIS C SCREENING 10/12/1999 HIV ONE-TIME SCREENING (18-6 5 YEARS) 10/12/1999 COVID-19 VACCINE (2023-2 5 season) 2024 HEPATITIS A VACCINES Aged Out No long er eligible based on patient's age to complete this topic HIB VACCINES Aged Out No longer eligi ble based on patient's age to complete this topic MENINGOCOCCAL VACCINES (ACWY) Aged Out No longer eligible based on patient's age to complete this topic MENINGOCOCCAL VACCINES (B) Aged Out N o longer eligible based on patient's age to complete this topic PNEUMOCOCCAL VACCINES (0-49 years) Aged Out No longer eligible based on patient's age to complete this topic Medical Devices Not on file Insurance MEDICARE PART A & B [facility] MEDICARE PART A & B [facility] [employer] [facility] MEDICARE [facility] A & B [facility] MEDICARE PART A & B [facility] MEDICARE PART A & B [facility] MEDICARE PART A & B [facility] MEDICARE PART A & B Member Subscriber Plan / Payer (Ef fective 2020-Present) Name:Brian Antonio Member ID:[id number] Relation to Subscriber:Self Name:Brian Antonio Subscriber ID:[id number] Payer ID:[id number] Group ID:Not on file Type:Medicare Address: [employer] [address] [place] [id number] [facility] B [facility] MEDICARE PART A & B [employer] Care Teams Screw Machine Operator Single Spindle Relationship Specialty Start Date End Date System, Provider Not In, PhD [employer] [address] [address] PCP - General 09/11/21 Additional Source Comments The information contained in this document represents components of the legal health record. It is not the complete legal health record.[facility]
--- OUTSIDE RECORDS SUMMARY | 2025-03-07 15:39 | XMS_ITS | Patient Health Record ---
Author Organization [facility] Address [address] [place] [address] Care Team Providers Care Breeder Service Technician Name Role Phone SARAH JACKSON Primary Care Provider Chinmay Christine Unavailable [phone] KRISTINE BLUM Unavailable Unavailable Allergies Allergen (clinical [...] 10 unitsas directed Subcutaneous QID Active Creon 54072-[address] UNIT as directed Orally Active Ambien 10 [...] Problem Status W/U Status Risk Notes Problem 161922425 Gastro-esophagea l reflux disease without esophagitis (K21.9) Active confirmed Problem 336766073 Gastroesophageal reflux disease, esophagitis presence not specified (K21.9) Active confirmed Problem 97588887 Rectal pain (K62.89) Active confirmed Problem 349676111 Pancreatitis, alcoholic, acute (K85.2) Active confirmed Problem 147545178 Abdominal pain, generalized (R10.84) Active confirmed Problem 24651610 Diarrhea, unspecified type (R19.7) Active confirmed Problem 655062604 Alcohol-induced acute pancreatitis without infection or necrosis [...] Insured Coverage Start Date Coverage End Date [facility] [employer] [facility] [address] [address] [place], [place] [id number] CARLI PACHECO Self - patient is the insured Medical (General) History Medical History History ICD Code Depression/Anxiety/Psychosis Psoriatic arthritis Arthritis Pancreatitis due to EtOH--[place] m[place] of 2012-[place] [facility] [place]he developed a pseudocyst at that time--he describes hospitalizations at [facility] and at [facility] for pancreatitis as well--he describes an ERCP at [facility] for an attempted placement of a stent with Dr. Rodriguez, but this apparently was not successful-he ultimately had a pseudocyst drainage procedure by the interventional radiologist at [facility] in 07/2013. He had a normal CT [...] Surgical History Surgery Date(Month/Year) Lap CCY at [facility]--03/2014 Bilateral carpal tunnel
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
[2025-03-07 15:49] VITALS: BP 124/84; PULSE 111; RESP 16; TEMP 37.3; O2SAT 93; BMI 36.5
== END 2025-03-07 16:50 | disposition home or self-care (01) ==
LOC: HO.HMCC 15:32
PROVIDERS: PCP Nurse Practitioner Family; Visit Provider Nurse Practitioner Family
DX: G93.9 Disorder of brain, unspecified (principal); R40.20 Unspecified coma; R56.9 Unspecified convulsions; R00.0 Tachycardia, unspecified

== ENCOUNTER → 2025-03-07 15:31 | Outpatient (BNVA) | payer OTHER, SELFPAY | PROVIDERS: PCP Nurse Practitioner Family; Visit Provider Nurse Practitioner Family | DX: M54.2 Cervicalgia (principal); R56.9 Unspecified convulsions; R00.0 Tachycardia, unspecified; Z87.828 Personal history of other (healed) physical injury and trauma | CPT/HCPCS: 99212 ==

== ENCOUNTER 2025-03-09 09:34 | Outpatient (AMB) | payer OTHER, SELFPAY ==
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
[2025-03-09 09:40] VITALS: BP 140/92; PULSE 100; O2SAT 96; BMI 37.3
--- OUTSIDE RECORDS SUMMARY | 2025-03-09 10:04 | XMS_ITS | Clinical Summary ---
Author Organization [facility] Address [address] [address] Phone Care Team Providers Care Police Lieutenant Precinct Name Role Phone Erich Rodriguez NP Primary Care Provider [phone] Allergies Active Allergy Reactions Criticality Noted Date [...] mouth at bed time 1 Active Creon 85229-92656 units capsule TAKE TWO CAPSULES BY MOUTH THREE TIMES A DAY WITH MEALS AND/OR SNACKS 1 Active pantoprazole (PROTONIX) 40 MG EC tablet Take 40 mg by mouth 1 (one) time each day 1 Active Active Problems Problem Noted Date Diagnosed Date Alcohol-induced acute pancreatitis 12/21/2024 Iktdu-hw-cefwnno renal failure 07/09/2021 Chronic pancreatitis 07/09/2021 Testosterone [...] Visit [facility] [address] [address] Jamar Verde MD [address] [place] [phone] Health Maintenance Due Date Last Done Comments [...] PM EST) Hemoglobin A1C 11.5(H) (4.0-5.6) % [facility] Comment: MONITORING: In known diabetic patients, hemoglobin A1c targets should be discussed with health care provider. DIAGNOSTIC USE: The [place] Diabetes Association (ADA) and the World Health [...] Supplement 1 Testing performed or reported by [facility], a Service of [facility], [address] [place] [address] Ashlyn Damian MD, Fulfillment Associate [facility]# [id number] Blood specimen (specimen) Venous blood / Unknown 07/10/2021 3:44 PM EST 07/10/2021 3:46 PM EST Quinten Escalante MD LAB BLOOD ORDERABLES Final Re sult [facility] from Last 3 Months or Most Recently Relevant to Health Maintenance Insurance [facility] ([id number]) [place] [id number] Care Teams Police Lieutenant Precinct Relationship Specialty Start Date End Date Erich Rodriguez NP [address] [place] [address] PCP - General Nurse Practitioner 10/25/24
--- OUTSIDE RECORDS SUMMARY | 2025-03-09 10:04 | XMS_ITS | Clinical Summary ---
Author Organization [facility] Address [address] [place] [address] Care Team Providers Care Drywall Finisher Name Role Phone Unavailable Primary Care Provider [...] Documents on File Type Date Recorded Patient Front Counter Clerk Expl anation Health Care Decision (hx) 11/16/2014 AD PLATT DIRECTIVE Health Care Decision (hx) 11/14/2014 AD PLATT DIRECTIVE
--- OUTSIDE RECORDS SUMMARY | 2025-03-09 10:04 | XMS_ITS | Patient Health Record ---
[facility] Daphne mukul [place] Address [address] [place] [address] Care Team Providers Care Rn Manager Name Role Phone Erich Yang Primary Care Provider Unav Jarocho Mesa Unavailable [phone] Black, Ame Unavailable [phone] Allergies Allergen (clinical drug ingredient) Drug/Non Drug [...] Problem Acquired hammer toe of right foot (2506144602474395 ) Other hammer toe(s) (acquired), right foot (M20.41) Active confirmed Problem Acquired hammer toe of left foot (0024382942380255 ) Other hammer toe(s) (acquired), left foot (M20.42) Active confirmed Problem Polyneuropathy due to type 2 diabetes mellitus (110274890) Type 2 diabetes mellitus with diabetic polyneuropathy (E11.42) Active confirmed Vital Signs Blood pressure diastolic 71 mm Hg 01/18/2025 Height 5ft 9in in 01/18/2025 Blood pressure systolic 127 mm Hg 01/18/2025 Weight 220 lbs 01/18/2025 BMI 32.48 kg/m2 01/18/2025 Procedures Procedure Date Ordered Date Performed Result Body Sit e 98958-WUKY SKIN LESIONS, 2 TO 4 08/17/2024 N/A S5309-[id number] DYSTROPHIC NAILS ANY # 08/17/2024 N/A 38239-EKSC SKIN LESIONS, OVER 4 10/19/2024 N/A H7357-YFQUUWWO DYSTROPHIC NAILS ANY # 10/19/2024 N/A 02041-RYML SKIN LESIONS, OVER 4 01/18/2025 N/A B0123-EVTDHDKH DYSTROPHIC NAILS ANY # 01/18/2025 N/A Encounters Encounter Location Date Provider [facility] [address] [address] 08/17/2024 Jarocho Newsome Type 2 diabetes mellitus with diabetic polyneuropathy E11.42 and Xerosis of skin L85.[address] [address] 10/19/2024 Jarocho Newsome Type 2 diabetes mellitus with diabetic polyneuropathy E11.[address] [address] 01/18/2025 Amerobyn Mitchell Type 2 diabetes mellitus with diabetic polyneuropathy E11.42 ; Other hammer toe(s) (acquired), right foot M20.41 and Other hammer toe(s) (acquired), left foot M20.42 [facility] [address] [place] [address] 08/10/2024 Jarocho Newsome Assessments Encounter Date Diagnosis [...] Treatment Pending Test Test Name Order Date 75236-PDZO SKIN LESIONS, OVER 4 10/20/19 25 30751-WRCE SKIN LESIONS, OVER 4 01/19/20 25 52029-AGCC SKIN LESIONS, 2 TO 4 08/17/19 25 F3709-QRNOWDPI DYSTROPHIC NAILS ANY # K6252-HPQNSODZ DYSTROPHIC NAILS ANY # J0570-ZWZSGZSZ DYSTROPHIC NAILS ANY # Next Appt Details Provider Name:Ame Harsha Mitchell , 04/19/2025 11:00:00 AM, [address] [facility], [place], [address], Insurance Providers Payer Name Payer Address Payer Phone Subscriber Number Group Number Insured Name Patient Relationship to Insured Coverage Start Date Coverage End Date [facility] [employer] Claims [address] [place] [id number] Brian Antonio Self - patient is the insured Medical (General) History Medical History History ICD Code Depression Diabetic Stomach ulcer Transfusions Hospitalization History Reason Date(Month/Year) wisdom teeth 2024
--- OUTSIDE RECORDS SUMMARY | 2025-03-09 10:04 | XMS_ITS | Clinical Summary ---
Author Organization [facility] Address [address] [place] [address] Phone Care Team Providers Care Supervisor Metalizing Name Role Phone System, Provider Not In [...] file Insurance MEDICARE PART A & B [facility] MEDIC[facility] PART A & [facility] MEDIC[facility] A & B [facility] MEDIC[facility] PART A & B [facility] MED[facility] A & B [facility] MEDICARE PART A & B [facility] MEDICARE PART A & B Member Subscriber Plan / Payer (Ef fective 2020-Present) Name:Brian Antonio Member ID:[id number] Relation to Subscriber:Self Name:Brian Antonio Subscriber ID:[id number] Payer ID:[id number] Group ID:Not on file Type:Medicare Address: [employer] [address] [place] [phone] [facility] B [facility] MEDICARE PART A & B [facility] Care Teams Supervisor Metalizing Relationship Specialty Start Date End Date System, Provider Not In, [employer] [address] [address] PCP - General 09/11/21 Additional Source Comments The information contained in this document represents components of the legal health record. It is not the complete legal health record.[facility]
--- OUTSIDE RECORDS SUMMARY | 2025-03-09 10:04 | XMS_ITS | Patient Health Record ---
Author Organization [facility] Address [address] [place] [address] Care Team Providers Care Wire Mill Rover Name Role Phone SARAH JACKSON Primary Care Provider Chinmay Christine Unavailable [phone] KRISTINE BLUM Unavailable Unavailable Allergies Allergen (clinical [...] 10 unitsas directed Subcutaneous QID Active Creon 60943-[address]27 UNIT as directed Orally Active Ambien 10 [...] Problem Status W/U Status Risk Notes Problem 274989186 Gastro-esophagea l reflux disease without esophagitis (K21.9) Active confirmed Problem 123004419 Gastroesophageal reflux disease, esophagitis presence not specified (K21.9) Active confirmed Problem 07456954 Rectal pain (K62.89) Active confirmed Problem 983685183 Pancreatitis, alcoholic, acute (K85.2) Active confirmed Problem 913245596 Abdominal pain, generalized (R10.84) Active confirmed Problem 50601027 Diarrhea, unspecified type (R19.7) Active confirmed Problem 972891811 Alcohol-induced acute pancreatitis without infection or necrosis [...] Insured Coverage Start Date Coverage End Date [facility] [employer] [facility] [address] [address] [place], [place] [id number] CARLI PACHECO Self - patient is the insured Medical (General) History Medical History History ICD Code Depression/Anxiety/Psychosis Psoriatic arthritis Arthritis Pancreatitis due to EtOH--[place] m[place] of 2012-in [facility] ICU--he developed a pseudocyst at that time--he describes hospitalizations at [facility] and at [facility] for pancreatitis as well--he describes an ERCP at [facility] for an attempted placement of a stent with Dr. Rodriguez, but this apparently was not successful-he ultimately had a pseudocyst drainage procedure by the interventional radiologist at [facility] in 07/2013. He had a normal CT [...] Surgical History Surgery Date(Month/Year) Lap CCY at [facility]--03/2014 Bilateral carpal tunnel
== END 2025-03-09 10:45 | disposition home or self-care (01) ==
LOC: HO.HSMS 09:35
PROVIDERS: PCP Nurse Practitioner Family; Visit Provider Psychiatry & Neurology Neurology
DX: R56.9 Unspecified convulsions (principal); G47.33 Obstructive sleep apnea (adult) (pediatric)
CPT/HCPCS: 99204

== ENCOUNTER → 2025-03-09 09:34 | Outpatient (BNVA) | payer OTHER, SELFPAY | PROVIDERS: PCP Nurse Practitioner Family; Visit Provider Psychiatry & Neurology Neurology | DX: G47.33 Obstructive sleep apnea (adult) (pediatric) (principal); R56.9 Unspecified convulsions; Z99.89 Dependence on other enabling machines and devices | CPT/HCPCS: 99202 ==

== ENCOUNTER → 2025-03-20 14:38 | Outpatient (BNV) | payer OTHER, SELFPAY | PROVIDERS: PCP Nurse Practitioner Family; Visit Provider Radiology Diagnostic Radiology | DX: R56.9 Unspecified convulsions (principal) | CPT/HCPCS: 70551 ==

== ENCOUNTER 2025-03-20 14:39 | Outpatient (REF) | payer OTHER, SELFPAY ==
--- NOTE | ~2025-03-20 | MR_ITS ---
CLINICAL HISTORY: R56.9 - Unspecified convulsions MR Brain without gadolinium Comparison: MR/REG/SR - MR BRAIN WITHOUT THEN WITH IV CONTRAST - 06/26/22 11:21 EST Findings: No restricted diffusion. No intra-axial mass or hemorrhage. No midline shift. No hydrocephalus. Vascular flow voids are intact. Orbital contents are unremarkable. The sinuses and mastoid air cells are clear. No focal bone lesion. IMPRESSION: Unremarkable brain MRI. This document has been electronically signed by: Jessy Simental MD on 03/21/2025 16:47:34
== END 2025-03-20 14:40 | disposition home or self-care (01) ==
LOC: HO.MRI 14:39
PROVIDERS: PCP Nurse Practitioner Family; Visit Provider Psychiatry & Neurology Neurology
DX: R56.9 Unspecified convulsions (principal)
CPT/HCPCS: 70551

== ENCOUNTER 2025-03-23 10:31 | Outpatient (AMB) | payer OTHER, SELFPAY ==
--- NOTE | 2025-03-23 10:33 | A.OFFVIS_ITS ---
Vital Signs 03/23/25 10:36 Height 5 ft 7 in Weight 237 lb 14.06 oz BMI 37.3 BP 126/82 Blood Pressure Location Rt brachial Position Sitting Pulse 101 H Pulse Source Pulse Oximeter Pulse Oximetry (%) 98 Oxygen Delivery Method Room Air Intake Visit Reasons: Hypogonadism/DM due to pancreatic injury Intake Note: Patient present today to follow up on Diabetes Mellitus. Last seen by Elsa Hanson on 12/21/2024. Patient receives Dexcom G7 sensors through: [facility] Last Diabetic Eye exam: 2023, Due for exam Last Podiatry Visit: 01/18/2025 [facility] Random Glucose: 291 mg/dl HgA1C: 10.0% 03/23/2025 Plastic Surgery Specialist Required: No Accompanied by: Self / Same As Patient Allergies amoxicillin (AMOXICILLIN) Allergy (Severe, Verified 03/23/25 10:37) anaphylaxis / angioedma Penicillins (PENICILLINS) Allergy (Severe, Verified 03/23/25 10:37) HIVES, SWELLING/SOB Sulfa (Sulfonamide Antibiotics) (SULFA (SULFONAMIDE ANTIBIOTICS)) Allergy (Severe, Verified 03/23/25 10:37) HIVES tramadol Allergy (Intermediate, Verified 03/23/25 10:37) GI upset/abd pain Seasonal Allergies Allergy (Mild, Verified 03/23/25 10:37) Sneezing Medication List - Last Reconciled 03/23/25 by Chinmay Santos MD acetaminophen (Tylenol Extra Strength) 1,000 mg (2 x 500 mg) PO Q6H PRN acetone (urine) test (Ketone Urine Test strips) As directed prn glucose over 250, nausea or vomiting, tid albuterol sulfate 90 mcg/actuation 1 puff inhalation Q4H PRN 30 days amitriptyline 50 mg PO BEDTIME ammonium lactate 12% appl topical BID aripiprazole 15 mg PO BEDTIME BD Insulin Syringe U-500 (insulin U-500 syringe-needle) As directed 3 x/day NS blood pressure kit med and lrg daily use blood sugar diagnostic (FreeStyle Lite Strips) As directed four times a day blood sugar diagnostic (FreeStyle Lite Strips) 4 times a day blood-glucose sensor (Dexcom G7 Sensor device) As directed every ten days blood-glucose sensor (Dexcom G6 Sensor device) every 10 days buspirone 5 mg PO BID Dexcom G6 Women Designer (blood-glucose,fishing vessel operator,cont) As directed NS Dexcom G6 Sensor (blood-glucose sensor) every 10 days NS Dexcom G6 Transmitter (blood-glucose transmitter) As directed every 90 days NS esomeprazole magnesium 40 mg PO DAILY fenofibrate 54 mg PO DAILY 30 days flash glucose sensor (FreeStyle Anyi 2 Sensor kit) USE TO TEST BLOOD GLUCOSE AND REPLACE EVERY 14 DAYS DIRECTED gabapentin 300 mg PO BID glucagon (Gvoke HypoPen 2-Pack) 1 mg (0.2 mL) subcut ONCE guselkumab (Tremfya) 100 mg subcut Q8W ibuprofen 600 mg PO TID PRN insulin regular hum U-500 conc (Humulin R U-500 (Concentrated) Insulin) 25-90 units tid subcutaneously with meals 90 days MDD 250 units lancets As directed lancets (FreeStyle Lancets) 4 times a day levetiracetam (Keppra) 500 mg PO BID lidocaine-prilocaine 2.5-2.5 % 1 appl topical ONCE 1 day giywhe-jzvfzyux-gndzlbo 25,000-79,000- 105,000 unit (Zenpep) 3 caps PO TID lisinopril 10 mg PO DAILY methadone 50 mg PO QAM multivitamin 1 tab PO DAILY needle (disp) 21 G (BD Regular Bevel [place]) As directed injects once a week pioglitazone (Actos) 15 mg PO DAILY 30 days sildenafil (Viagra) 100 mg PO DAILY PRN syringe with needle (BD Luer-Fabien Syringe) INJECT ONCE A WEEK DIRECTED syringe with needle, safety As directed inject once a week testosterone 4 pumps transdermal DAILY zolpidem ER 12.5 mg PO BEDTIME PRN HPI Comments Details: Details: 44 YO male who is seen in follow up for Diabetes. He is also followed for hypgonadism. He was last seen for diabetes by Elsa Watkins NP on 12/21/24 . He was previously seen at the [facility] 2023 and tried metformin which he reports did not lower his sugars He has h/o pancreatic disease In the past he had used a bolus calculator on his phone with a 1:5 ratio and correction factor of 1:15. Eating on a more regular basis he had met with the primary special educator to discuss going on an insulin pump last February Was initially started on treatment with [metformin] dosing u500 breakfast and supper 100-150 25 units 151 -200 30 units 201-250 40 units 251-275 60 units 276-300 80 units over 300 90 units pioglitizone: low dose 15mg Dexcom average glucose: 239 14 day continuous glucose monitor report reviewed Glucose Managment indicator 9 % TIme in ranges: avg glucose =280 with GMI of 10 64 % very high (above 250) 22 % high ?(181-250) 14 % in range ?(70-180] 0 % low (69-55) 0 % ?very low (below 54) Interpretation; glucose high overnight and high post supper Has eyes checked yearly, last appt 1 yr ago [+ pain ] neuropathy, has new panel sewer has callous formation and dry skin seeing [facility] No nephropathy, not on [LYNETTE/ARB]. MIcroalbumin 9 as measured on [01/17]. 08/18/2023 eGFR>60 has been taking 75-100 twice daily On Fenofibrate Last LDL [83] as measured on [08/20]. Denies CAD. Diet: skips breakfast, snacks throughout day and has bigger meal for dinner Fibrosis-4 (Fib-4) Index for liver fibrosis (calculated on most recent lab work 11/2023 [0.71 ] points Advanced fibrosis [ excluded] Approximate Fibrosis stage Obdulia [ 0-1] *Use with caution in patients <35 or >65 years old, as the score has been shown to be less reliable in these patients. Prior imaging: MRI 2023 LIVER, GALLBLADDER, AND BILIARY TREE: Liver measures 22 cm. No nodular surface. No focal enhancing mass. Portal veins, hepatic veins and intrahepatic portion of the IVC are patent. Gallbladder is absent/cholecystectomy. The common bile duct measures 8 mm. Focal stenosis at the distal common bile duct junction second portion of the duodenum Action plan: rescreen 11/[address] 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 Mother CVD (cardiovascular disease) Son No problems noted. Social History Household Members: Family Housing: House Alcohol intake: never Patient Tobacco Use Status: Former Tobacco user Tobacco use type: Cigarette Cigarette Packs Per Day: 0.5 Cigarettes Per Day: 5 Years Smoked: 13 e-Cigarette/Vaping Use: Never Used Substance Use Type: Former Substance User and Opiates Advance Directives Date on File: 11/03/17 Current occupational status: unemployed Cognitive needs: No Hearing needs: No Vision needs: No Physical Exam Vital Signs: Last Vital Signs Pulse 101 H 03/23/25 10:36 BP 126/82 03/23/25 10:36 Pulse Ox 98 03/23/25 10:36 Oxygen Delivery Method Room Air 03/23/25 10:36 BMI result Body Mass Index 37.3 Const Other: Absence of Cushingoid features. Absence of acromegalic features. Neck exam reveals nl size thyroid about 15 gms. No thyroid nodules palpable. Heart S1 S2, Reg R/R. No M/R G. Skin exam reveals absence of vitiligo or acanthosis n igricans. No edema Visual exam of foot performed. No ulcerations or open lesions. No inter digit maceration or fissuring. Skin dry, +callouses. Sensation intact to monofilament exam. Vibratory sensation is normal with 128 Hz tuning fork. Results AMB Hemoglobin A1c AMB Hemoglobin A1c 10.0 % Last Edit by JAMISON Childers on 03/23/25 10:54 Results Reviewed Results Reviewed: Laboratory Last Values Glucose (Clinic) 291 mg/dL (60-115) H 03/23/25 10:45 Assessment & Plan Assessment & Plan (1) Hypogonadism male: Code(s): E29.1 - Testicular hypofunction Category: Medical Plan: This is a 44-year-old white male with a history of secondary hypogonadism. . 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 Workup for insulin resistance including [facility]'s and acromegaly was negative The plan is to increase the U-500 insulin before dinner to the following 100-150 35 units 151 -200 40 units 201-250 45 units 251-275 60 units 276-300 80 units over 300 90 units Patient will follow-up with primary special educator. I do think he would be an ideal candidate for a Medtronic or tandem pump with U-500. . He continues to have severe insulin resistance a negative workup for [facility]'s and acromegaly per I suspect he may have a severe insulin resistance syndrome. However, the resources for working this up a very limited in the community setting I advised him strongly to follow up with [facility] possibly the [place] expert in insulin resistance syndrome B so we can have a proper workup and directed treatment . He is going to make a follow up there specifically to see Dr. 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
[2025-03-23 10:36] VITALS: BP 126/82; PULSE 101; O2SAT 98; BMI 37.3
[2025-03-23 10:49] LABS: Glucose, Whole Blood 291 mg/dL (60-115)
--- OUTSIDE RECORDS SUMMARY | 2025-03-23 11:25 | XMS_ITS | Patient Health Record ---
Author Organization [facility] Address [address] [place] [address] Care Team Providers Care Ob Tech Name Role Phone SARAH JACKSON Primary Care Provider Chinmay Christine Unavailable [phone] KRISTINE BLUM Unavailable Unavailable Allergies Allergen (clinical [...] 10 unitsas directed Subcutaneous QID Active Creon 53558-98131 UNIT as directed Orally Active Ambien 10 [...] Problem Status W/U Status Risk Notes Problem 559642034 Gastro-esophagea l reflux disease without esophagitis (K21.9) Active confirmed Problem 066183365 Gastroesophageal reflux disease, esophagitis presence not specified (K21.9) Active confirmed Problem 58014981 Rectal pain (K62.89) Active confirmed Problem 122471706 Pancreatitis, alcoholic, acute (K85.2) Active confirmed Problem 339633156 Abdominal pain, generalized (R10.84) Active confirmed Problem 88718776 Diarrhea, unspecified type (R19.7) Active confirmed Problem 102980897 Alcohol-induced acute pancreatitis without infection or necrosis [...] Insured Coverage Start Date Coverage End Date [facility] [employer] [facility] [address] [address] [place], [place] [phone] [id number] CARLI PACHECO Self - patient is the insured Medical (General) History Medical History History ICD Code Depression/Anxiety/Psychosis Psoriatic arthritis Arthritis Pancreatitis due to EtOH--arroyo mmer of 2012-in [facility] ICU--he developed a pseudocyst at that time--he describes hospitalizations at [facility] and at [facility] for pancreatitis as well--he describes an ERCP at [facility] for an attempted placement of a stent with Dr. Rodriguez, but this apparently was not successful-he ultimately had a pseudocyst drainage procedure by the interventional radiologist at [facility] in 07/2013. He had a normal [...] Surgical History Surgery Date(Month/Year) Lap CCY at [facility]--03/2014 Bilateral carpal tunnel
--- OUTSIDE RECORDS SUMMARY | 2025-03-23 11:25 | XMS_ITS | Clinical Summary ---
Author Organization [facility] Address [address] [place] [address] Phone Care Team Providers Care Cancer Program Consultant Name Role Phone System, Provider Not In [...] file Insurance MEDICARE PART A & B [facility] MEDICARE PART A & [facility] MEDICARE PART A & B [facility] MEDICARE PART A & B [facility] MEDICARE PART A & B [facility] MEDICARE PART A & B [facility] MEDICARE PART A & B Member Subscriber Plan / Payer (Ef fective 2020-Present) Name:Brian Antonio Member ID:[id number] Relation to Subscriber:Self Name:Brian Antonio Subscriber ID:[id number] Payer ID:[id number] Group ID:Not on file Type:Medicare Address: Eve [address] [place] [phone] [facility] A & B [facility] MEDICARE PART A & B [facility] Care Teams Cancer Program Consultant Relationship Specialty Start Date End Date System, Provider Not In, [employer] [address] [address] PCP - General 09/11/21 Additional Source Comments The information contained in this document represents components of the legal health record. It is not the complete legal health record.[facility]
--- OUTSIDE RECORDS SUMMARY | 2025-03-23 11:25 | XMS_ITS | Patient Health Record ---
[facility] [place] Address [address] [place] [address] Care Team Providers Care Protective Signal Operations Supervisor Name Role Phone Erich Yang Primary Care Provider Unav Jarocho Mes[place] Unavailable [phone] Black, Ame Unavailable [phone] Allergies Allergen (clinical drug ingredient) Drug/Non Drug [...] Problem Acquired hammer toe of right foot (6690565682218464 ) Other hammer toe(s) (acquired), right foot (M20.41) Active confirmed Problem Acquired hammer toe of left foot (1810016373737749 ) Other hammer toe(s) (acquired), left foot (M20.42) Active confirmed Problem Polyneuropathy due to type 2 diabetes mellitus (580784973) Type 2 diabetes mellitus with diabetic polyneuropathy (E11.42) Active confirmed Vital Signs Blood pressure diastolic 71 mm Hg 01/18/2025 Height 5ft 9in in 01/18/2025 Blood pressure systolic 127 mm Hg 01/18/2025 Weight 220 lbs 01/18/2025 BMI 32.48 kg/m2 01/18/2025 Procedures Procedure Date Ordered Date Performed Result Body Sit e 89190-HXLZ SKIN LESIONS, 2 TO 4 08/17/2024 N/A J1542-GHXQVPDB DYSTROPHIC NAILS ANY # 08/17/2024 N/A 66573-BSTS SKIN LESIONS, OVER 4 10/19/2024 N/A Z0454-ZVIHHAYG DYSTROPHIC NAILS ANY # 10/19/2024 N/A 93031-WUON SKIN LESIONS, OVER 4 01/18/2025 N/A E3015-GMXBWRNA DYSTROPHIC NAILS ANY # 01/18/2025 N/A Encounters Encounter Location Date [facility] [address] [address] [facility]/17/2024 Jarocho Newsome Type 2 diabetes mellitus with diabetic polyneuropathy E11.42 and Xerosis of skin L85.[address] [address] 10/19/2024 Jarocho Newsome Type 2 diabetes mellitus with diabetic polyneuropathy E11.[address] [address] 01/18/2025 Amerobyn Mitchell Type 2 diabetes mellitus with diabetic polyneuropathy E11.42 ; Other hammer toe(s) (acquired), right foot M20.41 and Other hammer toe(s) (acquired), left foot M20.42 [facility] [place] [address] [place] [address] 08/10/2024 Jarocho Newsome Assessments Encounter Date Diagnosis [...] Treatment Pending Test Test Name Order Date 72614-IBPI SKIN LESIONS, OVER 4 10/20/19 25 71352-PYSM SKIN LESIONS, OVER 4 01/19/20 25 97259-MHQO SKIN LESIONS, 2 TO 4 08/17/19 25 R8010-AEZLKSQU DYSTROPHIC NAILS ANY # M6905-NYJJIHQM DYSTROPHIC NAILS ANY # I8255-RYHLZGLU DYSTROPHIC NAILS ANY # Next Appt Details Provider Name:Ame Harsha Mitchell , 04/19/2025 11:00:00 AM, [address] [facility], [place], [address], Insurance Providers Payer Name Payer Address Payer Phone Subscriber Number Group Number Insured Name Patient Relationship to Insured Coverage Start Date Coverage End Date [facility] [employer] Claims [address] [place] [id number] Brian Antonio Self - patient is the insured Medical (General) History Medical History History ICD Code Depression Diabetic Stomach ulcer Transfusions Hospitalization History Reason Date(Month/Year) wisdom teeth 2024
--- OUTSIDE RECORDS SUMMARY | 2025-03-23 11:25 | XMS_ITS | Clinical Summary ---
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
--- OUTSIDE RECORDS SUMMARY | 2025-03-23 11:26 | XMS_ITS | Clinical Summary ---
Author Organization [facility] Address [address] [address] Phone Care Team Providers Care Syrup Filterer Name Role Phone Erich Rodriguez NP Primary Care Provider [phone] Allergies Active Allergy Reactions Criticality Noted Date [...] mouth at bed time 1 Active Creon 00479-61102 units capsule TAKE TWO CAPSULES BY MOUTH THREE TIMES A DAY WITH MEALS AND/OR SNACKS 1 Active pantoprazole (PROTONIX) 40 MG EC tablet Take 40 mg by mouth 1 (one) time each day 1 Active Active Problems Problem Noted Date Diagnosed Date Alcohol-induced acute pancreatitis 12/21/2024 Jfcno-at-udsmknt renal failure 07/09/2021 Chronic pancreatitis 07/09/2021 Testosterone [...] Care Team (Late st Contact Info) Description 05/02/2025 9:00 AM EDT Office Visit [facility] [address] [address] Jamar Verde MD [address] [place] [phone] Health Maintenance Due Date Last Done Comments [...] PM EST) Hemoglobin A1C 11.5(H) (4.0-5.6) % [facility] Comment: MONITORING: In known diabetic patients, hemoglobin A1c targets should be discussed with health care provider. DIAGNOSTIC USE: The [place] Diabetes Association (ADA) and the World Health [...] Supplement 1 Testing performed or reported by [facility], a Service of [facility], [address] [place] [id number] Ashlyn Damian MD, Oracle Fusion Consultant [facility]# [id number] Blood specimen (specimen) Venous blood / Unknown 07/10/2021 3:44 PM EST 07/10/2021 3:46 PM EST Quinten Escalante MD LAB BLOOD ORDERABLES Final Re sult [facility] from Last 3 Months or Most Recently Relevant to Health Maintenance Insurance [facility] ([id number]) [place] [phone] Care Teams Syrup Filterer Relationship Specialty Start Date End Date Erich Rodriguez NP [address] [facility] [place] [address] PCP - General Nurse Practitioner 10/25/24
== END 2025-03-23 11:39 | disposition home or self-care (01) ==
LOC: HO.ENCR 10:32
PROVIDERS: PCP Nurse Practitioner Family; Visit Provider Internal Medicine Endocrinology, Diabetes & Metabolism
DX: E29.1 Testicular hypofunction (principal); E13.9 Other specified diabetes mellitus without complications; S36.209S Unspecified injury of unspecified part of pancreas, sequela
CPT/HCPCS: 99214; G2211

== ENCOUNTER → 2025-03-23 10:31 | Outpatient (BNVA) | payer OTHER, SELFPAY | PROVIDERS: PCP Nurse Practitioner Family; Visit Provider Internal Medicine Endocrinology, Diabetes & Metabolism | DX: E29.1 Testicular hypofunction (principal); E13.9 Other specified diabetes mellitus without complications; S36.209S Unspecified injury of unspecified part of pancreas, sequela | CPT/HCPCS: 82947; 83036; 99212 ==

== ENCOUNTER 2025-04-13 10:29 | Outpatient (REF) | payer OTHER, SELFPAY ==
--- NOTE | ~2025-04-13 | MR_ITS ---
CLINICAL HISTORY: K85.90 - Acute pancreatitis without necrosis or infection, unspecified --- Additional Notes or Special Instructions: f u mri--prior with dilated PD, exclude IPMN MRI pancreas without/with contrast Comparison: 01/23/2025, 05/18/2024 Findings: No significant focal pancreatic abnormality on current study. Pancreatic duct is unchanged in caliber from prior study. Hepatomegaly with fatty infiltration of the liver. No significant abnormality in the spleen or adrenal glands. Kidneys homogeneous with normal enhancement. No other abdominal abnormality identified. Impression: Hepatomegaly with fatty infiltration of the liver No other significant abnormality This document has been electronically signed by: Luca Yun MD on 04/13/2025 21:33:11
--- OUTSIDE RECORDS SUMMARY | 2025-04-13 13:03 | XMS_ITS | Clinical Summary ---
Author Organization [facility] ity Address [address] [place] [address] Care Team Providers Care Supervisor Metal Fabricating Name Role Phone Unavailable Primary Care Provider [...] of 3 - 19+ 3-dose series) 2000 Depression Screening 07/28/2024 COVID-19 Vaccine (1 - 2023-2 5 season) 2025 Influenza Vaccine (#1) 2025 HIB Vaccines Aged [...] Documents on File Type Date Recorded Patient Carbide Die Maker Expl anation Health Care Decision (hx) 11/16/2014 AD PLATT DIRECTIVE Health Care Decision (hx) 11/14/2014 AD PLATT DIRECTIVE
--- OUTSIDE RECORDS SUMMARY | 2025-04-13 13:03 | XMS_ITS | Patient Health Record ---
[facility] [place] Address [address] [facility] [place] [address] Care Team Providers Care Legal Specialist Name Role Phone Erich Yang Primary Care Provider Unav Jarocho [place] Unavailable [phone] Black, Ame Unavailable [phone] Allergies Allergen (clinical drug ingredient) Drug/Non Drug [...] Problem Acquired hammer toe of right foot (5927730374230272 ) Other hammer toe(s) (acquired), right foot (M20.41) Active confirmed Problem Acquired hammer toe of left foot (1297681163493496 ) Other hammer toe(s) (acquired), left foot (M20.42) Active confirmed Problem Polyneuropathy due to type 2 diabetes mellitus (310878976) Type 2 diabetes mellitus with diabetic polyneuropathy (E11.42) Active confirmed Vital Signs Blood pressure diastolic 71 mm Hg 01/18/2025 Height 5ft 9in in 01/18/2025 Blood pressure systolic 127 mm Hg 01/18/2025 Weight 220 lbs 01/18/2025 BMI 32.48 kg/m2 01/18/2025 Procedures Procedure Date Ordered Date Performed Result Body Sit e 32930-EKLV SKIN LESIONS, 2 TO 4 08/17/2024 N/A F7677-XHQGAGBL DYSTROPHIC NAILS ANY # 08/17/2024 N/A 79990-XWPB SKIN LESIONS, OVER 4 10/19/2024 N/A F7960-LSDDIMTF DYSTROPHIC NAILS ANY # 10/19/2024 N/A 30683-SXJL SKIN LESIONS, OVER 4 01/18/2025 N/A E6327-GQDBEGIX DYSTROPHIC NAILS ANY # 01/18/2025 N/A Encounters Encounter Location Date [facility] [address] [address] 08/17/2024 Jarocho Newsome Type 2 diabetes mellitus with diabetic polyneuropathy E11.42 and Xerosis of skin L85.[address] [address] 10/19/2024 Jarocho Newsome Type 2 diabetes mellitus with diabetic polyneuropathy E11.[address] [address] 01/18/2025 Amerobyn Mitchell Type 2 diabetes mellitus with diabetic polyneuropathy E11.42 ; Other hammer toe(s) (acquired), right foot M20.41 and Other hammer toe(s) (acquired), left foot M20.42 [facility] [place] [address] [place] [address] 08/10/2024 Jarocho Newsome Assessments Encounter Date Diagnosis [...] with diabetic polyneuropathy (ICD-10 - E11.42) 08/17/2024 Type 2 diabetes mellitus with diabetic polyneuropathy (ICD-10 - E11.42) 08/17/2024 Xerosis of skin (ICD-10 - L85.3) 01/18/2025 Other hammer toe(s) (acquired), left foot (ICD-10 - M20.42) Plan Of Treatment Pending Test Test Name Order Date 18011-OZYA SKIN LESIONS, OVER 4 10/20/19 25 37750-BSKL SKIN LESIONS, OVER 4 01/19/20 25 20968-QPLM SKIN LESIONS, 2 TO 4 08/17/19 25 W6636-XIYNRNEZ DYSTROPHIC NAILS ANY # R7718-REBSUBTP DYSTROPHIC NAILS ANY # J0993-GIRIWRJR DYSTROPHIC NAILS ANY # Next Appt Details Provider Name:Ame Harsha Mitchell , 04/19/2025 11:00:00 AM, [address] [facility], [place], [address], Insurance Providers Payer Name Payer Address Payer Phone Subscriber Number Group Number Insured Name Patient Relationship to Insured Coverage Start Date Coverage End Date [facility] [employer] S[employer] Claims [address] [place] [id number] Brian Antonio Self - patient is the insured Medical (General) History Medical History History ICD Code Depression Diabetic Stomach ulcer Transfusions Hospitalization History Reason Date(Month/Year) wisdom teeth 2024
--- OUTSIDE RECORDS SUMMARY | 2025-04-13 13:03 | XMS_ITS | Clinical Summary ---
Author Organization [facility] Address [address] [place] [address] Phone Care Team Providers Care Floor Covering Printer Assistant Name Role Phone System, Provider Not In [...] HIV ONE-TIME SCREENING (18-6 5 YEARS) 10/12/1999 INFLUENZA VACCINE (#1) 2025 COVID-19 VACCINE (2023-2 5 season) 2025 HEPATITIS A VACCINES Aged Out No long [...] file Insurance MEDICARE PART A & [place] [address] [place] [address] MEDICARE PART A & B [facility] MEDICARE PART A & B Member Subscriber Plan / Payer (Ef fective 2020-Present) Name:Brian Antonio Member ID:[id number] Relation to Subscriber:Self Name:Brian Antonio Subscriber ID:[id number] Payer ID:[id number] Group ID:Not on file Type:Medicare Address: [employer] [facility] [address] [place] [phone] [facility] MEDICARE PART A & B [facility] MEDICARE PART A & B [facility] MEDICARE PART A & B [facility] MEDICARE PART A & B [facility]IC[facility] PART A & [facility] B [facility] MEDICARE PART A & B [facility] Care Teams Floor Covering Printer Assistant Relationship Specialty Start Date End Date System, Provider Not In, [employer] [address] [address] PCP - General 09/11/21 Additional Source Comments The information contained in this document represents components of the legal health record. It is not the complete legal health record.[facility]
--- OUTSIDE RECORDS SUMMARY | 2025-04-13 13:03 | XMS_ITS | Clinical Summary ---
Author Organization [facility] Address [address] [address] Phone Care Team Providers Care Tree And Shrub Technician Name Role Phone Erich Rodriguez NP Primary Care Provider [phone] Allergies Active Allergy Reactions Criticality Noted Date [...] mouth at bed time 1 Active Creon 10003-85150 units capsule TAKE TWO CAPSULES BY MOUTH THREE TIMES A DAY WITH MEALS AND/OR SNACKS 1 Active pantoprazole (PROTONIX) 40 MG EC tablet Take 40 mg by mouth 1 (one) time each day 1 Active Active Problems Problem Noted Date Diagnosed Date Alcohol-induced acute pancreatitis 12/21/2024 Fwywv-qv-maynwuz renal failure 07/09/2021 Chronic pancreatitis 07/09/2021 Testosterone [...] [facility] [address] [address] Jamar Verde MD [address] [place] [phone] Health Maintenance Due Date Last Done Comments [...] PM EST) Hemoglobin A1C 11.5(H) (4.0-5.6) % [facility] Comment: MONITORING: In known diabetic patients, hemoglobin A1c targets should be discussed with health care provider. DIAGNOSTIC USE: The [place] Diabetes Association (ADA) and the World Health [...] Supplement 1 Testing performed or reported by [facility], a Service of [facility], [address] [place] [address] Ashlyn Damian MD, Blueprinting And Photocopy Supervisor [facility]# [id number] Blood specimen (specimen) Venous blood / Unknown 07/10/2021 3:44 PM EST 07/10/2021 3:46 PM EST Quinten Escalante MD LAB BLOOD ORDERABLES Final Re sult [facility] from Last 3 Months or Most Recently Relevant to Health Maintenance Insurance [facility] ([id number]) [place] [id number] Care Teams Tree And Shrub Technician Relationship Specialty Start Date End Date Erich Rodriguez NP [address] [place] [address] PCP - General Nurse Practitioner 10/25/24
--- OUTSIDE RECORDS SUMMARY | 2025-04-13 13:03 | XMS_ITS | Patient Health Record ---
Author Organization [facility] Address [address] [place] [address] Care Team Providers Care De Icer Element Winder Name Role Phone SARAH JACKSON Primary Care Provider Chinmay Christine Unavailable [phone] KRISTINE BLUM Unavailable Unavailable Allergies Allergen (clinical [...] 10 unitsas directed Subcutaneous QID Active Creon 80209-71597 UNIT as directed Orally Active Ambien 10 [...] Problem Status W/U Status Risk Notes Problem 998945173 Gastro-esophagea l reflux disease without esophagitis (K21.9) Active confirmed Problem 417341381 Gastroesophageal reflux disease, esophagitis presence not specified (K21.9) Active confirmed Problem 64227181 Rectal pain (K62.89) Active confirmed Problem 048392699 Pancreatitis, alcoholic, acute (K85.2) Active confirmed Problem 253786823 Abdominal pain, generalized (R10.84) Active confirmed Problem 28194925 Diarrhea, unspecified type (R19.7) Active confirmed Problem 073188895 Alcohol-induced acute pancreatitis without infection or necrosis [...] Coverage Start Date Coverage End Date [facility] shoutr [facility] [address] [address] [place], [place] [id number] CARLI PACHECO Self - patient is the insured Medical (General) History Medical History History ICD Code Depression/Anxiety/Psychosis Psoriatic arthritis Arthritis Pancreatitis due to EtOH--arroyo mmer of 2012-in [facility] [place]--he developed a pseudocyst at that time--he describes hospitalizations at [facility] and at [facility] for pancreatitis as well--he describes an ERCP at [facility] for an attempted placement of a stent with Dr. Rodriguez, but this apparently was not successful-he ultimately had a pseudocyst drainage procedure by the interventional radiologist at [facility] in 07/2013. He had a normal [...] Surgical History Surgery Date(Month/Year) Lap CCY at [facility]--03/2014 Bilateral carpal tunnel
== END 2025-04-13 10:30 | disposition home or self-care (01) ==
LOC: HO.MRI 10:29
PROVIDERS: PCP Nurse Practitioner Family; Visit Provider Internal Medicine Gastroenterology
DX: K85.90 Acute pancreatitis without necrosis or infection, unspecified (principal)
CPT/HCPCS: 74183; A9585

== ENCOUNTER → 2025-04-13 10:39 | Outpatient (BNV) | payer OTHER, SELFPAY | PROVIDERS: PCP Nurse Practitioner Family; Visit Provider Radiology Diagnostic Radiology | DX: R16.0 Hepatomegaly, not elsewhere classified (principal); K76.0 Fatty (change of) liver, not elsewhere classified | CPT/HCPCS: 74183 ==

== ENCOUNTER 2025-04-14 09:53 | Outpatient (REF) | payer OTHER, SELFPAY ==
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
--- OUTSIDE RECORDS SUMMARY | 2025-04-14 11:34 | XMS_ITS | Clinical Summary ---
Author Organization [facility] Address [address] [address] Phone Care Team Providers Care Barrel Assembly Inspector Name Role Phone Erich Rodriguez NP Primary Care Provider [phone] Allergies Active Allergy Reactions Criticality Noted Date [...] mouth at bed time 1 Active Creon 31858-75079 units capsule TAKE TWO CAPSULES BY MOUTH THREE TIMES A DAY WITH MEALS AND/OR SNACKS 1 Active pantoprazole (PROTONIX) 40 MG EC tablet Take 40 mg by mouth 1 (one) time each day 1 Active Active Problems Problem Noted Date Diagnosed Date Alcohol-induced acute pancreatitis 12/21/2024 Gfbjk-wy-zqzmqik renal failure 07/09/2021 Chronic pancreatitis 07/09/2021 Testosterone [...] [facility] [address] [address] Jamar Verde MD [address] [place] [phone] Health Maintenance Due Date Last Done Comments [...] PM EST) Hemoglobin A1C 11.5(H) (4.0-5.6) % [facility] Comment: MONITORING: In known diabetic patients, hemoglobin A1c targets should be discussed with health care provider. DIAGNOSTIC USE: The [place] Diabetes Association (ADA) and the World Health [...] Supplement 1 Testing performed or reported by [facility], a Service of [facility], [address] [place] [address] Ashlyn Damian MD, Automobile Tire Builder [facility]# [id number] Blood specimen (specimen) Venous blood / Unknown 07/10/2021 3:44 PM EST 07/10/2021 3:46 PM EST Quinten Escalante MD LAB BLOOD ORDERABLES Final Re sult [facility] from Last 3 Months or Most Recently Relevant to Health Maintenance Insurance [facility] ([id number]) [place] [id number] Care Teams Barrel Assembly Inspector Relationship Specialty Start Date End Date Erich Rodriguez NP [address] [facility] [place] [address] PCP - General Nurse Practitioner 10/25/24
--- OUTSIDE RECORDS SUMMARY | 2025-04-14 11:34 | XMS_ITS | Patient Health Record ---
Author Organization [facility] [place] Address [address] [facility] [place] [place] [address] Care Team Providers Care Analytics Intern Name Role Phone Erich Yang Primary Care Provider Unav Jarocho Mesa Unavailable [phone] Black, Ame Unavailable [phone] Allergies Allergen (clinical drug ingredient) Drug/Non Drug [...] Problem Acquired hammer toe of right foot (5593507905465206 ) Other hammer toe(s) (acquired), right foot (M20.41) Active confirmed Problem Acquired hammer toe of left foot (8440626388497129 ) Other hammer toe(s) (acquired), left foot (M20.42) Active confirmed Problem Polyneuropathy due to type 2 diabetes mellitus (364801817) Type 2 diabetes mellitus with diabetic polyneuropathy (E11.42) Active confirmed Vital Signs Blood pressure diastolic 71 mm Hg 01/18/2025 Height 5ft 9in in 01/18/2025 Blood pressure systolic 127 mm Hg 01/18/2025 Weight 220 lbs 01/18/2025 BMI 32.48 kg/m2 01/18/2025 Procedures Procedure Date Ordered Date Performed Result Body Sit e 65918-FTKP SKIN LESIONS, 2 TO 4 08/17/2024 N/A E5231-ANMDZAIO DYSTROPHIC NAILS ANY # 08/17/2024 N/A 46451-RHFN SKIN LESIONS, OVER 4 10/19/2024 N/A H4610-MLRMMPWN DYSTROPHIC NAILS ANY # 10/19/2024 N/A 84708-UGWX SKIN LESIONS, OVER 4 01/18/2025 N/A Y0900-WXBFLUPT DYSTROPHIC NAILS ANY # 01/18/2025 N/A Encounters Encounter Location Date Provider [facility] [address] [address] 08/17/2024 Jarocho Newsome Type 2 diabetes mellitus with diabetic polyneuropathy E11.42 and Xerosis of skin L85.[address] [address] 10/19/2024 Jarocho Newsome Type 2 diabetes mellitus with diabetic polyneuropathy E11.[address] [address] 01/18/2025 Amerobyn Mitchell Type 2 diabetes mellitus with diabetic polyneuropathy E11.42 ; Other hammer toe(s) (acquired), right foot M20.41 and Other hammer toe(s) (acquired), left foot M20.42 [facility] [place] [address] [place] [address] 08/10/2024 Jarocho Newsome Assessments Encounter Date Diagnosis [...] Treatment Pending Test Test Name Order Date 08096-ELJT SKIN LESIONS, OVER 4 10/20/19 25 30368-TXCC SKIN LESIONS, OVER 4 01/19/20 25 47261-GAYZ SKIN LESIONS, 2 TO 4 08/17/19 25 G4290-YWMGHWAO DYSTROPHIC NAILS ANY # I1631-ISRMHPXA DYSTROPHIC NAILS ANY # J7173-FNGJOXHB DYSTROPHIC NAILS ANY # Next Appt Details Provider Name:Ame Harsha Mitchell , 04/19/2025 11:00:00 AM, [address] [facility], [place], [address], Insurance Providers Payer Name Payer Address Payer Phone Subscriber Number Group Number Insured Name Patient Relationship to Insured Coverage Start Date Coverage End Date [facility] [employer] Claims [address] [place] [id number] Brian Antonio Self - patient is the insured Medical (General) History Medical History History ICD Code Depression Diabetic Stomach ulcer Transfusions Hospitalization History Reason Date(Month/Year) wisdom teeth 2024
--- OUTSIDE RECORDS SUMMARY | 2025-04-14 11:34 | XMS_ITS | Patient Health Record ---
Author Organization [facility] Address [address] [place] [address] Care Team Providers Care Theology Professor Name Role Phone SARAH JACKSON Primary Care Provider Chinmay Christine Unavailable [phone] KRISTINE BLUM Unavailable Unavailable Allergies Allergen (clinical [...] 10 unitsas directed Subcutaneous QID Active Creon 94846-03971 UNIT as directed Orally Active Ambien 10 [...] Problem Status W/U Status Risk Notes Problem 822329032 Gastro-esophagea l reflux disease without esophagitis (K21.9) Active confirmed Problem 553399633 Gastroesophageal reflux disease, esophagitis presence not specified (K21.9) Active confirmed Problem 28113439 Rectal pain (K62.89) Active confirmed Problem 417690905 Pancreatitis, alcoholic, acute (K85.2) Active confirmed Problem 937070559 Abdominal pain, generalized (R10.84) Active confirmed Problem 88825523 Diarrhea, unspecified type (R19.7) Active confirmed Problem 370277040 Alcohol-induced acute pancreatitis without infection or necrosis [...] Insured Coverage Start Date Coverage End Date [facility] [address] [address] [place], [place] [id number] CARLI PACHECO Self - patient is the insured Medical (General) History Medical History History ICD Code Depression/Anxiety/Psychosis Psoriatic arthritis Arthritis Pancreatitis due to EtOH--ar[place]o mmer of 2012-in [facility] [place]--he developed a pseudocyst at that time--he describes hospitalizations at [facility] and at [facility] for pancreatitis as well--he describes an ERCP at [facility] for an attempted placement of a stent with Dr. Rodriguez, but this apparently was not successful-he ultimately had a pseudocyst drainage procedure by the interventional radiologist at [facility] in 07/2013. He had a normal [...] Surgical History Surgery Date(Month/Year) Lap CCY at [facility]--03/2014 Bilateral carpal tunnel
--- OUTSIDE RECORDS SUMMARY | 2025-04-14 11:34 | XMS_ITS | Clinical Summary ---
Author Organization [facility] Address [address] [place] [address] Care Team Providers Care Stamp Analyst Name Role Phone Unavailable Primary Care Provider [...] 5 season) 2025 Influenza Vaccine (#1) 2025 RSV Immunization Adult Patie nts (1 - 1-dose 75+ series) 2056 HIB Vaccines Aged Out No longer eligi [...] Documents on File Type Date Recorded Patient Braille Typist Expl anation Health Care Decision (hx) 11/16/2014 AD PLATT DIRECTIVE Health Care Decision (hx) 11/14/2014 AD PLATT DIRECTIVE
--- OUTSIDE RECORDS SUMMARY | 2025-04-14 11:34 | XMS_ITS | Clinical Summary ---
Author Organization [facility] Address [address] [place] [address] Phone Care Team Providers Care Postdoctoral Scholar Name Role Phone System, Provider Not In [...] file Insurance MEDICARE PART A & [place] [address] MEDICARE PART A & B [facility] MEDICARE PART A & B [facility] MEDICARE PART A & B [facility] MEDICARE PART A & B [facility] MEDICARE PART A & B [facility] MEDICARE PART A & B [facility] MEDICARE PART A & B [facility] MEDICARE PART A & B [facility] MEDICARE PART A & B [facility] Care Teams Postdoctoral Scholar Relationship Specialty Start Date End Date System, Provider Not In, PhD [employer] [address] [address] PCP - General 09/11/21 Additional Source Comments The information contained in this document represents components of the legal health record. It is not the complete legal health record.[facility]
== END 2025-04-14 09:54 | disposition home or self-care (01) ==
LOC: HO.NEURO 09:53
PROVIDERS: PCP Nurse Practitioner Family; Visit Provider Nurse Practitioner Family
DX: G93.9 Disorder of brain, unspecified (principal); R40.20 Unspecified coma; Z87.828 Personal history of other (healed) physical injury and trauma
CPT/HCPCS: 95816

== ENCOUNTER → 2025-04-14 09:56 | Outpatient (BNV) | payer OTHER, SELFPAY | PROVIDERS: PCP Nurse Practitioner Family; Visit Provider Psychiatry & Neurology Neurology | DX: G93.9 Disorder of brain, unspecified (principal) | CPT/HCPCS: 95816 ==

== ENCOUNTER 2025-06-14 09:11 | Outpatient (AMB) | payer OTHER, SELFPAY ==
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
[2025-06-14 09:15] VITALS: BP 142/88; PULSE 95; O2SAT 98; BMI 37.3
== END 2025-06-14 09:43 | disposition home or self-care (01) ==
LOC: HO.HSMS 09:12
PROVIDERS: PCP Nurse Practitioner Family; Visit Provider Psychiatry & Neurology Neurology
DX: G47.33 Obstructive sleep apnea (adult) (pediatric) (principal); R56.9 Unspecified convulsions
CPT/HCPCS: 99214; G2211

== ENCOUNTER → 2025-06-14 09:11 | Outpatient (BNVA) | payer OTHER, SELFPAY | PROVIDERS: PCP Nurse Practitioner Family; Visit Provider Psychiatry & Neurology Neurology | DX: G47.33 Obstructive sleep apnea (adult) (pediatric) (principal); R56.9 Unspecified convulsions | CPT/HCPCS: 99212 ==

== ENCOUNTER 2025-07-04 10:56 | Outpatient (AMB) | payer OTHER, SELFPAY ==
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
[2025-07-04 11:04] VITALS: BP 133/80; PULSE 81; O2SAT 96; BMI 34.5
== END 2025-07-04 11:35 | disposition home or self-care (01) ==
LOC: HO.HGI 10:57
PROVIDERS: PCP Nurse Practitioner Family; Visit Provider Internal Medicine Gastroenterology
DX: K86.0 Alcohol-induced chronic pancreatitis (principal)
CPT/HCPCS: 99214

== ENCOUNTER → 2025-07-04 10:56 | Outpatient (BNVA) | payer OTHER, SELFPAY | PROVIDERS: PCP Nurse Practitioner Family; Visit Provider Internal Medicine Gastroenterology | DX: K86.0 Alcohol-induced chronic pancreatitis (principal) | CPT/HCPCS: 99212 ==

== ENCOUNTER 2025-07-05 13:26 | Outpatient (REF) | payer OTHER, SELFPAY ==
--- NOTE | ~2025-07-05 | US_ITS ---
EXAMINATION: US LOWER EXTREMITY VENOUS (REFLUX EXAM), BILATERAL CLINICAL INFORMATION: I83.11 - Varicose veins of right lower extremity with inflammation. History of right leg venaseal procedure April 2020 COMPARISON: Previous exam August 2020 TECHNIQUE: Color flow triplex imaging and compression Doppler was performed to evaluate both the deep and the superficial systems bilaterally. To evaluate the superficial system, the examination was performed in the upright position. Color-flow Doppler ultrasound and compression ultrasound were utilized. In addition, maneuvers were utilized to demonstrate reflux. FINDINGS: 1. DEEP VENOUS ULTRASOUND OF THE RIGHT LOWER EXTREMITY: Common Femoral Vein: Compressible, normal respiratory variation and augmented flow. Femoral Vein: Compressible, normal color flow and augmentation. Popliteal Vein: Compressible, normal augmentation. Deep Reflux: There is no evidence of reflux in the deep system in either the common femoral vein, superficial femoral or the popliteal vein. There is no evidence of a Peters's cyst. 2. SUPERFICIAL ULTRASOUND WITH DOPPLER OF RIGHT LOWER EXTREMITY: GREAT SAPHENOUS VEIN: Saphenofemoral Junction: 0.9 cm; Reflux: 0 ms Proximal Thigh: 0.6 cm; Reflux: 2240 ms Mid Thigh: 0.2 cm; Reflux: 0 ms Distal Thigh: 0.2 cm; Reflux: 0 ms At Knee: 0.3 cm; Reflux: 0 ms Proximal Calf: 0.4 cm; Reflux: 2376 ms Mid Calf: 0.3 cm; Reflux: 1568 ms Distal Calf: 0.3 cm; Reflux: 0 ms Post venaseal changes seen in the proximal and mid thigh with decreased compression and echogenic material. DUPLICATED MEDIAL GREAT SAPHENOUS VEIN: Diameter: None imaged Reflux: NA DUPLICATED LATERAL GREAT SAPHENOUS VEIN: Diameter: 0.3 to 0.2 cm Reflux: NA SMALL SAPHENOUS VEIN: Saphenopopliteal Junction: 0.3 cm; Reflux: 0 ms Proximal: 0.3 cm; Reflux: 0 ms Distal: 0.3 cm; Reflux: 0 ms VEIN OF GIACOMINI: Size: 0.3 cm Reflux: NA PERFORATORS: Location: Calf Size: 0.2 to 0.3 cm Reflux: NA VARICOSITIES: Location: Proximal thigh Size: 0.4 cm Reflux: 1924 ms 3. DEEP VENOUS ULTRASOUND OF THE LEFT LOWER EXTREMITY: Common Femoral Vein: Compressible, normal respiratory variation and augmented flow. Femoral Vein: Compressible, normal color flow and augmentation. Popliteal Vein: Compressible, normal augmentation. Deep Reflux: There is no evidence of reflux in the deep system in either the common femoral vein or superficial femoral. There is deep venous reflux in the popliteal vein measuring 544 ms There is no evidence of a Peters's cyst. 4. SUPERFICIAL ULTRASOUND WITH DOPPLER OF LEFT LOWER EXTREMITY: GREAT SAPHENOUS VEIN: Saphenofemoral Junction: 0.9 cm; Reflux: 0 ms Proximal Thigh: 0.4 cm; Reflux: 0 ms Mid Thigh: 0.3 cm; Reflux: 0 ms Distal Thigh: 0.3 cm; Reflux: 0 ms At Knee: 0.4 cm; Reflux: 0 ms Proximal Calf: 0.3 cm; Reflux: 0 ms Mid Calf: 0.2 cm; Reflux: 0 ms Distal Calf: 0.4 cm; Reflux: 0 ms DUPLICATED MEDIAL GREAT SAPHENOUS VEIN: Diameter: None imaged Reflux: NA DUPLICATED LATERAL GREAT SAPHENOUS VEIN: Diameter: 0.3-0.4 Reflux: NA SMALL SAPHENOUS VEIN: Saphenopopliteal Junction: 0.2 cm; Reflux: 0 ms Proximal: 0.1 cm; Reflux: 0.4 ms Distal: cm; Reflux: 0 ms VEIN OF GIACOMINI: Size: NA Reflux: NA PERFORATORS: Location: At the knee and in the calf Size: 0.2 to 0.3 cm Reflux: NA VARICOSITIES: Location: None Imaged Size: NA Reflux: NA US/US venous duplex LE BI IMPRESSION: Right: No evidence of DVT or deep venous reflux. Slightly dilated greater saphenous vein at the saphenofemoral junction and proximal thigh. Post venaseal changes seen in the proximal and mid thigh with decreased compression and echogenic material. Right greater saphenous vein appears patent. Reflux in the right greater saphenous vein in the proximal thigh, proximal calf and midcalf, maximum 2.4 seconds in the proximal calf. Patent VEIN OF GIACOMINI measuring 0.3 cm without reflux. Normal caliber lesser saphenous vein without reflux. Small perforators in the calf without reflux. Small varicosity in the proximal thigh with 1.9 second reflux. Left: No evidence of DVT. Deep venous reflux in the popliteal vein measuring 0.5 seconds. No greater or lesser saphenous vein reflux. Small perforators without reflux. Electronically signed by: Christine Ramirez MD 07/05/2025 03:22 PM EST ADRIANO
--- OUTSIDE RECORDS SUMMARY | 2025-07-05 18:55 | XMS_ITS | Clinical Summary ---
Author Organization [facility] Address [address] [place] [address] Phone Care Team Providers Care Thread Marker Name Role Phone System, Provider Not In [...] 10/12/1999 INFLUENZA VACCINE (#1) 2025 COVID-19 VACCINE (2024-2 6 season) 2025 HEPATITIS A VACCINES Aged Out [...] file Insurance MEDICARE PART A & [place] [address] [place] [address] MEDICARE PART A & B [facility] MEDICARE PART A & B [facility] MEDICARE PART A & B [facility] MEDICARE PART A & B [facility] MEDICARE PART A & B [facility] MEDICARE PART A & B [facility] MEDICARE PART A & B [facility] MEDICARE PART A & B [facility] MEDICARE PART A & B [facility] Care Teams Thread Marker Relationship Specialty Start Date End Date System, Provider Not In, PhD [employer] [address] [address] PCP - General 09/11/21 Additional Source Comments The information contained in this document represents components of the legal health record. It is not the complete legal health record.[facility]
--- OUTSIDE RECORDS SUMMARY | 2025-07-05 18:55 | XMS_ITS | Clinical Summary ---
Author Organization [facility] ity Address [address] [place] [address] Care Team Providers Care Dot Compliance Manager Name Role Phone Unavailable Primary Care Provider [...] of 3 - 19+ 3-dose series) 2000 HPV Vaccines (1 - 3-dose SCD M series) 2008 Depression Screening 07/28/2024 COVID-19 Vaccine (1 - 2024-2 6 season) 2025 Influenza Vaccine (#1) 2025 RSV [...] Documents on File Type Date Recorded Patient Forming And Assembling Supervisor Expl anation Health Care Decision (hx) 11/16/2014 AD LC DIRECTIVE Health Care Decision (hx) 11/14/2014 AD LC DIRECTIVE
--- OUTSIDE RECORDS SUMMARY | 2025-07-05 18:55 | XMS_ITS | Clinical Summary ---
Author Organization [facility] Address [address] [address] Phone Care Team Providers Care Wind Up Operator Name Role Phone Erich Rodriguez NP Primary Care Provider [phone] Allergies Active Allergy Reactions Criticality Noted Date Comments Penicillins Other (see comments) 07/09/2021 Other Reaction(s): ANAPHYLAXIS Sulfa Antibiotics Other (see comments) 07/09/2021 Sulfamethoxazole-Trime thoprim 06/08/2025 Other Reaction(s): Unknown Medications amitriptyline (ELAVIL) 50 MG tablet Take [...] mouth at bed time 1 Active Creon 84043-27842 units capsule TAKE TWO CAPSULES BY MOUTH THREE TIMES A DAY WITH MEALS AND/OR SNACKS 1 Active pantoprazole (PROTONIX) 40 MG EC tablet Take 40 mg by mouth 1 (one) time each day 1 Active Active Problems Problem Noted Date Diagnosed Date Chronic kidney disease, stage 2 (mild) 5 Polyneuropathy due to type 2 diabetes mellitus 0 04/20/2025 [id number] renal failure 07/09/2021 Essential hypertension 07/09/2021 History of drug abuse 07/09/2021 Type 1 diabetes mellitus 07/09/2021 Ventricular tachycardia 07/09/2021 Encounters Date Type Department Care Team Description 06/10/2025 9:45 AM EST Office Visit [facility] [address] [address] Jamar Verde MD Type 1 diabetes mellitus, not otherwise specified (HCC) (Primary Dx); Chronic kidney disease, stage 2 (mild) from Last 3 Months Immunizations Immunization Administration Dates Next Due Pneumococcal Polysaccharide 04/21/2013 Family History Medical History Relation Comments Heart disease Father paternal family Hx Hypertension Father Hypertension Mother Relation Status Comments Father Alive Mother Social History Tobacco Use Types Packs/Day Years Used Date Smoking Tobacco: Every Day Cigarettes Smokeless Tobacco: Never Tobacco Cessation:Ready to Q uit: Not Asked; Counseling Given: Not Answered Sex and Gender Information Value Date Recorded Sex Assigned at Not on file Legal Sex Male 4:50 PM EST Gender Identity Not on file Sexual Orientation Not on file Last Filed Vital Signs Vital Sign Reading Time Taken Comments Blood Pressure 140/80 06/10/2025 9:55 AM EST Pulse 103 06/10/2025 9:55 AM EST Temperature - - Respiratory Rate - - Oxygen Saturation 98% 06/10/2025 9:55 AM EST Inhaled Oxygen Concentration - - Weight 109 kg (241 lb) 06/10/2025 9:55 AM EST Height 172.7 cm (5' 8 ) 07/10/2021 3:22 PM EST Body Mass Index 36.64 07/10/2021 3:22 PM EST Plan of Treatment Upcoming Encounters Date Type Department Care Team (Late st Contact Info) Description 06/06/2026 1:00 PM EST [facility] [address] [address] Jamar Verde MD [address] [address] Health Maintenance Due Date Last [...] PM EST) Hemoglobin A1C 11.5(H) (4.0-5.6) % [facility] Comment: MONITORING: In known diabetic patients, hemoglobin A1c targets should be discussed with health care provider. DIAGNOSTIC USE: The [place] Diabetes Association (ADA) and the World Health [...] Supplement 1 Testing performed or reported by [facility], a Service of [address] [address] Ashlyn Damian MD, Biomedical Engineering Director [facility]# [id number] Blood specimen (specimen) Venous blood / Unknown 07/10/2021 3:44 PM EST 07/10/2021 3:46 PM EST us Quinten Escalante MD LAB BLOOD ORDERABLES Final Re sult [facility] from Last 3 Months or Most Recently Relevant to Health Maintenance Insurance [facility] ([id number]) [place] [phone] Care Teams Wind Up Operator Relationship Specialty Start Date End Date Erich Rodriguez NP [address] [place] [address] PCP - General Nurse Practitioner 10/25/24
== END 2025-07-05 13:27 | disposition home or self-care (01) ==
LOC: HO.US 13:26
PROVIDERS: PCP Nurse Practitioner Family; Visit Provider Surgery Vascular Surgery
DX: I83.11 Varicose veins of right lower extremity with inflammation (principal)
CPT/HCPCS: 93970

== ENCOUNTER → 2025-07-05 13:30 | Outpatient (BNV) | payer OTHER, SELFPAY | PROVIDERS: PCP Nurse Practitioner Family; Visit Provider Radiology Diagnostic Radiology | DX: I83.11 Varicose veins of right lower extremity with inflammation (principal) | CPT/HCPCS: 93970 ==

== ENCOUNTER 2025-07-11 08:27 | Outpatient (REF) | payer OTHER, SELFPAY ==
--- NOTE | ~2025-07-11 | XR_ITS ---
EXAMINATION: XR KNEE, LEFT CLINICAL INFORMATION: M25.562 - Pain in left knee COMPARISON: None available. TECHNIQUE: AP bilateral standing, sunrise, and lateral views of the left knee. FINDINGS: There is subtle narrowing of the medial joint space. There is no joint effusion. Minute marginal sites are present along the lateral patellofemoral joint line. There are no erosions. XR/XR knee LT 3V IMPRESSION: Very mild degenerative changes. Electronically signed by: Luis Carlos Meyers MD 07/11/2025 09:50 AM [place]
--- OUTSIDE RECORDS SUMMARY | 2025-07-12 08:54 | XMS_ITS | Patient Health Record ---
[facility] Daphne mukul [place] Address [address] [place] [address] Care Team Providers Care Printing Film Stripper Name Role Phone Erich Yang Primary Care Provider Unav Jarocho [place] Unavailable [phone] Black, Ame Unavailable [phone] Allergies Allergen (clinical drug ingredient) Drug/Non Drug [...] Twice a day; Duration: 30 days Active Extra Depth Orthopedic Shoes (1 Pair) with Customized Heat Molded Multidensity Innersoles (3 Pair) Dx: NIDDM/Polyneuropathy (E11.42), Hammertoe Foot Deformity (M20.41,M20.42), Preulcerative Skin Lesion(s) (L85.1); Duration: 365 days Active Methadone HCl Active Ambien Active Gabapentin Active Immunizations Vaccine Route Administration Date Status [...] Problem Acquired hammer toe of right foot (2943329247885436 ) Other hammer toe(s) (acquired), right foot (M20.41) Active confirmed Problem Acquired hammer toe of left foot (4022390715019238 ) Other hammer toe(s) (acquired), left foot (M20.42) Active confirmed Problem Polyneuropathy due to type 2 diabetes mellitus (158273834) Type 2 diabetes mellitus with diabetic polyneuropathy (E11.42) Active confirmed Vital Signs Blood pressure diastolic 71 mm Hg 04/19/2025 Height 5ft 9in in 04/19/2025 Blood pressure systolic 127 mm Hg 04/19/2025 Weight 220 lbs 04/19/2025 BMI 32.48 kg/m2 04/19/2025 Procedures Procedure Date Ordered Date Performed Result Body Sit e 63357-EPYK SKIN LESIONS, 2 TO 4 08/17/2024 N/A F0572-HUPWIXUG DYSTROPHIC NAILS ANY # 08/17/2024 N/A 66750-WCKI SKIN LESIONS, OVER 4 10/19/2024 N/A K8397-HDTUGOTN DYSTROPHIC NAILS ANY # 10/19/2024 N/A 16423-RQQO SKIN LESIONS, OVER 4 01/18/2025 N/A G1306-ZYCGIUSC DYSTROPHIC NAILS ANY # 01/18/2025 N/A 47349-PCIP SKIN LESIONS, OVER 4 04/19/2025 N/A W9183-EBTGTCAA DYSTROPHIC NAILS ANY # 04/19/2025 N/A Encounters Encounter Location Date Provider Diagnosis [address] [address] 08/17/2024 Jarocho Newsome Type 2 diabetes mellitus with diabetic polyneuropathy E11.42 and Xerosis of skin L85.[address] [address] 10/19/2024 Jarocho Newsome Type 2 diabetes mellitus with diabetic polyneuropathy E11.[address] [address] 01/18/2025 Ame Black Type 2 diabetes mellitus with diabetic polyneuropathy E11.42 ; Other hammer toe(s) (acquired), right foot M20.41 and Other hammer toe(s) (acquired), left foot M20.42 [facility] [address] [address] 04/19/2025 Ame Black Type 2 diabetes mellitus with diabetic polyneuropathy E11.42 ; Other hammer toe(s) (acquired), right foot M20.41 and Other hammer toe(s) (acquired), left foot M20.42 [facility] [address] [place] [address] 08/10/2024 Jarocho Newsome Assessments Encounter Date Diagnosis [...] mellitus with diabetic polyneuropathy (ICD-10 - E11.42) 04/19/2025 Other hammer toe(s) (acquired), right foot (ICD-10 - M20.41) Patient Educated with: DIABETIC FOOT CARE INSTRUCTIONS. pdf (DIABETIC FOOT CARE INSTRUCTIONS. pdf) 04/19/2025 Type 2 diabetes mellitus with diabetic polyneuropathy (ICD-10 - E11.42) 04/19/2025 Other hammer toe(s) (acquired), left foot (ICD-10 - M20.42) 01/18/2025 Other hammer toe(s) (acquired), left foot (ICD-10 - M20.42) Plan Of Treatment Pending Test Test Name Order Date 64773-CGJY SKIN LESIONS, OVER 4 10/20/19 52755-JMAN SKIN LESIONS, OVER 4 01/19/20 16289-YNXG SKIN LESIONS, OVER 4 04/19/20 82817-KSYR SKIN LESIONS, 2 TO 4 08/17/19 25 M6241-XISYJOCO DYSTROPHIC NAILS ANY # H8179-DSSXODNV DYSTROPHIC NAILS ANY # H1107-FAWRLEVX DYSTROPHIC NAILS ANY # Y1450-JQZQXLZS DYSTROPHIC NAILS ANY # Next Appt Details Provider Name:Ame Mitchell , 08/03/2025 10:00:00 AM, [address] [facility], [place], [address], Insurance Providers Payer Name Payer Address Payer Phone Subscriber Number Group Number Insured Name Patient Relationship to Insured Coverage Start Date Coverage End Date [facility] [employer] Claims [address] [place] [id number] Brian Antonio Self - patient is the insured Medical (General) History Medical History History ICD Code Depression Diabetic Stomach ulcer Transfusions Surgical History Surgery Date(Month/Year) Gall bladder removal Hernia Repair oral surgery Hospitalization History Reason Date(Month/Year) wisdom teeth 2024
--- OUTSIDE RECORDS SUMMARY | 2025-07-12 08:54 | XMS_ITS | Clinical Summary ---
Author Organization [facility] Address [address] [place] [address] Phone Care Team Providers Care Quality Assurance Inspector Name Role Phone System, Provider Not In [...] file Insurance MEDICARE PART A & [place] [address] [address] MEDICARE PART A & B [facility] MEDICARE PART A & B [facility] MEDICARE PART A & B Member Subscriber Plan / Payer (Ef fective 2020-) Name:Brian Antonio Member ID:[id number] Relation to Subscriber:Self Name:Brian Antonio Subscriber ID:[id number] Payer ID:[id number] Group ID:Not on file Type:Medicare Address: [address] [place] [id number] [facility] MEDICARE PART A & B [facility] MEDICARE PART A & B [facility] MEDICARE PART A & B [facility] MEDICARE PART A & B [facility] & B [facility] MEDICARE PART A & B [facility] Care Teams Quality Assurance Inspector Relationship Specialty Start Date End Date System, Provider Not In, [facility] [address] [address] PCP - General 09/11/21 Additional Source Comments The information contained in this document represents components of the legal health record. It is not the complete legal health record.[facility]
--- OUTSIDE RECORDS SUMMARY | 2025-07-12 08:54 | XMS_ITS | Patient Health Record ---
Author Organization [facility] Address [address] [place] [address] Care Team Providers Care Punch Card Operator Name Role Phone SARAH JACKSON Primary Care Provider Chinmay Christine Unavailable [phone] KRISTINE BLUM Unavailable Unavailable Allergies Allergen (clinical drug ingredient) Drug/Non Drug Allergy documented on EMR Reaction Allergy Type Onset Date Status Penicillin Unknown Drug Allergy Active Sulfa Unknown Drug Allergy Active Reason For Referral No Information Medications Medication SIG (Take, Route, Frequency, Duration) Notes Start Date End Date Status amLODIPine Besylate 10 MG Tablet 1 tablet Orally Once a day; Duration: 30 day(s) Active cloNIDine HCl 0.1 MG Tablet 1 tablet at bedtime Orally Twice a day Active Melatonin Not-Taking /PRN Lisinopril 40 MG Tablet 1 tablet Orally Once a day Active HumaLOG 100 UNIT/ML Solution Cartridge 10 unitsas directed Subcutaneous QID Active Creon 29274-[address]238 UNIT Capsule Delayed Release Particles as directed Orally Active Ambien 10 MG Tablet 1 tablet at bedtime as needed Orally Once a day Active Lantus 100 UNIT/ML Solution as directed Subcutaneous daily Active Pantoprazole Sodium 40 MG Tablet Delayed Release 1 tablet Orally Once a day; Duration: 30 day(s) Active Amitriptyline HCl 150 MG Tablet 1 tablet at bedtime Orally Once a day; Duration: 30 day(s) Active Bystolic 20 MG Tablet 1 tablet Orally On ce a day; Duration: 30 day(s) Active LaMICtal 200 MG Tablet 1 tablet Orally O nce a day; Duration: 30 day(s) Active Immunizations Vaccine Route Administration Date Status Comme nts Influenza Unknown 01/21/2019 Refused Social History Tobacco Use: Social History Observation Description Date Details (start date - stop date) Current Smoker NA - NA Social History Tobacco Use: Social Info Question Answer Notes Tobacco Use/Smoking Patient is a current smoker How often do you smoke cigarettes? every day How many cigarettes a day do you smoke? 11-20 How soon after you wake up do you smoke your first cigarette? 31-60 minutes Are you interested in quitting? 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 [employer] Section Notes: Smoker 1 ppd; no drugs; Drin ks very rarely now, but heavier in the past Smoker 1/2 ppd; no drugs; Et OH abuse, but reports sobriety as of 08/2018 Problems Problem Type SNOMED Code ICD Code Onset Dates Problem Status W/U Status Risk Notes Problem Gastro-esophageal reflux disease without esophagitis (552693079) Gastro-esophageal reflux disease without esophagitis (K21.9) Active confirmed Problem Gastroesophageal reflux disease (668354401) Gastroesophageal reflux disease, esophagitis presence not specified (K21.9) Active confirmed Problem Rectal pain (88748185) Rectal pain (K62.89) Active confirmed Problem Pancreatitis, alcoholic, acute (K85.2) Active confirmed Problem Generalized abdominal pain (701147540) Abdominal pain, generalized (R10.84) Active confirmed Problem Diarrhea (45384751) Diarrhea, unspecified type (R19.7) Active confirmed Problem Acute pancreatitis (164638386) Alcohol-induced acute pancreatitis without infection or necrosis [...] Insured Coverage Start Date Coverage End Date [employer] [facility] [address] [address] [place], [place] [id number] CARLI PACHECO Self - patient is the insured Medical (General) History Medical History History ICD Code Depression/Anxiety/Psychosis Psoriatic arthritis Arthritis Pancreatitis due to EtOH--arroyo mmer of 2012-in [facility] ICU--he developed a pseudocyst at that time--he describes hospitalizations at [facility] and at [facility] for pancreatitis as well--he describes an ERCP at [facility] for an attempted placement of a stent with Dr. Rodriguez, but this apparently was not successful-he ultimately had a pseudocyst drainage procedure by the interventional radiologist at [facility] in 07/2013. He had a normal CT [...] Surgical History Surgery Date(Month/Year) Lap CCY at [facility]--03/2014 Bilateral carpal tunnel
--- OUTSIDE RECORDS SUMMARY | 2025-07-12 08:54 | XMS_ITS | Clinical Summary ---
Author Organization [facility] ity Address [address] [place] [address] Care Team Providers Care Chilling Hood Operator Name Role Phone Unavailable Primary Care [...] Documents on File Type Date Recorded Patient Pbx Manager Expl anation Health Care Decision (hx) 11/16/2014 AD LC DIRECTIVE Health Care Decision (hx) 11/14/2014 AD LC DIRECTIVE
== END 2025-07-11 08:28 | disposition home or self-care (01) ==
LOC: HO.HOSX 08:27
PROVIDERS: Visit Provider Physician Assistant
DX: M17.12 Unilateral primary osteoarthritis, left knee (principal); E11.65 Type 2 diabetes mellitus with hyperglycemia; N18.30 Chronic kidney disease, stage 3 unspecified; E11.22 Type 2 diabetes mellitus with diabetic chronic kidney disease; S36.209S Unspecified injury of unspecified part of pancreas, sequela; Z79.4 Long term (current) use of insulin; X58.XXXS Exposure to other specified factors, sequela
CPT/HCPCS: 73562

== ENCOUNTER 2025-07-11 09:38 | Outpatient (AMB) | payer OTHER, SELFPAY ==
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
[2025-07-11 10:00] VITALS: BMI 34.5
== END 2025-07-11 11:18 | disposition home or self-care (01) ==
LOC: HO.HOS 09:38
PROVIDERS: PCP Nurse Practitioner Family; Visit Provider Physician Assistant
DX: M17.12 Unilateral primary osteoarthritis, left knee (principal); E13.9 Other specified diabetes mellitus without complications; S36.209S Unspecified injury of unspecified part of pancreas, sequela
CPT/HCPCS: 99203; G2211

== ENCOUNTER → 2025-07-11 09:41 | Outpatient (BNV) | payer OTHER, SELFPAY | PROVIDERS: Visit Provider Radiology Diagnostic Radiology | DX: M17.12 Unilateral primary osteoarthritis, left knee (principal) | CPT/HCPCS: 73562 ==